=== PATIENT | female | born 1965 ===

== ENCOUNTER 2020-06-30 09:10 | Outpatient (REF) | payer OTHER, SELFPAY | END 2020-06-30 09:11 | disposition home or self-care (01) | LOC: HO.LAB 09:10 | PROVIDERS: Visit Provider Internal Medicine | DX: Z20.828 Contact with and (suspected) exposure to other viral communicable diseases (principal) | CPT/HCPCS: 87635 ==

== ENCOUNTER 2020-08-09 15:03 | Outpatient (REF) | payer OTHER, SELFPAY ==
--- NOTE | 2020-08-09 15:07 | US_ITS ---
EXAMINATION: US ABDOMEN LIMITED CLINICAL INFORMATION: Right upper quadrant pain. COMPARISON: None TECHNIQUE: Real-time imaging of the right upper quadrant abdominal viscera. FINDINGS: PANCREAS: Not well visualized LIVER: Not well visualized. Liver echotexture is increased probably representing fatty infiltration. The liver is enlarged, right lobe measuring 21.5 cm in length. No focal liver lesion or biliary duct dilatation is seen. GALLBLADDER: Not well visualized. No gallstones are seen. The gallbladder wall does not appear thickened. COMMON BILE DUCT: Normal in caliber measuring 0.5 cm in diameter. RIGHT KIDNEY: Not well visualized. No hydronephrosis. No renal calculi or focal parenchymal lesions. The kidney measures 12.5 cm in maximum dimension. FREE FLUID: None. US/US abdomen limited IMPRESSION: Limited exam. Enlarged echogenic liver probably representing fatty infiltration.
== END 2020-08-09 15:04 | disposition home or self-care (01) ==
LOC: HO.US 15:03
PROVIDERS: PCP Internal Medicine; Visit Provider Internal Medicine
DX: R10.11 Right upper quadrant pain (principal); R13.14 Dysphagia, pharyngoesophageal phase; K21.9 Gastro-esophageal reflux disease without esophagitis; D12.6 Benign neoplasm of colon, unspecified; Z86.19 Personal history of other infectious and parasitic diseases
CPT/HCPCS: 76705

== ENCOUNTER 2020-09-10 07:39 | Outpatient (REF) | payer OTHER, SELFPAY ==
[2020-09-10 08:25] LABS: MANUAL DIFF FLAG NO
[2020-09-10 08:26] LABS: Basophils Percent Auto 0.3 % (0-2); Eosinophils Absolute Auto 0.2 X10*3/uL (0.0-0.4); Eosinophils Percent Auto 1.5 % (0-4); Hemoglobin 13.7 g/dl (12.0-16.0); Imm Gran Abs Auto 0.06 X10*3/uL (0.00-0.03); Imm Gran Pct Auto 0.5 % (0.0-0.4); Lymphocytes Absolute Auto 2.6 X10*3/uL (1.2-4.9); Lymphocytes Percent Auto 21.9 % (20-40); Mean Corpuscular HGB Conc 31.1 g/dl (31.0-35.0); Mean Corpuscular Hemoglobin 27.9 pg (27.0-33.0); Mean Corpuscular Volume 89.6 fL (80-98); Mean Platelet Volume 10.6 fL (9.4-12.3); Monocytes Absolute Auto 0.7 X10*3/uL (0.1-1.2); Monocytes Percent Auto 5.7 % (2-11); Neutrophils Absolute Auto 8.2 X10*3/uL (2.0-8.3); Neutrophils Percent Auto 70.1 % (45-73); Platelet Count 346 X10*3/uL (160-400); Red Blood Count 4.91 X10*6/uL (4.20-5.50); Red Cell Distribution Width 13.6 % (11.0-16.0); White Blood Count 11.7 X10*3/uL (4.8-10.8)
[2020-09-10 08:48] LABS: Alanine Aminotransferase 29 U/L (0-31); Alkaline Phosphatase 102 U/L (39-117); Aspartate Amino Transferase 16 U/L (5-31); Bilirubin Direct < 0.2 mg/dL (0.0-0.5); Bilirubin Total 0.3 mg/dL (0.0-1.0); Lipase 6 U/L (8-78); Total Protein 7.3 g/dL (6.5-8.0)
== END 2020-09-10 07:40 | disposition home or self-care (01) ==
LOC: HO.LAB 07:39
PROVIDERS: Absent Provider Internal Medicine Gastroenterology; PCP Internal Medicine; Visit Provider Internal Medicine
DX: R10.11 Right upper quadrant pain (principal)
CPT/HCPCS: 36415; 80076; 83690; 85025

== ENCOUNTER → 2020-09-16 11:06 | Outpatient (BNVA) | payer OTHER, SELFPAY | PROVIDERS: PCP Internal Medicine; Visit Provider Internal Medicine Pulmonary Disease | DX: Z76.89 Persons encountering health services in other specified circumstances (principal) ==

== ENCOUNTER 2020-10-03 15:37 | Outpatient (REF) | payer OTHER, SELFPAY ==
--- NOTE | 2020-10-03 11:36 | PFT_ITS ---
Forced vital capacity and FEV1 are both moderately decreased. FEV1/FVC ratio is normal. XAY56-15 normal. MVV moderately reduced. Post bronchodilator therapy, there is no change. Total lung capacity and residual volume are both moderately decreased. Diffusion capacity is slightly decreased, but DL-VA is normal. CONCLUSION: Restrictive pulmonary disorder, moderately severe. No obstructive airway disorder. No response to bronchodilator therapy. Restrictive pulmonary disorder, probably due to morbid obesity. Clinical correlation recommended. Compared to the PFT result of 10/10/2018, the restrictive component is much more increased. Molina Elizabeth MD MSB/MODL / [id number]
== END 2020-10-03 15:38 | disposition home or self-care (01) ==
LOC: HO.RESP 15:37
PROVIDERS: PCP Internal Medicine; Visit Provider Internal Medicine Pulmonary Disease
DX: R05 Cough (principal)
CPT/HCPCS: 94060; 94727; 94729

== ENCOUNTER 2020-11-12 08:08 | Outpatient (REF) | payer OTHER, SELFPAY ==
--- NOTE | ~2020-11-12 | MM_ITS ---
EXAMINATION: MM SCREENING DIGITAL BREAST TOMOSYNTHESIS, BILATERAL CLINICAL INFORMATION: Screening. Asymptomatic. The lifetime risk of breast cancer based on the Tyrer-Cuzick Model is 7%. COMPARISON: Mammography: 11/07/2019, 11/01/2018 TECHNIQUE: Digital breast tomosynthesis is performed in both the craniocaudal and mediolateral oblique views along with computer-aided detection (CAD). Synthesized 2D images are generated from the tomosynthesis. Additional left MLO view is provided. FINDINGS: There are scattered areas of fibroglandular density (ACR BI-RADS breast composition Category b). There are no significant masses, abnormal calcifications, or other abnormalities. The axilla and skin contours are unremarkable. There are no significant changes from prior studies. MM/MM tomosynthesis screening BI IMPRESSION: No mammographic evidence of malignancy. ASSESSMENT: BI-RADS 1: Negative RECOMMENDATION: Routine annual mammography screening. This patient's information was entered into a reminder system with a target due date for their next mammogram.
== END 2020-11-12 08:09 | disposition home or self-care (01) ==
LOC: HO.MAMMO 08:08
PROVIDERS: PCP Internal Medicine; Visit Provider Internal Medicine
DX: Z12.31 Encounter for screening mammogram for malignant neoplasm of breast (principal)
CPT/HCPCS: 77063; 77067

== ENCOUNTER 2021-03-17 18:57 | Emergency (ER) | payer OTHER, SELFPAY ==
[2021-03-17 19:21] VITALS: BP 178/98; PULSE 90; RESP 22; TEMP 36.7; O2SAT 93; BMI 44.9
--- NOTE | 2021-03-17 20:49 | ED_ITS ---
HPI - Headache General Chief Complaint: Headache Stated Complaint: headache Time Seen by Provider: 03/17/21 20:39 Source: patient Mode of arrival: ambulatory Limitations: no limitations History of Present Illness HPI Narrative: Patient's history of headaches question migraine in the past complaining of headache and right-sided for last 3 days associated with nausea photosensitivity no fever no chills no neck pain Related Data Home Medications Medication Instructions Recorded Confirmed albuterol sulfate 90 mcg/actuation 2 puff INHALATION Q4-6H PRN 08/08/20 12/26/20 aerosol inhaler albuterol sulfate 90 mcg/actuation 2 puff INHALATION Q4-6H PRN 08/08/20 12/26/20 aerosol inhaler Previous Rx's Medication Instructions Recorded hydrochlorothiazide 12.5 mg tablet 12.5 mg PO DAILY 90 Days #90 tab 08/08/20 bisacodyl 5 mg tablet,delayed 5 mg PO BEDTIME 2 Days #2 tab 08/09/20 release peg 3350-electrolytes 236 240 ml PO Q10M #4000 ml 08/09/20 gram-22.74 gram-6.74 gram-5.86 gram solution polyethylene glycol 3350 17 17 g PO DAILY 7 Days #119 g 08/09/20 gram/dose oral powder atorvastatin 80 mg tablet 80 mg PO DAILY #90 tab 09/04/20 fluticasone 250 mcg-salmeterol 50 1 inh INHALATION BID 30 Days #1 ea 09/16/20 mcg/dose blistr powdr for inhalation omeprazole 20 mg capsule,delayed 40 mg PO BID 30 Days #120 cap 09/16/20 release diclofenac sodium 50 mg 50 mg PO BID #60 tab 12/01/20 tablet,delayed release gabapentin 100 mg capsule 100 mg PO BEDTIME 90 Days #90 cap 12/26/20 vtrfpxnwlr-dvzrtatqmwsdr-nakz 1 cap PO Q6H PRN #20 cap 03/17/21 [Fioricet] sumatriptan succinate [Imitrex] 50 mg PO Q2H PRN #10 tab 03/17/21 Allergies Allergy/AdvReac Type Severity Reaction Status Date / Time No Known Allergies Allergy Verified 12/26/20 18:21 [No Known Allergies*] Review of Systems Review of Systems: Yes all other systems are reviewed and are negative PMFSH Past Medical History Medical History Chronic cough Essential hypertension Mild asthma RANJIT (obstructive sleep apnea) Pure hypercholesterolemia Super obese Surgical History History of section History of colonoscopy History of tubal ligation Family History Family History Father Diabetes Hypertension Mother Hypertension Liver cancer Maternal Grandfather Throat cancer Paternal Grandmother Stomach cancer Social History Social History Alcohol intake: never Advance Directives: No Advance Directives Information Provided: Yes Patient : No Physical Exam Vital Signs: Vital Signs: Last Vital Signs Temp 98.9 F 03/17/21 20:59 Pulse 90 03/17/21 20:59 Resp 20 03/17/21 20:59 BP 174/100 H 03/17/21 20:59 Pulse Ox 92 03/17/21 20:59 Body Mass Index 44.9 Appearance: Alert. Oriented X3. No acute distress. Eyes: PERRLA, No Nystagmus ENT: Pharynx normal. Oral Mucosa moist Neck: Normal inspection. Neck supple. CVS: Normal heart rate and rhythm. Pulses normal. Respiratory: No respiratory distress. Equal air entry bilateral, no wheezing/rales/rhonchi Abdomen: Soft and nontender. Skin: Skin warm and dry. Normal skin color. Normal skin turgor. Extremities: No lower extremity edema. No calf tenderness Neuro: Oriented X 3. No motor deficit. No sensory deficit.No cerebellar signs , cranial nerves II-XII intact Course Course Course Narrative: Patient feeling much better after Imitrex headache is almost gone will discharge patient on Imitrex and Fioricet Discharge Plan Discharge Clinical Impression: Migraine Qualifiers: Migraine type: without aura Status migrainosus presence: without status migra inosus Intractability: not intractable Qualified Code(s): G43.009 - Migraine without aura, not intractable, without status migrainosus Patient Disposition: Home, Self-Care Instructions: Migraine Headache (ED) Additional Instructions: Take medication as prescribed Follow-up with PCP if not better Prescriptions: New sumatriptan succinate [Imitrex] 50 mg tablet 50 mg PO Q2H PRN (Reason: migraine headache) Qty: 10 RF: 0 [id number]-ramarximxdpgw-ruxe [Fioricet] 50-300-40 mg capsule 1 cap PO Q6H PRN (Reason: pain) Qty: 20 RF: 0 No Action atorvastatin 80 mg tablet 80 mg PO DAILY Qty: 90 RF: 6 diclofenac sodium 50 mg tablet,delayed release (DR/EC) 50 mg PO BID Qty: 60 RF: 3 gabapentin 100 mg capsule 100 mg PO BEDTIME 90 Days Qty: 90 RF: 0 albuterol sulfate 90 mcg/actuation HFA aerosol inhaler 2 puff inhalation Q4-6H PRNRF: 0 albuterol sulfate [Ventolin HFA] 90 mcg/actuation HFA aerosol inhaler 2 puff inhalation Q4-6H PRNRF: 0 hydrochlorothiazide 12.5 mg tablet 12.5 mg PO DAILY 90 Days Qty: 90 RF: 3 bisacodyl [Dulcolax (bisacodyl)] 5 mg tablet,delayed release (DR/EC) 5 mg PO BEDTIME 2 Days Qty: 2 RF: 0 peg 3350-electrolytes [Golytely] 236-22.74-6.74 -5.86 gram recon soln 240 ml PO Q10M Qty: 4000 RF: 0 polyethylene glycol 3350 [Miralax] 17 gram/dose powder 17 g PO DAILY 7 Days Qty: 119 RF: 0 fluticasone propion-salmeterol [Wixela Inhub] 250-50 mcg/dose blister with device 1 inh inhalation BID 30 Days Qty: 1 RF: 6 omeprazole 20 mg capsule,delayed release(DR/EC) 40 mg PO BID 30 Days Qty: 120 RF: 2
[2021-03-17 20:50] VITALS: BP 153/93; PULSE 88; RESP 15; TEMP 36.6; O2SAT 95
[2021-03-17 20:59] VITALS: BP 174/100; PULSE 90; RESP 20; TEMP 37.2; O2SAT 92
== END 2021-03-17 22:00 | disposition home or self-care (01) ==
PROVIDERS: Emergency Provider Internal Medicine; PCP Internal Medicine
DX: G43.009 Migraine without aura, not intractable, without status migrainosus (principal); I10 Essential (primary) hypertension; J45.909 Unspecified asthma, uncomplicated; Z79.899 Other long term (current) drug therapy
CPT/HCPCS: 96372; 99284; J3030

== ENCOUNTER 2021-03-25 08:20 | Outpatient (REF) | payer OTHER, SELFPAY ==
[2021-03-25 09:10] LABS: MANUAL DIFF FLAG NO
[2021-03-25 09:15] LABS: Basophils Percent Auto 0.2 % (0-2); Eosinophils Absolute Auto 0.2 X10*3/uL (0.0-0.4); Eosinophils Percent Auto 1.2 % (0-4); Hematocrit 43.8 % (37-47); Hemoglobin 13.4 g/dl (12.0-16.0); Imm Gran Abs Auto 0.06 X10*3/uL (0.00-0.03); Imm Gran Pct Auto 0.5 % (0.0-0.4); Lymphocytes Absolute Auto 2.9 X10*3/uL (1.2-4.9); Mean Corpuscular HGB Conc 30.6 g/dl (31.0-35.0); Mean Corpuscular Hemoglobin 27.3 pg (27.0-33.0); Mean Corpuscular Volume 89.4 fL (80-98); Mean Platelet Volume 10.9 fL (9.4-12.3); Monocytes Absolute Auto 0.7 X10*3/uL (0.1-1.2); Monocytes Percent Auto 5.2 % (2-11); Neutrophils Absolute Auto 9.2 X10*3/uL (2.0-8.3); Neutrophils Percent Auto 70.9 % (45-73); Platelet Count 363 X10*3/uL (160-400)
[2021-03-25 09:38] LABS: Alanine Aminotransferase 15 U/L (0-31); Albumin Level 4.1 g/dL (3.5-5.0); Alkaline Phosphatase 110 U/L (39-117); Anion Gap 14 (12-20); Aspartate Amino Transferase 12 U/L (5-31); Bilirubin Total 0.3 mg/dL (0.0-1.0); Blood Urea Nitrogen 11 mg/dL (9-16); Calcium 9.6 mg/dL (8.4-10.2); Carbon Dioxide 32 mmol/L (22-29); Chloride 99 mmol/L (96-108); Cholesterol 307 mg/dL; Estimated Glomerular Filt Rate > 60; Glucose Fasting 142 mg/dL (60-99); HDL Cholesterol 48 mg/dL; LDL Cholesterol Calculated 202 mg/dl; Potassium 5.1 mmol/L (3.3-5.1); Sodium 140 mmol/L (135-145); Total Protein 7.5 g/dL (6.5-8.0); Triglycerides 289 mg/dL
== END 2021-03-25 08:21 | disposition home or self-care (01) ==
LOC: HO.LAB 08:20
PROVIDERS: PCP Internal Medicine; Visit Provider Internal Medicine
DX: I10 Essential (primary) hypertension (principal); E78.5 Hyperlipidemia, unspecified; D64.9 Anemia, unspecified
CPT/HCPCS: 36415; 80053; 80061; 85025

== ENCOUNTER → 2021-05-09 15:09 | Outpatient (BNVA) | payer OTHER, SELFPAY | PROVIDERS: PCP Internal Medicine; Visit Provider Internal Medicine Pulmonary Disease ==

== ENCOUNTER 2021-05-12 18:41 | Outpatient (REF) | payer OTHER, SELFPAY ==
--- NOTE | ~2021-05-12 | MR_ITS ---
EXAMINATION: MR BRAIN WITHOUT CONTRAST CLINICAL INFORMATION: Headache. COMPARISON: CT head from 02/06/2016. TECHNIQUE: MRI of the brain was obtained using routine sequences without contrast. Limited exam. The exam was terminated prior to completion secondary to claustrophobia. FINDINGS: No focal restricted diffusion is demonstrated to suggest acute or subacute cerebral ischemia. The ventricles are normal in morphology and size. No demonstrated abnormal mass effect. No midline shift. Normal positioning of the cerebellar tonsils. Normal, homogeneous marrow signal. MR/MR head/brain wo con IMPRESSION: 1. Limited exam. Exam was terminated prior to completion secondary to claustrophobia. 2. No demonstrated abnormalities to explain the patient's symptoms on the limited evaluation.
== END 2021-05-12 18:42 | disposition home or self-care (01) ==
LOC: HO.MRI 18:41
PROVIDERS: PCP Internal Medicine; Visit Provider Internal Medicine
DX: R51.9 Headache, unspecified (principal)
CPT/HCPCS: 70551

== ENCOUNTER → 2021-05-25 15:05 | Outpatient (BNVA) | payer OTHER, SELFPAY | PROVIDERS: PCP Internal Medicine; Visit Provider Internal Medicine Pulmonary Disease ==

== ENCOUNTER → 2021-06-19 15:48 | Outpatient (REF) | payer OTHER, SELFPAY | LOC: HO.SL 15:48 | PROVIDERS: PCP Internal Medicine; Visit Provider Internal Medicine Pulmonary Disease | DX: G47.33 Obstructive sleep apnea (adult) (pediatric) (principal) | CPT/HCPCS: 95806 ==

== ENCOUNTER → 2021-07-05 16:01 | Outpatient (BNVA) | payer OTHER, SELFPAY | PROVIDERS: PCP Internal Medicine; Visit Provider Internal Medicine Pulmonary Disease ==

== ENCOUNTER 2021-08-17 13:34 | Observation (INO) | payer OTHER, SELFPAY ==
--- NOTE | ~2021-08-17 | XR_ITS ---
EXAMINATION: XR CHEST CLINICAL INFORMATION: Syncopal episode. COMPARISON: Multiple priors. Most recent chest radiograph dated from 01/02/2020. TECHNIQUE: PA view of the chest was obtained. FINDINGS: Normal appearance of the cardiomediastinal silhouette. Subtle platelike opacities in the lingula are stable and likely representing scarring. Otherwise, no focal airspace opacities, pleural effusions or pneumothorax. No acute osseous abnormalities. XR/XR chest 1V IMPRESSION: No acute cardiopulmonary findings.
--- NOTE | ~2021-08-17 | CT_ITS ---
EXAMINATION: CT CERVICAL SPINE WITHOUT CONTRAST CLINICAL INFORMATION: Syncopal episode and fall. COMPARISON: Radiograph of the cervical spine dated from 11/05/2017. TECHNIQUE: Axial, coronal and sagittal images of the cervical spine were obtained without the administration of intravenous contrast. This CT examination was performed using dose optimization techniques as appropriate, variously including the following: *Automated exposure control *Adjustment of mA and/or kV according to patient size (this includes techniques or standardized protocols for targeted exams where dose is matched to indication/reason for exam; i.e. extremities or head) *Use of iterative reconstruction technique DLP: 694 mGy-cm FINDINGS: The atlantooccipital and atlantoaxial articulations remain well aligned. Straightening of the normal cervical lordosis. Congenital nonfusion of the posterior arch of C1. Otherwise, there is anatomic alignment of the vertebral bodies and posterior elements. No evidence of acute fracture or subluxation. There is mild multilevel cervical spondylosis with disc space narrowing, anterior osteophytes and uncovertebral hypertrophy. There is no prevertebral soft tissue swelling. The thyroid gland and remaining cervical soft tissues are normal in appearance. The lung apices demonstrate no abnormalities. CT/CT cervical spine wo con IMPRESSION: No acute cervical fractures or malalignment.
--- NOTE | ~2021-08-17 | XR_ITS ---
EXAMINATION: XR SHOULDER, RIGHT CLINICAL INFORMATION: Syncopal episode and fall. COMPARISON: Multiple priors. Most recent chest radiograph dated from 01/02/2020. TECHNIQUE: Three views of the right shoulder. FINDINGS: No evidence of acute fractures or malalignment. The humeral head is well-seated in the glenoid. There are mild degenerative changes in the acromioclavicular joint. No suspicious soft tissue calcifications. The visualized right lung, clavicle and ribs are unremarkable. XR/XR shoulder RT min 2V IMPRESSION: No acute fractures or malalignment.
--- NOTE | ~2021-08-17 | CT_ITS ---
EXAMINATION: CT HEAD WITHOUT CONTRAST CLINICAL INFORMATION: Dizziness. COMPARISON: None TECHNIQUE: Contiguous axial imaging was performed from the skull base to vertex without intravenous administration of contrast. This CT examination was performed using dose optimization techniques as appropriate, variously including the following: *Automated exposure control *Adjustment of mA and/or kV according to patient size (this includes techniques or standardized protocols for targeted exams where dose is matched to indication/reason for exam; i.e. extremities or head) *Use of iterative reconstruction technique DLP: 874 mGy-cm FINDINGS: There is no evidence of acute intracranial hemorrhage or territorial infarction. No abnormal mass effect or midline shift is seen. [place] to white matter differentiation is well preserved. No extra-axial fluid collections are identified. The ventricles are normal in size. There is no abnormal attenuation within the brain parenchyma. The osseous structures and soft tissues are normal. The mastoid air cells and visualized portions of the paranasal sinuses are well aerated. CT/CT head/brain wo con IMPRESSION: No acute intracranial process.
[2021-08-17 14:01] VITALS: BP 196/97; PULSE 72; RESP 18; TEMP 36.8; O2SAT 94; BMI 43.2
--- NOTE | 2021-08-17 14:59 | ECG_ITS ---
Test Reason : SYNCOPE Blood Pressure : / mmHG Vent. Rate : 092 BPM Atrial Rate : 092 BPM P-R Int : 134 ms QRS Dur : 086 ms QT Int : 382 ms P-R-T Axes : 057 059 120 degrees QTc Int : 472 ms Normal sinus rhythm T wave abnormality, consider lateral ischemia Prolonged QT Abnormal ECG When compared with ECG of 12-JUL-2019 07:14, No significant change was found Referred By: Generic ED Physician Electronically Signed By:GAVIN TSE MD
--- NOTE | 2021-08-17 15:25 | PC.NURSE ---
ATTEMPTED TO CALL PATIENT INTO ED. NO ANSWER IN WAITING ROOM. HEEL SPR[facility]ER FIRST REPORTS THAT CT WAS COMPLETED.
[2021-08-17 17:12] VITALS: BP 178/93; PULSE 86; RESP 16; TEMP 36.6; O2SAT 96
--- NOTE | 2021-08-17 17:26 | ED_ITS ---
HPI - General Adult General Chief complaint: Fall Stated complaint: fell at work Time Seen by Provider: 08/17/21 14:31 Source: patient and family ( son) Mode of arrival: ambulatory Limitations: no limitations History of Present Illness HPI narrative: 56-year-old female brought in by her son for evaluation after passing out at her work. This happen today while patient at work at 12:30 p.m., patient was working with no symptoms patient passed out and lost consciousness fell down witnessed by other co-worker, lasted for about few minutes, patient declined any chest pain or shortness of breath, no weakness or numbness, patient is complaining of neck pain, right shoulder pain, mild headache. Patient has no chest pain. Never had this symptoms in the past, patient now feels better. Related Data Home Medications Medication Instructions Recorded Confirmed albuterol sulfate 90 mcg/actuation 2 puff INHALATION Q4-6H PRN 08/08/20 05/01/21 aerosol inhaler albuterol sulfate 90 mcg/actuation 2 puff INHALATION Q4-6H PRN 08/08/20 05/01/21 aerosol inhaler (Ventolin HFA) Previous Rx's Medication Instructions Recorded hydrochlorothiazide 12.5 mg tablet 12.5 mg PO DAILY 90 Days #90 tab 08/08/20 bisacodyl 5 mg tablet,delayed 5 mg PO BEDTIME 2 Days #2 tab 08/09/20 release (Dulcolax (bisacodyl)) peg 3350-electrolytes 236 240 ml PO Q10M #4000 ml 08/09/20 gram-22.74 gram-6.74 gram-5.86 gram solution (Golytely) polyethylene glycol 3350 17 17 g PO DAILY 7 Days #119 g 08/09/20 gram/dose oral powder (Miralax) atorvastatin 80 mg tablet 80 mg PO DAILY #90 tab 09/04/20 diclofenac sodium 50 mg 50 mg PO BID #60 tab 12/01/20 tablet,delayed release feshuzaohu-isiosjbhplfcb-aafypomg 1 cap PO Q6H PRN #20 cap 03/17/21 50 mg-300 mg-40 mg capsule (Fioricet) gabapentin 100 mg capsule 100 mg PO BEDTIME 90 Days #90 cap 04/01/21 ezetimibe 10 mg tablet 10 mg PO DAILY 90 Days #90 tab 05/01/21 metformin 500 mg tablet 500 mg PO DAILY 90 Days #90 tab 05/01/21 sertraline 25 mg tablet 25 mg PO DAILY 90 Days #90 tab 05/01/21 sumatriptan succinate 50 mg tablet 50 mg PO Q2H PRN 30 Days #9 tab 05/01/21 (Imitrex) fluticasone 250 mcg-salmeterol 50 1 inh INHALATION BID 30 Days #1 ea 05/09/21 mcg/dose blistr powdr for inhalation (Wixela Inhub) omeprazole 20 mg capsule,delayed 40 mg PO BID 30 Days #120 cap 07/05/21 release Allergies Allergy/AdvReac Type Severity Reaction Status Date / Time No Known Allergies Allergy Verified 05/09/21 15:10 [No Known Allergies*] Review of Systems Review of Systems: all other systems are reviewed and are negative Constitutional: Reports as per HPI and Reports no additional constitutional complaints Eyes: Reports as per HPI and Reports no additional eye complaints Reports system reviewed and no additional complaints, except as documented Cardiovascular: Reports as per HPI and Reports no additional cardiovascular complaints Respiratory: Reports as per HPI and Reports no additional respiratory complaints Gastrointestinal: Reports as per HPI and Reports no additional gastrointestinal complaints Genitourinary: Reports no additional female genitourinary complaints Musculoskeletal: Reports no additional musculoskeletal complaints Skin/Breast: Reports system reviewed and no additional complaints, except as docu Psychiatric: Reports no additional psychiatric complaints Endocrine: Reports no additional endocrine complaints Hematologic/Lymphatic: Reports no additional hematologic/lymphatic complaints Allergic/Immunologic: Reports no additional allergic/immunologic complaints Reports system reviewed and no additional complaints, except as documented and Reports Abnormal speech present REPLACED BY [facility] Past Medical History Medical History Chronic cough Diabetes mellitus Essential hypertension Headache Mild asthma Mild recurrent major depression RANJIT (obstructive sleep apnea) Pure hypercholesterolemia Super obese Surgical History History of section History of colonoscopy History of tubal ligation Family History Family History Father Diabetes Hypertension Mother Hypertension Liver cancer Maternal Grandfather Throat cancer Paternal Grandmother Stomach cancer Social History Social History Housing: House Alcohol intake: current Alcohol intake frequency: holidays/special occasions only Patient Tobacco Use Status: Never used Tobacco Advance Directives: No Advance Directives Information Provided: No Current occupational status: employed Physical Exam Vital Signs: Vital Signs: Last Vital Signs Temp 97.9 F 08/17/21 17:12 Pulse 86 08/17/21 17:12 Resp 16 08/17/21 17:12 BP 178/93 H 08/17/21 17:12 Pulse Ox 96 08/17/21 17:12 BMI result Body Mass Index 43.2 vital signs have been reviewed as appeared to be correct. Blood pressure elev ated. Heart rate normal. Respiration rate normal. Temperature normal. Oxygen saturation normal. Appearance: Alert. Oriented X3. No acute distress. Head: Normal external exam. Normocephalic. Atraumatic. No Valdes signs noted. No raccoon eyes noted Eyes: PERRLA. EOMI. Conjunctiva and sclera normal. Eyelids normal. ENT: TM's Normal. Pharynx normal. Uvula midline. Moist mucous membranes. No trismus noted. No drooling noted. No muffled voice noted. Neck: Normal inspection. Neck supple. FROM. No adenopathy. Thyroid Normal. No meningeal signs. No neck mass noted. CVS: Normal heart rate and rhythm. Heart sound normal. No murmurs noted. Pulses normal throughout. Respiratory: No respiratory distress. Painless inspiration. Breath sounds normal. No wheezes/rales/rhonchi noted. Chest nontender. No accessory muscle usage noted or decreased air movement noted. Abdomen: Soft and nontender. Bowel sounds normal in all 4 quadrants. No distention noted. No organomegaly noted. No visible injury noted. Back: No CVA tenderness. Full range of motion noted. Skin: Skin warm and dry. Normal skin color. Normal skin turgor. No rashes/lesions/lacerations noted. Extremities: No lower extremity edema. Extremities exhibit normal range of motion. Extremities nontender. Neuro: Oriented X 3. Cranial nerve exam: II-XII are grossly intact No motor deficit. No sensory deficit. Reflexes normal. Course Course Course Narrative: Assessment and plan. 56-year-old female came in after had syncopal episode at work in a patient declined any chest pain or difficulty breathing, patient had unremarkable workup in the emergency department, but will admit the patient for cardiac monitoring and syncope workup. Medical Decision Making Medical Records Medical records reviewed: Yes I reviewed the patient's medical records. Lab Data Lab results reviewed: Yes I reviewed the patient's lab results. Result diagrams: 08/17/21 18:48 08/17/21 18:48 Labs: Lab Results 08/17/21 08/17/21 08/17/21 Range/Units 18:48 18:48 18:48 WBC 13.2 H (4.8-10.8) X10*3/uL RBC 4.74 (4.20-5.50) X10*6/uL Hgb 13.2 (12.0-16.0) g/dl Hct 42.1 (37.0-47.0) % MCV 88.8 (80.0-98.0) fL MCH 27.8 (27.0-33.0) pg MCHC 31.4 (31.0-35.0) g/dl RDW 13.6 (11.0-16.0) % Plt Count 351 (160-400) X10*3/uL MPV 10.6 (9.4-12.3) fL Immature Gran % (Auto) 0.5 H (0.0-0.4) % Neut % (Auto) 67.0 (45-73) % Lymph % (Auto) 25.1 (20-40) % [place] % (Auto) 6.1 (2-11) % Eos % (Auto) 1.1 (0-4) % Baso % (Auto) 0.2 (0-2) % Lymph # (Auto) 3.3 (1.2-4.9) X10*3/uL [place] # (Auto) 0.8 (0.1-1.2) X10*3/uL Eos # (Auto) 0.1 (0.0-0.4) X10*3/uL Baso # (Auto) 0.0 (0.0-0.2) X10*3/uL Abs Immat Gran (auto) 0.06 H (0.00-0.03) X10*3/uL Absolute Neuts (auto) 8.9 H (2.0-8.3) x10*3/uL Absolute Nucleated RBC 0.000 (0.0-0.012) X10*3/uL Nucleated RBC % (auto) 0.0 (0.0-0.2) /100WBC Sodium 142 (135-145) mmol/L Potassium 4.5 (3.3-5.1) mmol/L Chloride 100 (96-108) mmol/L Carbon Dioxide 32 H (22-29) mmol/L Anion Gap 15 (12-20) BUN 12 (9-16) mg/dL Creatinine 0.76 (0.5-1.4) mg/dL Estim Creat Clear Calc 104.9 Estimated GFR > 60 Random Glucose 124 H (60-115) mg/dL Calcium 9.8 (8.4-10.2) mg/dL Total Bilirubin 0.4 (0.0-1.0) mg/dL Direct Bilirubin < 0.2 (0.0-0.5) mg/dL AST 16 (5-31) U/L ALT 26 (0-31) U/L Alkaline Phosphatase 116 (39-117) U/L Troponin I High Sens 5.4 (<3.5-17.0) ng/L B-Natriuretic Peptide (<100) pg/mL Total Protein 7.4 (6.5-8.0) g/dL Albumin 4.0 (3.5-5.0) g/dL Lipase 10 (8-78) U/L Urine Color Urine Appearance Urine pH (5.0-8.0) Ur Specific [place] (1.005-1.025) Urine Protein (NEG-TRACE) MG/DL Urine Glucose (UA) (NEG) MG/DL Urine Ketones (NEG) MG/DL Urine Blood (NEG) Urine Nitrite (NEG) Ur Leukocyte Esterase (NEG) Urine RBC (0) /HPF Urine WBC (0-4) /HPF Ur Squamous Epith Cells /LPF Urine Bacteria /LPF Urine Test (NEGATIVE) 08/17/21 08/17/21 08/17/21 Range/Units 18:48 18:48 18:48 WBC (4.8-10.8) X10*3/uL RBC (4.20-5.50) X10*6/uL Hgb (12.0-16.0) g/dl Hct (37.0-47.0) % MCV (80.0-98.0) fL MCH (27.0-33.0) pg MCHC (31.0-35.0) g/dl RDW (11.0-16.0) % Plt Count (160-400) X10*3/uL MPV (9.4-12.3) fL Immature Gran % (Auto) (0.0-0.4) % Neut % (Auto) (45-73) % Lymph % (Auto) (20-40) % [place] % (Auto) (2-11) % Eos % (Auto) (0-4) % Baso % (Auto) (0-2) % Lymph # (Auto) (1.2-4.9) X10*3/uL [place] # (Auto) (0.1-1.2) X10*3/uL Eos # (Auto) (0.0-0.4) X10*3/uL Baso # (Auto) (0.0-0.2) X10*3/uL Abs Immat Gran (auto) (0.00-0.03) X10*3/uL Absolute Neuts (auto) (2.0-8.3) x10*3/uL Absolute Nucleated RBC (0.0-0.012) X10*3/uL Nucleated RBC % (auto) (0.0-0.2) /100WBC Sodium (135-145) mmol/L Potassium (3.3-5.1) mmol/L Chloride (96-108) mmol/L Carbon Dioxide (22-29) mmol/L Anion Gap (12-20) BUN (9-16) mg/dL Creatinine (0.5-1.4) mg/dL Estim Creat Clear Calc Estimated GFR Random Glucose (60-115) mg/dL Calcium (8.4-10.2) mg/dL Total Bilirubin (0.0-1.0) mg/dL Direct Bilirubin (0.0-0.5) mg/dL AST (5-31) U/L ALT (0-31) U/L Alkaline Phosphatase (39-117) U/L Troponin I High Sens (<3.5-17.0) ng/L B-Natriuretic Peptide 24 (<100) pg/mL Total Protein (6.5-8.0) g/dL Albumin (3.5-5.0) g/dL Lipase (8-78) U/L Urine Color YELLOW Urine Appearance CLEAR Urine pH 5.5 (5.0-8.0) Ur Specific [place] 1.020 (1.005-1.025) Urine Protein TRACE (NEG-TRACE) MG/DL Urine Glucose (UA) NEG (NEG) MG/DL Urine Ketones NEG (NEG) MG/DL Urine Blood TRACE (NEG) Urine Nitrite NEG (NEG) Ur Leukocyte Esterase NEG (NEG) Urine RBC 0-2 (0) /HPF Urine WBC 0 (0-4) /HPF Ur Squamous Epith Cells 1+ /LPF Urine Bacteria 1+ /LPF Urine Test NEGATIVE (NEGATIVE) Imaging Data CT scan - head: Attestation: I personally reviewed and interpreted this imaging study as follows: Radiologist's impression: No acute intracranial process. Cervical CT: Attestation: I personally reviewed and interpreted this imaging study as follows: Radiologist's impression: no acute cervical fracture or malalignment. Right shoulder x-ray: Attestation: I personally reviewed and interpreted this imaging study as follows: Radiologist's impression: no acute fracture or malalignment. Chest x-ray: Radiologist's impression: No acute cardiopulmonary findings. ECG Data Attestation: I personally reviewed and interpreted this ECG as follows: Interpretation: Normal sinus rhythm at 92 beats per minute, normal axis deviation, normal intervals except for slight prolongation of QTC, no ST-T changes. Discharge Plan Discharge Clinical Impression: Syncope Patient Disposition: Admitted As Inpatient Prescriptions: No Action atorvastatin 80 mg tablet 80 mg PO DAILY Qty: 90 RF: 6 diclofenac sodium 50 mg tablet,delayed release (DR/EC) 50 mg PO BID Qty: 60 RF: 3 gabapentin 100 mg capsule 100 mg PO BEDTIME 90 Days Qty: 90 RF: 0 ztukcniltc-vhwvuufxndtwv-icac [Fioricet] 50-300-40 mg capsule 1 cap PO Q6H PRN (Reason: pain) Qty: 20 RF: 0 sumatriptan succinate [Imitrex] 50 mg tablet 50 mg PO Q2H PRN (Reason: migraine headache) 30 Days Qty: 9 RF: 1 sertraline 25 mg tablet 25 mg PO DAILY 90 Days Qty: 90 RF: 1 metformin 500 mg tablet 500 mg PO DAILY 90 Days Qty: 90 RF: 1 ezetimibe 10 mg tablet 10 mg PO DAILY 90 Days Qty: 90 RF: 1 albuterol sulfate 90 mcg/actuation HFA aerosol inhaler 2 puff inhalation Q4-6H PRNRF: 0 albuterol sulfate [Ventolin HFA] 90 mcg/actuation HFA aerosol inhaler 2 puff inhalation Q4-6H PRNRF: 0 hydrochlorothiazide 12.5 mg tablet 12.5 mg PO DAILY 90 Days Qty: 90 RF: 3 bisacodyl [Dulcolax (bisacodyl)] 5 mg tablet,delayed release (DR/EC) 5 mg PO BEDTIME 2 Days Qty: 2 RF: 0 peg 3350-electrolytes [Golytely] 236-22.74-6.74 -5.86 gram recon soln 240 ml PO Q10M Qty: 4000 RF: 0 polyethylene glycol 3350 [Miralax] 17 gram/dose powder 17 g PO DAILY 7 Days Qty: 119 RF: 0 fluticasone propion-salmeterol [Wixela Inhub] 250-50 mcg/dose blister with device 1 inh inhalation BID 30 Days Qty: 1 RF: 6 omeprazole 20 mg capsule,delayed release(DR/EC) 40 mg PO BID 30 Days Qty: 120 RF: 2
[2021-08-17 18:55] LABS: Appearance Urine CLEAR; Color Urine YELLOW; Glucose Urine UA NEG (NEG); Leukocyte Esterase Urine NEG (NEG); MANUAL DIFF FLAG NO; Nitrite Urine NEG (NEG); PH 5.5 (5.0-8.0); UACC Culture Trigger NO; Urine Blood TRACE (NEG); Urine Ketones NEG (NEG); Urine Protein TRACE MG/DL (NEG-TRACE)
[2021-08-17 18:56] LABS: Basophils Percent Auto 0.2 % (0-2); Eosinophils Absolute Auto 0.1 X10*3/uL (0.0-0.4); Eosinophils Percent Auto 1.1 % (0-4); Hematocrit 42.1 % (37.0-47.0); Hemoglobin 13.2 g/dl (12.0-16.0); Imm Gran Abs Auto 0.06 X10*3/uL (0.00-0.03); Imm Gran Pct Auto 0.5 % (0.0-0.4); Lymphocytes Absolute Auto 3.3 X10*3/uL (1.2-4.9); Lymphocytes Percent Auto 25.1 % (20-40); Mean Corpuscular HGB Conc 31.4 g/dl (31.0-35.0); Mean Corpuscular Hemoglobin 27.8 pg (27.0-33.0); Mean Corpuscular Volume 88.8 fL (80.0-98.0); Mean Platelet Volume 10.6 fL (9.4-12.3); Monocytes Absolute Auto 0.8 X10*3/uL (0.1-1.2); Monocytes Percent Auto 6.1 % (2-11); Neutrophils Absolute Auto 8.9 x10*3/uL (2.0-8.3); Platelet Count 351 X10*3/uL (160-400); Red Blood Count 4.74 X10*6/uL (4.20-5.50); Red Cell Distribution Width 13.6 % (11.0-16.0); White Blood Count 13.2 X10*3/uL (4.8-10.8)
[2021-08-17 18:57] LABS: UPreg QC Valid YES; Urine Pregnancy NEGATIVE (NEGATIVE)
[2021-08-17 19:07] LABS: Bacteria Urine 1+ /LPF; RBC Urine 0-2 /HPF (0); Squamous Epithelial Cell Urine 1+ /LPF; WBC Urine 0 /HPF (0-4)
[2021-08-17 19:20] LABS: Alanine Aminotransferase 26 U/L (0-31); Alkaline Phosphatase 116 U/L (39-117); Anion Gap 15 (12-20); Aspartate Amino Transferase 16 U/L (5-31); Bilirubin Direct < 0.2 mg/dL (0.0-0.5); Bilirubin Total 0.4 mg/dL (0.0-1.0); Blood Urea Nitrogen 12 mg/dL (9-16); Calcium 9.8 mg/dL (8.4-10.2); Carbon Dioxide 32 mmol/L (22-29); Chloride 100 mmol/L (96-108); Creatinine Clr Calc Pharmacy 104.9; Estimated Glomerular Filt Rate > 60; Glucose Random 124 mg/dL (60-115); Lipase 10 U/L (8-78); Potassium 4.5 mmol/L (3.3-5.1); Sodium 142 mmol/L (135-145); Total Protein 7.4 g/dL (6.5-8.0)
[2021-08-17 19:26] LABS: B Type Natriuretic Peptide 24 pg/mL (<100); Troponin-I High Sensitivity 5.4 ng/L (<3.5-17.0)
[2021-08-17 19:59] VITALS: BP 174/88; PULSE 86
[2021-08-17 20:00] VITALS: BP 191/104; PULSE 92
[2021-08-17 20:01] VITALS: BP 204/102; PULSE 92
[2021-08-17 20:02] VITALS: BP 184/93; PULSE 92; RESP 20; O2SAT 94
--- NOTE | 2021-08-17 20:51 | PHA.MEDREC ---
Pharmacy Consult ? Medication Reconciliation Pharmacy has completed the medication reconciliation. Per patient, they are supposed to be on atorvastatin and zetia, which is confirmed by MD note. However, patient has never filled zetia, and last filled atorvastatin in September (should have ended December) Thanks Ed
--- NOTE | 2021-08-17 21:17 | P.HPHOSP_ITS ---
History of Present Illness Date of Service: 08/17/21 Chief Complaint: syncope This is a 56-year-old female with past medical history of hypertension, prediabetes, GERD, asthma who presents to the hospital with complaints of loss of consciousness. 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 She denies any prodromal symptoms including no dizziness, no chest pain, no palpitations, no change in vision, no headache, and no postictal symptoms. at this time pt has no symtpms except reporting a developing headache. but has no other symptoms at thios time. on arrival to the ED pt hypodermically stable except for BP of 196/97 and HR of 102 labs are significant for WBC of 13.2, otherwise unremarkable. UA -ve, chest xray negative, head and cervical spine negative. EKG shows NSR, with a Qt of 472, non-specific T wave abnormality pt will be admitted of observation Review of Systems Review of Systems: Yes all other systems are reviewed and are negative [facility] Medical History Chronic cough Diabetes mellitus Essential hypertension Headache Mild asthma Mild recurrent major depression RANJIT (obstructive sleep apnea) Pure hypercholesterolemia Super obese Family History Father Diabetes Hypertension Mother Hypertension Liver cancer Maternal Grandfather Throat cancer Paternal Grandmother Stomach cancer Surgical History History of section History of colonoscopy History of tubal ligation Social History Housing: House Alcohol intake: current Alcohol intake frequency: holidays/special occasions only Patient Tobacco Use Status: Never used Tobacco Advance Directives: No Advance Directives Information Provided: No Current occupational status: employed Meds Allergies Allergy/AdvReac Type Severity Reaction Status Date / Time No Known Allergies Allergy Verified 05/09/21 15:10 [No Known Allergies*] Active Medications: Current Medications Pharmacy Consult (Consult Rx Perform Med Rec) 1 each MISCELLANE ONCE PRN PRN Reason: Consult order Home Medications Medication Instructions Recorded Confirmed Last Taken Type albuterol sulfate 90 mcg/actuation 2 puff INHALATION Q4-6H PRN 08/08/20 08/17/21 Unknown History aerosol inhaler Physical Exam Vital Signs and Narrative: Vital Signs: Last Vital Signs Temp 97.9 F 08/17/21 17:12 Pulse 92 08/17/21 20:02 Resp 20 08/17/21 20:02 BP 184/93 H 08/17/21 20:02 Pulse Ox 94 08/17/21 20:02 BMI result Body Mass Index 43.2 Const: General: cooperative and no acute distress Orientation/c onsciousness: patient oriented x3 Eyes: General: appearance normal, both eyes and all related structures Pupils: Equal, round and reactive pupils present Resp: Effort & Inspection: normal respiratory effort Auscultation: clear to auscultation bilaterally Cardio: Rate: regular rate Rhythm: regular rhythm GI: Palpation (GI): Soft to palpation Auscultation: normal bowel sounds Skin: General skin exam: no rashes or lesions noted Neuro: Other: no neurological deficit General: patient oriented x3 Cranial nerves: Yes Equal, round and reactive pupils present Cognition (Neuro): normal cognition Extrem: General: Yes normal to inspection and Yes no pedal edema Results Labs CBC and Chem 7: 08/17/21 18:48 08/17/21 18:48 Labs: Laboratory Results - last 24 hr 08/17/21 08/17/21 08/17/21 18:48 18:48 18:48 MCV 88.8 MCH 27.8 MCHC 31.4 RDW 13.6 Plt Count 351 MPV 10.6 Immature Gran % (Auto) 0.5 H Neut % (Auto) 67.0 Lymph % (Auto) 25.1 [place] % (Auto) 6.1 Eos % (Auto) 1.1 Baso % (Auto) 0.2 Lymph # (Auto) 3.3 [place] # (Auto) 0.8 Eos # (Auto) 0.1 Baso # (Auto) 0.0 Abs Immat Gran (auto) 0.06 H Absolute Neuts (auto) 8.9 H Absolute Nucleated RBC 0.000 Nucleated RBC % (auto) 0.0 Anion Gap 15 Estim Creat Clear Calc 104.9 Estimated GFR > 60 Random Glucose 124 H Calcium 9.8 Total Bilirubin 0.4 Direct Bilirubin < 0.2 AST 16 ALT 26 Alkaline Phosphatase 116 Troponin I High Sens 5.4 B-Natriuretic Peptide Total Protein 7.4 Albumin 4.0 Lipase 10 Urine Color Urine Appearance Urine pH Ur Specific [place] Urine Protein Urine Glucose (UA) Urine Ketones Urine Blood Urine Nitrite Ur Leukocyte Esterase Urine RBC Urine WBC Ur Squamous Epith Cells Urine Bacteria Urine Test 08/17/21 08/17/21 08/17/21 18:48 18:48 18:48 MCV MCH MCHC RDW Plt Count MPV Immature Gran % (Auto) Neut % (Auto) Lymph % (Auto) [place] % (Auto) Eos % (Auto) Baso % (Auto) Lymph # (Auto) [place] # (Auto) Eos # (Auto) Baso # (Auto) Abs Immat Gran (auto) Absolute Neuts (auto) Absolute Nucleated RBC Nucleated RBC % (auto) Anion Gap Estim Creat Clear Calc Estimated GFR Random Glucose Calcium Total Bilirubin Direct Bilirubin AST ALT Alkaline Phosphatase Troponin I High Sens B-Natriuretic Peptide 24 Total Protein Albumin Lipase Urine Color YELLOW Urine Appearance CLEAR Urine pH 5.5 Ur Specific [place] 1.020 Urine Protein TRACE Urine Glucose (UA) NEG Urine Ketones NEG Urine Blood TRACE Urine Nitrite NEG Ur Leukocyte Esterase NEG Urine RBC 0-2 Urine WBC 0 Ur Squamous Epith Cells 1+ Urine Bacteria 1+ Urine Test NEGATIVE Imaging Radiologist's Impressions: Impressions Head CT 08/17/21 15:26 IMPRESSION: No acute intracranial process. Chest X-Ray 08/17/21 17:35 IMPRESSION: No acute cardiopulmonary findings. Shoulder X-Ray 08/17/21 17:35 IMPRESSION: No acute fractures or malalignment. Cervical Spine CT 08/17/21 18:47 IMPRESSION: No acute cervical fractures or malalignment. Assessment and Plan (1) Syncope: Status: Acute (2) Hypertensive urgency: Status: Acute 56 yo M with pmhx of hypertension, pre-diabetes, who presents to the hospital with complaints of syncopal episode # syncope - possibly cardiogenic vs vasovagel - no ekg changes except for prolonged Qt which may have contributed to the syncopal episode - will admit for observation on telemetry - will obtain magnesium level - echocardiogram # hypertensive urgency - BP elevated - on HCTZ- will resume and give one dose of hydralazine - follow BP # Asthma - not in exacerbation - continue inhalers # Prediabetes - LDSSI - Diabetic diet - POC QIDAC DVT ppx: lovenox Quality Stroke Does the patient have a stroke diagnosis?: No VTE Prior VTE?: No VTE Risk Level:: Medical - moderate - high VTE Device Contraindication: Treatment Not Indicated VTE Drug Contraindication: N/A - Med Ordered
[2021-08-17] MEDS: Enoxaparin Sodium 40 MG/0.4 ML SYRINGE SUBCUT (21:46)
[2021-08-17] MEDS: Gabapentin 100 MG CAPSULE PO (21:46)
[2021-08-17 22:26] LABS: COVID-19 Test Negative (Negative); IDNOW Serial# 9DD0AD1C
[2021-08-17 22:46] LABS: Magnesium 1.8 mg/dL (1.6-2.6)
[2021-08-18] VITALS (12 sets, daily range): BP systolic 134–189; BP diastolic 69–105; PULSE 72–99; RESP 14–27; TEMP 36.7; O2SAT 92–98
--- NOTE | 2021-08-18 00:05 | PC.NURSE ---
Assumed care of pt without report Pt ambulated to bathroom. Gait even and steady Pt SOB with ambulation. Pt denies using O2 at home but states I should be using oxygen but it's not ready yet. Hx of COPD Pt back on bed and placed on monitor Afebrile Pt c/o pain on RT shoulder and RT side of head. Per pt, this is where I fell. Dr. Neri made aware of pt's BP. Awaiting orders
[2021-08-18 01:16] LABS: Glucose, Whole Blood 145 mg/dL (60-115)
--- NOTE | 2021-08-18 01:26 | PC.NURSE ---
Checked pt blood sugar 145 per MARY CARMEN Chase.
[2021-08-18] MEDS: hydroCHLOROthiazide 12.5 MG TABLET PO ×2 (01:45→10:28)
[2021-08-18] MEDS: hydrALAZINE HCl 20 MG/ML VIAL 5 MG IVPUSH (01:46)
[2021-08-18] MEDS: 0.9 % Sodium Chloride Flush 3 ML SYRINGE IVFLUSH (01:48)
--- NOTE | 2021-08-18 02:42 | PC.NURSE ---
Pt medicated per MAR Pt tolerated well Will continue to monitor
[2021-08-18] MEDS: Omeprazole 40 MG CAPSULE.DR PO ×2 (06:28→16:25)
[2021-08-18 07:30] LABS: MANUAL DIFF FLAG NO
[2021-08-18 07:35] LABS: Basophils Percent Auto 0.2 % (0-2); Eosinophils Absolute Auto 0.1 X10*3/uL (0.0-0.4); Eosinophils Percent Auto 0.6 % (0-4); Hematocrit 42.9 % (37.0-47.0); Hemoglobin 13.3 g/dl (12.0-16.0); Imm Gran Abs Auto 0.06 X10*3/uL (0.00-0.03); Imm Gran Pct Auto 0.5 % (0.0-0.4); Lymphocytes Absolute Auto 1.7 X10*3/uL (1.2-4.9); Mean Corpuscular Hemoglobin 27.5 pg (27.0-33.0); Mean Corpuscular Volume 88.8 fL (80.0-98.0); Mean Platelet Volume 10.4 fL (9.4-12.3); Monocytes Absolute Auto 0.6 X10*3/uL (0.1-1.2); Monocytes Percent Auto 4.8 % (2-11); Neutrophils Absolute Auto 10.7 x10*3/uL (2.0-8.3); Neutrophils Percent Auto 80.9 % (45-73); Platelet Count 364 X10*3/uL (160-400); Red Blood Count 4.83 X10*6/uL (4.20-5.50); Red Cell Distribution Width 13.7 % (11.0-16.0); White Blood Count 13.3 X10*3/uL (4.8-10.8)
[2021-08-18 07:47] LABS: Anion Gap 12 (12-20); Blood Urea Nitrogen 9 mg/dL (9-16); Calcium 9.3 mg/dL (8.4-10.2); Carbon Dioxide 34 mmol/L (22-29); Chloride 98 mmol/L (96-108); Creatinine Clr Calc Pharmacy 102.2; Estimated Glomerular Filt Rate > 60; Glucose Random 168 mg/dL (60-115); Potassium 4.6 mmol/L (3.3-5.1); Sodium 139 mmol/L (135-145)
[2021-08-18 08:07] LABS: Glucose, Whole Blood 140 mg/dL (60-115)
--- NOTE | 2021-08-18 08:27 | HO.PM.IMPN ---
Subjective Subjective Date of Service: 08/21/21 Interval History: htn urgency , syncope Review of Systems anxious , somewhat sob Denies any chest pain or abdominal pain or fever or chills or weakness or numbness or blurry vision. Physical Exam Vital Signs: Vital Signs: Last Vital Signs Temp 97.9 F 08/17/21 17:12 Pulse 99 08/18/21 05:50 Resp 26 H 08/18/21 05:50 BP 161/80 H 08/18/21 05:50 Pulse Ox 98 08/18/21 05:50 BMI result Body Mass Index 43.2 Physical exam: Appearance: Alert.? Oriented X3.? ? Eyes: Pupils equal, round and reactive to light.? Sclera nonicteric.? ENT: Pharynx normal.? Moist mucous membranes. cvs: rrr, [id number] , no murmur res: ,no rhonchii or wheezing abd: no rebound or guarding ,nt, bs present. ext pulses present , no cyanosis ,Gait well balanced well coordinated. neuro: axo3 , nonfocal. Objective Data Active Medications Acetaminophen (Acetaminophen 325 Mg Tablet) 650 mg PO Q6H PRN PRN Reason: Pain, Mild (Pain Scale 1-3) Albuterol Sulfate (Albuterol Sulfate 90 Mcg 8 Gm Inhaler) 2 puff INHALE Q4H PRN PRN Reason: Wheezing Atorvastatin Calcium (Atorvastatin Calcium 80 Mg Tablet) 80 mg PO BEDTIME [facility] Docusate Sodium (Docusate Sodium 100 Mg Capsule) 100 mg PO DAILY PRN PRN Reason: Constipation Ezetimibe (Ezetimibe 10 Mg Tablet) 10 mg PO DAILY [facility] Enoxaparin Sodium (Enoxaparin Sodium 40 Mg/0.4 Ml Syringe) 40 mg SUBCUT Q24H [facility] Last Admin: 08/17/21 21:46 Dose: 40 mg Documented by: DIEGO Fluticasone/Vilanterol (Fluticasone/Vilanterol 100/25 Blst.W.Dev) 1 puff INHALE RDAILY [facility] Last Admin: 08/18/21 08:04 Dose: Not Given Documented by: TAYLOR Non-Admin Reason: Med Not Available Gabapentin (Gabapentin 100 Mg Capsule) 100 mg PO BEDTIME [facility] Last Admin: 08/17/21 21:46 Dose: 100 mg Documented by: DIEGO Hydrochlorothiazide (Hydrochlorothiazide 12.5 Mg Tablet) 12.5 mg PO DAILY [facility]; Protocol Last Admin: 08/18/21 01:54 Dose: Not Given Documented by: SAMARA Non-Admin Reason: Previously Administered Lisinopril (Lisinopril 5 Mg Tablet) 5 mg PO DAILY [facility]; Protocol Omeprazole (Omeprazole 40 Mg Capsule.Dr) 40 mg PO BID@0630,1630 [facility] Last Admin: 08/18/21 06:28 Dose: 40 mg Documented by: SAMARA Ondansetron HCl (Ondansetron Hcl 4 Mg/2 Ml Vial) 4 mg IVPUSH Q8H PRN PRN Reason: Nausea and Vomiting Pharmacy Consult (Consult Rx Perform Med Rec) 1 each MISCELLANE ONCE PRN PRN Reason: Consult order Sertraline HCl (Sertraline Hcl 25 Mg Tablet) 25 mg PO DAILY [facility] Sodium Chloride (0.9 % Sodium Chloride Flush 3 Ml Syringe) 3 ml IVFLUSH QSHIFT [facility] Last Admin: 08/18/21 07:33 Dose: Not Given Documented by: SHEN Non-Admin Reason: Med Not Available Labs CBC & Chem 7: 08/18/21 07:23 08/19/21 08:13 Labs: Laboratory Results - last 24 hr 08/17/21 08/17/21 08/17/21 18:48 18:48 18:48 MCV 88.8 MCH 27.8 MCHC 31.4 RDW 13.6 Plt Count 351 MPV 10.6 Immature Gran % (Auto) 0.5 H Neut % (Auto) 67.0 Lymph % (Auto) 25.1 [place] % (Auto) 6.1 Eos % (Auto) 1.1 Baso % (Auto) 0.2 Lymph # (Auto) 3.3 [place] # (Auto) 0.8 Eos # (Auto) 0.1 Baso # (Auto) 0.0 Abs Immat Gran (auto) 0.06 H Absolute Neuts (auto) 8.9 H Absolute Nucleated RBC 0.000 Nucleated RBC % (auto) 0.0 Anion Gap 15 Estim Creat Clear Calc 104.9 Estimated GFR > 60 POC Glucose Random Glucose 124 H Calcium 9.8 Magnesium 1.8 Total Bilirubin 0.4 Direct Bilirubin < 0.2 AST 16 ALT 26 Alkaline Phosphatase 116 Troponin I High Sens 5.4 B-Natriuretic Peptide Total Protein 7.4 Albumin 4.0 Lipase 10 Urine Color Urine Appearance Urine pH Ur Specific [place] Urine Protein Urine Glucose (UA) Urine Ketones Urine Blood Urine Nitrite Ur Leukocyte Esterase Urine RBC Urine WBC Ur Squamous Epith Cells Urine Bacteria Urine Test COVID-19 (JENNA) COVID-19 Clin Com 08/17/21 08/17/21 08/17/21 18:48 18:48 18:48 MCV MCH MCHC RDW Plt Count MPV Immature Gran % (Auto) Neut % (Auto) Lymph % (Auto) [place] % (Auto) Eos % (Auto) Baso % (Auto) Lymph # (Auto) [place] # (Auto) Eos # (Auto) Baso # (Auto) Abs Immat Gran (auto) Absolute Neuts (auto) Absolute Nucleated RBC Nucleated RBC % (auto) Anion Gap Estim Creat Clear Calc Estimated GFR POC Glucose Random Glucose Calcium Magnesium Total Bilirubin Direct Bilirubin AST ALT Alkaline Phosphatase Troponin I High Sens B-Natriuretic Peptide 24 Total Protein Albumin Lipase Urine Color YELLOW Urine Appearance CLEAR Urine pH 5.5 Ur Specific [place] 1.020 Urine Protein TRACE Urine Glucose (UA) NEG Urine Ketones NEG Urine Blood TRACE Urine Nitrite NEG Ur Leukocyte Esterase NEG Urine RBC 0-2 Urine WBC 0 Ur Squamous Epith Cells 1+ Urine Bacteria 1+ Urine Test NEGATIVE COVID-19 (JENNA) COVID-19 Clin Com 08/17/21 08/18/21 08/18/21 21:52 01:11 07:23 MCV 88.8 MCH 27.5 MCHC 31.0 RDW 13.7 Plt Count 364 MPV 10.4 Immature Gran % (Auto) 0.5 H Neut % (Auto) 80.9 H Lymph % (Auto) 13.0 L [place] % (Auto) 4.8 Eos % (Auto) 0.6 Baso % (Auto) 0.2 Lymph # (Auto) 1.7 [place] # (Auto) 0.6 Eos # (Auto) 0.1 Baso # (Auto) 0.0 Abs Immat Gran (auto) 0.06 H Absolute Neuts (auto) 10.7 H Absolute Nucleated RBC 0.000 Nucleated RBC % (auto) 0.0 Anion Gap Estim Creat Clear Calc Estimated GFR POC Glucose 145 H Random Glucose Calcium Magnesium Total Bilirubin Direct Bilirubin AST ALT Alkaline Phosphatase Troponin I High Sens B-Natriuretic Peptide Total Protein Albumin Lipase Urine Color Urine Appearance Urine pH Ur Specific [place] Urine Protein Urine Glucose (UA) Urine Ketones Urine Blood Urine Nitrite Ur Leukocyte Esterase Urine RBC Urine WBC Ur Squamous Epith Cells Urine Bacteria Urine Test COVID-19 (JENNA) Negative COVID-19 [facility] Com See Note 08/18/21 08/18/21 07:23 08:04 MCV MCH MCHC RDW Plt Count MPV Immature Gran % (Auto) Neut % (Auto) Lymph % (Auto) [place] % (Auto) Eos % (Auto) Baso % (Auto) Lymph # (Auto) [place] # (Auto) Eos # (Auto) Baso # (Auto) Abs Immat Gran (auto) Absolute Neuts (auto) Absolute Nucleated RBC Nucleated RBC % (auto) Anion Gap 12 Estim Creat Clear Calc 102.2 Estimated GFR > 60 POC Glucose 140 H Random Glucose 168 H Calcium 9.3 Magnesium Total Bilirubin Direct Bilirubin AST ALT Alkaline Phosphatase Troponin I High Sens B-Natriuretic Peptide Total Protein Albumin Lipase Urine Color Urine Appearance Urine pH Ur Specific [place] Urine Protein Urine Glucose (UA) Urine Ketones Urine Blood Urine Nitrite Ur Leukocyte Esterase Urine RBC Urine WBC Ur Squamous Epith Cells Urine Bacteria Urine Test COVID-19 (JENNA) COVID-19 [employer] Assessment and Plan (1) Syncope: Status: Acute (2) Asthma: Status: Acute Assessment and Plan: 56 yo M with pmhx of hypertension, pre-diabetes, who presents to the hospital with complaints of syncopal episode 1. syncope- possibly cardiogenic vs vasovagel magnesium level 1.8 , repeated 1.8 ddimer 166 echocardiogram-Normal left ventricular size and systolic function. There is mildly increased left ventricular wall thickness.? The visually estimated ejection fraction is between 60-65%.? Spectral Doppler is indicative of a normal filling pattern. cardio eval 2. hypertensive urgency - BP elevated - on HCTZ- will resume and give one dose of hydralazine - follow BP 3. Asthma: sob-question anxiety also contributing will add nebs , will add steriods if needed ,incentive sprio and chest physio 4. dm: on metformin at home - LDSSI - Diabetic diet - POC QIDAC DVT ppx: lovenox Quality Stroke Does the patient have a stroke diagnosis?: No VTE Prior VTE?: No VTE Risk Level:: Medical - moderate - high VTE Device Contraindication: Treatment Not Indicated VTE Drug Contraindication: N/A - Med Ordered
--- NOTE | 2021-08-18 09:30 | CA_ITS ---
Transthoracic Echocardiogram Patient (Last, First, Middle): Rema Gonzalez, Gender: Female Date of : 1965 Age: 56 Procedure Date: 08/18/2021 Procedure Type: Transthoracic Echocardiogram Location: ER Height: 165.1 cm Weight: 117.94 kg BSA: 2.21 m2 Heart Rate: bpm BP: 161 / 80 mmHg Cardiac Cath Rn: LAURIE Referring MD: Jake Neri MD Symptoms: Syncope Study Quality: Technically Difficult/Contrast Conclusions: - 1. Technically limited study despite use of definity Contrast 2. LV systolic function appears to be normal with LVEF of 60 65% with mild LVH 3. Limited visualization of cardiac valves with normal cardiac valvular Doppler Findings Procedure Information Contrast agent, definity, is being given per protocol without apparent complications. Left Ventricle Normal left ventricular size and systolic function. There is mildly increased left ventricular wall thickness. The visually estimated ejection fraction is between 60-65%. Spectral Doppler is indicative of a normal filling pattern. Right Ventricle The right ventricle was not well visualized. Atria The left atrium is normal in size. Interatrial shunt cannot be excluded. The right atrium was not well visualized. Aortic Valve The aortic valve was not well visualized. There is no aortic valve stenosis. There is no aortic valve regurgitation. Mitral Valve The mitral valve was not well visualized. There is mild mitral annular calcification. There is trace mitral valve regurgitation. There is no mitral valve stenosis. Pulmonic Valve The pulmonic valve was not well visualized. Tricuspid Valve The tricuspid valve was not well visualized. Tricuspid regurgitation envelope is inadequate for calculation of right ventricular systolic pressure. Great Vessels The aorta was not well visualized. The pulmonary artery was not well visualized. Venous The inferior vena cava is normal in size and collapses greater than 50% with inspiration. Pericardium/Pleural The pericardium was not well visualized. Prior Study Comparison No prior study available for comparison. Measurements 2D Linear Measurements IVSd: 1.21 0.6-0.9/0.6-1.0 cm LVIDd: 4.71 3.9-5.3/4.2-5.9 cm LVIDd Index: 2.13 2.4-3.2/2.2-3.1 cm/m2 LVIDs: 3.12 2.0-3.6 cm LVPWd: 1.15 0.7-1.1 cm Ao Root: 3.50 2.1-3.5 cm LA Diam: 3.10 2.7-3.8/3.0-4.0 cm LAIDs Index: 1.40 1.5-2.3 cm/m2 LV Mass: 249.58 67-162/88-224 g LV Mass Index: 112.93 43-95/49-115 g/m2 LVOT Diam: 2.00 3.0+(-)1.3 cm Mitral Valve MV Pk E: 0.90 MV PK A: 0.78 MV Decel Time: 156.00 E/A: 1.10 E'Lateral: 7.94 E'Medial: 6.64 E/E' Med: 13.50 E/E' Lat: 11.30 PHT: 46.00 MVA PHT: 4.78 Decel [place]: 5.74 Aortic Valve AoV Pk Roel: 1.46 AoV Mn Roel: 1.03 AoV VTI: 0.27 AoV Pk Grad: 9.00 Aov Mn Grad: 5.00 SHAWN Cont.VTI: 2.53 LVOT LVOT Pk Roel: 1.17 LVOT Mn Roel: 0.79 LVOT VTI: 0.22 LVOT Pk Grad: 5.00 LVOT Mn Grad: 3.00 LVOT Diam: 2.00 LVOT Area: 3.14 Diastolic Function MV Pk E: 0.90 MV Pk A: 0.78 E/A: 1.10 E'Medial: 6.64 E/E' Med: 13.50 E' Laterial: 7.94 E/E' Lat: 11.30 Right Ventricle TAPSE (mm): 2.34 TVS' Roel: 12.40 Tricuspid Valve TR Pk Roel: 1.52 TR Pk Grad: 9.00 Great Vessels Aorta Ao Root-2D: 3.50 2.0-3.7 cm Ao Asc: 3.00 2.1-3.4 cm Ao Arch: 3.20 Updated in Other Vendor System with Status of Final Jerry Kelly MD electronically signed on 08/18/2021 1:32:37 PM with status of Final
[2021-08-18] MEDS: Sertraline HCL 25 MG TABLET PO (09:50)
[2021-08-18] MEDS: lisinopriL 5 MG TABLET PO (09:51)
--- NOTE | 2021-08-18 09:54 | PC.NURSE ---
Pt received from mine shifter: Pt AOx4, with no noted neuro deficits. Pt noted be mild-mod SOB with movement. 2L N/C intact. NSR and dimished lung sounds Abd rounded and non-tender.
--- NOTE | 2021-08-18 10:10 | MHC.CM.PN ---
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 D/C PLAN: HOME SELF-CARE, FAMILY FOR TRANSPORT.
[2021-08-18] MEDS: Ezetimibe 10 MG TABLET PO (10:27)
[2021-08-18 12:14] LABS: D Dimer High Sensitivity 166 NG/ML
[2021-08-18] MEDS: LORazepam 2 MG/ML VIAL 0.5 MG IVPUSH (12:35)
[2021-08-18 13:26] LABS: Magnesium 1.8 mg/dL (1.6-2.6)
[2021-08-18] MEDS: amLODIPine Besylate 5 MG TABLET PO (14:21)
--- NOTE | 2021-08-18 14:47 | PM.CNCAR ---
History of Present Illness History of Present Illness Date of Service: 08/18/21 Requesting physician: Iam Johnson Consult reason: hypertension and other (Syncope) Chief complaint: Syncope, hypertensive urgency Narrative: I was requested to see Rema in cardiology consultation today because of loss of consciousness and now noted to have significantly elevated blood pressure. She is a pleasant 56-year-old woman who says was at work yesterday and was standing up and then lost consciousness as per her coworkers. She says she felt like she was going down but does not recall much of the event. She had no preceding lightheadedness, nausea, vomiting, palpitations, chest pain or shortness of breath. was then call to the office and patient was brought to the hospital by the . She has had no similar symptoms in the past. She was recently diagnosed with sleep apnea. She has had labile blood pressure. When she came issues noted to be significantly hypertensive. EKGs have shown no significant ST changes. Her initial troponin was within normal limits. The was sought because of syncopal episode. However patient appears to be very short of breath talking to me. Denies any orthopnea, PND of recent onset. No chest pain. D-dimer was therefore drawn which is within normal limits. Echocardiogram done at bedside shows normal LV systolic function with mild LVH. Review of Systems Constitutional: Constitutional: Reports no additional constitutional complaints Eyes: Eyes: Reports no additional eye complaints ENT: Reports system reviewed and no additional complaints, except as documented Cardiovascular: Cardiovascular: Denies chest pain, Denies rapid heart rate, Denies leg edema, Denies lightheadedness, Reports Loss of Consciousness, Denies palpitations and Reports dyspnea Respiratory: Respiratory: Reports no additional respiratory complaints and Reports dyspnea Gastrointestinal: Gastrointestinal: Reports no additional gastrointestinal complaints Genitourinary: Genitourinary: Reports no additional female genitourinary complaints Musculoskeletal: Musculoskeletal: Reports no additional musculoskeletal complaints Integumentary/Breasts: Skin/Breast: Reports system reviewed and no additional complaints, except as docu Neurologic: Reports system reviewed and no additional complaints, except as documented Psychiatric: Psychiatric: Reports no additional psychiatric complaints Endocrine: Endocrine: Reports no additional endocrine complaints and Denies palpitations Hematologic/Lymphatic: Hematologic/Lymphatic: Reports no additional hematologic/lymphatic complaints Allergic/Immunologic: Allergic/Immunologic: Reports no additional allergic/immunologic complaints [facility] Past Medical History Medical History Chronic cough Diabetes mellitus Essential hypertension Headache Mild asthma Mild recurrent major depression RANJIT (obstructive sleep apnea) Pure hypercholesterolemia Super obese Family History Family History Father Diabetes Hypertension Mother Hypertension Liver cancer Maternal Grandfather Throat cancer Paternal Grandmother Stomach cancer Surgical History Surgical History History of section History of colonoscopy History of tubal ligation Social History Social History Housing: House Alcohol intake: current Alcohol intake frequency: holidays/special occasions only Patient Tobacco Use Status: Never used Tobacco Advance Directives: No Advance Directives Information Provided: No service: No Current occupational status: employed Meds Allergies Allergy/AdvReac Type Severity Reaction Status Date / Time No Known Allergies Allergy Verified 05/09/21 15:10 [No Known Allergies*] Active Medications: Current Medications Acetaminophen (Acetaminophen 325 Mg Tablet) 650 mg PO Q6H PRN PRN Reason: Pain, Mild (Pain Scale 1-3) Albuterol Sulfate (Albuterol Sulfate 90 Mcg 8 Gm Inhaler) 2 puff INHALE Q4H PRN PRN Reason: Wheezing Amlodipine Besylate (Amlodipine Besylate 5 Mg Tablet) 5 mg PO DAILY [facility]; Protocol Last Admin: 08/18/21 14:21 Dose: 5 mg Documented by: Atorvastatin Calcium (Atorvastatin Calcium 80 Mg Tablet) 80 mg PO BEDTIME [facility] Docusate Sodium (Docusate Sodium 100 Mg Capsule) 100 mg PO DAILY PRN PRN Reason: Constipation Ezetimibe (Ezetimibe 10 Mg Tablet) 10 mg PO DAILY [facility] Last Admin: 08/18/21 10:27 Dose: 10 mg Documented by: Enoxaparin Sodium (Enoxaparin Sodium 40 Mg/0.4 Ml Syringe) 40 mg SUBCUT Q24H [facility] Last Admin: 08/17/21 21:46 Dose: 40 mg Documented by: Fluticasone/Vilanterol (Fluticasone/Vilanterol 100/25 Blst.W.Dev) 1 puff INHALE RDAILY [facility] Last Admin: 08/18/21 08:04 Dose: Not Given Documented by: Gabapentin (Gabapentin 100 Mg Capsule) 100 mg PO BEDTIME [facility] Last Admin: 08/17/21 21:46 Dose: 100 mg Documented by: Hydrochlorothiazide (Hydrochlorothiazide 12.5 Mg Tablet) 12.5 mg PO DAILY [facility]; Protocol Last Admin: 08/18/21 10:28 Dose: 12.5 mg Documented by: Levalbuterol HCl (Levalbuterol Hcl 1.25 Mg/0.5 Ml Vial.Neb) 1.25 mg INHALE RQ4H WHILE AWAKE [facility] Lorazepam (Lorazepam 0.5 Mg Tablet) 0.5 mg PO BID PRN PRN Reason: Anxiety Magnesium Oxide (Magnesium Oxide 400 Mg Tablet) 400 mg PO BIDPC [facility] Omeprazole (Omeprazole 40 Mg Capsule.) 40 mg PO BID@0630,1630 [facility] Last Admin: 08/18/21 06:28 Dose: 40 mg Documented by: Ondansetron HCl (Ondansetron Hcl 4 Mg/2 Ml Vial) 4 mg IVPUSH Q8H PRN PRN Reason: Nausea and Vomiting Pharmacy Consult (Consult Rx Perform Med Rec) 1 each MISCELLANE ONCE PRN PRN Reason: Consult order Sertraline HCl (Sertraline Hcl 25 Mg Tablet) 25 mg PO DAILY [facility] Last Admin: 08/18/21 09:50 Dose: 25 mg Documented by: Sodium Chloride (0.9 % Sodium Chloride Flush 3 Ml Syringe) 3 ml IVFLUSH QSHIFT [facility] Last Admin: 08/18/21 07:33 Dose: Not Given Documented by: Valsartan (Valsartan 80 Mg Tablet) 80 mg PO BID [facility]; Protocol Home Medications Medication Instructions Recorded Confirmed Last Taken Type albuterol sulfate 90 mcg/actuation 2 puff INHALATION Q4-6H PRN 08/08/20 08/17/21 Unknown History aerosol inhaler Physical Exam Vital Signs: Vital Signs: Last Vital Signs Temp 97.9 F 08/17/21 17:12 Pulse 94 08/18/21 14:22 Resp 20 08/18/21 14:22 BP 159/69 H 08/18/21 14:22 Pulse Ox 98 08/18/21 14:22 BMI result Body Mass Index 43.2 Const: General: cooperative, comfortable, alert, awake and anxious Nutritional Appearance: obese morbidly obese Orientation/consciousness: patient oriented x3 HENMT: Head: Yes normocephalic and Yes atraumatic Neck: Neck: Yes trachea midline, Yes supple and Yes no JVD Resp: Effort & Inspection: normal respiratory effort Auscultation: clear to auscultation bilaterally Cardio: Jugular venous distension: no JVD Rate: regular rate Rhythm: regular rhythm Heart sounds: S1 normal heart sound present, S2 normal heart sound present, no click, no gallops, no murmurs and no rubs GI: Inspection: Yes Abdominal panniculus present and Yes obesity Auscultation: normal bowel sounds Skin: General skin exam: no rashes or lesions noted Neuro: General: patient oriented x3 and no focal motor deficits Extrem: General: Yes no clubbing, cyanosis or edema Objective Labs and Meds Result diagrams: 08/18/21 07:23 08/18/21 07:23 Lab results: Laboratory Results - last 24 hr 08/17/21 08/17/21 08/17/21 18:48 18:48 18:48 WBC 13.2 H RBC 4.74 Hgb 13.2 Hct 42.1 MCV 88.8 MCH 27.8 MCHC 31.4 RDW 13.6 Plt Count 351 MPV 10.6 Immature Gran % (Auto) 0.5 H Neut % (Auto) 67.0 Lymph % (Auto) 25.1 [place] % (Auto) 6.1 Eos % (Auto) 1.1 Baso % (Auto) 0.2 Lymph # (Auto) 3.3 [place] # (Auto) 0.8 Eos # (Auto) 0.1 Baso # (Auto) 0.0 Abs Immat Gran (auto) 0.06 H Absolute Neuts (auto) 8.9 H Absolute Nucleated RBC 0.000 Nucleated RBC % (auto) 0.0 D-Dimer High Sensitivty Sodium 142 Potassium 4.5 Chloride 100 Carbon Dioxide 32 H Anion Gap 15 BUN 12 Creatinine 0.76 Estim Creat Clear Calc 104.9 Estimated GFR > 60 POC Glucose Random Glucose 124 H Calcium 9.8 Magnesium 1.8 Total Bilirubin 0.4 Direct Bilirubin < 0.2 AST 16 ALT 26 Alkaline Phosphatase 116 Troponin I High Sens 5.4 B-Natriuretic Peptide Total Protein 7.4 Albumin 4.0 Lipase 10 Urine Color Urine Appearance Urine pH Ur Specific [place] Urine Protein Urine Glucose (UA) Urine Ketones Urine Blood Urine Nitrite Ur Leukocyte Esterase Urine RBC Urine WBC Ur Squamous Epith Cells Urine Bacteria Urine Test COVID-19 ([facility]) COVID-19 [employer] Com 08/17/21 08/17/21 08/17/21 18:48 18:48 18:48 WBC RBC Hgb Hct MCV MCH MCHC RDW Plt Count MPV Immature Gran % (Auto) Neut % (Auto) Lymph % (Auto) [place] % (Auto) Eos % (Auto) Baso % (Auto) Lymph # (Auto) [place] # (Auto) Eos # (Auto) Baso # (Auto) Abs Immat Gran (auto) Absolute Neuts (auto) Absolute Nucleated RBC Nucleated RBC % (auto) D-Dimer High Sensitivty Sodium Potassium Chloride Carbon Dioxide Anion Gap BUN Creatinine Estim Creat Clear Calc Estimated GFR POC Glucose Random Glucose Calcium Magnesium Total Bilirubin Direct Bilirubin AST ALT Alkaline Phosphatase Troponin I High Sens B-Natriuretic Peptide 24 Total Protein Albumin Lipase Urine Color YELLOW Urine Appearance CLEAR Urine pH 5.5 Ur Specific [place] 1.020 Urine Protein TRACE Urine Glucose (UA) NEG Urine Ketones NEG Urine Blood TRACE Urine Nitrite NEG Ur Leukocyte Esterase NEG Urine RBC 0-2 Urine WBC 0 Ur Squamous Epith Cells 1+ Urine Bacteria 1+ Urine Test NEGATIVE COVID-19 ([facility]) COVID-19 Clin Com 08/17/21 08/18/21 08/18/21 21:52 01:11 07:23 WBC 13.3 H RBC 4.83 Hgb 13.3 Hct 42.9 MCV 88.8 MCH 27.5 MCHC 31.0 RDW 13.7 Plt Count 364 MPV 10.4 Immature Gran % (Auto) 0.5 H Neut % (Auto) 80.9 H Lymph % (Auto) 13.0 L [place] % (Auto) 4.8 Eos % (Auto) 0.6 Baso % (Auto) 0.2 Lymph # (Auto) 1.7 [place] # (Auto) 0.6 Eos # (Auto) 0.1 Baso # (Auto) 0.0 Abs Immat Gran (auto) 0.06 H Absolute Neuts (auto) 10.7 H Absolute Nucleated RBC 0.000 Nucleated RBC % (auto) 0.0 D-Dimer High Sensitivty Sodium Potassium Chloride Carbon Dioxide Anion Gap BUN Creatinine Estim Creat Clear Calc Estimated GFR POC Glucose 145 H Random Glucose Calcium Magnesium Total Bilirubin Direct Bilirubin AST ALT Alkaline Phosphatase Troponin I High Sens B-Natriuretic Peptide Total Protein Albumin Lipase Urine Color Urine Appearance Urine pH Ur Specific [place] Urine Protein Urine Glucose (UA) Urine Ketones Urine Blood Urine Nitrite Ur Leukocyte Esterase Urine RBC Urine WBC Ur Squamous Epith Cells Urine Bacteria Urine Test COVID-19 ([facility]) Negative COVID-19 Clin Com See Note 08/18/21 08/18/21 08/18/21 07:23 08:04 11:59 WBC RBC Hgb Hct MCV MCH MCHC RDW Plt Count MPV Immature Gran % (Auto) Neut % (Auto) Lymph % (Auto) [place] % (Auto) Eos % (Auto) Baso % (Auto) Lymph # (Auto) [place] # (Auto) Eos # (Auto) Baso # (Auto) Abs Immat Gran (auto) Absolute Neuts (auto) Absolute Nucleated RBC Nucleated RBC % (auto) D-Dimer High Sensitivty 166 Sodium 139 Potassium 4.6 Chloride 98 Carbon Dioxide 34 H Anion Gap 12 BUN 9 Creatinine 0.78 Estim Creat Clear Calc 102.2 Estimated GFR > 60 POC Glucose 140 H Random Glucose 168 H Calcium 9.3 Magnesium 1.8 Total Bilirubin Direct Bilirubin AST ALT Alkaline Phosphatase Troponin I High Sens B-Natriuretic Peptide Total Protein Albumin Lipase Urine Color Urine Appearance Urine pH Ur Specific [place] Urine Protein Urine Glucose (UA) Urine Ketones Urine Blood Urine Nitrite Ur Leukocyte Esterase Urine RBC Urine WBC Ur Squamous Epith Cells Urine Bacteria Urine Test COVID-19 ([facility]) COVID-19 Clin Com Imaging Radiologist's impression: Impressions Head CT 08/17/21 15:26 IMPRESSION: No acute intracranial process. Chest X-Ray 08/17/21 17:35 IMPRESSION: No acute cardiopulmonary findings. Shoulder X-Ray 08/17/21 17:35 IMPRESSION: No acute fractures or malalignment. Cervical Spine CT 08/17/21 18:47 IMPRESSION: No acute cervical fractures or malalignment. Assessment and Plan (1) Syncope: Status: Acute Patient appears to had loss of consciousness while she was standing. This is suggestive of orthostatic hypertension although she is noted to be hypertensive at current time. Echocardiogram shows normal LV systolic function. There are no overt arrhythmias noted while monitoring. Continue monitor for 24 more hours valve E continue to pursue good blood pressure control. Will eventually require ischemic workup can be done as outpatient. Orthostatic vital should be performed once patient is more stable. Her shortness of breath is unexplained. D-dimers are within normal limits. Echocardiogram shows normal LV systolic function without evidence of significant pulmonary hypertension. She has no evidence of CHF on clinical findings or by chest x-ray. Could be related to anxiety or pulmonary restrictive disorder related to morbid obesity. (2) Hypertensive urgency: Status: Acute Hypertensive urgency. Patient says she was not hypertensive prior to this. This is unclear. She does have possibly underlying obstructive sleep apnea. This needs to be treated. Meanwhile start on Diovan 80 mg b.i.d. as well as Norvasc 5 mg daily in addition to hydrochlorothiazide. In the long run she benefit significantly with aggressive weight loss program. Will sign of the case unless there other issues. Procedures Date of Service Date of Service: 08/18/21
[2021-08-18] MEDS: Magnesium Oxide 400 MG TABLET PO (16:26)
--- NOTE | 2021-08-18 19:30 | PC.NURSE ---
Assumed care of pt Pt ambulated to bathroom Gait even and steady Will continue to monitor
[2021-08-18] MEDS: Enoxaparin Sodium 40 MG/0.4 ML SYRINGE SUBCUT (22:54)
[2021-08-18] MEDS: Gabapentin 100 MG CAPSULE PO (22:54)
[2021-08-18] MEDS: Atorvastatin Calcium 80 MG TABLET PO (22:55)
[2021-08-18] MEDS: Valsartan 80 MG TABLET PO (22:55)
--- NOTE | 2021-08-18 23:00 | PC.NURSE ---
Pt medicated per MAR Pt tolerated well Will continue to monitor
[2021-08-19] VITALS (9 sets, daily range): BP systolic 98–152; BP diastolic 66–81; PULSE 87–102; RESP 14–18; TEMP 36.4–36.8; O2SAT 94–95
--- NOTE | 2021-08-19 01:41 | PC.NURSE ---
Pt resting on stretcher wtih eyes closed Breathing even and unlabored NAD Will continue to monitor
[2021-08-19] MEDS: Omeprazole 40 MG CAPSULE.DR PO (06:32)
[2021-08-19] MEDS: Ezetimibe 10 MG TABLET PO (07:28)
[2021-08-19] MEDS: Magnesium Oxide 400 MG TABLET PO (07:28)
[2021-08-19] MEDS: Valsartan 80 MG TABLET PO (07:28)
[2021-08-19] MEDS: Sertraline HCL 25 MG TABLET PO (07:28)
[2021-08-19] MEDS: amLODIPine Besylate 5 MG TABLET PO (07:28)
[2021-08-19] MEDS: hydroCHLOROthiazide 12.5 MG TABLET PO (07:29)
[2021-08-19] MEDS: 0.9 % Sodium Chloride Flush 3 ML SYRINGE IVFLUSH (07:30)
[2021-08-19 08:49] LABS: Anion Gap 12 (12-20); Blood Urea Nitrogen 11 mg/dL (9-16); Calcium 9.5 mg/dL (8.4-10.2); Carbon Dioxide 34 mmol/L (22-29); Chloride 94 mmol/L (96-108); Creatinine Clr Calc Pharmacy 96.1; Estimated Glomerular Filt Rate > 60; Glucose Random 230 mg/dL (60-115); Potassium 4.8 mmol/L (3.3-5.1); Sodium 135 mmol/L (135-145)
--- NOTE | 2021-08-19 10:52 | PM.PNCARD ---
Subjective Subjective Date of Service: 08/19/21 Principal diagnosis: Hypertension Interval history: Patient with no significant cardiac arrhythmias. Blood pressure is better controlled. Echocardiogram shows normal LV systolic function. Review of Systems Review of Systems Yes all other systems are reviewed and are negative Physical Exam Vital Signs: Last Vital Signs Temp 98.2 F 08/19/21 06:13 Pulse 94 08/19/21 08:23 Resp 16 08/19/21 08:23 BP 152/78 H 08/19/21 07:28 Pulse Ox 95 08/19/21 07:26 BMI result Body Mass Index 43.2 Const General: cooperative, comfortable, alert and awake Nutritional Appearance: obese morbidly obese Neck Neck: Yes trachea midline, Yes supple and Yes no JVD Resp Effort & Inspection: normal respiratory effort Auscultation: clear to auscultation bilaterally and diminished lung sounds Cardio Jugular venous distension: no JVD Palpation: normal PMI Rate: regular rate Rhythm: regular rhythm Heart sounds: S1 normal heart sound present, S2 normal heart sound present, no click, no gallops and no murmurs GI Auscultation: normal bowel sounds Extrem General: Yes no clubbing, cyanosis or edema Objective Labs and Meds Result diagrams: 08/18/21 07:23 08/19/21 08:13 Lab results: Laboratory Results - last 24 hr 08/18/21 08/18/21 08/19/21 07:23 11:59 08:13 D-Dimer High Sensitivty 166 Sodium 135 Potassium 4.8 Chloride 94 L Carbon Dioxide 34 H Anion Gap 12 BUN 11 Creatinine 0.83 Estim Creat Clear Calc 96.1 Estimated GFR > 60 Random Glucose 230 H Calcium 9.5 Magnesium 1.8 Progress Note: A&P Assessment and plan (1) Hypertensive urgency: Status: Acute Assessment and Plan: Hypertensive urgency, blood pressure much better controlled. Can be discharged home from this perspective. Continue current medications. Importance of low-salt diet was discussed. If she has underlying significant sleep apnea this also needs to be treated. In the long run she needs aggressive weight loss program. This was discussed with her. She understands and agrees. (2) Syncope: Status: Acute Assessment and Plan: Syncope of unclear etiology. No obvious a abnormalities or high risk features found. Echocardiogram shows normal LV systolic function. Will follow up as outpatient after Holter monitor and stress test to rule out any significant ischemia although less likely. Advise adequate hydration. Advised to monitor blood pressure at home and maintain a log. Avoid prolonged standing posture. Will follow up in the clinic. Thank you for allowing us to partake in the care Fall Risk Details Current Medications: Current Medications Acetaminophen (Acetaminophen 325 Mg Tablet) 650 mg PO Q6H PRN PRN Reason: Pain, Mild (Pain Scale 1-3) Albuterol Sulfate (Albuterol Sulfate 90 Mcg 8 Gm Inhaler) 2 puff INHALE Q4H PRN PRN Reason: Wheezing Amlodipine Besylate (Amlodipine Besylate 5 Mg Tablet) 5 mg PO DAILY [facility]; Protocol Last Admin: 08/19/21 07:28 Dose: 5 mg Documented by: Atorvastatin Calcium (Atorvastatin Calcium 80 Mg Tablet) 80 mg PO BEDTIME [facility] Last Admin: 08/18/21 22:55 Dose: 80 mg Documented by: Docusate Sodium (Docusate Sodium 100 Mg Capsule) 100 mg PO DAILY PRN PRN Reason: Constipation Ezetimibe (Ezetimibe 10 Mg Tablet) 10 mg PO DAILY [facility] Last Admin: 08/19/21 07:28 Dose: 10 mg Documented by: Enoxaparin Sodium (Enoxaparin Sodium 40 Mg/0.4 Ml Syringe) 40 mg SUBCUT Q24H [facility] Last Admin: 08/18/21 22:54 Dose: 40 mg Documented by: Fluticasone/Vilanterol (Fluticasone/Vilanterol 100/25 Blst.W.Dev) 1 puff INHALE RDAILY [facility] Last Admin: 08/19/21 08:21 Dose: Not Given Documented by: Gabapentin (Gabapentin 100 Mg Capsule) 100 mg PO BEDTIME [facility] Last Admin: 08/18/21 22:54 Dose: 100 mg Documented by: Hydrochlorothiazide (Hydrochlorothiazide 12.5 Mg Tablet) 12.5 mg PO DAILY [facility]; Protocol Last Admin: 08/19/21 07:29 Dose: 12.5 mg Documented by: Levalbuterol HCl (Levalbuterol Hcl 1.25 Mg/0.5 Ml Vial.Neb) 1.25 mg INHALE RQ4H WHILE AWAKE [facility] Last Admin: 08/19/21 08:21 Dose: 1.25 mg Documented by: Lorazepam (Lorazepam 0.5 Mg Tablet) 0.5 mg PO BID PRN PRN Reason: Anxiety Magnesium Oxide (Magnesium Oxide 400 Mg Tablet) 400 mg PO BIDPC [facility] Last Admin: 08/19/21 07:28 Dose: 400 mg Documented by: Omeprazole (Omeprazole 40 Mg Capsule.) 40 mg PO BID@0630,1630 [facility] Last Admin: 08/19/21 06:32 Dose: 40 mg Documented by: Ondansetron HCl (Ondansetron Hcl 4 Mg/2 Ml Vial) 4 mg IVPUSH Q8H PRN PRN Reason: Nausea and Vomiting Pharmacy Consult (Consult Rx Perform Med Rec) 1 each MISCELLANE ONCE PRN PRN Reason: Consult order Prednisone (Prednisone 20 Mg Tablet) 40 mg PO ONCE ONE Stop: 08/19/21 10:45 Sertraline HCl (Sertraline Hcl 25 Mg Tablet) 25 mg PO DAILY [facility] Last Admin: 08/19/21 07:28 Dose: 25 mg Documented by: Sodium Chloride (0.9 % Sodium Chloride Flush 3 Ml Syringe) 3 ml IVFLUSH QSHIFT [facility] Last Admin: 08/19/21 07:30 Dose: 3 ml Documented by: Valsartan (Valsartan 80 Mg Tablet) 80 mg PO BID [facility]; Protocol Last Admin: 08/19/21 07:28 Dose: 80 mg Documented by: Time Spent With Patient Time: Total time spent is greater than 50% in coordination of care (as documented) at patient's floor/unit and/or counseling patient: Time with patient: 15 - 24 minutes Progress Note: Quality Stroke Does the patient have a stroke diagnosis?: No Procedures Date of Service Date of Service: 08/19/21
--- NOTE | 2021-08-19 11:18 | PM.DS ---
DS: Providers Provider Date of Service: 08/19/21 Date of admission: 08/17/21 21:17 Primary care physician: Mitzy Hoang MD Consults: 08/18/21 08:26 Consult to Cardiology Routine Consulting Provider: Jerry Kelly Reason for consultation: syncope Has provider been notified: No 08/19/21 10:46 Consult to Care Team Routine Comment: Reason for consultation: anxiety DS: Diagnosis Discharge Diagnosis (1) Hypertensive urgency: Status: Acute (2) Syncope: Status: Acute DS: Summary Hospital Course Hospital Course: 56-year-old female with past medical history of hypertension, prediabetes, GERD, asthma who presents to the hospital with complaints of loss of consciousness. 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 She denies any prodromal symptoms including no dizziness, no chest pain, no palpitations, no change in vision, no headache, and no postictal symptoms. at this time pt has no symtpms except reporting a developing headache. but has no other symptoms at thios time. on arrival to the ED pt hypodermically stable except for BP of 196/97 and HR of 102 labs are significant for WBC of 13.2, otherwise unremarkable. UA -ve, chest xray negative, head and cervical spine negative. EKG shows NSR, with a Qt of 472, non-specific T wave abnormality Hospital course: patient came to the hospital because of hypertension urgency: subsequent is adjusted her blood pressure medications- amlodipine and valsartan added. syncope: telemetry seems fine, no rhythmic noted on tele ? Orthostatic vital -positive , blood pressure meds adjusted -will stop amlodipine , continue valsartan at home along with hctz,moniter blood pressure closely outpatiently , agnieszka watts stocking added and orthostasis information given. Further management outpatient as per PCP. ? Echocardiogram shows normal LV systolic function without evidence of significant pulmonary hypertension.? She has no evidence of CHF on clinical findings or by chest x-ray.? Could be related to anxiety or pulmonary restrictive disorder related to morbid obesity.Patient require ischemic workup can be done as outpatient. cardiology May arrange their own outpatient appointment. Her shortness of breath : resolved , ? D-dimers are within normal limits, had wheezing yesterday -probable related to asthma execerbation/anxiety.given steriods and nebs seems resolved. also possible mild asthma excerebation: given nebs and steriods -seems improved. Further management outpatient as per PCP. Patient says that she follows up Pulmonary out patiently and in the process of getting her CPAP machine. kindly follow up with Pulmonary outpatient. Above management discussed with the patient in detail length she understand and in agreement with the above plan, time spent 50 minutes and 50% time spent on counseling. Significant findings: As above. Procedures performed: None. Treatment and response: As above. Complications: None. Time Spent with Patient Time attestation: Total time spent providing and/or coordinating discharge services: Discharge coordination time: Greater than 30 minutes Quality: Stroke Does the patient have a stroke diagnosis?: No Physical Exam Vital Signs: Vital Signs: Last Vital Signs Temp 98.2 F 08/19/21 06:13 Pulse 94 08/19/21 08:23 Resp 16 08/19/21 08:23 BP 152/78 H 08/19/21 07:28 Pulse Ox 95 08/19/21 07:26 BMI result Body Mass Index 43.2 Appearance: Alert.? Oriented X3.? not in distress.? Eyes: Pupils equal, round and reactive to light.? Sclera nonicteric.? ENT: Pharynx normal.? Moist mucous membranes. cvs: rrr, [id number] , no murmur res: clear to auscultation ,no rhonchii or wheezing abd: no rebound or guarding ,nt, bs present. ext pulses present , no cyanosis ,Gait well balanced well coordinated. neuro: axo3 , nonfocal. DS: Data Data Completed and Pending Labs on day of discharge: Laboratory Results - last 24 hr 08/18/21 08/18/21 08/19/21 07:23 11:59 08:13 D-Dimer High Sensitivty 166 Sodium 135 Potassium 4.8 Chloride 94 L Carbon Dioxide 34 H Anion Gap 12 BUN 11 Creatinine 0.83 Estim Creat Clear Calc 96.1 Estimated GFR > 60 Random Glucose 230 H Calcium 9.5 Magnesium 1.8 Additional Comments Additional comments: CT/CT cervical spine wo con IMPRESSION: No acute cervical fractures or malalignment. shoulder RT min 2V IMPRESSION: No acute fractures or malalignment. CT/CT head/brain wo con IMPRESSION: No acute intracranial process. Discharge Plan Discharge Patient Disposition: Home, Self-Care Discharge Diagnosis: hypertension urgency,asthma excerebation, possible orthostasis. Referrals: Mitzy Zhao MD [Primary Care Provider] - 1 Week Discharge Medications: New valsartan 80 mg Tablet 80 mg PO BID Qty: 60 RF: 0 prednisone 20 mg tablet 40 mg PO DAILY Qty: 8 RF: 0 Continued atorvastatin 80 mg tablet 80 mg PO DAILY Qty: 90 RF: 6 gabapentin 100 mg capsule 100 mg PO BEDTIME 90 Days Qty: 90 RF: 0 sertraline 25 mg tablet 25 mg PO DAILY 90 Days Qty: 90 RF: 1 metformin 500 mg tablet 500 mg PO DAILY 90 Days Qty: 90 RF: 1 ezetimibe 10 mg tablet 10 mg PO DAILY 90 Days Qty: 90 RF: 1 albuterol sulfate 90 mcg/actuation HFA aerosol inhaler 2 puff inhalation Q4-6H PRN (Reason: Wheezing) RF: 0 hydrochlorothiazide 12.5 mg tablet 12.5 mg PO DAILY 90 Days Qty: 90 RF: 3 fluticasone propion-salmeterol [Wixela Inhub] 250-50 mcg/dose blister with device 1 inh inhalation BID 30 Days Qty: 1 RF: 6 omeprazole 20 mg capsule,delayed release(DR/EC) 40 mg PO BID 30 Days Qty: 120 RF: 2 Discharge Orders: Discharge Order (Routine); Ordered 08/19/21 Ordered By: Iam Johnson Diet: advance to usual diet, diabetic diet, low fat, low cholesterol and low salt diet Activity on Discharge: As tolerated Stand Alone Forms: Patient Portal Discharge page, Work/School Release Care Plan Goals: patient came to the hospital because of hypertension urgency: subsequent is adjusted her blood pressure medications- amlodipine and valsartan added. syncope: telemetry seems fine, no rhythmic noted on tele ? Orthostatic vital -positive , blood pressure meds adjusted -will stop amlodipine , continue valsartan at home along with hctz,moniter blood pressure closely outpatiently , agnieszka stefanie stocking added and orthostasis information given. Further management outpatient as per PCP. ? Echocardiogram shows normal LV systolic function without evidence of significant pulmonary hypertension.? She has no evidence of CHF on clinical findings or by chest x-ray.? Could be related to anxiety or pulmonary restrictive disorder related to morbid obesity.Patient require ischemic workup can be done as outpatient. cardiology May arrange their own outpatient appointment. Her shortness of breath : resolved , ? D-dimers are within normal limits, had wheezing yesterday -probable related to asthma execerbation/anxiety.given steriods and nebs seems resolved. follow up with Dr Salas guthrie outpatient for cpap. Health Concerns: as above. Plan of Treatment: as above. Assessment: as above. Discharge Date/Time: 08/19/21 15:07
[2021-08-19] MEDS: predniSONE 20 MG TABLET 40 MG PO (11:40)
--- NOTE | 2021-08-19 11:51 | MHC.CARE ---
Addendum entered by Tomasz Paul [facility] 08/19/21 12:28: Dr. Trinidad and Cecilia LENTZ Consulted. Original Note: This gag writer went to see client per request of provider due to anxiety. She stated that he was worried about fainting at work again and having to take more time off of work. She denied homicidal/suicidal ideation. She did report that she has used a therapist in the past through [facility] and has is amicable to engaging with counseling serives in the community. This gag writer provider a list of area Counseling Services in the area and instructed her to call the agency of her choosing for an intake.
== END 2021-08-19 15:07 | disposition home or self-care (01) ==
LOC: HO.ED 19:56 → HO.EDOVER 21:36
PROVIDERS: Admitting Provider Internal Medicine; Emergency Provider Emergency Medicine; PCP Internal Medicine; Visit Provider Internal Medicine
DX: R55 Syncope and collapse (principal); I16.0 Hypertensive urgency; J45.20 Mild intermittent asthma, uncomplicated; R73.03 Prediabetes; K21.9 Gastro-esophageal reflux disease without esophagitis; E78.00 Pure hypercholesterolemia, unspecified; E66.01 Morbid (severe) obesity due to excess calories; M79.3 Panniculitis, unspecified; Z68.41 Body mass index [BMI] 40.0-44.9, adult; Z20.822 Contact with and (suspected) exposure to COVID-19; Z79.899 Other long term (current) drug therapy
CPT/HCPCS: 36415; 70450; 71045; 72125; 73030; 80048; 80076; 81001; 81025; 82947; 83690; 83735; 83880; 84484; 85025; 85379; 87635; 93005; 93306; 94640; 96372; 96374; 96375; 96376; 99219; 99285; J1650; J2060; Q9957

== ENCOUNTER 2021-08-28 07:42 | Outpatient (REF) | payer OTHER, SELFPAY ==
[2021-08-28 08:33] LABS: Alanine Aminotransferase 58 U/L (0-31); Alkaline Phosphatase 107 U/L (39-117); Anion Gap 12 (12-20); Aspartate Amino Transferase 26 U/L (5-31); Bilirubin Total 0.3 mg/dL (0.0-1.0); Blood Urea Nitrogen 13 mg/dL (9-16); Calcium 9.6 mg/dL (8.4-10.2); Carbon Dioxide 33 mmol/L (22-29); Chloride 99 mmol/L (96-108); Cholesterol 175 mg/dL; Estimated Glomerular Filt Rate > 60; Glucose Fasting 165 mg/dL (60-99); HDL Cholesterol 35 mg/dL; LDL Cholesterol Calculated 100 mg/dl; Potassium 4.4 mmol/L (3.3-5.1); Sodium 140 mmol/L (135-145); Total Protein 7.2 g/dL (6.5-8.0); Triglycerides 204 mg/dL
[2021-08-28 08:36] LABS: Creatinine Urine 198.94 mg/dL; Microalbum/Creatinine Ratio Ur 29.6 ug/mg cr
== END 2021-08-28 07:43 | disposition home or self-care (01) ==
LOC: HO.LAB 07:42
PROVIDERS: PCP Internal Medicine; Visit Provider Internal Medicine
DX: E11.9 Type 2 diabetes mellitus without complications (principal); I10 Essential (primary) hypertension
CPT/HCPCS: 36415; 80053; 80061; 82043

== ENCOUNTER → 2021-09-05 15:29 | Outpatient (BNVA) | payer OTHER, SELFPAY | PROVIDERS: PCP Internal Medicine; Visit Provider Internal Medicine Pulmonary Disease ==

== ENCOUNTER → 2021-09-25 09:40 | Outpatient (REF) | payer OTHER, SELFPAY ==
--- NOTE | 2021-09-25 09:45 | CA_ITS ---
Acquisition Time: 2021-09-25 09:56:15 Total Exercise Time: 00:02:08 Test Indications: HTN, SOB, SYNCOPE Medications: SEE CHART Protocol: TOMA Max HR: 141 BPM 86% of Pred: 163 BPM Max BP: 144/088 mmHG Max Work Load: 4.6 METS Exercise stress test with exercise 2 min 8 sec of Toma protocol, with moderate to severe shortness of breath and request to stop, no chest discomfort, with isolated PVC, with normotensive response to exercise, without EKG changes meeting criteria for ischemia at acheived workload with signficant decrease in activity tolerance. In late recovery there are slight downslope of ST inferiorly and V5-V6. Test reviewed with Dr Kelly. Will order a pharmacological nuclear stress test for further evaluation. Referred By: Denisa Shah Overread By: JULIETTE ROGERS
--- NOTE | 2021-09-25 09:45 | HM_ITS ---
Total monitoring time 6 days and 23 hours. Underlying rhythm is sinus. Minimum heart rate 73/Min. Maximum 126/Min. Average 93/Min. No atrial fibrillation or flutter or AV blocks or pauses. Rare supraventricular ectopy with minimal burden. Two brief runs, longest 9 beats. No significant ventricular ectopy. No patient events. MTDD
== END ==
LOC: HO.CARD 09:40
PROVIDERS: PCP Internal Medicine; Visit Provider Nurse Practitioner Acute Care
DX: R06.00 Dyspnea, unspecified (principal); I16.0 Hypertensive urgency; R55 Syncope and collapse
CPT/HCPCS: 93017; 93242

== ENCOUNTER 2021-10-25 18:15 | Emergency (ER) | payer OTHER, SELFPAY ==
--- NOTE | 2021-10-25 | ECG_ITS ---
Test Reason : CHEST PAIN Blood Pressure : / mmHG Vent. Rate : 098 BPM Atrial Rate : 098 BPM P-R Int : 136 ms QRS Dur : 088 ms QT Int : 362 ms P-R-T Axes : 051 058 118 degrees QTc Int : 462 ms Normal sinus rhythm Nonspecific ST and T wave abnormality Borderline ECG When compared with ECG of 17-AUG-2021 15:21, No significant change was found Referred By: Generic ED Physician Electronically Signed By:FLORY GUERRA
--- NOTE | ~2021-10-25 | XR_ITS ---
EXAMINATION: XR CHEST CLINICAL INFORMATION: Chest pain. COMPARISON: Chest radiograph dated from 08/17/2021. TECHNIQUE: PA view of the chest was obtained. FINDINGS: Normal appearance of the cardiomediastinal silhouette. No focal airspace opacities, pleural effusions or pneumothorax. Mild subsegmental atelectasis in the left lower lobe. No acute osseous abnormalities. XR/XR chest 1V IMPRESSION: No acute cardiopulmonary findings.
[2021-10-25 18:20] VITALS: BP 140/95; PULSE 100; RESP 18; TEMP 36.8; O2SAT 94; BMI 48.2
[2021-10-25 18:48] LABS: MANUAL DIFF FLAG NO
[2021-10-25 18:50] LABS: Basophils Percent Auto 0.3 % (0-2); Eosinophils Absolute Auto 0.2 X10*3/uL (0.0-0.4); Eosinophils Percent Auto 1.1 % (0-4); Hematocrit 36.9 % (37.0-47.0); Hemoglobin 11.9 g/dl (12.0-16.0); Imm Gran Abs Auto 0.06 X10*3/uL (0.00-0.03); Imm Gran Pct Auto 0.4 % (0.0-0.4); Lymphocytes Absolute Auto 2.5 X10*3/uL (1.2-4.9); Lymphocytes Percent Auto 16.7 % (20-40); Mean Corpuscular HGB Conc 32.2 g/dl (31.0-35.0); Mean Corpuscular Volume 86.8 fL (80.0-98.0); Mean Platelet Volume 10.3 fL (9.4-12.3); Monocytes Absolute Auto 0.8 X10*3/uL (0.1-1.2); Monocytes Percent Auto 5.4 % (2-11); Neutrophils Absolute Auto 11.3 x10*3/uL (2.0-8.3); Neutrophils Percent Auto 76.1 % (45-73); Platelet Count 386 X10*3/uL (160-400); Red Blood Count 4.25 X10*6/uL (4.20-5.50); Red Cell Distribution Width 13.5 % (11.0-16.0); White Blood Count 14.9 X10*3/uL (4.8-10.8)
[2021-10-25 19:05] LABS: Anion Gap 13 (12-20); Blood Urea Nitrogen 13 mg/dL (9-16); Calcium 9.3 mg/dL (8.4-10.2); Carbon Dioxide 32 mmol/L (22-29); Chloride 98 mmol/L (96-108); Creatinine Clr Calc Pharmacy 85.9; Estimated Glomerular Filt Rate 58; Glucose Random 227 mg/dL (60-115); Sodium 139 mmol/L (135-145)
[2021-10-25 19:11] LABS: Troponin-I High Sensitivity 3.8 ng/L (<3.5-17.0)
[2021-10-25 20:24] VITALS: BP 130/90; PULSE 91; RESP 16; TEMP 36.8; O2SAT 96
--- NOTE | 2021-10-25 20:32 | ED_ITS ---
HPI - Chest Pain General Chief Complaint: Chest Pain Stated Complaint: chest/upper back pain Time Seen by Provider: 10/25/21 20:32 Source: patient Mode of arrival: ambulatory Limitations: no limitations History of Present Illness HPI narrative: 56-year-old female who presents emergency department for evaluation of left- sided chest pain, arm pain and shortness of breath. The patient states that the pain started yesterday at around noon while she was at work. 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 She states the pain came on gradually, initially was intermittent and then became constant. She points to her left chest, left shoulder and left arm when asked to localize the pain. She states the pain is a burning and squeezing sensation. The pain is worse if she moves her arm or she pushes on her chest. She states that the pain is 10/10 at its worst. She took some Advil earlier today with no relief of her pain. Patient states she had similar pain in August of 2021 and was seen in the emergency department and had a negative workup. The patient denied fever, chills, rhinorrhea, sore throat, cough. She states she has had nausea but no vomiting. She does feel short of breath and has mild dyspnea on exertion. She denied pain or swelling of her lower extremities. She has not been on any long trips. She does not take any estrogen supplements. MD complaint: chest pain Pertinent past history: asthma Onset (ago): day(s) (2) Timing of current episode: constant Prior episodes: Yes (08/2021) Onset: during exertion Pain location: left chest (Anterior) Pain radiation: left arm and left shoulder Severity: severe Pain scale (0-10): 10 Quality: burning and other (Squeezing) Relieving factors: nothing Exacerbating factors: palpation and movement Associated symptoms: nausea and dyspnea Treatment prior to arrival: other (Ibuprofen) Risk Factors Coronary artery disease risk factors: diabetes, hyperlipidemia and hypertension Related Data On Oral Contraceptives: No Home Medications Medication Instructions Recorded Confirmed albuterol sulfate 90 mcg/actuation 2 puff INHALATION Q4-6H PRN 08/08/20 09/27/21 aerosol inhaler Previous Rx's Medication Instructions Recorded atorvastatin 80 mg tablet 80 mg PO DAILY #90 tab 09/04/20 gabapentin 100 mg capsule 100 mg PO BEDTIME 90 Days #90 cap 04/01/21 ezetimibe 10 mg tablet 10 mg PO DAILY 90 Days #90 tab 05/01/21 fluticasone 250 mcg-salmeterol 50 1 inh INHALATION BID 30 Days #1 ea 05/09/21 mcg/dose blistr powdr for inhalation (Diannexjamel Inhub) omeprazole 20 mg capsule,delayed 40 mg PO BID 30 Days #120 cap 07/05/21 release valsartan 80 mg tablet 80 mg PO BID #60 tab 08/19/21 hydroxyzine HCl 25 mg tablet 25 mg PO TID PRN #84 tab 08/23/21 miscellaneous medical supply #1 ea 08/23/21 (Blood Pressure Cuff) sertraline 50 mg tablet 50 mg PO DAILY #90 tab 08/23/21 blood sugar diagnostic (FreeStyle #100 ea 09/27/21 Lite Strips) blood-glucose meter (FreeStyle #1 ea 09/27/21 Lite Meter) hydrochlorothiazide 25 mg tablet 25 mg PO DAILY 90 Days #90 tab 09/27/21 lancets 28 gauge (FreeStyle #100 ea 09/27/21 Lancets) metformin 1,000 mg tablet 1,000 mg PO BID 90 Days #180 tab 09/27/21 Allergies Allergy/AdvReac Type Severity Reaction Status Date / Time No Known Allergies Allergy Verified 10/25/21 18:20 [No Known Allergies*] Review of Systems Review of Systems: Yes all other systems are reviewed and are negative [facility] Past Medical History [facility] Narrative: Social history: She denies tobacco, and drug use. She rarely drinks alcohol. Medical History Asthma Chronic cough Diabetes mellitus Essential hypertension Headache Mild asthma Mild recurrent major depression RANJIT (obstructive sleep apnea) Pure hypercholesterolemia Super obese Surgical History History of section History of colonoscopy History of tubal ligation Family History Family History Father Diabetes Hypertension Mother Hypertension Liver cancer Maternal Grandfather Throat cancer Paternal Grandmother Stomach cancer Social History Social History Housing: House Alcohol intake: current Alcohol intake frequency: holidays/special occasions o nly Alcohol type: hard liquor Patient Tobacco Use Status: Never used Tobacco Advance Directives: No service: No Current occupational status: employed Physical Exam Vital Signs: Vital Signs: Last Vital Signs Temp 98.2 F 10/25/21 20:24 Pulse 91 10/25/21 20:24 Resp 16 10/25/21 20:24 BP 130/90 H 10/25/21 20:24 Pulse Ox 96 10/25/21 20:24 BMI result Body Mass Index 48.2 Const: Other: Very pleasant and cooperative female patient, elevated BMI 48, answers all questions appropriately, does appear to be in some distress secondary to her left-sided chest pain and arm pain. HENMT: Head: Yes normal to inspection, Yes normocephalic and Yes atraumatic Ears: external ears normal General nose exam: Normal external nose present Face and sinus: Yes normal facial exam Mouth: Normal oral and palatal mucosa present Throat: Yes posterior oropharynx normal Eyes: General: appearance normal, both eyes and all related structures Pupils: Equal, round and reactive pupils present Neck: Neck: Yes normal visual inspection, Yes no lymphadenopathy, Yes trachea midline and Yes supple Chest: Chest palpation & inspection: normal inspection of the chest and tenderness sternum (Moderate) and costochondral junction (Left, moderate to severe) Resp: Effort & Inspection: normal respiratory effort and able to speak in complete sentences Auscultation: clear to auscultation bilaterally Cardio: Rate: regular rate Rhythm: regular rhythm Heart sounds: S1 normal heart sound present, S2 normal heart sound present and no murmurs GI: Inspection: Yes normal to inspection Palpation (GI): Soft to palpation, nontender and no guarding Auscultation: normal bowel sounds : General: Yes no CVA tenderness Back/Spine/Pelvis: Back: no CVA tenderness Skin: General skin exam: no rashes or lesions noted Neuro: Cranial nerves: Yes CN's II-XII intact bilaterally and Yes Equal, round and reactive pupils present Cognition (Neuro): normal cognition Motor exam (neuro): 5/5 motor strength present throughout Extrem: Other: Moderate to severe tenderness with palpation of the left shoulder and left arm Psych: Appearance: grossly normal Speech and movement: Normal speech and movement present Affect: normal affect Attitude: cooperative Thought process: Normal thought process present Thought content: Normal thought content present Course Course Course Narrative: 56-year-old female who presents emergency department for evaluation of 2 days of left-sided chest pain left shoulder and left arm pain. Vital signs did reveal a slight elevation of blood pressure 140/95 otherwise was unremarkable. Physical examination did reveal significant left anterior chest wall tenderness, left shoulder left arm tenderness with increased pain with movement of her left shoulder and left arm. [place] [address], elevated bicarb of 32, elevated glucose of 227. Troponin was only 3.8. Twelve EKG was unremarkable. Chest x-ray was unremarkable. Given the patient's physical examination and relatively negative laboratory evaluation, the patient' s pain is consistent with musculoskeletal pain I did discuss this with her. She was given Toradol 60 mg IM. She was discharged advised to take ibuprofen and Tylenol for pain. She was given printed and verbal instructions. She was also given a work note. MDM - Chest Pain Lab Data Result diagrams: 10/25/21 18:44 10/25/21 18:44 Labs: Lab Results 10/25/21 10/25/21 10/25/21 Range/Units 18:44 18:44 18:44 WBC 14.9 H (4.8-10.8) X10*3/uL RBC 4.25 (4.20-5.50) X10*6/uL Hgb 11.9 L (12.0-16.0) g/dl Hct 36.9 L (37.0-47.0) % MCV 86.8 (80.0-98.0) fL MCH 28.0 (27.0-33.0) pg MCHC 32.2 (31.0-35.0) g/dl RDW 13.5 (11.0-16.0) % Plt Count 386 (160-400) X10*3/uL MPV 10.3 (9.4-12.3) fL Immature Gran % (Auto) 0.4 (0.0-0.4) % Neut % (Auto) 76.1 H (45-73) % Lymph % (Auto) 16.7 L (20-40) % [place] % (Auto) 5.4 (2-11) % Eos % (Auto) 1.1 (0-4) % Baso % (Auto) 0.3 (0-2) % Lymph # (Auto) 2.5 (1.2-4.9) X10*3/uL [place] # (Auto) 0.8 (0.1-1.2) X10*3/uL Eos # (Auto) 0.2 (0.0-0.4) X10*3/uL Baso # (Auto) 0.0 (0.0-0.2) X10*3/uL Abs Immat Gran (auto) 0.06 H (0.00-0.03) X10*3/uL Absolute Neuts (auto) 11.3 H (2.0-8.3) x10*3/uL Absolute Nucleated RBC 0.000 (0.0-0.012) X10*3/uL Nucleated RBC % (auto) 0.0 (0.0-0.2) /100WBC Sodium 139 (135-145) mmol/L Potassium 4.0 (3.3-5.1) mmol/L Chloride 98 (96-108) mmol/L Carbon Dioxide 32 H (22-29) mmol/L Anion Gap 13 (12-20) BUN 13 (9-16) mg/dL Creatinine 0.99 (0.5-1.4) mg/dL Estim Creat Clear Calc 85.9 Estimated GFR 58 Random Glucose 227 H (60-115) mg/dL Calcium 9.3 (8.4-10.2) mg/dL Troponin I High Sens 3.8 (<3.5-17.0) ng/L ECG Data ECG #1: Interpretation: 1833: Normal sinus rhythm with a rate of 98, normal NE interval QRS duration QTC interval, no ST segment elevation, no ST segment depression, no PACs, no PVCs no significant change compared to 08/17/2021. Discharge Plan Discharge Clinical Impression: Musculoskeletal chest pain Arm pain, musculoskeletal Qualifiers: Laterality: left Qualified Code(s): M79.602 - Pain in left arm Patient Disposition: Home, Self-Care Instructions: Chest Wall Pain (ED) Additional Instructions: Your blood work was unremarkable. Your chest x-ray was normal. Your EKG was unremarkable. On your exam your very tender when I push on your chest, left shoulder left arm. This is consistent with injury to the muscles of these areas. Muscle Pain Discharge Instructions: Take Motrin (ibuprofen) 200 mg pills, 3 pills every 6 hours as needed for pain. Take Tylenol (acetaminophen) 500 mg pills, 2 pills every 6 hours as needed for pain. Apply ice for 15 minutes to the area that hurts on your back, then apply a heating a pad on low for 15 minutes. Do this 4-6 times a day to help reduce the pain in your back. Continue with normal activities as tolerated since staying in bed and not moving around will make your pain worse. Please return to the Emergency Department or see your doctor immediately if your symptoms get worse or if you develop any new symptoms that are concerning you. Follow up with your doctor in 2 day. Please read the other printed discharge instructions on chest wall pain. Please see the work note Prescriptions: No Action atorvastatin 80 mg tablet 80 mg PO DAILY Qty: 90 6RF gabapentin 100 mg capsule 100 mg PO BEDTIME 90 Days Qty: 90 0RF valsartan 80 mg Tablet 80 mg PO BID Qty: 60 0RF Protocol: Hold for SBP< HOLD for SBP < : 90 ezetimibe 10 mg tablet 10 mg PO DAILY 90 Days Qty: 90 1RF albuterol sulfate 90 mcg/actuation HFA aerosol inhaler 2 puff inhalation Q4-6H PRN (Reason: Wheezing) 0RF (DME) Blood Pressure Cuff Misc See Rx Instructions .Route Qty: 1 0RF Rx Instructions: As directed, monitor BP 2-3 a day, and creat a log hydroxyzine HCl 25 mg tablet 25 mg PO TID PRN (Reason: itching) Qty: 84 0RF sertraline 50 mg tablet 50 mg PO DAILY Qty: 90 0RF hydrochlorothiazide 25 mg tablet 25 mg PO DAILY 90 Days Qty: 90 1RF metformin 1,000 mg tablet 1,000 mg PO BID 90 Days Qty: 180 1RF (DME) blood-glucose meter [FreeStyle Lite Meter] Kit See Rx Instructions .Route Qty: 1 0RF Rx Instructions: As directed (DME) FreeStyle Lite Strips Strip See Rx Instructions .Route Qty: 100 3RF Rx Instructions: Use 1 test strip once a day (DME) lancets [FreeStyle Lancets] 28 gauge misc See Rx Instructions .Route Qty: 100 3RF Rx Instructions: Use 1 lancet once a day fluticasone propion-salmeterol [Wixela Inhub] 250-50 mcg/dose blister with device 1 inh inhalation BID 30 Days Qty: 1 6RF omeprazole 20 mg capsule,delayed release(DR/EC) 40 mg PO BID 30 Days Qty: 120 2RF Stand Alone Forms: Work/School Release
[2021-10-25] MEDS: Ketorolac Tromethamine 60 MG/2 ML VIAL IM (20:54)
== END 2021-10-25 21:29 | disposition home or self-care (01) ==
PROVIDERS: Emergency Provider Emergency Medicine Emergency Medical Services; PCP Internal Medicine
DX: R07.9 Chest pain, unspecified (principal); M79.602 Pain in left arm; E11.9 Type 2 diabetes mellitus without complications; I10 Essential (primary) hypertension; E78.00 Pure hypercholesterolemia, unspecified; Z79.02 Long term (current) use of antithrombotics/antiplatelets; Z79.84 Long term (current) use of oral hypoglycemic drugs
CPT/HCPCS: 36415; 71045; 80048; 84484; 85025; 93005; 96372; 99284; J1885

== ENCOUNTER 2021-11-18 07:41 | Outpatient (REF) | payer OTHER, SELFPAY ==
--- NOTE | ~2021-11-18 | MM_ITS ---
EXAMINATION: MM SCREENING DIGITAL BREAST TOMOSYNTHESIS, BILATERAL CLINICAL INFORMATION: Screening. Asymptomatic. The lifetime risk of breast cancer based on the Tyrer-Cuzick Model is 7.7%. COMPARISON: Mammography: November 12, 2020 and studies dating back to August 19, 2010 TECHNIQUE: Digital breast tomosynthesis is performed in both the craniocaudal and mediolateral oblique views along with computer-aided detection (CAD). Synthesized 2D images are generated from the tomosynthesis. FINDINGS: There are scattered areas of fibroglandular density (ACR BI-RADS breast composition Category b). There are no significant masses, abnormal calcifications, or other abnormalities. MM/MM tomosynthesis screening BI IMPRESSION: There are no significant changes from prior study. ASSESSMENT: BI-RADS 1: Negative RECOMMENDATION: Routine annual mammography screening. This patient's information was entered into a reminder system with a target due date for their next mammogram.
== END 2021-11-18 07:42 | disposition home or self-care (01) ==
LOC: HO.MAMMO 07:41
PROVIDERS: Visit Provider Internal Medicine
DX: Z12.31 Encounter for screening mammogram for malignant neoplasm of breast (principal)
CPT/HCPCS: 77063; 77067

== ENCOUNTER → 2021-12-01 09:34 | Outpatient (REF) | payer OTHER, SELFPAY ==
--- NOTE | ~2021-12-01 | NM_ITS ---
Lexiscan Myocardial perfusion study Indication: Syncope, hypertension urgency, assess for coronary disease and ischemia Technique: The patient was brought in for a Lexiscan perfusion study on 12/01/2021 and was injected 0.4 mg of Lexiscan intravenously. Within a minute of this injection 45 mCi of sestamibi was given intravenously. Images were obtained using the SPECT gamma camera interlaced with the gating device. Images were obtained in supine position. Resting perfusion study was performed on 12/05/2021. Patient was administered 45 mCi of sestamibi intravenously at rest. Images were then obtained in supine position. Total DLP 196mGy-cm. Images were processed with the software and compared side to side in short axis, horizontal long axis and vertical long axis views. Findings: Raw acquisition was reviewed. The stress perfusion study showed diminished tracer uptake in the distal anterolateral wall; basal inferior wall. With CT attenuation correction, there is some improvement in the distal lateral wall and hence suggestive of soft tissue attenuation artifact. Basal inferior wall also improves suggesting diaphragmatic attenuation artifact. The gated study shows normal LV systolic function with calculated LVEF of 59%. LV cavity is normal in size. The gated study shows normal wall thickening and contraction of segments. Resting study shows minimally reduced tracer uptake in the distal anterior wall. With CT attenuation correction, this actually appears worse and hence could be from artifactual etiology.. Gating at rest reveals normal wall motion with ejection fraction at 60%. The findings are consistent with mild reversible defects in the distal anterolateral wall, basal inferior wall.. NM/NM cardiolite stress test Impression: 1. Myocardial perfusion imaging study shows possible mild ischemia vs soft tissue attenuation artifact in the distal part of anterolateral wall. Reversible basal inferior defect could be from diaphragmatic attenuation artifact. 2. Gated LVEF is 59% during stress and 60% during rest. 3. Transient ischemic dilatation not present. EKG component of the test reported separately.
--- NOTE | 2021-12-01 09:45 | CA_ITS ---
Acquisition Time: 2021-12-01 10:05:50 Total Exercise Time: 00:02:00 Test Indications: CP, SOB Medications: SEE CHART Protocol: LEXISCAN Max HR: 115 BPM 70% of Pred: 163 BPM Max BP: 150/084 mmHG Max Work Load: 1.0 METS Pharmacological stress test with Lexiscan injection, while sitting and kicking her legs, without angjnal symptoms, without arrythmia, with normotensive response to injection, with nondiagnostic EKG for ischemia. Nuclear images pending. Test reviewed with Dr More. Referred By: Eunice Monroe Overread By: EUNICE MONROE
== END ==
LOC: HO.CARD 09:34
PROVIDERS: PCP Internal Medicine; Visit Provider Nurse Practitioner Family
DX: R06.00 Dyspnea, unspecified (principal); I16.0 Hypertensive urgency; R55 Syncope and collapse
CPT/HCPCS: 78452; 93017; A9500; J0280; J2785

== ENCOUNTER → 2022-01-10 14:59 | Outpatient (BNVA) | payer OTHER, SELFPAY | PROVIDERS: PCP Internal Medicine; Referring Provider Internal Medicine; Visit Provider Internal Medicine Cardiovascular Disease | DX: R06.02 Shortness of breath (principal) ==

== ENCOUNTER 2022-01-13 17:36 | Emergency (ER) | payer OTHER, SELFPAY ==
--- NOTE | ~2022-01-13 | CT_ITS ---
EXAMINATION: CT ABDOMEN AND PELVIS WITHOUT CONTRAST CLINICAL INFORMATION: Flank pain -side not specified COMPARISON: Ultrasound abdomen 08/09/2020, CT abdomen pelvis 09/09/2012 TECHNIQUE: Multidetector volumetric imaging was performed from the superior aspect of the liver through the pubic symphysis. Sagittal and coronal reformatted images were obtained on the technologist's workstation. This CT examination was performed using dose optimization techniques as appropriate, variously including the following: *Automated exposure control *Adjustment of mA and/or kV according to patient size (this includes techniques or standardized protocols for targeted exams where dose is matched to indication/reason for exam; i.e. extremities or head) *Use of iterative reconstruction technique DLP: 1148 mGy-cm FINDINGS: LUNG BASES: The visualized lung bases are unremarkable. LIVER, GALLBLADDER, AND BILIARY TREE: The liver is enlarged measuring 21.2 cm in greatest length and demonstrates decreased attenuation suggestive of parenchymal disease/hepatic steatosis. No focal hepatic lesion or biliary ductal dilatation is present. The gallbladder is unremarkable with no evidence of radiopaque gallstones, gallbladder wall thickening, or obvious pericholecystic inflammatory changes. PANCREAS: Unremarkable. SPLEEN: Unremarkable. 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 In any event, this is not a worrisome finding. The right adrenal gland is normal. KIDNEYS AND URETERS: The kidneys are normal in size, shape, and attenuation. The right kidney is pushed downwards with a more horizontal access by the enlarged liver. There is a calyceal shaped stone present in the lower pole of the right kidney. This measures 260 Hounsfield units and is 15 cm from the posterior axillary line. There is mild right-sided pelvocaliectasis with dilatation of the right ureter present with question of a tiny barely perceptible 1mm punctate stone within the ureter distally (4:688). No hydronephrosis, hydroureter, or calculi seen. No perinephric stranding. BLADDER: Unremarkable. GASTROINTESTINAL TRACT: The small and large bowel are unremarkable aside from colonic diverticula without diverticulitis. The appendix is not seen but there is no evidence of appendicitis.. ABDOMINAL WALL: No significant hernia is appreciated. There is a small periumbilical hernia seen containing only fat. LYMPH NODES: Normal. VASCULAR: Unremarkable. PELVIC VISCERA: An anteverted uterus is present with some calcifications and lobular contour consistent with uterine fibroids. OSSEOUS STRUCTURES: Mild degenerative changes present spine most marked at L4-L5. No bony destructive. CT/CT abdomen pelvis wo con IMPRESSION: 1. Mild right-sided ureteral pelvocaliectasis with question of tiny punctate calcification in the distal right ureter. There is a larger right-sided intrarenal stone present. 2. 2.5 cm benign-appearing left adrenal mass. 3. Enlarged fatty liver 4. Uterine fibroids. Fleischner guidelines were followed.
[2022-01-13 18:20] VITALS: BP 156/81; PULSE 91; RESP 19; TEMP 36.9; O2SAT 97; BMI 40.4
[2022-01-13 18:49] LABS: MANUAL DIFF FLAG NO
[2022-01-13 18:55] LABS: Basophils Percent Auto 0.2 % (0-2); Eosinophils Absolute Auto 0.2 X10*3/uL (0.0-0.4); Eosinophils Percent Auto 1.3 % (0-4); Hematocrit 38.5 % (37.0-47.0); Hemoglobin 12.3 g/dl (12.0-16.0); Imm Gran Abs Auto 0.08 X10*3/uL (0.00-0.03); Imm Gran Pct Auto 0.6 % (0.0-0.4); Lymphocytes Absolute Auto 2.9 X10*3/uL (1.2-4.9); Lymphocytes Percent Auto 21.2 % (20-40); Mean Corpuscular HGB Conc 31.9 g/dl (31.0-35.0); Mean Corpuscular Volume 87.5 fL (80.0-98.0); Mean Platelet Volume 10.3 fL (9.4-12.3); Monocytes Absolute Auto 0.8 X10*3/uL (0.1-1.2); Monocytes Percent Auto 5.9 % (2-11); Neutrophils Absolute Auto 9.5 x10*3/uL (2.0-8.3); Neutrophils Percent Auto 70.8 % (45-73); Platelet Count 397 X10*3/uL (160-400); Red Cell Distribution Width 13.4 % (11.0-16.0); White Blood Count 13.5 X10*3/uL (4.8-10.8)
[2022-01-13 18:56] LABS: Appearance Urine CLOUDY; Color Urine YELLOW; Glucose Urine UA NEG (NEG); Leukocyte Esterase Urine NEG (NEG); Nitrite Urine NEG (NEG); PH 5.5 (5.0-8.0); Specific Gravity - Urine >= 1.030 (1.005-1.025); UACC Culture Trigger NO; Urine Blood 3+ (NEG); Urine Ketones NEG (NEG); Urine Protein 2+ MG/DL (NEG-TRACE)
[2022-01-13 19:10] LABS: Alanine Aminotransferase 42 U/L (0-31); Albumin Level 4.1 g/dL (3.5-5.0); Alkaline Phosphatase 120 U/L (39-117); Anion Gap 14 (12-20); Aspartate Amino Transferase 25 U/L (5-31); Bilirubin Total 0.2 mg/dL (0.0-1.0); Blood Urea Nitrogen 15 mg/dL (9-16); Calcium 9.9 mg/dL (8.4-10.2); Carbon Dioxide 30 mmol/L (22-29); Chloride 100 mmol/L (96-108); Creatinine Clr Calc Pharmacy 83.7; Estimated Glomerular Filt Rate 52; Glucose Random 136 mg/dL (60-115); Potassium 4.6 mmol/L (3.3-5.1); Sodium 139 mmol/L (135-145); Total Protein 7.7 g/dL (6.5-8.0)
[2022-01-13 19:40] LABS: WBC Urine 0 /HPF (0-4)
[2022-01-13 19:41] LABS: Mucus Urine 3+ /LPF; Renal Epithelial Cells Urine 1+ /LPF; Squamous Epithelial Cell Urine 4+ /LPF; Uric Acid Crystals Urine 3+ /LPF
[2022-01-13 21:35] VITALS: BP 182/85; PULSE 79; RESP 18; TEMP 36.4; O2SAT 97
--- NOTE | 2022-01-13 21:51 | ED.GENADULT ---
HPI - General Adult General Chief complaint: General Medical Stated complaint: ?UTI Time Seen by Provider: 01/13/22 21:37 Source: patient and family Mode of arrival: ambulatory History of Present Illness HPI narrative: 56-year-old female with history of diabetes presents with acute onset of right flank pain, sharp in nature radiating to the anterior abdomen with some nausea but no vomiting/fevers/chills and denies any history of renal colic. Otherwise, she denies any recent cough and states that she has had some difficulty urinating since the onset of the flank pain. Related Data Home Medications Medication Instructions Recorded Confirmed albuterol sulfate 90 mcg/actuation 2 puff INHALATION Q4-6H PRN 08/08/20 01/10/22 aerosol inhaler Previous Rx's Medication Instructions Recorded atorvastatin 80 mg tablet 80 mg PO DAILY #90 tab 09/04/20 gabapentin 100 mg capsule 100 mg PO BEDTIME 90 Days #90 cap 04/01/21 ezetimibe 10 mg tablet 10 mg PO DAILY 90 Days #90 tab 05/01/21 fluticasone 250 mcg-salmeterol 50 1 inh INHALATION BID 30 Days #1 ea 05/09/21 mcg/dose blistr powdr for inhalation (Wixela Inhub) omeprazole 20 mg capsule,delayed 40 mg PO BID 30 Days #120 cap 07/05/21 release valsartan 80 mg tablet 80 mg PO BID #60 tab 08/19/21 hydroxyzine HCl 25 mg tablet 25 mg PO TID PRN #84 tab 08/23/21 miscellaneous medical supply #1 ea 08/23/21 (Blood Pressure Cuff) sertraline 50 mg tablet 50 mg PO DAILY #90 tab 08/23/21 blood sugar diagnostic (FreeStyle #100 ea 09/27/21 Lite Strips) blood-glucose meter (FreeStyle #1 ea 09/27/21 Lite Meter) hydrochlorothiazide 25 mg tablet 25 mg PO DAILY 90 Days #90 tab 09/27/21 lancets 28 gauge (FreeStyle #100 ea 09/27/21 Lancets) metformin 1,000 mg tablet 1,000 mg PO BID 90 Days #180 tab 09/27/21 Allergies Allergy/AdvReac Type Severity Reaction Status Date / Time No Known Allergies Allergy Verified 01/13/22 18:23 [No Known Allergies*] Review of Systems Review of Systems: Pertinent positives and negatives as stated in HPI and 10 point review of systems is otherwise negative. [facility] Past Medical History Source: nursing notes reviewed Medical History Asthma Chronic cough Diabetes mellitus Essential hypertension Headache Mild asthma Mild recurrent major depression RANJIT (obstructive sleep apnea) Pure hypercholesterolemia Super obese Surgical History History of section History of colonoscopy History of tubal ligation Family History Family History Father Diabetes Hypertension Mother Hypertension Liver cancer Maternal Grandfather Throat cancer Paternal Grandmother Stomach cancer Social History Social History Housing: House Alcohol intake: current Alcohol intake frequency: holidays/special occasions only Alcohol type: hard liquor Patient Tobacco Use Status: Never used Tobacco Advance Directives: No service: No Current occupational status: employed Physical Exam ED Vital Signs: Vital Signs - 24 hr 01/13/22 18:20 01/13/22 21:35 Temperature 98.5 F 97.6 F Pulse Rate 91 79 Respiratory Rate 19 18 Blood Pressure 156/81 H 182/85 H Pulse Oximetry 97 97 BMI result Body Mass Index 40.4 VITAL SIGNS: Reviewed. GENERAL: Elevated BMI, well nourished, in moderate distress. HEAD: Normocephalic/atraumatic EYES: PERRLA, EOMI EARS: Ext canals without abnormality OROPHARYNX: no oral lesions noted, posterior pharynx clear LUNGS: Normal breath sounds. No adventitious sounds or accessory muscle use. SpO2<97> CARDIOVASCULAR: Regular rate and rhythm without noted murmurs ABDOMEN: Soft, non-tender, specifically there is no pain in the right upper quadrant and Negro's is negative, non-distended with bowel sounds. SKIN: Inspection of the skin reveals no rashes NEUROLOGIC: Alert and oriented x 4. Course Course Course Narrative: 56-year-old female with history and clinical presentation suggestive of renal colic and less likely felt to be appendicitis/cholecystitis or gastritis/pancreatitis. Review of all investigations consistent with likely passed small renal stone, and patient on re-evaluation states she is feeling much better and is ready to go home. All results discussed with her and she will be provided with a referral to follow-up with urology as there is a noted larger stone within the right kidney. Medical Decision Making Lab Data Result diagrams: 01/13/22 18:43 01/13/22 18:43 Labs: Lab Results 01/13/22 01/13/22 01/13/22 Range/Units 18:33 18:43 18:43 WBC 13.5 H (4.8-10.8) X10*3/uL RBC 4.40 (4.20-5.50) X10*6/uL Hgb 12.3 (12.0-16.0) g/dl Hct 38.5 (37.0-47.0) % MCV 87.5 (80.0-98.0) fL MCH 28.0 (27.0-33.0) pg MCHC 31.9 (31.0-35.0) g/dl RDW 13.4 (11.0-16.0) % Plt Count 397 (160-400) X10*3/uL MPV 10.3 (9.4-12.3) fL Immature Gran % (Auto) 0.6 H (0.0-0.4) % Neut % (Auto) 70.8 (45-73) % Lymph % (Auto) 21.2 (20-40) % Reeves % (Auto) 5.9 (2-11) % Eos % (Auto) 1.3 (0-4) % Baso % (Auto) 0.2 (0-2) % Lymph # (Auto) 2.9 (1.2-4.9) X10*3/uL Reeves # (Auto) 0.8 (0.1-1.2) X10*3/uL Eos # (Auto) 0.2 (0.0-0.4) X10*3/uL Baso # (Auto) 0.0 (0.0-0.2) X10*3/uL Abs Immat Gran (auto) 0.08 H (0.00-0.03) X10*3/uL Absolute Neuts (auto) 9.5 H (2.0-8.3) x10*3/uL Absolute Nucleated RBC 0.000 (0.0-0.012) X10*3/uL Nucleated RBC % (auto) 0.0 (0.0-0.2) /100WBC Sodium 139 (135-145) mmol/L Potassium 4.6 (3.3-5.1) mmol/L Chloride 100 (96-108) mmol/L Carbon Dioxide 30 H (22-29) mmol/L Anion Gap 14 (12-20) BUN 15 (9-16) mg/dL Creatinine 1.08 (0.5-1.4) mg/dL Estim Creat Clear Calc 83.7 Estimated GFR 52 Random Glucose 136 H (60-115) mg/dL Calcium 9.9 D (8.4-10.2) mg/dL Total Bilirubin 0.2 (0.0-1.0) mg/dL AST 25 (5-31) U/L ALT 42 H (0-31) U/L Alkaline Phosphatase 120 H (39-117) U/L Total Protein 7.7 (6.5-8.0) g/dL Albumin 4.1 (3.5-5.0) g/dL Urine Color YELLOW Urine Appearance CLOUDY Urine pH 5.5 (5.0-8.0) Ur Specific [place] >= 1.030 H (1.005-1.025) Urine Protein 2+ H (NEG-TRACE) MG/DL Urine Glucose (UA) NEG (NEG) MG/DL Urine Ketones NEG (NEG) MG/DL Urine Blood 3+ H (NEG) Urine Nitrite NEG (NEG) Ur Leukocyte Esterase NEG (NEG) Urine RBC 15-29 H (0) /HPF Urine WBC 0 (0-4) /HPF Ur Squamous Epith Cells 4+ /LPF Ur Renal Epithelial Cell 1+ /LPF Uric Acid Crystals 3+ /LPF Urine Bacteria NONE /LPF Granular Casts 1-4 /LPF Urine Mucus 3+ /LPF Discharge Plan Discharge Clinical Impression: Nephrolithiasis, Renal colic Patient Disposition: Home, Self-Care Instructions: Kidney Stones (ED), Renal Colic (ED), Low Oxalate Diet (ED) Additional Instructions: 1. Resume all home medications as prescribed. 2. Increase your fluid hydration, especially with water. 3. I have provided referral to follow-up with urology below. 4. Please follow-up with your primary care provider for re-evaluation further outpatient management. Return to the ER for worsening symptoms. Prescriptions: No Action atorvastatin 80 mg tablet 80 mg PO DAILY Qty: 90 6RF gabapentin 100 mg capsule 100 mg PO BEDTIME 90 Days Qty: 90 0RF valsartan 80 mg Tablet 80 mg PO BID Qty: 60 0RF Protocol: Hold for SBP< HOLD for SBP < : 90 ezetimibe 10 mg tablet 10 mg PO DAILY 90 Days Qty: 90 1RF albuterol sulfate 90 mcg/actuation HFA aerosol inhaler 2 puff inhalation Q4-6H PRN (Reason: Wheezing) 0RF (DME) Blood Pressure Cuff Misc See Rx Instructions .Route Qty: 1 0RF Rx Instructions: As directed, monitor BP 2-3 a day, and creat a log hydroxyzine HCl 25 mg tablet 25 mg PO TID PRN (Reason: itching) Qty: 84 0RF sertraline 50 mg tablet 50 mg PO DAILY Qty: 90 0RF hydrochlorothiazide 25 mg tablet 25 mg PO DAILY 90 Days Qty: 90 1RF metformin 1,000 mg tablet 1,000 mg PO BID 90 Days Qty: 180 1RF (DME) blood-glucose meter [FreeStyle Lite Meter] Kit See Rx Instructions .Route Qty: 1 0RF Rx Instructions: As directed (DME) FreeStyle Lite Strips Strip See Rx Instructions .Route Qty: 100 3RF Rx Instructions: Use 1 test strip once a day (DME) lancets [FreeStyle Lancets] 28 gauge misc See Rx Instructions .Route Qty: 100 3RF Rx Instructions: Use 1 lancet once a day fluticasone propion-salmeterol [Wixela Inhub] 250-50 mcg/dose blister with device 1 inh inhalation BID 30 Days Qty: 1 6RF omeprazole 20 mg capsule,delayed release(DR/EC) 40 mg PO BID 30 Days Qty: 120 2RF Referrals: Mitzy Zhao MD [Primary Care Provider] - Srikanth Milton MD [Physician] - (56-year-old female with new renal colic, there is a noted larger right kidney stone.)
[2022-01-13] MEDS: 0.9 % Sodium Chloride 1,000 ML 999 ML IV (22:02)
[2022-01-13] MEDS: Ketorolac Tromethamine 30 MG/ML VIAL 15 MG IVPUSH (22:02)
[2022-01-14] VITALS: BP 193/88; PULSE 75; RESP 18; TEMP 36.8; O2SAT 97
== END 2022-01-14 00:15 | disposition home or self-care (01) ==
PROVIDERS: Emergency Provider Student in an Organized Health Care Education/Training Program; PCP Internal Medicine
DX: N20.0 Calculus of kidney (principal); E11.9 Type 2 diabetes mellitus without complications; I10 Essential (primary) hypertension; J45.909 Unspecified asthma, uncomplicated
CPT/HCPCS: 36415; 74176; 80053; 81001; 85025; 96361; 96374; 99284; J1885

== ENCOUNTER 2022-01-15 09:22 | Emergency (ER) | payer OTHER, SELFPAY ==
[2022-01-15 10:50] VITALS: BP 200/108; PULSE 96; RESP 20; TEMP 36.3; O2SAT 97; BMI 46.5
== END 2022-01-15 19:23 | disposition left against medical advice (07) ==
LOC: HO.ED 15:30
PROVIDERS: Emergency Provider Emergency Medicine; PCP Internal Medicine
DX: N20.0 Calculus of kidney (principal)
CPT/HCPCS: 99281

== ENCOUNTER 2022-01-16 04:46 | Emergency (ER) | payer OTHER, SELFPAY ==
--- NOTE | ~2022-01-16 | CT_ITS ---
EXAMINATION: CT ABDOMEN AND PELVIS WITHOUT CONTRAST CLINICAL INFORMATION: Right-sided abdominal pain. Flank pain. COMPARISON: 01/13/2022 TECHNIQUE: Multidetector volumetric imaging was performed from the superior aspect of the liver through the pubic symphysis. Sagittal and coronal reformatted images were obtained on the technologist's workstation. This CT examination was performed using dose optimization techniques as appropriate, variously including the following: *Automated exposure control *Adjustment of mA and/or kV according to patient size (this includes techniques or standardized protocols for targeted exams where dose is matched to indication/reason for exam; i.e. extremities or head) *Use of iterative reconstruction technique DLP: 09/02/2005 mGy-cm FINDINGS: LUNG BASES: The visualized lung bases are unremarkable. LIVER, GALLBLADDER, AND BILIARY TREE: The liver is enlarged with diffusely decreased attenuation. Normal shape of the liver.. No focal hepatic lesion or biliary ductal dilatation is present. The gallbladder is unremarkable with no evidence of radiopaque gallstones, gallbladder wall thickening, or obvious pericholecystic inflammatory changes. PANCREAS: Unremarkable. SPLEEN: Unremarkable. ADRENAL GLANDS: The right adrenal gland is normal. Unchanged heterogeneous left adrenal gland mass. KIDNEYS AND URETERS: The kidneys are normal in size, shape, and attenuation. There is increased mild right hydroureteronephrosis. There is a 0.3 cm calculus at the right ureterovesicular junction. There are 2 separate nonobstructing right lower pole renal calculi with ovoid shape measuring 0.7 x 0.2 cm. This is 14 cm from the posterior axillary line. BLADDER: Unremarkable. GASTROINTESTINAL TRACT: The stomach is unremarkable. Normal caliber small bowel. No obstruction. Colonic diverticulosis without diverticulitis. ABDOMINAL WALL: No significant hernia is appreciated. LYMPH NODES: Normal. VASCULAR: Normal caliber aorta with mild atherosclerotic calcification. PELVIC VISCERA: Uterine fibroids. No adnexal mass. OSSEOUS STRUCTURES: No acute or suspicious osseous abnormality. Mild degenerative changes in the spine and hips. CT/CT abdomen pelvis wo con IMPRESSION: There is increased mild right hydroureteronephrosis with a 0.3 cm obstructing calculus at the right ureterovesicular junction. Additional nonobstructing right-sided calculi noted. Hepatomegaly with hepatic steatosis. Fleischner guidelines were followed.
[2022-01-16 04:52] VITALS: BP 163/90; PULSE 88; RESP 20; TEMP 36.6; O2SAT 97; BMI 46.5
[2022-01-16 05:53] LABS: MANUAL DIFF FLAG NO
[2022-01-16 05:54] LABS: Appearance Urine HAZY; Color Urine STRAW; Glucose Urine UA NEG (NEG); Leukocyte Esterase Urine NEG (NEG); Nitrite Urine NEG (NEG); PH 5.5 (5.0-8.0); UACC Culture Trigger NO; Urine Blood TRACE (NEG); Urine Ketones NEG (NEG); Urine Protein NEG (NEG-TRACE)
[2022-01-16 05:54] LABS: Basophils Absolute Auto 0.1 X10*3/uL (0.0-0.2); Basophils Percent Auto 0.3 % (0-2); Eosinophils Absolute Auto 0.1 X10*3/uL (0.0-0.4); Eosinophils Percent Auto 0.8 % (0-4); Hematocrit 39.1 % (37.0-47.0); Hemoglobin 12.5 g/dl (12.0-16.0); Imm Gran Abs Auto 0.07 X10*3/uL (0.00-0.03); Imm Gran Pct Auto 0.5 % (0.0-0.4); Lymphocytes Absolute Auto 2.2 X10*3/uL (1.2-4.9); Lymphocytes Percent Auto 14.8 % (20-40); Mean Corpuscular Volume 87.5 fL (80.0-98.0); Mean Platelet Volume 10.3 fL (9.4-12.3); Monocytes Absolute Auto 0.9 X10*3/uL (0.1-1.2); Monocytes Percent Auto 6.2 % (2-11); Neutrophils Absolute Auto 11.3 x10*3/uL (2.0-8.3); Neutrophils Percent Auto 77.4 % (45-73); Platelet Count 400 X10*3/uL (160-400); Red Blood Count 4.47 X10*6/uL (4.20-5.50); Red Cell Distribution Width 13.3 % (11.0-16.0); White Blood Count 14.6 X10*3/uL (4.8-10.8)
[2022-01-16 06:01] LABS: Bacteria Urine 1+ /LPF; RBC Urine 0-2 /HPF (0); Squamous Epithelial Cell Urine 3+ /LPF; WBC Urine 0-2 /HPF (0-4)
[2022-01-16 06:13] LABS: Alanine Aminotransferase 32 U/L (0-31); Alkaline Phosphatase 110 U/L (39-117); Anion Gap 15 (12-20); Aspartate Amino Transferase 18 U/L (5-31); Bilirubin Total 0.4 mg/dL (0.0-1.0); Blood Urea Nitrogen 20 mg/dL (9-16); Calcium 9.8 mg/dL (8.4-10.2); Carbon Dioxide 25 mmol/L (22-29); Chloride 102 mmol/L (96-108); Creatinine Clr Calc Pharmacy 54.1; Estimated Glomerular Filt Rate 35; Glucose Random 195 mg/dL (60-115); Lipase 15 U/L (8-78); Potassium 4.3 mmol/L (3.3-5.1); Sodium 138 mmol/L (135-145); Total Protein 7.5 g/dL (6.5-8.0)
--- NOTE | 2022-01-16 07:55 | PC.NURSE ---
up with steady but slow gait to br. requesting pain meds for back pain. skin pwd. axox3.
--- NOTE | 2022-01-16 08:01 | ED_ITS ---
HPI - Abdominal Pain General Chief Complaint: Back Pain/Injury Stated Complaint: kidney stone, unable to urinate Time Seen by Provider: 01/16/22 05:18 Source: patient Mode of arrival: ambulatory Limitations: no limitations History of Present Illness HPI narrative: this is a 56 years old male presented to the emergency department with a chief complaint of a right flank pain back pain. Symptoms have been going on for few days she came yesterday but she left because the wait was long, denies any fever any chills she does have a history of nephrolithiasis MD elicited complaint: flank pain Pertinent past history: other (kidney stones) Onset (ago): day(s) (3) Pain Consistency: constant Location: R flank Severity: moderate Quality: aching Radiation: none Migration to: no migration Exacerbating factors: nothing Relieving factors: nothing Associated symptoms: denies other symptoms Related Data Home Medications Medication Instructions Recorded Confirmed albuterol sulfate 90 mcg/actuation 2 puff INHALATION Q4-6H PRN 08/08/20 01/10/22 aerosol inhaler Previous Rx's Medication Instructions Recorded atorvastatin 80 mg tablet 80 mg PO DAILY #90 tab 09/04/20 ezetimibe 10 mg tablet 10 mg PO DAILY 90 Days #90 tab 05/01/21 fluticasone 250 mcg-salmeterol 50 1 inh INHALATION BID 30 Days #1 ea 05/09/21 mcg/dose blistr powdr for inhalation (Wixela Inhub) omeprazole 20 mg capsule,delayed 40 mg PO BID 30 Days #120 cap 07/05/21 release valsartan 80 mg tablet 80 mg PO BID #60 tab 08/19/21 hydroxyzine HCl 25 mg tablet 25 mg PO TID PRN #84 tab 08/23/21 miscellaneous medical supply #1 ea 08/23/21 (Blood Pressure Cuff) blood sugar diagnostic (FreeStyle #100 ea 09/27/21 Lite Strips) blood-glucose meter (FreeStyle #1 ea 09/27/21 Lite Meter) hydrochlorothiazide 25 mg tablet 25 mg PO DAILY 90 Days #90 tab 09/27/21 lancets 28 gauge (FreeStyle #100 ea 09/27/21 Lancets) metformin 1,000 mg tablet 1,000 mg PO BID 90 Days #180 tab 09/27/21 acetaminophen 500 mg tablet 500 mg PO Q6H PRN 7 Days #21 tab 01/15/22 ondansetron 4 mg disintegrating 4 mg PO Q8H 4 Days #12 tab 01/16/22 tablet oxycodone 5 mg tablet 5 mg PO Q6H PRN #15 tab 01/16/22 tamsulosin 0.4 mg capsule (Flomax) 0.4 mg PO DAILY #10 cap 01/16/22 Allergies Allergy/AdvReac Type Severity Reaction Status Date / Time No Known Allergies Allergy Verified 01/15/22 16:28 [No Known Allergies*] Review of Systems Review of Systems Yes all other systems are reviewed and are negative Constitutional: Reports no additional constitutional complaints Eyes: Reports no additional eye complaints Respiratory: Reports no additional respiratory complaints Gastrointestinal: Denies diarrhea, Denies loose stools and Denies hematemesis PMFSH Past Medical History Medical History Asthma Chronic cough Diabetes mellitus Essential hypertension Headache Mild asthma Mild recurrent major depression RANJIT (obstructive sleep apnea) Pure hypercholesterolemia Super obese Surgical History History of section History of colonoscopy History of tubal ligation Family History Family History Father Diabetes Hypertension Mother Hypertension Liver cancer Maternal Grandfather Throat cancer Paternal Grandmother Stomach cancer Social History Social History Housing: House Alcohol intake: never Patient Tobacco Use Status: Never used Tobacco Use of substances other than those prescribed or required for medical reasons: No Advance Directives: Yes Advance Directives on File: Yes Advance Directives Date on File: 08/21/21 service: No Current occupational status: employed Physical Exam ED Vital Signs: Vital Signs - 24 hr 01/16/22 04:52 01/16/22 10:29 Temperature 97.9 F 98.3 F Pulse Rate 88 78 Respiratory Rate 20 20 Blood Pressure 163/90 H 160/87 H Pulse Oximetry 97 97 BMI result Body Mass Index 46.5 Const General: cooperative Nutritional Appearance: well nourished Orientation/consciousness: patient oriented x3 Limitations: no limitations HENMT Head: Yes normal to inspection General nose exam: Normal external nose present Face and sinus: Yes normal facial exam Mouth: Normal oral and palatal mucosa present Throat: Yes posterior oropharynx normal Neck Neck: Yes normal visual inspection and Yes full ROM Chest Chest palpation & inspection: normal inspection of the chest Resp Effort & Inspection: able to speak in complete sentences Auscultation: clear to auscultation bilaterally Cardio Palpation: normal PMI Rate: regular rate Rhythm: regular rhythm GI Inspection: Yes normal to inspection Palpation (GI): Soft to palpation, not firm, nontender and no guarding Skin General skin exam: no rashes or lesions noted and elasticity normal Rashes: no rashes Neuro General: patient oriented x3 and gait normal Cranial nerves: Yes CN's II-XII intact bilaterally MDM - Abdominal Pain Lab Data Result diagrams: 01/16/22 05:50 01/16/22 05:50 Labs: Lab Results 01/16/22 01/16/22 01/16/22 Range/Units 05:48 05:50 05:50 WBC 14.6 H (4.8-10.8) X10*3/uL RBC 4.47 (4.20-5.50) X10*6/uL Hgb 12.5 (12.0-16.0) g/dl Hct 39.1 (37.0-47.0) % MCV 87.5 (80.0-98.0) fL MCH 28.0 (27.0-33.0) pg MCHC 32.0 (31.0-35.0) g/dl RDW 13.3 (11.0-16.0) % Plt Count 400 (160-400) X10*3/uL MPV 10.3 (9.4-12.3) fL Immature Gran % (Auto) 0.5 H (0.0-0.4) % Neut % (Auto) 77.4 H (45-73) % Lymph % (Auto) 14.8 L (20-40) % [place] % (Auto) 6.2 (2-11) % Eos % (Auto) 0.8 (0-4) % Baso % (Auto) 0.3 (0-2) % Lymph # (Auto) 2.2 (1.2-4.9) X10*3/uL [place] # (Auto) 0.9 (0.1-1.2) X10*3/uL Eos # (Auto) 0.1 (0.0-0.4) X10*3/uL Baso # (Auto) 0.1 (0.0-0.2) X10*3/uL Abs Immat Gran (auto) 0.07 H (0.00-0.03) X10*3/uL Absolute Neuts (auto) 11.3 H (2.0-8.3) x10*3/uL Absolute Nucleated RBC 0.000 (0.0-0.012) X10*3/uL Nucleated RBC % (auto) 0.0 (0.0-0.2) /100WBC Sodium 138 (135-145) mmol/L Potassium 4.3 (3.3-5.1) mmol/L Chloride 102 (96-108) mmol/L Carbon Dioxide 25 (22-29) mmol/L Anion Gap 15 (12-20) BUN 20 H (9-16) mg/dL Creatinine 1.54 H (0.5-1.4) mg/dL Estim Creat Clear Calc 54.1 Estimated GFR 35 Random Glucose 195 H (60-115) mg/dL Calcium 9.8 (8.4-10.2) mg/dL Total Bilirubin 0.4 (0.0-1.0) mg/dL AST 18 (5-31) U/L ALT 32 H (0-31) U/L Alkaline Phosphatase 110 (39-117) U/L Total Protein 7.5 (6.5-8.0) g/dL Albumin 4.0 (3.5-5.0) g/dL Lipase 15 (8-78) U/L Urine Color STRAW Urine Appearance HAZY Urine pH 5.5 (5.0-8.0) Ur Specific [place] 1.020 (1.005-1.025) Urine Protein NEG (NEG-TRACE) MG/DL Urine Glucose (UA) NEG (NEG) MG/DL Urine Ketones NEG (NEG) MG/DL Urine Blood TRACE (NEG) Urine Nitrite NEG (NEG) Ur Leukocyte Esterase NEG (NEG) Urine RBC 0-2 (0) /HPF Urine WBC 0-2 (0-4) /HPF Ur Squamous Epith Cells 3+ /LPF Urine Bacteria 1+ /LPF Imaging Data CT scan - abdomen: Radiologist's impression: [address] [address] [address] Scan Report Signed Patient: Rema Gonzalez MR#: [id number] : 1965 Acct:[id number] Age/Sex: 56 / F ADM Date: 01/16/22 Loc: HO.ED Attending Dr: Ordering Physician: Criselda Frankel MD Date of Service: 01/16/22 Procedure(s): CT abdomen pelvis wo con Accession Number(s): [id number] cc: Criselda Frankel MD~ EXAMINATION: CT ABDOMEN AND PELVIS WITHOUT CONTRAST? CLINICAL INFORMATION: Right-sided abdominal pain. Flank pain.? COMPARISON: 01/13/2022? TECHNIQUE: Multidetector volumetric imaging was performed from the superior aspect of the liver through the pubic symphysis. Sagittal and coronal reformatted images were obtained on the technologist's workstation.? This CT examination was performed using dose optimization techniques as appropriate, variously including the following: *Automated exposure control *Adjustment of mA and/or kV according to patient size (this includes techniques or standardized protocols for targeted exams where dose is matched to indication/reason for exam; i.e. extremities or head) *Use of iterative reconstruction technique DLP: 09/02/2005 mGy-cm FINDINGS: LUNG BASES: The visualized lung bases are unremarkable.? LIVER, GALLBLADDER, AND BILIARY TREE: The liver is enlarged with diffusely decreased attenuation. Normal shape of the liver.. No focal hepatic lesion or biliary ductal dilatation is present. The gallbladder is unremarkable with no evidence of radiopaque gallstones, gallbladder wall thickening, or obvious pericholecystic inflammatory changes.? PANCREAS: Unremarkable.? SPLEEN: Unremarkable.? ADRENAL GLANDS: The right adrenal gland is normal. Unchanged heterogeneous left adrenal gland mass.? KIDNEYS AND URETERS: The kidneys are normal in size, shape, and attenuation. There is increased mild right hydroureteronephrosis. There is a 0.3 cm calculus at the right ureterovesicular junction. There are 2 separate nonobstructing right lower pole renal calculi with ovoid shape measuring 0.7 x 0.2 cm. This is 14 cm from the posterior axillary line. BLADDER: Unremarkable.? GASTROINTESTINAL TRACT: The stomach is unremarkable. Normal caliber small bowel. No obstruction. Colonic diverticulosis without diverticulitis.? ABDOMINAL WALL: No significant hernia is appreciated.? LYMPH NODES: Normal. VASCULAR: Normal caliber aorta with mild atherosclerotic calcification. PELVIC VISCERA: Uterine fibroids. No adnexal mass.? OSSEOUS STRUCTURES: No acute or suspicious osseous abnormality. Mild degenerative changes in the spine and hips.? CT/CT abdomen pelvis wo con IMPRESSION: There is increased mild right hydroureteronephrosis with a 0.3 cm obstructing calculus at the right ureterovesicular junction. Additional nonobstructing right-sided calculi noted. ? Hepatomegaly with hepatic steatosis.? ? Fleischner guidelines were followed. Dictated By: Bertram Olmedo MD Signed By: <Electronically signed by Bertram Olmedo MD in [place]> 01/16/22546 DD/ 9 Discharge Plan Discharge Clinical Impression: Renal colic Patient Disposition: Home, Self-Care Instructions: Renal Colic (ED) Prescriptions: New tamsulosin [Flomax] 0.4 mg capsule 0.4 mg PO DAILY Qty: 10 0RF ondansetron 4 mg tablet,disintegrating 4 mg PO Q8H 4 Days Qty: 12 0RF oxycodone 5 mg tablet 5 mg PO Q6H PRN (Reason: pain) Qty: 15 0RF Rx Instructions: partial filing upon pt request No Action atorvastatin 80 mg tablet 80 mg PO DAILY Qty: 90 6RF acetaminophen 500 mg tablet 500 mg PO Q6H PRN (Reason: fever) 7 Days Qty: 21 0RF valsartan 80 mg Tablet 80 mg PO BID Qty: 60 0RF Protocol: Hold for SBP< HOLD for SBP < : 90 ezetimibe 10 mg tablet 10 mg PO DAILY 90 Days Qty: 90 1RF albuterol sulfate 90 mcg/actuation HFA aerosol inhaler 2 puff inhalation Q4-6H PRN (Reason: Wheezing) 0RF (DME) Blood Pressure Cuff Misc See Rx Instructions .Route Qty: 1 0RF Rx Instructions: As directed, monitor BP 2-3 a day, and creat a log hydroxyzine HCl 25 mg tablet 25 mg PO TID PRN (Reason: itching) Qty: 84 0RF hydrochlorothiazide 25 mg tablet 25 mg PO DAILY 90 Days Qty: 90 1RF metformin 1,000 mg tablet 1,000 mg PO BID 90 Days Qty: 180 1RF (DME) blood-glucose meter [FreeStyle Lite Meter] Kit See Rx Instructions .Route Qty: 1 0RF Rx Instructions: As directed (DME) FreeStyle Lite Strips Strip See Rx Instructions .Route Qty: 100 3RF Rx Instructions: Use 1 test strip once a day (DME) lancets [FreeStyle Lancets] 28 gauge misc See Rx Instructions .Route Qty: 100 3RF Rx Instructions: Use 1 lancet once a day fluticasone propion-salmeterol [Wixela Inhub] 250-50 mcg/dose blister with device 1 inh inhalation BID 30 Days Qty: 1 6RF omeprazole 20 mg capsule,delayed release(DR/EC) 40 mg PO BID 30 Days Qty: 120 2RF Referrals: Srikanth Milton MD [Physician] - Stand Alone Forms: Work/School Release Interventions: ED Discharge Assessment Last Done: 01/16/22 10:32 Discharge Date/Time: 01/16/22 10:33
[2022-01-16] MEDS: Ketorolac Tromethamine 30 MG/ML VIAL IVPUSH (08:39)
[2022-01-16] MEDS: 0.9 % Sodium Chloride 1,000 ML 999 ML IVCONT (08:40)
--- NOTE | 2022-01-16 09:27 | PC.NURSE ---
states she feels much better ./ fluids continue to infuse. NAD.
[2022-01-16 10:29] VITALS: BP 160/87; PULSE 78; RESP 20; TEMP 36.8; O2SAT 97
== END 2022-01-16 10:33 | disposition home or self-care (01) ==
PROVIDERS: Emergency Provider Emergency Medicine; PCP Internal Medicine
DX: N23 Unspecified renal colic (principal); M54.50 Low back pain, unspecified; R33.9 Retention of urine, unspecified; Z79.899 Other long term (current) drug therapy
CPT/HCPCS: 36415; 74176; 80053; 81001; 83690; 85025; 96361; 96374; 99284; J1885

== ENCOUNTER 2022-03-24 07:45 | Outpatient (REF) | payer OTHER, SELFPAY ==
[2022-03-24 08:27] LABS: MANUAL DIFF FLAG NO
[2022-03-24 08:45] LABS: Basophils Percent Auto 0.3 % (0-2); Eosinophils Absolute Auto 0.1 X10*3/uL (0.0-0.4); Eosinophils Percent Auto 1.1 % (0-4); Hematocrit 39.2 % (37.0-47.0); Hemoglobin 12.5 g/dl (12.0-16.0); Imm Gran Abs Auto 0.05 X10*3/uL (0.00-0.03); Imm Gran Pct Auto 0.4 % (0.0-0.4); Lymphocytes Absolute Auto 2.4 X10*3/uL (1.2-4.9); Lymphocytes Percent Auto 20.6 % (20-40); Mean Corpuscular HGB Conc 31.9 g/dl (31.0-35.0); Mean Corpuscular Hemoglobin 27.9 pg (27.0-33.0); Mean Corpuscular Volume 87.5 fL (80.0-98.0); Mean Platelet Volume 10.4 fL (9.4-12.3); Monocytes Absolute Auto 0.5 X10*3/uL (0.1-1.2); Monocytes Percent Auto 4.6 % (2-11); Neutrophils Absolute Auto 8.4 x10*3/uL (2.0-8.3); Platelet Count 350 X10*3/uL (160-400); Red Blood Count 4.48 X10*6/uL (4.20-5.50); Red Cell Distribution Width 13.2 % (11.0-16.0); White Blood Count 11.5 X10*3/uL (4.8-10.8)
[2022-03-24 09:15] LABS: Alanine Aminotransferase 40 U/L (0-31); Alkaline Phosphatase 109 U/L (39-117); Anion Gap 13 (12-20); Aspartate Amino Transferase 26 U/L (5-31); Bilirubin Total 0.3 mg/dL (0.0-1.0); Blood Urea Nitrogen 18 mg/dL (9-16); Calcium 9.6 mg/dL (8.4-10.2); Carbon Dioxide 28 mmol/L (22-29); Chloride 101 mmol/L (96-108); Cholesterol 331 mg/dL; Estimated Glomerular Filt Rate > 60; Glucose Fasting 170 mg/dL (60-99); HDL Cholesterol 43 mg/dL; Magnesium 1.6 mg/dL (1.6-2.6); Potassium 4.3 mmol/L (3.3-5.1); Sodium 138 mmol/L (135-145); Total Protein 7.3 g/dL (6.5-8.0); Triglycerides 514 mg/dL
[2022-03-24 10:21] LABS: Creatinine Urine 91.22 mg/dL; Microalbum/Creatinine Ratio Ur 90.9 ug/mg cr
== END 2022-03-24 07:46 | disposition home or self-care (01) ==
LOC: HO.LAB 07:45
PROVIDERS: PCP Internal Medicine; Visit Provider Internal Medicine
DX: D72.829 Elevated white blood cell count, unspecified (principal); R25.2 Cramp and spasm; E78.5 Hyperlipidemia, unspecified; I16.0 Hypertensive urgency; R06.02 Shortness of breath; E11.65 Type 2 diabetes mellitus with hyperglycemia
CPT/HCPCS: 36415; 80048; 80053; 80061; 82043; 82550; 83735; 85025

== ENCOUNTER 2022-03-26 11:25 | Day surgery (SDC) | payer OTHER, SELFPAY ==
[2022-03-20 13:43] VITALS: BMI 46.0
--- NOTE | 2022-03-23 13:03 | P.CONAN_ITS ---
Documented by User: Anjelica Rowley NP 03/23/22 13:09 HPI - Anesthesia Eval Consult details Narrative: 57yo F for Right Cystoscopy, Ureteroroscopy, Retro, Laser possible stent Cardiac cleared Pulmo cleared - consider extubation to BiPAP prn opioids PMFSH Active Problems Active Problems: All Active Problems (Updated 03/13/22 @ 15:11 by Nikolai Marina MD) GERD (gastroesophageal reflux disease) (Acute) GERD without esophagitis (Acute) Dysphagia, pharyngoesophageal phase (Acute) Adenomatous colon polyp (Acute) Morbid obesity with BMI of 45.0-49.9, adult (Acute) History of Helicobacter pylori infection (Acute) RUQ abdominal pain (Acute) Syncope (Acute) Hypertensive urgency (Acute) YESSI (generalized anxiety disorder) (Acute) Dyspnea on exertion (Acute) Moderate recurrent major depression (Acute) Cough due to bronchospasm (Acute) Hospital discharge follow-up (Acute) SOB (shortness of breath) on exertion (Acute) Encounter for preoperative pulmonary examination (Acute) Renal calculi (Acute) Muscle cramps (Acute) EDGAR (acute kidney injury) (Acute) Leukocytosis (Acute) Mild recurrent major depression (Acute) Diabetes mellitus (Acute) Headache (Acute) RANJIT (obstructive sleep apnea) (Acute) Chronic cough (Acute) Super obese (Acute) Essential hypertension (Acute) Mild asthma (Acute) Pure hypercholesterolemia (Acute) Past Medical History Medical History EDGAR (acute kidney injury) Asthma Chronic cough Diabetes mellitus Essential hypertension Headache Leukocytosis Mild asthma Mild recurrent major depression Muscle cramps RANJIT (obstructive sleep apnea) Pure hypercholesterolemia Renal calculi Super obese Family History Family History Father Diabetes Hypertension Mother Hypertension Liver cancer Maternal Grandfather Throat cancer Paternal Grandmother Stomach cancer Surgical History Surgical History History of section History of colonoscopy History of esophagogastroduodenoscopy (EGD) History of tubal ligation Social History Social History Housing: House Alcohol intake: never Patient Tobacco Use Status: Never used Tobacco e-Cigarette/Vaping Use: Never Used Second Hand Smoke Exposure: No Are you DNR?: No Advance Directives: No Advance Directives Information Provided: Yes Advance Directives Date on File: 08/21/21 Nutrition Risks: No Nutritional Risk service: No Current occupational status: employed Cognitive needs: No Hearing needs: No Vision needs: No Meds Allergies Allergy/AdvReac Type Severity Reaction Status Date / Time No Known Allergies Allergy Verified 03/26/22 12:19 [No Known Allergies*] Home Medications Medication Instructions Recorded Confirmed Last Taken Type albuterol sulfate 90 mcg/actuation 2 puff inhalation Q4-6H PRN 08/08/20 03/20/22 Unknown History aerosol inhaler Wheezing ezetimibe 10 mg tablet (Zetia) 10 mg PO DAILY 03/20/22 03/20/22 Unknown History fluticasone 250 mcg-salmeterol 50 1 inh inhalation BID 03/20/22 03/20/22 Unknown History mcg/dose blistr powdr for inhalation (Wixela Inhub) hydroxyzine HCl 25 mg tablet 1 tab PO TID PRN itch 03/20/22 03/20/22 Unknown History oxycodone 5 mg tablet 1 tab PO Q6H PRN pain 03/20/22 03/20/22 Unknown History Exam Exam Date and Time: March 23, 2022 1303 Height,Weight and Vital Signs: Height 5 ft 5 in Weight 125.645 kg Pertinent Lab Results Pertinent Lab Results: Laboratory Tests 01/16/22 01/16/22 05:50 05:50 WBC 14.6 H Hgb 12.5 Hct 39.1 Plt Count 400 Sodium 138 Potassium 4.3 Chloride 102 Carbon Dioxide 25 BUN 20 H Creatinine 1.54 H Narrative Narrative: EKG 10/2021 Vent. Rate : 098 BPM ? ? Atrial Rate : 098 BPM ?? P-R Int : 136 ms? QRS Dur : 088 ms ? ? QT Int : 362 ms ? ? ? P-R-T Axes : 051 058 118 degrees ?? QTc Int : 462 ms ? Normal sinus rhythm Nonspecific ST and T wave abnormality Borderline ECG When compared with ECG of 17-AUG-2021 15:21, No significant change was found NM cardiolite stress test 12/2021 Impression: ? 1.? Myocardial perfusion imaging study shows possible mild ischemia vs soft tissue attenuation artifact in the distal part of anterolateral wall. Reversible basal inferior defect could be from diaphragmatic attenuation artifact. 2.? Gated LVEF is 59% during stress and 60% during rest. 3. Transient ischemic dilatation not present. ? EKG component of the test reported separately. ECHO 08/2021 Conclusions: - 1. Technically limited study despite use of definity ? Contrast 2. LV systolic function appears to be normal with LVEF of 60 65% with mild LVH? 3. Limited visualization of cardiac valves with normal cardiac ? valvular Doppler ?? Holter 09/2021 Total monitoring time 6 days and 23 hours.? Underlying rhythm is sinus.? Minimum heart rate 73/Min.? Maximum 126/Min.? Average 93/Min.? No atrial fibrillation or flutter or AV blocks or pauses.? Rare supraventricular ectopy with minimal burden.? Two brief runs, longest 9 beats.? No significant ventricular ectopy.? No patient events. Assessment and Plan Assessment Anesthesia Assessment: Chart Reviewed Documented by User: Sunil Kline MD 03/26/22 14:25 [facility] Past Medical History Medical History EDGAR (acute kidney injury) Asthma Chronic cough Diabetes mellitus Essential hypertension Headache Leukocytosis Mild asthma Mild recurrent major depression Muscle cramps RANJIT (obstructive sleep apnea) Pure hypercholesterolemia Renal calculi Super obese Family History Family History Father Diabetes Hypertension Mother Hypertension Liver cancer Maternal Grandfather Throat cancer Paternal Grandmother Stomach cancer Family history of problems with anesthesia: No Surgical History Surgical History History of section History of colonoscopy History of esophagogastroduodenoscopy (EGD) History of tubal ligation History of Problems with Anesthesia: No Social History Social History (Reviewed 03/02/22 @ 16:08 by CRISTINA Drummond Housing: House Alcohol intake: never Patient Tobacco Use Status: Never used Tobacco e-Cigarette/Vaping Use: Never Used Second Hand Smoke Exposure: No Are you DNR?: No Advance Directives: No Advance Directives Information Provided: Yes Advance Directives Date on File: 08/21/21 Nutrition Risks: No Nutritional Risk service: No Current occupational status: employed Cognitive needs: No Hearing needs: No Vision needs: No Meds Allergies Allergy/AdvReac Type Severity Reaction Status Date / Time No Known Allergies Allergy Verified 03/26/22 12:19 [No Known Allergies*] Home Medications Medication Instructions Recorded Confirmed Last Taken Type albuterol sulfate 90 mcg/actuation 2 puff inhalation Q4-6H PRN 08/08/20 03/20/22 Unknown History aerosol inhaler Wheezing ezetimibe 10 mg tablet (Zetia) 10 mg PO DAILY 03/20/22 03/20/22 Unknown History fluticasone 250 mcg-salmeterol 50 1 inh inhalation BID 03/20/22 03/20/22 Unknown History mcg/dose blistr powdr for inhalation (Wixela Inhub) hydroxyzine HCl 25 mg tablet 1 tab PO TID PRN itch 03/20/22 03/20/22 Unknown History oxycodone 5 mg tablet 1 tab PO Q6H PRN pain 03/20/22 03/20/22 Unknown History Exam Airway Mallampati Class: II TM Dist: >3cm Neck ROM: Full Loose/Missing/Broken Teeth: No Heart: rrr Lungs: clear Assessment and Plan Final Anesthetic Review Family History of Problems with Anesthesia: No History of Problems with Anesthesia: No NPO: Yes ASA Class: III Final Preanesthetic Review: No Changes in Pt Med Stat, Meds/Allgs Chart Reviewed, Consent Obtained/Reviewed and Anes Risks/Benef Reviewed Patient Risk: Intermediate Procedure Risk: Low Anesthetic Plan Anesthetic Plan: GA Disposition: Standard PACU
[2022-03-26] VITALS (8 sets, daily range): BP systolic 130–154; BP diastolic 71–84; PULSE 81–91; RESP 16–24; TEMP 36.2–36.6; O2SAT 24–100
--- NOTE | ~2022-03-26 | FL_ITS ---
EXAMINATION: XR FLUOROSCOPY WITH IMAGES CLINICAL INFORMATION: Right retrograde pyelogram COMPARISON: CT 01/16/2022 TECHNIQUE: Fluoroscopy performed by Dr. Srikanth Milton. Fluoroscopy time: 18.3 seconds. Cumulative Dose: 13.88 mGy. Images: 2. FINDINGS: There is contrast injected into the right ureter and collecting system. Filling defects seen at the renal pelvis may be air bubbles. A scope is noted. FL/FL guidance in OR IMPRESSION: Fluoroscopic guidance for right-sided pyelogram. Please refer to procedural report for further information.
[2022-03-26 13:06] LABS: Glucose, Whole Blood 117 mg/dL (60-115)
[2022-03-26] MEDS: Lactated Ringers 1,000 ML 100 ML IVCONT (13:07)
[2022-03-26] MEDS: Acetaminophen 325 MG TABLET 650 MG PO (13:12)
--- NOTE | 2022-03-26 14:27 | MHC.SHP ---
Pre-Procedural Eval Section A Date of Service: 03/26/22 The patient is an INPATIENT: No Changes since office visit: Yes Cold of Flu in the past 2 weeks, Yes New Medical Problems, Yes Changes in Medication and Yes Patient answered all questions The History & Physical has been completed within 30 days and I have reviewed it.: No Section B Chief Complaint: kidney stone Details of Present Illness: right retrograde right ureteroscopy laser stent placement Relevant Family History (Specify if Yes): No Relevant Social History: None Present Medications: see Short Stay Collaborative assessment Medical History: Significant History History of Previous Operations: No relevant previous surgery Allergies: Allergies Allergy/AdvReac Type Severity Reaction Status Date / Time No Known Allergies Allergy Verified 03/26/22 12:19 [No Known Allergies*] Review of Systems Sugical H&P ROS: Negative: Constitution, Cardiovascular, Respiratory, Neurological, Psychiatric, Hem-Onc, Allergic/Immunologic, Gastrointestinal, Genitourinary, Musculoskeletal, Integumentary, Endocrine and Eyes/Ears/Nose/Throat Exam Surgical H&P Exam: Normal: HEENT, Normal: Heart, Normal: Lungs, Normal: Extremities, Normal: Abdomen, Normal: Skin and Normal: Neurological Plan Diagnosis/Plan: Unchanged (right retrograde ureteroscopy) I have reviewed the history and physical and performed a pertinent physical examination on my patient. No changes have occurred unless specified.
--- NOTE | 2022-03-26 15:16 | W.PM.OPN ---
Operative Note Operative Note Date of Service: 03/26/22 Narrative: PreOperative Diagnosis: Right-sided hydroureteronephrosis with question of renal stones Post Operative Diagnosis: small uric acid stones throughout renal pelvis and bladder. urethral polyp Procedure: - cystoscopy, right retrograde - semi rigid ureteroscopy, flexible ureteroscopy, stone basketing - removal of urethral polyp Surgeon: Dr Srikanth Milton Anesthesia: General Indications for procedure: emergency room presentation with right-sided hydroureteronephrosis and question of right distal stone. Small stones seen in renal pelvis. Persistent discomfort. Procedure: After informed consent was verified patient was brought to the operating placed in supine position. Anesthesia was administered per protocol. Patient was placed in modified dorsal lithotomy position and prepped and draped in a sterile fashion. Safety pause time-out and side of surgery confirmed. Antibiotics confirmed. 22 [place] Islander cystoscope was inserted per urethra. Bladder was normal in its entirety. Both ureteric orifices were in normal position. Small urethral polyp seen on left side of urethra. This was grasped and removed with a grasper. There was debris from small stones throughout her bladder. Unknown was with these had come from kidney from her bladder. She had a grade 2 cystocele with bladder descent and incomplete bladder emptying. The right ureteric orifice was cannulated and a retrograde examination was performed. no filling defects seen. . A Sensor guidewire was placed up to the level of the renal pelvis under fluoroscopy. The rigid cystoscope was removed and A semi rigid ureteral scope was placed alongside the wire. There were no stone seen within the ureter along its entire length. No transition zone seen. A flexible ureteral scope was then backloaded over the wire and advanced up to the level renal pelvis. The renal pelvis was examined. There were a large number of very small uric acid stones within the lower pole and this is likely to have been what was seen on CT scan. An attempt was made to remove some stones using a 0 tip 1.9 [place] Islander basket. However the sample was not enough for analysis. A decision was made to remove the scope and did not warrant stent placement. The bladder was emptied. The patient tolerated the procedure well and was extubated in the operating room, and transferred in stable condition to the recovery area. She will need assessment for possible pessary versus cyst see repair as outpatient as well as [facility] urinalysis. Pathology: Urethral polyp Drains: none
[2022-03-26] MEDS: Phenazopyridine HCL 100 MG TABLET PO (15:52)
[2022-03-26] MEDS: Tamsulosin HCL 0.4 MG CAPSULE PO (15:52)
== END 2022-03-26 17:00 | disposition home or self-care (01) ==
PROVIDERS: PCP Internal Medicine; Visit Provider Urology
PROC: (CPT 52352; principal; 2022-03-26 13:10)
DX: N20.2 Calculus of kidney with calculus of ureter (principal); N30.80 Other cystitis without hematuria; D30.4 Benign neoplasm of urethra; D72.829 Elevated white blood cell count, unspecified; N17.9 Acute kidney failure, unspecified; F33.0 Major depressive disorder, recurrent, mild; G47.33 Obstructive sleep apnea (adult) (pediatric); E78.00 Pure hypercholesterolemia, unspecified; J45.909 Unspecified asthma, uncomplicated; R05.3 Chronic cough; I10 Essential (primary) hypertension; E66.01 Morbid (severe) obesity due to excess calories; Z68.42 Body mass index [BMI] 45.0-49.9, adult; Z79.51 Long term (current) use of inhaled steroids; Z79.899 Other long term (current) drug therapy
CPT/HCPCS: 52352; 53260; 82947; 88305; C1758; C1769; J1100; J1956; J2250; J2405; J3010; Q9967

== ENCOUNTER 2022-05-26 08:08 | Outpatient (REF) | payer OTHER, SELFPAY ==
[2022-05-26 09:13] LABS: Cholesterol 378 mg/dL; HDL Cholesterol 46 mg/dL; LDL Cholesterol Calculated 256 mg/dl; Triglycerides 381 mg/dL
== END 2022-05-26 08:09 | disposition home or self-care (01) ==
LOC: HO.LAB 08:08
PROVIDERS: Absent Provider Internal Medicine Cardiovascular Disease; PCP Internal Medicine; Visit Provider Internal Medicine
DX: I25.10 Atherosclerotic heart disease of native coronary artery without angina pectoris (principal); E78.00 Pure hypercholesterolemia, unspecified
CPT/HCPCS: 36415; 80061

== ENCOUNTER 2022-06-07 12:19 | Outpatient (REF) | payer OTHER, SELFPAY ==
[2022-06-07 13:39] LABS: Anion Gap 16 (12-20); Blood Urea Nitrogen 16 mg/dL (9-16); Calcium 9.6 mg/dL (8.4-10.2); Carbon Dioxide 28 mmol/L (22-29); Chloride 98 mmol/L (96-108); Estimated Glomerular Filt Rate > 60; Glucose Random 211 mg/dL (60-115); Potassium 4.2 mmol/L (3.3-5.1); Sodium 138 mmol/L (135-145)
== END 2022-06-07 12:20 | disposition home or self-care (01) ==
LOC: HO.LAB 12:19
PROVIDERS: PCP Internal Medicine; Visit Provider Internal Medicine Cardiovascular Disease
DX: I10 Essential (primary) hypertension (principal)
CPT/HCPCS: 36415; 80048

== ENCOUNTER 2022-10-10 11:26 | Outpatient (REF) | payer OTHER, SELFPAY ==
--- NOTE | ~2022-10-10 | XR_ITS ---
EXAMINATION: XR WRIST, LEFT CLINICAL INFORMATION: Left wrist pain COMPARISON: None TECHNIQUE: Four views of the left wrist. FINDINGS: No acute fracture or dislocation. Joint spaces are maintained. Soft tissues are unremarkable. XR/XR wrist LT min 3V IMPRESSION: No acute fracture or dislocation.
== END 2022-10-10 11:27 | disposition home or self-care (01) ==
LOC: HO.XRAY 11:26
PROVIDERS: PCP Internal Medicine; Visit Provider Internal Medicine
DX: M25.532 Pain in left wrist (principal); E78.5 Hyperlipidemia, unspecified; E11.65 Type 2 diabetes mellitus with hyperglycemia
CPT/HCPCS: 73110

== ENCOUNTER 2022-11-24 08:12 | Outpatient (REF) | payer OTHER, SELFPAY ==
--- NOTE | ~2022-11-24 | MM_ITS ---
EXAMINATION: MM SCREENING DIGITAL BREAST TOMOSYNTHESIS, BILATERAL CLINICAL INFORMATION: Screening. Asymptomatic. The lifetime risk of breast cancer based on the Tyrer-Cuzick Model is 6%. COMPARISON: Mammography: 11/18/2021, 11/12/2020, 11/07/2019, 11/01/2018 TECHNIQUE: Digital breast tomosynthesis is performed in both the craniocaudal and mediolateral oblique views along with computer-aided detection (CAD). Synthesized 2D images are generated from the tomosynthesis. FINDINGS: There are scattered areas of fibroglandular density (ACR BI-RADS breast composition Category b). There are no significant masses, abnormal calcifications, or other abnormalities. Parenchymal pattern is similar to prior studies. There is no developing density or architectural abnormality. The axilla and skin contours are unremarkable. No significant changes. MM/MM tomosynthesis screening BI IMPRESSION: No mammographic evidence of malignancy. ASSESSMENT: BI-RADS 1: Negative RECOMMENDATION: Routine annual mammography screening. This patient's information was entered into a reminder system with a target due date for their next mammogram.
== END 2022-11-24 08:13 | disposition home or self-care (01) ==
LOC: HO.MAMMO 08:12
PROVIDERS: Visit Provider Internal Medicine
DX: Z12.31 Encounter for screening mammogram for malignant neoplasm of breast (principal)
CPT/HCPCS: 77063; 77067

== ENCOUNTER → 2022-11-29 14:59 | Outpatient (BNVA) | payer OTHER, SELFPAY | PROVIDERS: PCP Internal Medicine; Visit Provider Internal Medicine Pulmonary Disease | DX: Z13.89 Encounter for screening for other disorder (principal) ==

== ENCOUNTER 2023-01-19 08:33 | Outpatient (REF) | payer OTHER, SELFPAY ==
[2023-01-19 09:38] LABS: Alanine Aminotransferase 62 U/L (0-31); Alkaline Phosphatase 122 U/L (39-117); Anion Gap 14 (12-20); Aspartate Amino Transferase 51 U/L (5-31); Bilirubin Total 0.3 mg/dL (0.0-1.0); Blood Urea Nitrogen 15 mg/dL (9-16); Calcium 9.8 mg/dL (8.4-10.2); Carbon Dioxide 27 mmol/L (22-29); Chloride 103 mmol/L (96-108); Cholesterol 300 mg/dL; Estimated Glomerular Filt Rate > 60; Glucose Fasting 199 mg/dL (60-99); HDL Cholesterol 39 mg/dL; LDL Cholesterol Calculated 196 mg/dl; Potassium 4.9 mmol/L (3.3-5.1); Sodium 139 mmol/L (135-145); Total Protein 7.2 g/dL (6.5-8.0); Triglycerides 326 mg/dL
[2023-01-19 11:09] LABS: Creatinine Urine 106.04 mg/dL; Microalbum/Creatinine Ratio Ur 256.5 ug/mg cr
== END 2023-01-19 08:34 | disposition home or self-care (01) ==
LOC: HO.LAB 08:33
PROVIDERS: PCP Internal Medicine; Visit Provider Internal Medicine
DX: E11.65 Type 2 diabetes mellitus with hyperglycemia (principal); E78.5 Hyperlipidemia, unspecified
CPT/HCPCS: 36415; 80053; 80061; 82043

== ENCOUNTER 2023-03-12 14:45 | Outpatient (AMB) | payer OTHER, SELFPAY ==
--- NOTE | 2023-03-12 14:47 | A.OFFVIS_ITS ---
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: No Allergies No Known Allergies [No Known Allergies*] Allergy (Verified 03/12/23 14:58) Medication List - Last Reconciled 03/12/23 by VICKY Sosa acetaminophen 500 mg PO Q6H PRN 7 days albuterol sulfate 90 mcg/actuation 2 puffs inhalation Q4-6H PRN aspirin 81 mg PO DAILY atorvastatin 40 mg PO BEDTIME blood pressure monitor As directed blood sugar diagnostic (FreeStyle Lite Strips) Use 1 test strip once a day blood-glucose meter (FreeStyle Lite Meter kit) As directed dulaglutide (Trulicity) 0.75 mg (0.5 mL) subcut QWEEK 90 days ezetimibe (Zetia) 10 mg PO DAILY fenofibrate 54 mg PO DAILY 90 days fluticasone propion-salmeterol 250-50 mcg/dose (Advair Diskus) 1 ea inhalation BID glipizide 10 mg PO BID 90 days hydrochlorothiazide 25 mg PO DAILY 90 days icosapent ethyl (Vascepa) 2 grams (2 x 1 gram) PO BID lancets (FreeStyle Lancets) Use 1 lancet once a day lisinopril 20 mg PO DAILY metformin 1,000 mg PO BID 90 days miscellaneous medical supply (Blood Pressure Cuff) As directed, monitor BP 2-3 a day, and creat a log omeprazole 40 mg (2 x 20 mg) PO BID 30 days potassium citrate ER 20 mEq (2 x 10 mEq (1,080 mg)) PO BID 90 days HPI follow-up missed last appt HPI Details Rema is a 58-year-old female past medical history of hypertension, hyperlipidemia, diabetes, obstructive sleep apnea, morbid obesity, pulmonary hypertension, dyspnea with exertion, nonobstructive CAD who presents for follow-up. Today she reports that she has been doing generally well since her last visit in June 2022. She does describe a random squeezing in her mid chest lasting a couple minutes before resolving, occurring randomly. If she has it went laying down, if she changes positions it does improve. She does not get get the chest squeezing with walking or stair climbing. She continues to have some shortness of breath with activity. 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 She stands much of the time and does report some bilateral ankle swelling. No PND, orthopnea, dizziness, presyncope, syncope. Tells me she has not been taking her cholesterol medications as directed because they make her nauseous. She says she is taking her blood pressure meds appropriately. Her lisinopril dose was recently increased from 5 mg up to 10 mg daily. Blood pressure is elevated today and she says that is typical for her. [facility] Medical History EDGAR (acute kidney injury) Asthma Chronic cough Diabetes mellitus Essential hypertension Headache Leukocytosis Mild asthma Mild recurrent major depression Muscle cramps RANJIT (obstructive sleep apnea) Pure hypercholesterolemia Renal calculi Super obese Surgical History History of section History of colonoscopy History of esophagogastroduodenoscopy (EGD) History of tubal ligation Family History Father Diabetes Hypertension Mother Hypertension Liver cancer Maternal Grandfather Throat cancer Paternal Grandmother Stomach cancer Social History Housing: House Alcohol intake: never Patient Tobacco Use Status: Never used Tobacco e-Cigarette/Vaping Use: Never Used Second Hand Smoke Exposure: No Advance Directives Date on File: 08/21/21 service: No Current occupational status: employed Current occupational exposures/hazards: No Cognitive needs: No Hearing needs: No Vision needs: No Review of Systems Const All systems reviewed & are unremarkable except as noted in HPI and below ENT Reports dizziness Card Reports chest pain, Denies chest pain at rest, Denies chest pain with activity, Denies rapid heart rate, Denies pedal edema, Denies edema, Denies leg edema, Denies lightheadedness, Denies palpitations, Denies dyspnea, Reports dyspnea on exertion and Denies orthopnea Resp Denies cough, Denies dyspnea and Reports dyspnea on exertion GI Denies hematochezia and Denies change in stool character Musc Denies abnormal gait, Reports limited range of motion, Reports muscle cramps, Denies muscle weakness, Denies numbness, Denies radiating pain into limb, Denies stiffness and Denies tingling Neuro Denies abnormal gait, Reports dizziness, Denies numbness and Denies tingling Endo Denies palpitations Physical Exam Vital Signs: Last Vital Signs Pulse 93 03/12/23 14:48 BP 160/90 H 03/12/23 14:48 BMI result Body Mass Index 45.5 Const Other: morbidly obese General: cooperative, comfortable and no acute distress Orientation/consciousness: patient oriented x3 Neck Neck: Yes normal visual inspection Resp Effort & Inspection: normal respiratory effort Auscultation: clear to auscultation bilaterally, no crackles, no rales, no rhonchi and no wheezes Cardio Jugular venous distension: no JVD Rate: regular rate Rhythm: regular rhythm Heart sounds: S1 normal heart sound present, S2 normal heart sound present, no gallops, no murmurs and no rubs Peripheral pulses: Peripheral pulses 2+ throughout Neuro General: patient oriented x3 Extrem Other: 1+ ankle edema Psych Appearance: grossly normal Mental Status: mental status grossly normal Speech and movement: Normal speech and movement present Office Procedures EKG Details: today, read by me, normal sinus rhythm, nonspecific ST and T-wave abnormality, rate 93, QTC 477 millisecond [id number], Complete Assessment & Plan Assessment & Plan (1) Dyspnea on exertion: Code(s): R06.00 - Dyspnea, unspecified Plan: Patient reports of shortness of breath with exertion. Also known syncopal episode for unclear reason August 2021. Echocardiogram done 08/18/2021 showed EF 60-65%, technically limited study, limited view of valves with normal cardiac valvular Doppler. Exercise stress test done 09/25/2021 showed exercise 2 minutes 8 seconds with moderate to severe shortness of breath and request to stop without EKG changes meeting criteria at achieved workload than slight downsloping of ST in recovery. Pharmacological nuclear stress test done on 12/05/2021 showing possible mild ischemia versus soft tissue attenuation artifact in the distal part of the anterior lateral wall, reversible basal inferior defect which could be diaphragm attenuation, normal EF. She then underwent CTA of the coronary arteries on 06/08/2022 showing proximal LAD mixed plaque less than 50% stenosis, mild mid LAD bridge with less than 40% stenosis, left circumflex mild calcification and RCA less than 40% scattered plaque, proximal PDA less than 50% stenosis. Dilated main pulmonary artery suggesting pulmonary hypertension. Today she reports that she still has shortness of breath with exertion. No recurrent syncopal events. her shortness of breath is not likely related to her nonobstructive coronary artery disease. Her pulmonary hypertension may contribute. She is on hydrochlorothiazide 25 mg daily for diuretic. She is on aspirin and notes indicate she is on high-dose atorvastatin and Zetia however patient tells me she is not taking her cholesterol agents as directed. Showing takes it periodically as it causes her nausea. Reviewed the diagnosis of coronary artery disease and the need for risk factor modification. Discussed weight loss benefits, need for good cholesterol, blood pressure control, good blood sugar control and activity as tolerated. will have her trial atorvastatin at 40 mg daily to see if she is able to tolerate that dose. Continue Zetia. LDL goal less than 70. Hemoglobin A1c goal less than 7. Cool blood pressure goal less than 130/80. Blood pressure currently elevated. Will increase her lisinopril up to 20 mg daily. BMP, bnp in 1 week. Need for ongoing management of severe obstructive sleep apnea. She follows with pulmonology. Cardiology follow-up in 6 months, sooner if needed. (2) Coronary artery disease: Code(s): I25.10 - Atherosclerotic heart disease of sitka coronary artery without angina pectoris Plan: New diagnosis as above. (3) Morbid obesity with BMI of 45.0-49.9, adult: Code(s): E66.01 - Morbid (severe) obesity due to excess calories; Z68.42 - Body mass index [BMI] 45.0-49.9, adult (4) Diabetes mellitus: Code(s): E11.9 - Type 2 diabetes mellitus without complications Qualifiers: Diabetes mellitus complication status: with hyperglycemia Diabetes mellitus senior living insulin use: without ocean transportation intermediary use Diabetes mellitus type: type 2 Qualified Code(s): E11.65 - Type 2 diabetes mellitus with hyperglycemia (5) Essential hypertension: Code(s): I10 - Essential (primary) hypertension Plan: elevated today. Increasing lisinopril to 20 mg daily. BMP in 1 week. Last potassium was 4.9. If potassium further elevated then will need reduction in lisinopril and addition of alternate agent. Continue hydrochlorothiazide. blood pressure recheck in office in 2 weeks (6) Pure hypercholesterolemia: Code(s): E78.00 - Pure hypercholesterolemia, unspecified Plan: Cool LDL goal less than 70. Labs done on 01/19/2023 shows LDL 196. patient admits she has not been taking her medication as directed due to nausea. Will have reduce atorvastatin as stated above. Continue Zetia. Recommend recheck a fasting lipids in 2-3 months. If LDL is not at goal then she will need a PCSK9 inhibitor added. Orders: Orders Basic Metabolic Panel 1 Week R06.00 - Dyspnea, unspecified B Type Natriuretic Peptide 1 Week E66.01 - Morbid (severe) obesity due to excess calories, R06.00 - Dyspnea, unspecified, Z68.42 - Body mass index [BMI] 45.0- 49.9, adult Medications: New lisinopril 20 mg PO DAILY 90 tabs 1RF atorvastatin 40 mg PO BEDTIME 90 tabs 1RF Discontinued atorvastatin Discontinued Reason: Doctor's Order 80 mg PO DAILY 90 tabs 6RF lisinopril Discontinued Reason: Doctor's Order 10 mg PO DAILY 90 days 90 tabs 1RF Coding Level of Care Code Est Pt Level 4 (65570) Diagnoses Dyspnea on exertion R06.00 Coronary artery disease I25.10 Morbid obesity with BMI of 45.0-49.9, adult E66.01; Z68.42 Diabetes mellitus E11.65 Diabetes mellitus complication status: with hyperglycemia Diabetes mellitus ocean transportation intermediary insulin use: without ocean transportation intermediary use Diabetes mellitus type: type 2 Essential hypertension I10 Pure hypercholesterolemia E78.00 CPT Codes EKG - CPT: [id number]-[id number], Complete ([id number]) Time Spent (min) 28 Comment chart review, documentation, interview, assessment
[2023-03-12 14:48] VITALS: BP 160/90; PULSE 93; BMI 45.5
== END 2023-03-12 15:33 | disposition home or self-care (01) ==
PROVIDERS: PCP Internal Medicine; Visit Provider Nurse Practitioner Family
DX: R06.00 Dyspnea, unspecified (principal); I25.10 Atherosclerotic heart disease of native coronary artery without angina pectoris; E66.01 Morbid (severe) obesity due to excess calories; Z68.42 Body mass index [BMI] 45.0-49.9, adult; E11.65 Type 2 diabetes mellitus with hyperglycemia; I10 Essential (primary) hypertension; E78.00 Pure hypercholesterolemia, unspecified
CPT/HCPCS: 93010; 99214

== ENCOUNTER → 2023-03-12 14:45 | Outpatient (BNVA) | payer OTHER, SELFPAY | PROVIDERS: PCP Internal Medicine; Visit Provider Nurse Practitioner Family | DX: R06.00 Dyspnea, unspecified (principal); I25.10 Atherosclerotic heart disease of native coronary artery without angina pectoris; I10 Essential (primary) hypertension; E78.00 Pure hypercholesterolemia, unspecified; E66.01 Morbid (severe) obesity due to excess calories; Z68.42 Body mass index [BMI] 45.0-49.9, adult; E11.65 Type 2 diabetes mellitus with hyperglycemia; Z79.899 Other long term (current) drug therapy | CPT/HCPCS: 93005 ==

== ENCOUNTER → 2023-03-26 14:42 | Outpatient (BNVA) | payer OTHER, SELFPAY | PROVIDERS: PCP Internal Medicine; Visit Provider Nurse Practitioner Family ==

== ENCOUNTER 2023-04-03 07:38 | Outpatient (REF) | payer OTHER, SELFPAY ==
--- NOTE | ~2023-04-03 | XR_ITS ---
EXAMINATION: XR HAND, LEFT CLINICAL INFORMATION: Pain in left hand COMPARISON: None available. TECHNIQUE: PA, lateral, and oblique views of the left hand. FINDINGS: The bones are intact. No fracture. Alignment is anatomic. There is mild degenerative change of the DIP joints of the index and middle finger and the proximal interphalangeal joint of the thumb. No erosions or soft tissue calcifications. XR/XR hand LT min 3V IMPRESSION: 1. No acute bony abnormality. 2. Mild degenerative changes.
== END 2023-04-03 07:39 | disposition home or self-care (01) ==
LOC: HO.HOSX 07:38
PROVIDERS: Visit Provider Orthopaedic Surgery
DX: M79.642 Pain in left hand (principal); M65.4 Radial styloid tenosynovitis [de Quervain]; R20.0 Anesthesia of skin; E11.65 Type 2 diabetes mellitus with hyperglycemia
CPT/HCPCS: 20550; 73130; J1100

== ENCOUNTER 2023-04-03 13:58 | Outpatient (AMB) | payer OTHER, SELFPAY ==
[2023-04-03 14:19] VITALS: BMI 45.4
--- NOTE | 2023-04-03 14:19 | MHC.OFFVIS ---
Intake Vital Signs 04/03/23 14:19 Height 5 ft 5 in Weight 273 lb BMI 45.4 Intake Visit Reasons: inpatient pharmacist- Left hand pain Intake Note: Rema 58 yr old female who is right hand dominant, presents today for her left hand pain. States pain started about 6 months ago. No injury she can recall. 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 Reports her pain is mainly at base of her CMC joint/wrist. Pain is triggered when she does any gripping or pinching movement. States she has swelling by her wrist and is also limited ROM. At times she has numbness and tingling that increase at night time. Allergies No Known Allergies [No Known Allergies*] Allergy (Verified 04/03/23 14:19) HPI inpatient pharmacist- Left hand pain HPI Details Rema is a 58 year old right hand dominant woman who presents with complaints of ~6 months left wrist pain. She complains of pain in her left wrist, near the base of her thumb, along with swelling. 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 Also complains of occasional numbness in her left hand, worse at night. She says this occurs in all fingers, including her small finger. She denies any prior treatment She has a Hx of CAD and Diabetes. Her Diabetes is not controlled, her most recent HgA1c was 9.7% on 02/14/23 [facility] Medical History EDGAR (acute kidney injury) Asthma Chronic cough Diabetes mellitus Essential hypertension Headache Leukocytosis Mild asthma Mild recurrent major depression Muscle cramps RANJIT (obstructive sleep apnea) Pure hypercholesterolemia Renal calculi Super obese Surgical History History of section History of colonoscopy History of esophagogastroduodenoscopy (EGD) History of tubal ligation Family History Father Diabetes Hypertension Mother Hypertension Liver cancer Maternal Grandfather Throat cancer Paternal Grandmother Stomach cancer Social History (Updated 04/03/23 @ 14:21 by XOCHILT Cleary) Housing: House Alcohol intake: never Patient Tobacco Use Status: Never used Tobacco e-Cigarette/Vaping Use: Never Used Second Hand Smoke Exposure: No Advance Directives Date on File: 08/21/21 service: No Current occupational status: employed 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 Current occupational exposures/hazards: No Cognitive needs: No Hearing needs: No Vision needs: No Review of Systems Const All systems reviewed & are unremarkable except as noted in HPI and below Physical Exam Vital Signs: BMI result Body Mass Index 45.4 Const General: cooperative, healthy appearing and no acute distress Orientation/consciousness: patient oriented x3 HEENT Head: Yes normocephalic and Yes atraumatic Eyes EOM: EOMs intact bilaterally Resp Effort & Inspection: normal respiratory effort and able to speak in complete sentences Cardio Jugular venous distension: no JVD Skin General skin exam: turgor normal Rashes: no rashes Neuro General: patient oriented x3 Extrem Other: Evaluation of Left Upper Extremity: The patient is alert, oriented, and in no acute distress Neuro: Median, Ulnar, Radial nerves motor and sensory intact and sensation is normal to the tips of all digits No thenar or intrinsic wasting Good APB muscle belly firing and good finger cross Vascular: Cap refill brisk ROM: She can make a fist and extend all her digits No locking or catching Skin: No lacerations or abrasions. General: No Ecchymosis. No Erythema or evidence of infection. Tender over the 1st dorsal compartment Positive Ky test on the left No tenderness over he a1 savanna No tenderness over the basal joint Radiographs: 3 views of the left hand were taken and viewed by me today in clinic. They show no fractures or dislocations. There is some early basal joint arthritis with subchondral sclerosis, osteophyte formation, and joint space narrowing. Psych Appearance: grossly normal Affect: normal affect Attitude: cooperative Office Procedures Fracture Care Details: No fracture, injection Fracture Billing Code: Fracture Billing Code Results Reviewed Results Reviewed: 04/03/23 14:32 Lidocaine HCl 1 % [Xylocaine 1 %] 2 ml .ROUTE .STK-MED ONE dexAMETHasone sod phosphate [Decadron] 4 mg .ROUTE .STK-MED ONE Assessment & Plan Assessment & Plan (1) De Quervain's tenosynovitis, left: Code(s): M65.4 - Radial styloid tenosynovitis [de Quervain] (2) Numbness of left hand: Code(s): R20.0 - Anesthesia of skin (3) Diabetes mellitus: Code(s): E11.9 - Type 2 diabetes mellitus without complications Qualifiers: Diabetes mellitus complication status: with hyperglycemia Diabetes mellitus residential insulin use: without residential use Diabetes mellitus type: type 2 Qualified Code(s): E11.65 - Type 2 diabetes mellitus with hyperglycemia Plan Assessment & Plan: 1. Left De Quervain's Tenosynovitis Positive Ky test I educated her about this condition I discussed operative and non-operative treatment options The patient would like to proceed with an injection I discussed activity modification, she is to limit or avoid any heavy or repetitive pinching or gripping activities She was fitted for a comfort cool brace to wear with activity Injection #1: The risks and benefits of a steroid injection including but not limited to risk of damage to blood vessels, nerves, tendons, infection, skin bleaching, failure to improve symptoms, increased pain, and possible need for further injections or other intervention were discussed with the patient and the patient wishes to proceed with the steroid injection. Once consent was obtained, I sterilely prepped the area over the 1st dorsal compartment of the Left thumb. I then injected the 1st dorsal compartment with a combination of 1 mL of dexamethasone (4mg/ml), and 1% lidocaine. The patient tolerated the procedure well with no complications and good resolution of their symptoms prior to leaving clinic. If the patient continues to have pain 6-8 weeks following this injection, they may call to schedule appointment to discuss alternative treatment options 2. Left hand numbness In all digits, including the small digit Symptoms intermittent, but nightly I ordered a NCS to assess for peripheral neuropathy or cervical radiculopathy She will follow up when completed for review 3. Diabetes I discussed the hyperglycemic effects of steroid injections I discussed activity modification and the importance of Diabetes management. I explained we cannot consider surgery unless her HgA1c is <8.0%. Her most recent HgA1c was 9.7% on 02/14/23 She says she will try to be more active and walk more Scribed for Jerri Renee MD by Joel Noriega, medical front desk specialist, on 04/03/23 at 2:35 PM, EST. 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
== END 2023-04-03 14:52 | disposition home or self-care (01) ==
PROVIDERS: PCP Internal Medicine; Visit Provider Orthopaedic Surgery
DX: M65.4 Radial styloid tenosynovitis [de Quervain] (principal)
CPT/HCPCS: 20550; 99204

== ENCOUNTER 2023-05-18 07:18 | Outpatient (REF) | payer OTHER, SELFPAY ==
[2023-05-18 09:39] LABS: Alanine Aminotransferase 42 U/L (0-31); Alkaline Phosphatase 138 U/L (39-117); Anion Gap 15 (12-20); Aspartate Amino Transferase 26 U/L (5-31); Bilirubin Total 0.3 mg/dL (0.0-1.0); Blood Urea Nitrogen 25 mg/dL (9-16); Calcium 9.7 mg/dL (8.4-10.2); Carbon Dioxide 27 mmol/L (22-29); Chloride 98 mmol/L (96-108); Cholesterol 312 mg/dL (<200); Estimated Glomerular Filt Rate > 60; Glucose Fasting 290 mg/dL (60-99); HDL Cholesterol 44 mg/dL (>40); Potassium 4.3 mmol/L (3.3-5.1); Sodium 136 mmol/L (135-145); Total Protein 7.8 g/dL (6.5-8.0); Triglycerides 468 mg/dL (<150)
[2023-05-18 09:40] LABS: Creatinine Urine 120.56 mg/dL; Microalbum/Creatinine Ratio Ur 56.4 ug/mg cr (<30)
[2023-05-18 09:54] LABS: Vitamin D 25-OH Total 16.3 ng/mL (>30)
[2023-05-18 10:00] LABS: Folate 9.5 ng/mL (> or = 4.0); Vitamin B12 339 pg/mL (200-900)
== END 2023-05-18 07:19 | disposition home or self-care (01) ==
LOC: HO.LAB 07:18
PROVIDERS: Absent Provider Nurse Practitioner Family; PCP Internal Medicine; Visit Provider Internal Medicine
DX: E78.5 Hyperlipidemia, unspecified (principal); E53.8 Deficiency of other specified B group vitamins; E55.9 Vitamin D deficiency, unspecified; E11.65 Type 2 diabetes mellitus with hyperglycemia
CPT/HCPCS: 36415; 80053; 80061; 82043; 82306; 82570; 82607; 82746

== ENCOUNTER 2023-05-22 14:41 | Outpatient (AMB) | payer OTHER, SELFPAY ==
[2023-05-22 14:58] VITALS: BMI 45.4
--- NOTE | 2023-05-22 14:58 | MHC.OFFVIS ---
Intake Vital Signs 05/22/23 14:58 Height 5 ft 5 in Weight 273 lb BMI 45.4 Intake Visit Reasons: Left hand pain Intake Note: Rema 58 yr old - hand dominant female presents today for her left thumb s/p injection from 04/03/23. States injection helped with swelling but she continues to have pain. Allergies No Known Allergies [No Known Allergies*] Allergy (Verified 05/22/23 15:05) HPI Left hand pain HPI Details Rema is a 58 year old right hand dominant woman who returns to discuss her left De Quervains, S/P 1st dorsal compartment injection on 04/03/23. She says the injection helped her hand swelling but she continues to have left radial sided wrist pain, worse with activities. 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 She continues to have occasional numbness in her left hand, worse at night. She says this occurs in all fingers, including her small finger. She has not yet done a NCS. She has a Hx of CAD and Diabetes. Her Diabetes is not controlled, her most recent HgA1c was 9.7% on 02/14/23. She says she had bloodwork done on 05/18/23 but does not know the results of this yet [facility] Medical History EDGAR (acute kidney injury) Asthma Chronic cough Diabetes mellitus Essential hypertension Headache Leukocytosis Mild asthma Mild recurrent major depression Muscle cramps RANJIT (obstructive sleep apnea) Pure hypercholesterolemia Renal calculi Super obese Surgical History History of section History of colonoscopy History of esophagogastroduodenoscopy (EGD) History of tubal ligation Family History Father Diabetes Hypertension Mother Hypertension Liver cancer Maternal Grandfather Throat cancer Paternal Grandmother Stomach cancer Social History Housing: House Alcohol intake: never Patient Tobacco Use Status: Never used Tobacco e-Cigarette/Vaping Use: Never Used Second Hand Smoke Exposure: No Advance Directives Date on File: 08/21/21 service: No Current occupational status: employed 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 Current occupational exposures/hazards: No Cognitive needs: No Hearing needs: No Vision needs: No Physical Exam Vital Signs: BMI result Body Mass Index 45.4 Extrem Other: Evaluation of Left Upper Extremity: The patient is alert, oriented, and in no acute distress Neuro: Median, Ulnar, Radial nerves motor and sensory intact and sensation is normal to the tips of all digits No thenar or intrinsic wasting Good APB muscle belly firing and good finger cross Vascular: Cap refill brisk ROM: She can make a fist and extend all her digits No locking or catching Tender over the 1st dorsal compartment Positive Ky test on the left Assessment & Plan Assessment & Plan (1) De Quervain's tenosynovitis, left: Code(s): M65.4 - Radial styloid tenosynovitis [de Quervain] (2) Numbness of left hand: Code(s): R20.0 - Anesthesia of skin (3) Diabetes mellitus: Code(s): E11.9 - Type 2 diabetes mellitus without complications Qualifiers: Diabetes mellitus complication status: with hyperglycemia Diabetes mellitus moth exterminator insulin use: without shelter use Diabetes mellitus type: type 2 Qualified Code(s): E11.65 - Type 2 diabetes mellitus with hyperglycemia Plan Assessment & Plan: 1. Left De Quervain's Tenosynovitis, S/P injection Date of Injection: 04/03/23 Positive Ky test I educated her about this condition I discussed operative and non-operative treatment options The patient has had little improvement following her injection & use of a comfort cool brace I explained we cannot consider surgery unless her HgA1c is <8.0%. Her most recent HgA1c was 9.7% on 02/14/23 and she does not have the results of her most recent bloodwork at this time I discussed activity modification, she is to limit or avoid any heavy or repetitive pinching or gripping activities We talked about the importance of activity modification. She will follow up in 3-5 weeks to discuss her HgA1c and treatment options, either a repeat injection or surgery. This can be done with myself or with a PA. If her HgA1c is <8.0% she can be scheduled for a 1st dorsal compartment release under local, otherwise she can have a repeat 1st dorsal compartment injection. 2. Left hand numbness In all digits, including the small digit Symptoms intermittent, but nightly Her nerve conduction study was ordered by me on 04/03/2023. I will ask Gavi to follow-up on that order. She will follow up when completed for review 3. Diabetes I discussed the hyperglycemic effects of steroid injections I discussed activity modification and the importance of Diabetes management. I explained we need her HgA1c to be <8.0%, to decrease risks of infection and wound problems.. Her most recent HgA1c was 9.7% on 02/14/23 Scribed for Jerri Renee MD by Joel Noriega, director of medical education, on 05/22/23 at 3:45 PM, EST. Coding Level of Care Code Est Pt Level 3 (80002) Diagnoses De Quervain's tenosynovitis, left M65.4 Numbness of left hand R20.0 Type 2 diabetes mellitus with hyperglycemia, without long-term current use of insulin E11.65 Diabetes mellitus complication status: with hyperglycemia Diabetes mellitus moth exterminator insulin use: without moth exterminator use Diabetes mellitus type: type 2
== END 2023-05-22 15:56 | disposition home or self-care (01) ==
PROVIDERS: PCP Internal Medicine; Visit Provider Orthopaedic Surgery
DX: M65.4 Radial styloid tenosynovitis [de Quervain] (principal); R20.0 Anesthesia of skin
CPT/HCPCS: 99213

== ENCOUNTER → 2023-05-22 14:41 | Outpatient (BNVA) | payer OTHER, SELFPAY | PROVIDERS: PCP Internal Medicine; Visit Provider Orthopaedic Surgery ==

== ENCOUNTER 2023-06-20 14:54 | Outpatient (AMB) | payer OTHER, SELFPAY ==
[2023-06-20 14:58] VITALS: BP 128/78; PULSE 92; O2SAT 96; BMI 45.3
--- NOTE | 2023-06-20 14:58 | MHC.OFFVIS ---
Intake Vital Signs 06/20/23 14:58 Height 5 ft 5 in Weight 272 lb 4.334 oz BMI 45.3 BP 128/78 Blood Pressure Location Lt brachial Position Sitting Pulse 92 Pulse Source Doppler Pulse Oximetry (%) 96 Oxygen Delivery Method Room Air Intake Visit Reasons: dyspnea Allergies No Known Allergies [No Known Allergies*] Allergy (Verified 06/20/23 15:02) HPI dyspnea HPI Details 58-year-old lady, nonsmoker, with underlying obesity and gastroesophageal reflux followed for chronic cough, severe obstructive sleep apnea, and GERD.? Patient continues on Wixela and albuterol MDI with good control of her underlying symptoms. Now she complains of mild bronchitic exacerbation symptomatic with cough productive of yellowish sputum, but no wheezing. She has been using her CPAP with reasonable control of her underlying sleep apnea. [facility] Medical History (Updated 06/20/23 @ 15:22 by Nikolai Marina MD) Renal calculi Muscle cramps EDGAR (acute kidney injury) Leukocytosis Asthma Mild recurrent major depression Diabetes mellitus Headache RANJIT (obstructive sleep apnea) Chronic cough Super obese Essential hypertension Mild asthma Pure hypercholesterolemia Surgical History History of esophagogastroduodenoscopy (EGD) History of colonoscopy History of tubal ligation History of section Family History Father Diabetes Hypertension Mother Hypertension Liver cancer Maternal Grandfather Throat cancer Paternal Grandmother Stomach cancer Social History Housing: House Alcohol intake: never Patient Tobacco Use Status: Never used Tobacco e-Cigarette/Vaping Use: Never Used Second Hand Smoke Exposure: No Advance Directives Date on File: 08/21/21 service: No Current occupational status: employed 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 Current occupational exposures/hazards: No Cognitive needs: No Hearing needs: No Vision needs: No Review of Systems Const Denies daytime sleepiness, Denies excessive sweating, Denies fatigue, Denies fever(s), Denies lethargy, Denies malaise, Denies night sweats, Denies snoring and Denies weight loss Eyes Denies blurry vision and Denies itchy eyes ENT Denies nasal congestion, Denies post nasal drip, Denies sinus pain, Denies sinus pressure and Denies other ( Thrush) Card Denies chest pain, Denies pedal edema, Denies dyspnea, Denies orthopnea and Denies paroxysmal nocturnal dyspnea Resp Reports cough, Denies hemoptysis, Reports excessive phlegm production, Denies dyspnea, Denies snoring and Denies wheezing GI Denies abdominal pain and Denies heartburn Musc Denies myalgias, Denies arthralgias and Denies joint swelling Skin/Breast Denies rash Neuro Denies memory loss and Denies seizure-like activity Psych Denies abnormal sleep pattern, Denies anxiety and Denies memory loss Endo Denies excessive sweating, Denies fatigue and Denies heat intolerance Benny/Lymph Denies easy bruising Aller/Immun Denies itchy eyes, Denies seasonal rhinorrhea and Denies wheezing Physical Exam Vital Signs: Last Vital Signs Pulse 92 06/20/23 14:58 BP 128/78 06/20/23 14:58 Pulse Ox 96 06/20/23 14:58 Oxygen Delivery Method Room Air 06/20/23 14:58 BMI result Body Mass Index 45.3 Const General: no acute distress and alert Nutritional Appearance: obese Orientation/consciousness: Other orientation findings ( oriented) HEENT Head: Yes atraumatic Eyes General: appearance normal, both eyes and all related structures Sclerae: sclerae normal EOM: EOMs intact bilaterally Neck Neck: Yes supple Lymphatic: no lymphadenopathy noted Resp Effort & Inspection: normal respiratory effort and no use of accessory muscles Auscultation: clear to auscultation bilaterally Cardio Rate: regular rate Rhythm: regular rhythm Heart sounds: no gallops, no murmurs and no rubs Skin General skin exam: other ( warm) Extrem General: No clubbing, No cyanosis and No edema Assessment & Plan Assessment & Plan (1) RANJIT (obstructive sleep apnea): Code(s): G47.33 - Obstructive sleep apnea (adult) (pediatric) Plan: Well controlled on current CPAP therapy. Continue CPAP therapy. (2) Asthma: Code(s): J45.909 - Unspecified asthma, uncomplicated Plan: Baseline controlled on Advair and albuterol MDI. Continue current regimen. Now with mild bronchitic exacerbation, will treat with a course of azithromycin. Medications: New azithromycin For 250 mg dose pack: take 500 mg today (day 1), then 250 mg for 4 days (days 2-5) PO 6 tabs 0RF Coding Level of Care Code Est Pt Level 4 (65084) Diagnoses RANJIT (obstructive sleep apnea) G47.33 Asthma J45.909
== END 2023-06-20 15:16 | disposition home or self-care (01) ==
PROVIDERS: PCP Internal Medicine; Visit Provider Internal Medicine Pulmonary Disease
DX: G47.33 Obstructive sleep apnea (adult) (pediatric) (principal); J45.909 Unspecified asthma, uncomplicated
CPT/HCPCS: 99214

== ENCOUNTER → 2023-06-20 14:54 | Outpatient (BNVA) | payer OTHER, SELFPAY | PROVIDERS: PCP Internal Medicine; Visit Provider Internal Medicine Pulmonary Disease ==

== ENCOUNTER 2023-06-26 14:53 | Outpatient (AMB) | payer OTHER, SELFPAY ==
[2023-06-26 15:14] VITALS: BMI 45.3
--- NOTE | 2023-06-26 15:14 | A.OFFVIS_ITS ---
Intake Vital Signs 06/26/23 15:14 Height 5 ft 5 in Weight 272 lb BMI 45.3 Intake Visit Reasons: ov- Left hand pain Intake Note: Rema 58 yr old female presents today for her follow up visit for her left hand De Quervain's tenosynovitis s/p injection 04/03/23. States injection helped a little and would like to repeat today . Allergies No Known Allergies [No Known Allergies*] Allergy (Verified 06/20/23 15:02) HPI ov- Left hand pain HPI Details Rema is a 58 year old right hand dominant woman who returns to discuss her left De Quervains, S/P 1st dorsal compartment injection on 04/03/23. She says the injection helped her hand a little and she would like to repeat today. She continues to have left radial sided wrist pain, worse with activities. 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 She continues to have occasional numbness in her left hand, worse at night. She says this occurs in all fingers, including her small finger. She still has not yet done a NCS. The nerve conduction study had been ordered in early April. She has a Hx of CAD and Diabetes. Her Diabetes is not controlled, her most recent HgA1c was 9.7% on 02/14/23. She says she had bloodwork done on 05/18/23 but does not know the results of this yet [facility] Medical History (Updated 06/20/23 @ 15:22 by Nikolai Marina MD) Renal calculi Muscle cramps EDGAR (acute kidney injury) Leukocytosis Asthma Mild recurrent major depression Diabetes mellitus Headache RANJIT (obstructive sleep apnea) Chronic cough Super obese Essential hypertension Mild asthma Pure hypercholesterolemia Surgical History History of esophagogastroduodenoscopy (EGD) History of colonoscopy History of tubal ligation History of section Family History Father Diabetes Hypertension Mother Hypertension Liver cancer Maternal Grandfather Throat cancer Paternal Grandmother Stomach cancer Social History Housing: House Alcohol intake: never Patient Tobacco Use Status: Never used Tobacco e-Cigarette/Vaping Use: Never Used Second Hand Smoke Exposure: No Advance Directives Date on File: 08/21/21 service: No Current occupational status: employed 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 Current occupational exposures/hazards: No Cognitive needs: No Hearing needs: No Vision needs: No Physical Exam Vital Signs: BMI result Body Mass Index 45.3 Extrem Other: Evaluation of Left Upper Extremity: The patient is alert, oriented, and in no acute distress Neuro: Median, Ulnar, Radial nerves motor and sensory intact No thenar or intrinsic wasting Good APB muscle belly firing and good finger cross Vascular: Cap refill brisk ROM: She can make a fist and extend all her digits No locking or catching She is most Tender over the left 1st dorsal compartment Positive Ky test on the left Office Procedures Fracture Care Details: No fracture, injection Fracture Billing Code: Fracture Billing Code Assessment & Plan Assessment & Plan (1) De Quervain's tenosynovitis, left: Code(s): M65.4 - Radial styloid tenosynovitis [de Quervain] (2) Numbness of left hand: Code(s): R20.0 - Anesthesia of skin (3) Diabetes mellitus: Code(s): E11.9 - Type 2 diabetes mellitus without complications Qualifiers: Diabetes mellitus complication status: with hyperglycemia Diabetes mellitus penitentiary insulin use: without penitentiary use Diabetes mellitus type: type 2 Qualified Code(s): E11.65 - Type 2 diabetes mellitus with hyperglycemia Plan Assessment & Plan: 1. Left De Quervain's Tenosynovitis, S/P injection Date of Injection: 04/03/23 Positive Ky test I educated her about this condition I discussed operative and non-operative treatment options The patient has had some improvement following her injection & use of a comfort cool brace, and she would like to repeat an injection today I explained we cannot consider surgery unless her HgA1c is <8.0%. Her most recent HgA1c was 9.7% on 02/14/23 and she does not have the results of her most recent bloodwork at this time I discussed activity modification, she is to limit or avoid any heavy or repetitive pinching or gripping activities Injection #1: The risks and benefits of a steroid injection including but not limited to risk of damage to blood vessels, nerves, tendons, infection, skin bleaching, failure to improve symptoms, increased pain, and possible need for further injections or other intervention were discussed with the patient and the patient wishes to proceed with the steroid injection. Once consent was obtained, I sterilely prepped the area over the 1st dorsal compartment of the Left thumb. I then injected the 1st dorsal compartment with a combination of 1 mL of dexamethasone (4mg/ml), and 1% lidocaine. The patient tolerated the procedure well with no complications and good resolution of their symptoms prior to leaving clinic. If the patient continues to have pain 6-8 weeks following this injection, they may call to schedule appointment to discuss alternative treatment options. 2. Left hand numbness In all digits, including the small digit Symptoms intermittent, but nightly Her nerve conduction study was ordered by me on 04/03/2023. She still does not have this completed I ordered a new NCS to assess for peripheral nerve compression, this should be done with Dr. Shelton She will follow up when completed for review. However if her hemoglobin A1c is still quite high, then I explained that she should try to work on improving her control of her diabetes and wait to be seen until after her next hemoglobin A1c. 3. Diabetes I discussed the hyperglycemic effects of steroid injections I discussed activity modification and the importance of Diabetes management. I explained we need her HgA1c to be <8.0%, to decrease risks of infection and wound problems.. Her most recent HgA1c was 9.7% on 02/14/23 Scribed for Jerri Renee MD by Joel Noriega, medical liaison, on 06/26/23 at 3:45 PM, EST. Orders: Orders NE nerve conduction velocity Today R20.0 - Anesthesia of skin, R20.2 - Paresthesia of skin Coding Level of Care Code Est Pt Level 3 (30153) Diagnoses De Quervain's tenosynovitis, left M65.4 Numbness of left hand R20.0 Type 2 diabetes mellitus with hyperglycemia, without long-term current use of insulin E11.65 Diabetes mellitus complication status: with hyperglycemia Diabetes mellitus penitentiary insulin use: without ferry terminal supervisor use Diabetes mellitus type: type 2 CPT Codes Fracture Care - Fracture Billing Code: Fracture Billing Code ([id number])
== END 2023-06-26 16:21 | disposition home or self-care (01) ==
PROVIDERS: PCP Internal Medicine; Visit Provider Orthopaedic Surgery
DX: M65.4 Radial styloid tenosynovitis [de Quervain] (principal); R20.0 Anesthesia of skin
CPT/HCPCS: 20550; 99213

== ENCOUNTER → 2023-06-26 14:53 | Outpatient (BNVA) | payer OTHER, SELFPAY | PROVIDERS: PCP Internal Medicine; Visit Provider Orthopaedic Surgery | DX: M65.4 Radial styloid tenosynovitis [de Quervain] (principal); R20.0 Anesthesia of skin; E11.65 Type 2 diabetes mellitus with hyperglycemia | CPT/HCPCS: 20550; J1100 ==

== ENCOUNTER 2023-07-02 17:01 | Outpatient (AMB) | payer OTHER, SELFPAY ==
--- NOTE | 2023-07-02 17:22 | MHC.PC.OV ---
Vital Signs 07/02/23 17:23 Height 5 ft 5 in Weight 264 lb BMI 43.9 BP 122/70 Blood Pressure Location Lt brachial Position Sitting Pulse 86 Pulse Source Pulse Oximeter Pulse Oximetry (%) 96 Oxygen Delivery Method Room Air Intake Visit Reasons: dm Intake Note: Patient here for a follow up DM Language And Literature Division Chair Required: No Accompanied by: Self / Same As Patient Allergies No Known Allergies [No Known Allergies*] Allergy (Verified 07/02/23 17:29) Medication List - Last Reconciled 07/02/23 by Mitzy Hoang MD acetaminophen 500 mg PO Q6H PRN 7 days albuterol sulfate 90 mcg/actuation 2 puffs inhalation Q4-6H PRN aspirin 81 mg PO DAILY atorvastatin 40 mg PO BEDTIME azithromycin For 250 mg dose pack: take 500 mg today (day 1), then 250 mg for 4 days (days 2-5) PO blood pressure monitor As directed blood sugar diagnostic (FreeStyle Lite Strips) Use 1 test strip once a day blood-glucose meter (FreeStyle Lite Meter kit) As directed dulaglutide (Trulicity) 1.5 mg (0.5 mL) subcut QWEEK 30 days ezetimibe (Zetia) 10 mg PO DAILY fenofibrate 54 mg PO DAILY 90 days fluticasone propion-salmeterol 250-50 mcg/dose (Wixela Inhub) 1 inh inhalation BID 30 days glipizide 10 mg PO BID 90 days hydrochlorothiazide 25 mg PO DAILY 90 days icosapent ethyl (Vascepa) 2 grams (2 x 1 gram) PO BID lancets (FreeStyle Lancets) Use 1 lancet once a day lisinopril 20 mg PO DAILY metformin 1,000 mg PO BID 90 days miscellaneous medical supply (Blood Pressure Cuff) As directed, monitor BP 2-3 a day, and creat a log omeprazole 40 mg (2 x 20 mg) PO BID 30 days potassium citrate ER 20 mEq (2 x 10 mEq (1,080 mg)) PO BID 90 days Tobacco use date assessed: 10/10/22 Dental Screening Dental Screen Date: 07/02/23 Did you have a dental visit in the last 12 months?: Yes Did you have a dental problem in the last 6 months where you did not have access to dental care?: No Was dental information given to patient?: Patient has dentist HPI HPI Comments History of Present Illness Details This is a 58-year-old female with diabetes mellitus type 2, hypertension, mixed hyperlipidemia morbid obesity that comes today for follow-up on conditions. A1c elevated and I will increase Trulicity. Blood pressure stable. LDL not on goal and I will increase fenofibrate and atorvastatin. Vitamin-D is low on supplements will be started. No chest pain or shortness of breath. She is morbidly obese with a BMI of 43.9 and declines weight loss surgery. [facility] Medical History (Updated 07/03/23 @ 07:34 by Mitzy Hoang MD) Renal calculi Muscle cramps EDGAR (acute kidney injury) Leukocytosis Asthma Mild recurrent major depression Diabetes mellitus Headache RANJIT (obstructive sleep apnea) Chronic cough Super obese Essential hypertension Mild asthma Pure hypercholesterolemia Surgical History History of esophagogastroduodenoscopy (EGD) History of colonoscopy History of tubal ligation History of section Family History Father Diabetes Hypertension Mother Hypertension Liver cancer Maternal Grandfather Throat cancer Paternal Grandmother Stomach cancer Social History Housing: House Alcohol intake: never Patient Tobacco Use Status: Never used Tobacco e-Cigarette/Vaping Use: Never Used Second Hand Smoke Exposure: No Advance Directives Date on File: 08/21/21 service: No Current occupational status: employed 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 Tomasz Lee, Fay Callejas, Blayne Arenas and colleagues, with an educational jakob from [employer]. Review of Systems Const All systems reviewed & are unremarkable except as noted in HPI and below Eyes Reports no additional complaints, Denies change in vision and Denies other visual disturbances Card Denies chest pain at rest, Denies chest pain with activity, Denies edema, Denies irregular heart rhythm, Denies claudication, Denies dyspnea, Denies dyspnea on exertion, Denies orthopnea, Denies paroxysmal nocturnal dyspnea and Denies slow heart rate Resp Denies cough, Denies dyspnea and Denies dyspnea on exertion GI Denies abdominal pain, Denies change in bowel habits, Denies excessive flatus, Denies nausea and Denies vomiting Denies urinary incontinence, Denies urinary hesitancy and Denies urinary urgency Musc Denies abnormal gait, Denies atrophy, Denies deformity and Denies limited range of motion Skin/Breast Denies bleeding lesions, Denies changing lesions and Denies rash Neuro Denies abnormal gait and Denies lack of coordination Physical exam (Primary Care) Vital Signs: Last Vital Signs Pulse 86 07/02/23 17:23 BP 122/70 07/02/23 17:23 Pulse Ox 96 07/02/23 17:23 Oxygen Delivery Method Room Air 07/02/23 17:23 BMI result Body Mass Index 43.9 Tobacco/Smoking Status: Tobacco use Status Tobacco use date assessed 10/10/22 07/02/23 17:26 Patient Tobacco Use Status Never used Tobacco 07/02/23 17:26 e-Cigarette/Vaping Use Never Used 07/02/23 17:26 Thrive Assessment: Date of Thrive Assessment Date Thrive assessed 10/10/22 07/02/23 17:26 Eyes General: appearance normal, both eyes and all related structures Eyelids: Yes eyelids normal Conjunctivae: conjunctivae normal Neck Neck: Yes normal visual inspection and Yes supple Resp Effort & Inspection: normal respiratory effort Auscultation: clear to auscultation bilaterally Cardio Jugular venous distension: no JVD Rate: regular rate Rhythm: regular rhythm Heart sounds: S1 normal heart sound present and S2 normal heart sound present Extrem General: Yes full ROM Office Procedures Flu Questionnaire Does the patient have a severe egg allergy?: No Does the patient have severe life threatening allergies?: No Does the patient have a fever or illness today?: No Has the patient ever had Guillain-[place] Syndrome?: No Has the patient ever had any past reaction to a flu shot?: No Results AMB Hemoglobin A1c AMB Hemoglobin A1c 10.5 % Last Edit by BAILEY Perry on 07/02/23 17:30 Immunizations flu vacc [id number] 6mos up(PF) 60 mcg(15 mcgx4)/0.5 mL IM syringe Performing Provider: Mitzy Hoang MD [facility] Administered by: BAILEY Perry on 07/02/23 17:28 Dose Route Admin Location Dispensed Lot Number Expiration Date 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 0.5 mL IM Right Deltoid 0.5 mL [id number] 03/01/24 [id number] [employer] VIS Given Date VIS Provided VIS Publication Date 07/02/23 Single Vaccine 21 Eligibility Eligibility Date Funding Source Not VF Eligible 07/02/23 Private Results Reviewed Results Reviewed: Laboratory Last Values Hgb A1c (Clinic) 10.5 % (4.0-6.0) H 07/02/23 17:27 Assessment and Plan Assessment & Plan (1) Diabetes mellitus: Code(s): E11.9 - Type 2 diabetes mellitus without complications Qualifiers: Diabetes mellitus type: type 2 Diabetes mellitus salvage determiner insulin use: without mcc use Diabetes mellitus complication status: with hyperglycemia Qualified Code(s): E11.65 - Type 2 diabetes mellitus with hyperglycemia Plan: Increase Trulicity. A1c goal is equal or less than 7%. (2) Essential hypertension: Code(s): I10 - Essential (primary) hypertension Plan: Continue lisinopril and hydrochlorothiazide. Blood pressure goal is equal or less than 130/80. (3) Morbid obesity with BMI of 45.0-49.9, adult: Code(s): E66.01 - Morbid (severe) obesity due to excess calories; Z68.42 - Body mass index [BMI] 45.0-49.9, adult Plan: Start diet and exercise as tolerated. BMI goal is less than 30. (4) Mixed hyperlipidemia: Code(s): E78.2 - Mixed hyperlipidemia Plan: Increase statins and fibrates. LDL goal is less than 70. Orders: Orders Vitamin D 25-OH Total 4 Months E55.9 - Vitamin D deficiency, unspecified Comprehensive Fowler. Panel Fast 4 Months E66.01 - Morbid (severe) obesity due to excess calories, Z68.42 - Body mass index [BMI] 45.0-49.9, adult AMB Hemoglobin A1c 07/02/23 E11.9 - Type 2 diabetes mellitus without complications Influenza [id number] Immunization 07/02/23 Z23 - Encounter for immunization Lipid Panel 4 Months E78.5 - Hyperlipidemia, unspecified Microalbumin, Random (w Creat) 4 Months E11.9 - Type 2 diabetes mellitus without complications Medications: New atorvastatin 80 mg PO BEDTIME 90 days 90 tabs 1RF fenofibrate 160 mg PO DAILY 90 days 90 tabs 2RF empagliflozin (Jardiance) 10 mg PO DAILY 90 days 90 tabs 1RF cholecalciferol (vitamin D3) 50 mcg PO DAILY 90 days 90 caps 1RF dulaglutide (Trulicity) 3 mg (0.5 mL) subcut QWEEK 30 days 2.5 mL 6RF omeprazole 40 mg PO DAILY 90 days 90 caps 1RF Discontinued glipizide Discontinued Reason: Patient Completed Course 10 mg PO BID 90 days 180 tabs 1RF fenofibrate Discontinued Reason: Patient Completed Course 54 mg PO DAILY 90 days 90 tabs 1RF dulaglutide (Trulicity) Discontinued Reason: Patient Completed Course 1.5 mg (0.5 mL) subcut QWEEK 30 days 2.5 mL 6RF omeprazole Discontinued Reason: Patient Completed Course 40 mg (2 x 20 mg) PO BID 30 days 120 caps 2RF K21.9 - Gastro-esophageal reflux disease without esophagitis ezetimibe (Zetia) Discontinued Reason: Patient Completed Course 10 mg PO DAILY 90 tabs 3RF atorvastatin Discontinued Reason: Patient Completed Course 40 mg PO BEDTIME 90 tabs 1RF Coding Level of Care Code Est Pt Level 4 (58415) Diagnoses Type 2 diabetes mellitus with hyperglycemia, without long-term current use of insulin E11.65 Diabetes mellitus type: type 2 Diabetes mellitus mcc insulin use: without salvage determiner use Diabetes mellitus complication status: with hyperglycemia Essential hypertension I10 Morbid obesity with BMI of 45.0-49.9, adult E66.01; Z68.42 Mixed hyperlipidemia E78.2 Time Spent (min) 22
[2023-07-02 17:23] VITALS: BP 122/70; PULSE 86; O2SAT 96; BMI 43.9
== END 2023-07-02 17:37 | disposition home or self-care (01) ==
PROVIDERS: PCP Internal Medicine; Visit Provider Internal Medicine
DX: Z23 Encounter for immunization (principal); E11.9 Type 2 diabetes mellitus without complications
CPT/HCPCS: 83036; 90471; 90686; 99214

== ENCOUNTER 2023-07-31 13:38 | Outpatient (REF) | payer OTHER, SELFPAY ==
--- NOTE | 2023-07-31 | EMG_ITS ---
Chief complaint: Left wrist pain Reason for referral: Evaluate for Carpal Tunnel Syndrome Referred by: Dr. Renee Procedure done: Left upper extremity NCS/EMG Precautions and/or limitations: None The limb temperature was monitored continuously and remained between 32-36 degrees C during the performance of the NCS. Nerve Conduction Studies Anti Sensory Summary Table ?Stim Site NR Onset (ms) Norm Onset (ms) Peak (ms) Norm Peak (ms) O-P Amp (?V) Norm O-P Amp Site1 Site2 Delta-0 (ms) Dist (cm) Roel (m/s) Norm Roel (m/s) Left Median Anti Sensory (2nd Digit) Wrist ? 2.9 3.5 <3.6 35.1 >10 Wrist 2nd Digit 2.9 14.0 48 Left Radial Anti Sensory (Thumb) Forearm ? 1.0 1.6 <3.1 21.2 Forearm Thumb 1.0 0.0 Left Ulnar Anti Sensory (5th Digit) Wrist ? 0.9 3.1 <3.7 13.7 >15.0 Wrist 5th Digit 0.9 14.0 156 Motor Summary Table ?Stim Site NR Onset (ms) Norm Onset (ms) O-P Amp (mV) Norm O-P Amp iAmp (mV) Amp (1st) (%) Site1 Site2 Delta-0 (ms) Dist (cm) Roel (m/s) Norm Roel (m/s) Left Median Motor (Abd Poll Brev) Wrist ? 3.6 <3.9 8.5 >4.5 10.8 100.0 Elbow Wrist 3.5 19.5 56 >45 Elbow ? 7.1 5.8 7.5 68.2 Left Ulnar Motor (Abd Dig Minimi) Wrist ? 3.0 <3.0 6.5 >5 8.5 100.0 B Elbow Wrist 2.9 18.0 62 >45 B Elbow ? 5.9 6.6 9.0 101.5 A Elbow B Elbow 1.6 10.0 63 >45 A Elbow ? 7.5 6.1 8.7 93.8 EMG ?Side Muscle Nerve Root Ins Act Fibs Psw Amp Dur Poly Recrt Int Pat Comment Left 1stDorInt Ulnar C8-T1 Nml Nml Nml Nml Nml 0 Nml Complete Left FlexCarRad Median C6-7 Nml Nml Nml Nml Nml 0 Nml Complete Left Biceps Musculocut C5-6 Nml Nml Nml Nml Nml 0 Nml Complete Left Triceps Radial C6-7-8 Nml Nml Nml Nml Nml 0 Nml Complete Left Deltoid Axillary C5-6 Nml Nml Nml Nml Nml 0 Nml Complete FINDINGS: All motor and sensory nerves tested showed normal latencies, amplitudes and conduction velocities. Concentric needle EMG was performed in selected muscles of the left upper extremity. Study did not reveal signs of electric abnormalities as shown in the table below. IMPRESSION: 1. This is a normal study. 2. There is no electrodiagnostic evidence for median neuropathy, ulnar neuropathy, brachial plexopathy, or cervical radiculopathy. Thank you for your kind referral. Lyudmila Peguero MD, JEANNIE Board Certified, [place] Board [employer] and Rehabilitation (ABPMR) Board Certified, [place] Board of Electrodiagnostic Medicine (ABEM) CODIN [id number] MTDD
== END 2023-07-31 13:39 | disposition home or self-care (01) ==
LOC: HO.NEURO 13:38
PROVIDERS: PCP Internal Medicine; Visit Provider Orthopaedic Surgery
DX: R20.0 Anesthesia of skin (principal); R20.2 Paresthesia of skin
CPT/HCPCS: 95886; 95909

== ENCOUNTER → 2023-07-31 13:42 | Outpatient (BNV) | payer OTHER, SELFPAY | PROVIDERS: PCP Internal Medicine; Visit Provider Physical Medicine & Rehabilitation | DX: M25.532 Pain in left wrist (principal) | CPT/HCPCS: 95886; 95909 ==

== ENCOUNTER 2023-10-12 08:11 | Outpatient (REF) | payer OTHER, SELFPAY ==
[2023-10-12 10:36] LABS: Alanine Aminotransferase 29 U/L (0-31); Albumin Level 3.9 g/dL (3.5-5.0); Alkaline Phosphatase 134 U/L (39-117); Anion Gap 15 (12-20); Aspartate Amino Transferase 20 U/L (5-31); Bilirubin Total 0.2 mg/dL (0.0-1.0); Blood Urea Nitrogen 17 mg/dL (9-16); Calcium 9.3 mg/dL (8.4-10.2); Carbon Dioxide 26 mmol/L (22-29); Chloride 100 mmol/L (96-108); Cholesterol 293 mg/dL (<200); Estimated Glomerular Filt Rate > 60; Glucose Fasting 220 mg/dL (60-99); HDL Cholesterol 44 mg/dL (>40); LDL Cholesterol Calculated 186 mg/dL (<100); Potassium 4.4 mmol/L (3.3-5.1); Sodium 137 mmol/L (135-145); Total Protein 7.6 g/dL (6.5-8.0); Triglycerides 318 mg/dL (<150)
[2023-10-12 10:37] LABS: Creatinine Urine 144.25 mg/dL; Microalbum/Creatinine Ratio Ur 152.5 ug/mg cr (<30)
[2023-10-12 10:58] LABS: Vitamin D 25-OH Total 11.1 ng/mL (>30)
== END 2023-10-12 08:12 | disposition home or self-care (01) ==
LOC: HO.LAB 08:11
PROVIDERS: PCP Internal Medicine; Visit Provider Internal Medicine
DX: E55.9 Vitamin D deficiency, unspecified (principal); E66.01 Morbid (severe) obesity due to excess calories; Z68.42 Body mass index [BMI] 45.0-49.9, adult; E78.5 Hyperlipidemia, unspecified; E11.9 Type 2 diabetes mellitus without complications
CPT/HCPCS: 36415; 80053; 80061; 82043; 82306; 82570

== ENCOUNTER 2023-10-31 15:38 | Outpatient (AMB) | payer OTHER, SELFPAY ==
[2023-10-31 15:49] VITALS: BP 140/80; PULSE 95; O2SAT 96; BMI 45.3
--- NOTE | 2023-10-31 15:49 | A.OFFPC_ITS ---
Vital Signs 10/31/23 15:49 11/01/23 07:06 Height 5 ft 5 in Weight 272 lb BMI 45.3 BP 140/80 H 138/80 Blood Pressure Location Lt brachial Lt brachial Position Sitting Sitting Pulse 95 Pulse Source Pulse Oximeter Pulse Oximetry (%) 96 Oxygen Delivery Method Room Air Intake Visit Reasons: 4 month f/u Can Tester Required: No Latex Caster: Not Required per policy Accompanied by: Self / Same As Patient Allergies No Known Allergies [No Known Allergies*] Allergy (Verified 10/31/23 16:05) Medication List - Last Reconciled 10/31/23 by Mitzy Hoang MD acetaminophen 500 mg PO Q6H PRN 7 days albuterol sulfate 90 mcg/actuation 2 puffs inhalation Q4-6H PRN aspirin 81 mg PO DAILY atorvastatin 40 mg PO BEDTIME azithromycin For 250 mg dose pack: take 500 mg today (day 1), then 250 mg for 4 days (days 2-5) PO blood pressure monitor As directed blood sugar diagnostic (FreeStyle Lite Strips) Use 1 test strip once a day blood-glucose meter (FreeStyle Lite Meter kit) As directed cholecalciferol (vitamin D3) 50 mcg PO DAILY 90 days dulaglutide (Trulicity) 3 mg (0.5 mL) subcut QWEEK 30 days empagliflozin (Jardiance) 10 mg PO DAILY 90 days fenofibrate 160 mg PO DAILY 90 days fluticasone propion-salmeterol 250-50 mcg/dose (Wixela Inhub) 1 inh inhalation BID 30 days hydrochlorothiazide 25 mg PO DAILY 90 days icosapent ethyl (Vascepa) 2 grams (2 x 1 gram) PO BID lancets (FreeStyle Lancets) Use 1 lancet once a day lisinopril 20 mg PO DAILY metformin 1,000 mg PO BID 90 days miscellaneous medical supply (Blood Pressure Cuff) As directed, monitor BP 2-3 a day, and creat a log omeprazole 40 mg PO DAILY 90 days potassium citrate ER 20 mEq (2 x 10 mEq (1,080 mg)) PO BID 90 days Tobacco use date assessed: 10/31/23 Dental Screening Dental Screen Date: 10/31/23 Did you have a dental visit in the last 12 months?: No Did you have a dental problem in the last 6 months where you did not have access to dental care?: No Was dental information given to patient?: Patient has dentist HPI HPI Comments History of Present Illness Details This is a 58-year-old female with diabetes mellitus type 2, hypertension, mixed hyperlipidemia, mild recurrent major depression and morbid obesity that comes today for follow-up on her conditions. Blood pressure borderline normal. A1c is elevated and I will start her on insulin and increase Jardiance. LDL not on goal and I will increase atorvastatin from 40 mg to 80 mg. Depression has been stable. She is morbidly obese with a BMI of 45.3 and I will refer her to weight management for evaluation of bariatric surgery. She denies any chest pain or shortness of breath. [facility] Medical History (Updated 11/01/23 @ 07:10 by Mitzy Hoang MD) Moderate recurrent major depression Renal calculi Muscle cramps EDGAR (acute kidney injury) Leukocytosis Asthma Mild recurrent major depression Diabetes mellitus Headache RANJIT (obstructive sleep apnea) Chronic cough Super obese Essential hypertension Mild asthma Pure hypercholesterolemia Surgical History History of esophagogastroduodenoscopy (EGD) History of colonoscopy History of tubal ligation History of section Family History Father Diabetes Hypertension Mother Hypertension Liver cancer Maternal Grandfather Throat cancer Paternal Grandmother Stomach cancer Social History Housing: House Alcohol intake: never Patient Tobacco Use Status: Never used Tobacco e-Cigarette/Vaping Use: Never Used Second Hand Smoke Exposure: No Advance Directives Date on File: 08/21/21 service: No Current occupational status: employed 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 1. Little interest or pleasure in doing things: not at all 2. Feeling down, depressed, or hopeless: not at all 3. Trouble falling or staying asleep, or sleeping too much: not at all 4. Feeling tired or having little energy: not at all 5. Poor appetite or overeating: not at all 6. Feeling bad about yourself - or that you are a failure or have let yourself or your family down: not at all 7. Trouble concentrating on things, such as reading the newspaper or watching television: not at all 8. Moving or speaking so slowly that other people could have noticed. Or the opposite - being so fidgety or restless that you have been moving around a lot more than usual: not at all 9. Thoughts that you would be better off or of hurting yourself in some way: not at all Total score: 0 Depression Screening Interpretation: Positive Depression Screening Follow-up: Existing condition Depression Screening Done: Yes [id number] - PHQ-9 Billing: Yes Source: Developed by Drs. Tomasz Lee, Fay Callejas, Blayne Arensa and colleagues, with an educational jakob from [employer]. Thrive Questionnaire Date Thrive assessed: 10/31/23 I am a: Patient What is your living situation today?: I have a steady place to live Within the past 12 months, did the food you bought not last and you didn't have the money to get more?: Never true Within the past 12 months, did you worry whether your food would run out before you got money to buy more?: Never true Do you have trouble paying for medicines?: No Do you have trouble getting transportation to medical appointments?: No Do you have trouble paying your heating and electricity bill?: No Do you have trouble taking care of your child, family member or friend?: No Do you have trouble with day-to-day activities such as bathing, preparing meals, shopping, managing finances, etc.?: No Are you currently unemployed and looking for a job?: No Are you interested in more education?: No Please select the resources that you would like help with: None THRIVE Score: 0 AUDIT C Alcohol Use Questionnaire (AUDIT-C) 1. How often do you have a drink containing alcohol?: Never Total Score: 0 YESSI-7 AMB Questionnaire YESSI-7 Date YESSI - 7 assessed: 10/31/23 Feeling nervous, anxious, or on edge: 0 = Not at all Not being able to stop or control worryin = Not at all Worrying too much about different things: 0 = Not at all Trouble relaxin = Not at all Being so restless that it is hard to sit still: 0 = Not at all Becoming easily annoyed or irritable: 0 = Not at all Feeling afraid as if something awful might happen: 0 = Not at all Total YESSI-7 score (0-4 normal; 5-9 mild; 10-14 moderate; 15-21 severe): 0 Source: Developed by Drs. Tomasz Lee, Fay Callejas, Blayne Arenas and colleagues, with an educational jakbo from [employer]. YESSI-7 Assessment Billing YESSI-7 Assessment Tool: YESSI-7 Assessment 31983 Review of Systems Const All systems reviewed & are unremarkable except as noted in HPI and below Eyes Reports no additional complaints, Denies change in vision and Denies other visual disturbances Card Denies chest pain at rest, Denies chest pain with activity, Denies edema, Denies irregular heart rhythm, Denies claudication, Denies dyspnea, Denies dyspnea on exertion, Denies orthopnea, Denies paroxysmal nocturnal dyspnea and Denies slow heart rate Resp Denies cough, Denies dyspnea and Denies dyspnea on exertion GI Denies abdominal pain, Denies change in bowel habits, Denies excessive flatus, Denies nausea and Denies vomiting Denies urinary incontinence, Denies urinary hesitancy and Denies urinary urgency Physical exam (Primary Care) Vital Signs: Last Vital Signs Pulse 95 10/31/23 15:49 BP 140/80 H 10/31/23 15:49 Pulse Ox 96 10/31/23 15:49 Oxygen Delivery Method Room Air 10/31/23 15:49 BMI result Body Mass Index 45.3 Tobacco/Smoking Status: Tobacco use Status Tobacco use date assessed 10/31/23 10/31/23 15:51 Patient Tobacco Use Status Never used Tobacco 10/31/23 15:51 e-Cigarette/Vaping Use Never Used 10/31/23 15:51 PHQ-9: PHQ-9 Score PHQ-9: Total score 0 10/31/23 16:08 Depression Screening Interpretation: Positive Depression Screening Follow-up: Existing condition Thrive Assessment: Date of Thrive Assessment Date Thrive assessed 10/31/23 10/31/23 15:51 Eyes General: appearance normal, both eyes and all related structures Eyelids: Yes eyelids normal Conjunctivae: conjunctivae normal Neck Neck: Yes normal visual inspection and Yes supple Resp Effort & Inspection: normal respiratory effort Auscultation: clear to auscultation bilaterally Cardio Jugular venous distension: no JVD Rate: regular rate Rhythm: regular rhythm Heart sounds: S1 normal heart sound present and S2 normal heart sound present Extrem General: Yes full ROM Results AMB Hemoglobin A1c AMB Hemoglobin A1c 12.2 % Last Edit by BAILEY Mehta on 10/31/23 16:02 Results Reviewed Results Reviewed: Laboratory Last Values Hgb A1c (Clinic) 12.2 % (4.0-6.0) H 10/31/23 15:51 Assessment and Plan Assessment & Plan (1) Diabetes mellitus: Code(s): E11.9 - Type 2 diabetes mellitus without complications Qualifiers: Diabetes mellitus complication status: with hyperglycemia Diabetes mellitus technician terminal and repeater insulin use: without nursing home use Diabetes mellitus type: type 2 Qualified Code(s): E11.65 - Type 2 diabetes mellitus with hyperglycemia Plan: Continue metformin and Trulicity. Increase Jardiance from 10 mg to 25 mg. Start Tresiba 15 units once a day. A1c goal is equal or less than 7%. (2) Mild recurrent major depression: Code(s): F33.0 - Major depressive disorder, recurrent, mild Plan: In remission. (3) Essential hypertension: Code(s): I10 - Essential (primary) hypertension Plan: Continue lisinopril and hydrochlorothiazide. Blood pressure goal is equal or less than 130/80. (4) Morbid obesity with BMI of 45.0-49.9, adult: Code(s): E66.01 - Morbid (severe) obesity due to excess calories; Z68.42 - Body mass index [BMI] 45.0-49.9, adult Plan: Referred to weight management. BMI goal is less than 30. (5) Mixed hyperlipidemia: Code(s): E78.2 - Mixed hyperlipidemia Plan: Increase atorvastatin from 40 mg to 80 mg. Continue fenofibrate. Continue Vascepa. LDL goal is less than 70. Orders: Orders AMB Hemoglobin A1c 10/31/23 E11.9 - Type 2 diabetes mellitus without complications ECG 12 lead EKG 10/31/23 Z01.818 - Encounter for other preprocedural examination Referrals Medical Weight Management Referral E66.01 - Morbid (severe) obesity due to excess calories, Z68.42 - Body mass index [BMI] 45.0-49.9, adult Medications: New empagliflozin (Jardiance) 25 mg PO DAILY 90 days 90 tabs 1RF pen needle,diabetic dual safty (BD AutoShield Duo Pen Needle) 1 ea miscellaneous .once a day 100 days 100 ea 3RF E11.65 - Type 2 diabetes mellitus with hyperglycemia atorvastatin 80 mg PO BEDTIME 90 days 90 tabs 1RF insulin degludec (Tresiba FlexTouch U-100 insulin) 15 units (0.15 mL) subcut DAILY 30 days 4.5 mL 3RF E11.9 - Type 2 diabetes mellitus without complications Discontinued empagliflozin (Jardiance) Discontinued Reason: Patient Completed Course 10 mg PO DAILY 90 days 90 tabs 1RF atorvastatin Discontinued Reason: Patient Completed Course 40 mg PO BEDTIME 90 tabs 3RF Coding Level of Care Code Est Pt Level 4 (16223) Diagnoses Type 2 diabetes mellitus with hyperglycemia, without long-term current use of insulin E11.65 Diabetes mellitus complication status: with hyperglycemia Diabetes mellitus nursing home insulin use: without nursing home use Diabetes mellitus type: type 2 Mild recurrent major depression F33.0 Essential hypertension I10 Morbid obesity with BMI of 45.0-49.9, adult E66.01; Z68.42 Mixed hyperlipidemia E78.2 Additional Codes YESSI-7 Assessment Billing - YESSI-7 Assessment Tool: YESSI-7 Assessment 33757 ([id number]) Time Spent (min) 24
[2023-11-01 07:06] VITALS: BP 138/80
== END 2023-10-31 16:16 | disposition home or self-care (01) ==
PROVIDERS: PCP Internal Medicine; Visit Provider Internal Medicine
DX: E11.9 Type 2 diabetes mellitus without complications (principal)
CPT/HCPCS: 83036; 99214

== ENCOUNTER 2023-11-27 12:14 | Outpatient (AMB) | payer OTHER, SELFPAY ==
--- NOTE | 2023-11-27 12:29 | MHC.PC.OV ---
Vital Signs 11/27/23 12:35 Height 5 ft 5 in Weight 265 lb BMI 44.1 BP 126/80 Blood Pressure Location Lt brachial Position Sitting Intake Visit Reasons: Pre Op cataract surgery/ 12/09/2023 Intake Note: Pre-op Cataract suregry 12/09/23 Associate Drafter Required: No Accompanied by: Self / Same As Patient Allergies No Known Allergies [No Known Allergies*] Allergy (Verified 11/27/23 12:43) Medication List - Last Reconciled 11/27/23 by Mitzy Hoang MD acetaminophen 500 mg PO Q6H PRN 7 days albuterol sulfate 90 mcg/actuation 2 puffs inhalation Q4-6H PRN aspirin 81 mg PO DAILY atorvastatin 80 mg PO BEDTIME 90 days blood pressure monitor As directed blood sugar diagnostic (FreeStyle Lite Strips) Use 1 test strip once a day blood-glucose meter (FreeStyle Lite Meter kit) As directed cholecalciferol (vitamin D3) 50 mcg PO DAILY 90 days dulaglutide (Trulicity) 3 mg (0.5 mL) subcut QWEEK 30 days empagliflozin (Jardiance) 25 mg PO DAILY 90 days fenofibrate 160 mg PO DAILY 90 days fluticasone propion-salmeterol 250-50 mcg/dose (Wixela Inhub) 1 inh inhalation BID 30 days hydrochlorothiazide 25 mg PO DAILY 90 days icosapent ethyl (Vascepa) 2 grams (2 x 1 gram) PO BID insulin degludec (Tresiba FlexTouch U-100 insulin) 15 units (0.15 mL) subcut DAILY 30 days lancets (FreeStyle Lancets) Use 1 lancet once a day lisinopril 20 mg PO DAILY metformin 1,000 mg PO BID 90 days miscellaneous medical supply (Blood Pressure Cuff) As directed, monitor BP 2-3 a day, and creat a log omeprazole 40 mg PO DAILY 90 days pen needle,diabetic dual safty (BD AutoShield Duo Pen Needle) 1 ea miscellaneous .once a day 100 days potassium citrate ER 20 mEq (2 x 10 mEq (1,080 mg)) PO BID 90 days Tobacco use date assessed: 10/31/23 Dental Screening Dental Screen Date: 11/27/23 Did you have a dental visit in the last 12 months?: Yes Did you have a dental problem in the last 6 months where you did not have access to dental care?: No Was dental information given to patient?: Patient has dentist HPI HPI Comments History of Present Illness Details This is a 58-year-old female with diabetes mellitus type 2 on long-term current use of insulin, hypertension, mixed hyperlipidemia, morbid obesity and major depression that comes today for preop evaluation of cataract extraction and intraocular lens implant for next month. She denies any chest pain or shortness of breath. Has 4-5 Mets of ADLs. EKG still pending. Last A1c was very elevated and we increase Jardiance and add insulin. She has not started insulin yet. Blood pressure stable. LDL not on goal and dietary changes were advised. Depression is in remission. She is morbidly obese with a BMI of 44.1 and was advised to diet and exercise to reach BMI goal less than 30. FORMERLY [facility], [facility] Medical History (Updated 11/27/23 @ 13:33 by Mitzy Hoang MD) Morbid obesity with BMI of 45.0-49.9, adult Moderate recurrent major depression Renal calculi Muscle cramps EDGAR (acute kidney injury) Leukocytosis Asthma Mild recurrent major depression Diabetes mellitus Headache RANJIT (obstructive sleep apnea) Chronic cough Super obese Essential hypertension Mild asthma Pure hypercholesterolemia Surgical History History of esophagogastroduodenoscopy (EGD) History of colonoscopy History of tubal ligation History of section Family History Father Diabetes Hypertension Mother Hypertension Liver cancer Maternal Grandfather Throat cancer Paternal Grandmother Stomach cancer Social History Housing: House Alcohol intake: never Patient Tobacco Use Status: Never used Tobacco e-Cigarette/Vaping Use: Never Used Second Hand Smoke Exposure: No Advance Directives Date on File: 08/21/21 service: No Current occupational status: employed 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 Tomasz Lee, Fay Callejas, Blayne Arenas and colleagues, with an educational jakob from [employer]. Review of Systems Const All systems reviewed & are unremarkable except as noted in HPI and below Eyes Reports no additional complaints, Denies change in vision and Denies other visual disturbances Card Denies chest pain at rest, Denies chest pain with activity, Denies edema, Denies irregular heart rhythm, Denies claudication, Denies dyspnea, Denies dyspnea on exertion, Denies orthopnea, Denies paroxysmal nocturnal dyspnea and Denies slow heart rate Resp Denies cough, Denies dyspnea and Denies dyspnea on exertion GI Denies abdominal pain, Denies change in bowel habits, Denies excessive flatus, Denies nausea and Denies vomiting Denies urinary incontinence, Denies urinary hesitancy and Denies urinary urgency Physical exam (Primary Care) Vital Signs: Last Vital Signs BP 126/80 11/27/23 12:35 BMI result Body Mass Index 44.1 Tobacco/Smoking Status: Tobacco use Status Tobacco use date assessed 10/31/23 11/27/23 12:33 Patient Tobacco Use Status Never used Tobacco 11/27/23 12:33 e-Cigarette/Vaping Use Never Used 11/27/23 12:33 Thrive Assessment: Date of Thrive Assessment Date Thrive assessed 10/31/23 11/27/23 12:33 Resp Effort & Inspection: normal respiratory effort Auscultation: clear to auscultation bilaterally Cardio Jugular venous distension: no JVD Rate: regular rate Rhythm: regular rhythm Heart sounds: S1 normal heart sound present and S2 normal heart sound present Extrem General: Yes full ROM Assessment and Plan Assessment & Plan (1) Pre-op evaluation: Code(s): Z01.818 - Encounter for other preprocedural examination Plan: EKG pending for medical clearance. (2) Diabetes mellitus: Code(s): E11.9 - Type 2 diabetes mellitus without complications Qualifiers: Diabetes mellitus complication status: with hyperglycemia Diabetes mellitus halfway insulin use: without halfway use Diabetes mellitus type: type 2 Qualified Code(s): E11.65 - Type 2 diabetes mellitus with hyperglycemia Plan: Start Tresiba. Continue Jardiance. A1c goal is equal or less than 7%. Continue Trulicity. (3) Mild recurrent major depression: Code(s): F33.0 - Major depressive disorder, recurrent, mild Plan: In remission. (4) Mixed hyperlipidemia: Code(s): E78.2 - Mixed hyperlipidemia Plan: Continue statins and fibrates. LDL goal is less than 70. (5) Essential hypertension: Code(s): I10 - Essential (primary) hypertension Plan: Continue hydrochlorothiazide. Continue lisinopril. Blood pressure goal is equal or less than 130/80. (6) Morbid obesity with BMI of 40.0-44.9, adult: Code(s): E66.01 - Morbid (severe) obesity due to excess calories; Z68.41 - Body mass index [BMI] 40.0-44.9, adult Plan: Start diet and exercise. BMI goal is less than 30. Orders: Orders Complete Blood Count Auto Diff Today D64.9 - Anemia, unspecified Comprehensive Colo. 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
[2023-11-27 12:35] VITALS: BP 126/80; BMI 44.1
== END 2023-11-27 12:51 | disposition home or self-care (01) ==
PROVIDERS: PCP Internal Medicine; Visit Provider Internal Medicine
DX: E11.65 Type 2 diabetes mellitus with hyperglycemia (principal); F33.0 Major depressive disorder, recurrent, mild; E66.01 Morbid (severe) obesity due to excess calories; Z68.41 Body mass index [BMI] 40.0-44.9, adult; Z01.818 Encounter for other preprocedural examination; E78.2 Mixed hyperlipidemia; I10 Essential (primary) hypertension
CPT/HCPCS: 99214

== ENCOUNTER 2023-11-28 08:41 | Outpatient (REF) | payer OTHER, SELFPAY ==
[2023-11-28 08:49] LABS: MANUAL DIFF FLAG NO
[2023-11-28 09:11] LABS: Basophils Absolute Auto 0.1 X10*3/uL (0.0-0.2); Basophils Percent Auto 0.4 % (0-2); Eosinophils Absolute Auto 0.2 X10*3/uL (0.0-0.4); Eosinophils Percent Auto 1.4 % (0-4); Hematocrit 39.9 % (37.0-47.0); Imm Gran Abs Auto 0.06 X10*3/uL (0.00-0.03); Imm Gran Pct Auto 0.5 % (0.0-0.4); Lymphocytes Absolute Auto 3.3 X10*3/uL (1.2-4.9); Lymphocytes Percent Auto 27.6 % (20-40); Mean Corpuscular HGB Conc 32.6 g/dl (31.0-35.0); Mean Corpuscular Hemoglobin 28.3 pg (27.0-33.0); Mean Corpuscular Volume 86.9 fL (80.0-98.0); Mean Platelet Volume 10.5 fL (9.4-12.3); Monocytes Absolute Auto 0.7 X10*3/uL (0.1-1.2); Monocytes Percent Auto 5.5 % (2-11); Neutrophils Absolute Auto 7.7 x10*3/uL (2.0-8.3); Neutrophils Percent Auto 64.6 % (45-73); Platelet Count 417 X10*3/uL (160-400); Red Blood Count 4.59 X10*6/uL (4.20-5.50); Red Cell Distribution Width 13.3 % (11.0-16.0); White Blood Count 11.9 X10*3/uL (4.8-10.8)
[2023-11-28 10:01] LABS: Alanine Aminotransferase 36 U/L (0-31); Albumin Level 4.2 g/dL (3.5-5.0); Alkaline Phosphatase 121 U/L (39-117); Anion Gap 14 (12-20); Aspartate Amino Transferase 25 U/L (5-31); Bilirubin Total 0.3 mg/dL (0.0-1.0); Blood Urea Nitrogen 21 mg/dL (9-16); Calcium 10.6 mg/dL (8.4-10.2); Carbon Dioxide 28 mmol/L (22-29); Chloride 99 mmol/L (96-108); Estimated Glomerular Filt Rate > 60; Glucose Fasting 228 mg/dL (60-99); Potassium 4.3 mmol/L (3.3-5.1); Sodium 137 mmol/L (135-145); Total Protein 7.9 g/dL (6.5-8.0)
== END 2023-11-28 08:42 | disposition home or self-care (01) ==
LOC: HO.LAB 08:41
PROVIDERS: PCP Internal Medicine; Visit Provider Internal Medicine
DX: E11.9 Type 2 diabetes mellitus without complications (principal); D64.9 Anemia, unspecified
CPT/HCPCS: 36415; 80053; 85025

== ENCOUNTER → 2023-11-28 08:53 | Outpatient (BNV) | payer OTHER, SELFPAY | PROVIDERS: PCP Internal Medicine; Visit Provider Internal Medicine Cardiovascular Disease | DX: Z01.818 Encounter for other preprocedural examination (principal) | CPT/HCPCS: 93010 ==

== ENCOUNTER 2023-11-30 07:40 | Outpatient (REF) | payer OTHER, SELFPAY | END 2023-11-30 07:41 | disposition home or self-care (01) | LOC: HO.MAMMO 07:40 | PROVIDERS: PCP Internal Medicine; Visit Provider Internal Medicine | DX: Z12.31 Encounter for screening mammogram for malignant neoplasm of breast (principal) | CPT/HCPCS: 77063; 77067 ==

== ENCOUNTER → 2023-11-30 08:00 | Outpatient (BNV) | payer OTHER, SELFPAY | PROVIDERS: PCP Internal Medicine; Visit Provider Radiology Diagnostic Radiology | DX: Z12.31 Encounter for screening mammogram for malignant neoplasm of breast (principal) | CPT/HCPCS: 77063; 77067 ==

== ENCOUNTER 2023-12-09 07:25 | Day surgery (SDC) | payer OTHER, SELFPAY ==
--- NOTE | 2023-11-28 08:53 | ECG_ITS ---
Test Reason : preop Blood Pressure : / mmHG Vent. Rate : 087 BPM Atrial Rate : 087 BPM P-R Int : 150 ms QRS Dur : 080 ms QT Int : 382 ms P-R-T Axes : 046 054 105 degrees QTc Int : 459 ms Normal sinus rhythm T wave abnormality, consider lateral ischemia Abnormal ECG When compared with ECG of 25-OCT-2021 18:33, No significant change was found Referred By: Mitzy Hoang Electronically Signed By:Doe Carey
[2023-12-03 07:23] VITALS: BMI 44.1
--- NOTE | 2023-12-05 13:55 | P.CONAN_ITS ---
Documented by User: Anjelica Rowley NP 12/05/23 13:56 HPI - Anesthesia Eval Consult details Narrative: 58yo F for Right Cataract Extraction IOL Insertion Optimized per PCP No previous cataract on record Anesthesia Pre-Procedure Meds Is the patient on any of the following meds?: Dulaglutide (Trulicity) and Any other SGL-1 drugs or drugs that delay gastric emptying (Jardiance) PMFSH Active Problems Active Problems: All Active Problems Morbid obesity with BMI of 40.0-44.9, adult (Acute) Pre-op evaluation (Acute) Mixed hyperlipidemia (Acute) Asthma (Acute) Numbness of left hand (Acute) De Quervain's tenosynovitis, left (Acute) Environmental allergies (Acute) Hyperlipidemia (Acute) Left wrist pain (Acute) Coronary artery disease (Acute) Microalbuminuria (Acute) GERD (gastroesophageal reflux disease) (Acute) GERD without esophagitis (Acute) Dysphagia, pharyngoesophageal phase (Acute) Adenomatous colon polyp (Acute) History of Helicobacter pylori infection (Acute) RUQ abdominal pain (Acute) Syncope (Acute) Hypertensive urgency (Acute) YESSI (generalized anxiety disorder) (Acute) Dyspnea on exertion (Acute) Cough due to bronchospasm (Acute) Hospital discharge follow-up (Acute) SOB (shortness of breath) on exertion (Acute) Encounter for preoperative pulmonary examination (Acute) Renal calculi (Acute) Muscle cramps (Acute) Leukocytosis (Acute) Mild recurrent major depression (Acute) Diabetes mellitus (Acute) Headache (Acute) RANJIT (obstructive sleep apnea) (Acute) Chronic cough (Acute) Super obese (Acute) Essential hypertension (Acute) Mild asthma (Acute) Pure hypercholesterolemia (Acute) Past Medical History Medical History Morbid obesity with BMI of 45.0-49.9, adult Moderate recurrent major depression Renal calculi Muscle cramps EDGAR (acute kidney injury) Leukocytosis Asthma Mild recurrent major depression Diabetes mellitus Headache RANJIT (obstructive sleep apnea) Chronic cough Super obese Essential hypertension Mild asthma Pure hypercholesterolemia Family History Family History Father Diabetes Hypertension Mother Hypertension Liver cancer Maternal Grandfather Throat cancer Paternal Grandmother Stomach cancer Family history of problems with anesthesia: No Surgical History Surgical History History of esophagogastroduodenoscopy (EGD) History of colonoscopy History of tubal ligation History of section History of Problems with Anesthesia: No Social History Social History Housing: House Alcohol intake: never Patient Tobacco Use Status: Never used Tobacco e-Cigarette/Vaping Use: Never Used Second Hand Smoke Exposure: No Advance Directives: No Advance Directives Information Provided: Yes Advance Directives on File: Yes Advance Directives Date on File: 08/21/21 service: No Current occupational status: employed 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 Current occupational exposures/hazards: No Cognitive needs: No Hearing needs: No Vision needs: Yes Meds Allergies Allergy/AdvReac Type Severity Reaction Status Date / Time No Known Allergies Allergy Verified 11/27/23 12:43 [No Known Allergies*] Home Medications ?Medication ?Instructions ?Recorded ?Confirmed ?Last Taken ?Type albuterol sulfate 90 mcg/actuation 2 puff inhalation Q4-6H PRN 08/08/20 12/03/23 Unknown History aerosol inhaler Wheezing Exam Height,Weight and Vital Signs: Height 5 ft 5 in Weight 120.202 kg Assessment and Plan Assessment Anesthesia Assessment: Chart Reviewed Final Anesthetic Review Family History of Problems with Anesthesia: No History of Problems with Anesthesia: No Documented by User: Zhane Khoruy MD 12/09/23 09:08 HPI - Anesthesia Eval Anesthesia Pre-Procedure Meds If Yes to any meds - educate patient: Pt education - increased risk of aspiration and Pt education - possibility of cancelled proc at provider's discretion PMFSH Past Medical History Medical History Morbid obesity with BMI of 45.0-49.9, adult Moderate recurrent major depression Renal calculi Muscle cramps EDGAR (acute kidney injury) Leukocytosis Asthma Mild recurrent major depression Diabetes mellitus Headache RANJIT (obstructive sleep apnea) Chronic cough Super obese Essential hypertension Mild asthma Pure hypercholesterolemia Family History Family History Father Diabetes Hypertension Mother Hypertension Liver cancer Maternal Grandfather Throat cancer Paternal Grandmother Stomach cancer Surgical History Surgical History History of esophagogastroduodenoscopy (EGD) History of colonoscopy History of tubal ligation History of section Social History Social History Housing: House Alcohol intake: never Patient Tobacco Use Status: Never used Tobacco e-Cigarette/Vaping Use: Never Used Second Hand Smoke Exposure: No Advance Directives: No Advance Directives Information Provided: Yes Advance Directives on File: Yes Advance Directives Date on File: 08/21/21 service: No Current occupational status: employed 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 Current occupational exposures/hazards: No Cognitive needs: No Hearing needs: No Vision needs: Yes Meds Allergies Allergy/AdvReac Type Severity Reaction Status Date / Time No Known Allergies Allergy Verified 11/27/23 12:43 [No Known Allergies*] Home Medications ?Medication ?Instructions ?Recorded ?Confirmed ?Last Taken ?Type albuterol sulfate 90 mcg/actuation 2 puff inhalation Q4-6H PRN 08/08/20 12/03/23 Unknown History aerosol inhaler Wheezing Exam Airway Mallampati Class: III TM Dist: >3cm Heart: rrrr Lungs: cta Assessment and Plan Assessment Anesthesia Assessment: Anesthesia Plan Discussed Final Anesthetic Review NPO: Yes ASA Class: III Final Preanesthetic Review: No Changes in Pt Med Stat, Meds/Allgs Chart Reviewed, Consent Obtained/Reviewed and Anes Risks/Benef Reviewed Patient Risk: Intermediate Procedure Risk: Low Anesthetic Plan Anesthetic Plan: MAC: Disposition: Standard PACU
[2023-12-09 09:10] VITALS: BMI 44.1
[2023-12-09 09:15] VITALS: BP 168/90; PULSE 84; RESP 18; TEMP 36.7; O2SAT 95
[2023-12-09 09:25] LABS: Glucose, Whole Blood 191 mg/dL (60-115)
[2023-12-09] MEDS: Lactated Ringers 500 ML 50 ML IV (09:25)
[2023-12-09] MEDS: Tetracaine HCl/PF 0.5% Oph Sol 4 ML DROPS 1 DROP EYE-RIGHT (09:25)
[2023-12-09] MEDS: Phenylephrine HCL 2.5% Oph SoL 2 ML BOTTLE 1 DROP EYE-RIGHT ×3 (09:25→09:33)
[2023-12-09] MEDS: Cyclopentolate 1 % Ophth Sol 2 ML DRPBTL 1 DROP EYE-RIGHT ×3 (09:26→09:33)
[2023-12-09] MEDS: Tropicamide 1 % Ophth Sol 3 ML BTL 1 DROP EYE-RIGHT ×3 (09:26→09:33)
[2023-12-09] MEDS: Ketorolac Tromethamine 0.5% Op 5 ML DROPS 1 DROP EYE-RIGHT ×3 (09:26→09:33)
--- NOTE | 2023-12-09 10:18 | MHC.SHP ---
Pre-Procedural Eval Section A - 24 Hr Update-Section A only Date of Service: 12/09/23 The patient is an INPATIENT: No Changes since office visit: No Cold of Flu in the past 2 weeks, No New Medical Problems, No Changes in Medication and No Patient answered all questions The patient has been examined within 24 hours of the surgical procedure. The History & Physical has been completed within 30 days and I have reviewed it.: Yes Section B - Complete if H&P > 30 days Chief Complaint: Age-related nuclear cataract, right eye Allergies: Allergies Allergy/AdvReac Type Severity Reaction Status Date / Time No Known Allergies Allergy Verified 12/09/23 09:35 [No Known Allergies*] Plan Diagnosis/Plan: Unchanged I have reviewed the history and physical and performed a pertinent physical examination on my patient. No changes have occurred unless specified. Time Spent With Patient Time: Total time managing care of this patient today ____ minutes.
--- NOTE | 2023-12-09 10:19 | P.PCNO_ITS ---
Ophthalmology Procedure Procedure Date of Service: 12/09/23 Ophthalmology Viscoelastic: Healon Duet Dual Pack Pro Ophthalmology Lenses: IOL Acrysof MP - MA60AC (17.5) Procedure Notes: PREOPERATIVE DIAGNOSIS: Decreased visual acuity right eye secondary to cataract POSTOPERATIVE DIAGNOSIS: Same PROCEDURE: Right cataract extraction with intraocular lens insertion SURGEON: Vikash Anderson M.D. ANESTHESIA: Topical/MAC ESTIMATED BLOOD LOSS: None COMPLICATIONS: None After obtaining informed consent, the patient was brought to the operating room suite and placed in the supine position. After adequate sedation per anesthesia, topical drops of Tetracaine were given to the right eye. The eye was then prepped and draped in the usual sterile fashion. The operating room microscope was then positioned over the operative eye and a lid speculum placed. A paracentesis was created. Viscoelastic was then instilled into the anterior chamber. A three plane incision was then created temporally, utilizing a 2.85 mm keratome. Capsulotomy forceps were then utilized to create a circular tear capsulotomy. Hydrodissection and hydrodelineation were carried out until adequate mobilization of the nucleus occurred. Phacoemulsification was then utilized to remove the dense central nu cleus followed by removal of the cortical material utilizing the automated aspiration irrigation unit. Viscoelastic was instilled into the posterior capsular bag followed by placement of a posterior chamber intraocular lens without difficulty. The residual Viscoelastic was then removed utilizing the automated IA machine. The wound was checked and found to be watertight. The patient tolerated the procedure well and the lid speculum was removed. Intracameral injection of Vigamox 0.1 mL followed by a subtenon injection of Kenalog-40 0.2 mL were administered. The patient will be seen in the a.m.
[2023-12-09 10:57] VITALS: BP 147/82; PULSE 81; RESP 17; TEMP 37; O2SAT 96
== END 2023-12-09 10:59 | disposition home or self-care (01) ==
PROVIDERS: PCP Internal Medicine; Visit Provider Ophthalmology
PROC: (CPT 66985; principal; 2023-12-09 11:20)
DX: H25.11 Age-related nuclear cataract, right eye (principal); H54.7 Unspecified visual loss; H11.133 Conjunctival pigmentations, bilateral; H11.153 Pinguecula, bilateral; H18.413 Arcus senilis, bilateral; I10 Essential (primary) hypertension; E78.2 Mixed hyperlipidemia; G47.33 Obstructive sleep apnea (adult) (pediatric); F33.0 Major depressive disorder, recurrent, mild; J45.909 Unspecified asthma, uncomplicated; E11.9 Type 2 diabetes mellitus without complications; E66.01 Morbid (severe) obesity due to excess calories; Z68.41 Body mass index [BMI] 40.0-44.9, adult; Z79.85 Long-term (current) use of injectable non-insulin antidiabetic drugs; Z79.4 Long term (current) use of insulin; Z79.899 Other long term (current) drug therapy; Z79.51 Long term (current) use of inhaled steroids; Z79.82 Long term (current) use of aspirin
CPT/HCPCS: 66984; 82947; 93005; J2250; J3010; J3301; V2630

== ENCOUNTER 2023-12-23 07:54 | Day surgery (SDC) | payer OTHER, SELFPAY ==
[2023-12-03 07:27] VITALS: BMI 44.1
[2023-12-23 08:26] VITALS: BP 129/80; PULSE 105; RESP 18; TEMP 36.2; O2SAT 96
[2023-12-23 08:30] VITALS: BMI 43.3
--- NOTE | 2023-12-23 09:04 | PC.NURSE ---
pt with poc 240 in preop [address] Mayer
[2023-12-23 09:08] LABS: Glucose, Whole Blood 240 mg/dL (60-115)
[2023-12-23] MEDS: Tetracaine HCl/PF 0.5% Oph Sol 4 ML DROPS 1 DROP EYE-LEFT (09:16)
[2023-12-23] MEDS: Phenylephrine HCL 2.5% Oph SoL 2 ML BOTTLE 1 DROP EYE-LEFT ×3 (09:17→09:20)
[2023-12-23] MEDS: Ketorolac Tromethamine 0.5% Op 5 ML DROPS 1 DROP EYE-LEFT ×2 (09:17→09:19)
[2023-12-23] MEDS: Tropicamide 1 % Ophth Sol 3 ML BTL 1 DROP EYE-LEFT ×3 (09:17→09:20)
--- NOTE | 2023-12-23 09:18 | HO.ANESPROP2 ---
HPI - Anesthesia Eval Consult details Narrative: 58 yo F presenting for Left Cataract Extraction IOL Insertion. POC 241. Anesthesia Pre-Procedure Meds Is the patient on any of the following meds?: Dulaglutide (Trulicity) and Any other SGL-1 drugs or drugs that delay gastric emptying (Jardiance) If Yes to any meds - educate patient: Pt education - increased risk of aspiration PMFSH Active Problems Active Problems: All Active Problems Morbid obesity with BMI of 40.0-44.9, adult (Acute) Pre-op evaluation (Acute) Mixed hyperlipidemia (Acute) Asthma (Acute) Numbness of left hand (Acute) De Quervain's tenosynovitis, left (Acute) Environmental allergies (Acute) Hyperlipidemia (Acute) Left wrist pain (Acute) Coronary artery disease (Acute) Microalbuminuria (Acute) GERD (gastroesophageal reflux disease) (Acute) GERD without esophagitis (Acute) Dysphagia, pharyngoesophageal phase (Acute) Adenomatous colon polyp (Acute) History of Helicobacter pylori infection (Acute) RUQ abdominal pain (Acute) Syncope (Acute) Hypertensive urgency (Acute) YESSI (generalized anxiety disorder) (Acute) Dyspnea on exertion (Acute) Cough due to bronchospasm (Acute) Hospital discharge follow-up (Acute) SOB (shortness of breath) on exertion (Acute) Encounter for preoperative pulmonary examination (Acute) Renal calculi (Acute) Muscle cramps (Acute) Leukocytosis (Acute) Mild recurrent major depression (Acute) Diabetes mellitus (Acute) Headache (Acute) RANJIT (obstructive sleep apnea) (Acute) Chronic cough (Acute) Super obese (Acute) Essential hypertension (Acute) Mild asthma (Acute) Pure hypercholesterolemia (Acute) Past Medical History Medical History Morbid obesity with BMI of 45.0-49.9, adult Moderate recurrent major depression Renal calculi Muscle cramps EDGAR (acute kidney injury) Leukocytosis Asthma Mild recurrent major depression Diabetes mellitus Headache RANJIT (obstructive sleep apnea) Chronic cough Super obese Essential hypertension Mild asthma Pure hypercholesterolemia Family History Family History Father Diabetes Hypertension Mother Hypertension Liver cancer Maternal Grandfather Throat cancer Paternal Grandmother Stomach cancer Family history of problems with anesthesia: No Surgical History Surgical History History of esophagogastroduodenoscopy (EGD) History of colonoscopy History of tubal ligation History of section History of Problems with Anesthesia: No Social History Social History Housing: House Alcohol intake: never Patient Tobacco Use Status: Never used Tobacco e-Cigarette/Vaping Use: Never Used Second Hand Smoke Exposure: No Advance Directives: No Advance Directives Information Provided: Yes Advance Directives on File: Yes Advance Directives Date on File: 08/21/21 service: No Current occupational status: employed 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 Current occupational exposures/hazards: No Cognitive needs: No Hearing needs: No Vision needs: Yes Meds Allergies Allergy/AdvReac Type Severity Reaction Status Date / Time No Known Allergies Allergy Verified 12/09/23 09:35 [No Known Allergies*] Active Medications: Current Medications Povidone Iodine (Povidone Iodine 5 % Ophth Soln 30 Ml Bottle) 1 appl EYE-LEFT PREOP PRN PRN Reason: Pre-Op Surgical Implant Prophy Home Medications ?Medication ?Instructions ?Recorded ?Confirmed ?Last Taken ?Type albuterol sulfate 90 mcg/actuation 2 puff inhalation Q4-6H PRN 08/08/20 12/03/23 Unknown History aerosol inhaler Wheezing Exam Exam Date and Time: December 23, 2023 0915 Height,Weight and Vital Signs: Height 5 ft 5 in Weight 117.934 kg Last Vital Signs Temp 97.1 F 12/23/23 08:26 Pulse 105 H 12/23/23 08:26 Resp 18 12/23/23 08:26 BP 129/80 12/23/23 08:26 Pulse Ox 96 12/23/23 08:26 O2 Del Method Room Air 12/23/23 08:26 Pertinent Lab Results Pertinent Lab Results: Laboratory Tests 12/23/23 09:03 POC Glucose 240 H Airway Mallampati Class: III TM Dist: <=3cm Neck ROM: Full Loose/Missing/Broken Teeth: No (patient denies any loose or broken teeth) Heart: S1S2 Lungs: CTAB Assessment and Plan Assessment Anesthesia Assessment: Anesthesia Plan Discussed and Chart Reviewed Final Anesthetic Review Family History of Problems with Anesthesia: No History of Problems with Anesthesia: No NPO: Yes ASA Class: III Final Preanesthetic Review: No Changes in Pt Med Stat, Meds/Allgs Chart Reviewed, Consent Obtained/Reviewed and Anes Risks/Benef Reviewed Patient Risk: Intermediate Procedure Risk: Low Anesthetic Plan Anesthetic Plan: MAC: and Agree w/ Assess. and Plan Disposition: Standard PACU
--- NOTE | 2023-12-23 09:37 | MHC.SHP ---
Pre-Procedural Eval Section A - 24 Hr Update-Section A only Date of Service: 12/23/23 The patient is an INPATIENT: No Changes since office visit: No Cold of Flu in the past 2 weeks, No New Medical Problems, No Changes in Medication and No Patient answered all questions The patient has been examined within 24 hours of the surgical procedure. The History & Physical has been completed within 30 days and I have reviewed it.: Yes Section B - Complete if H&P > 30 days Chief Complaint: Age-related nuclear cataract, left eye Allergies: Allergies Allergy/AdvReac Type Severity Reaction Status Date / Time No Known Allergies Allergy Verified 12/09/23 09:35 [No Known Allergies*] Plan Diagnosis/Plan: Unchanged I have reviewed the history and physical and performed a pertinent physical examination on my patient. No changes have occurred unless specified. Time Spent With Patient Time: Total time managing care of this patient today ____ minutes.
--- NOTE | 2023-12-23 09:38 | HO.PNOPHT ---
Ophthalmology Procedure Procedure Date of Service: 12/23/23 Ophthalmology Viscoelastic: Healon Duet Dual Pack Pro Ophthalmology Lenses: IOL Acrysof MP - MA60AC (17.5) Procedure Notes: PREOPERATIVE DIAGNOSIS: Decreased visual acuity left eye secondary to cataract POSTOPERATIVE DIAGNOSIS: Same PROCEDURE: Left cataract extraction with intraocular lens insertion SURGEON: Vikash Anderson M.D. ANESTHESIA: Topical/MAC ESTIMATED BLOOD LOSS: None COMPLICATIONS: None After obtaining informed consent, the patient was brought to the operation room suite and placed in the supine position. After adequate sedation per anesthesia, topical drops of Tetracaine were given to the left eye. The eye was then prepped and draped in the usual sterile fashion. The operating room microscope was then positioned over the operative eye and a lid speculum placed. A paracentesis was created. Viscoelastic was then instilled into the anterior chamber. A three plane incision was then created temporally, utilizing a 2.85 mm keratome. Capsulotomy forceps were then utilized to create a circular tear capsulotomy. Hydrodissection and hydrodelineation were carried out until adequate mobilization of the nucleus occurred. Phacoemulsification was then utilized to remove the dense central nucleus followed by removal of the cortical material utilizing the automated aspiration irrigation unit. Viscoat elastic was instilled into the posterior capsular bag followed by placement of a posterior chamber intraocular lens without difficulty. The residual Viscoat elastic was then removed utilizing the automated IA machine. The wound was check and found to be watertight. The patient tolerated the procedure well and the lid speculum was removed. Intracameral injection of Vigamox 0.1 mL followed by a subtenon injection of Kenalog-40 0.2 mL were administered. The patient will be seen in the a.m.
[2023-12-23 10:12] VITALS: BP 119/60; PULSE 88; RESP 16; TEMP 36.6; O2SAT 95
== END 2023-12-23 10:30 | disposition home or self-care (01) ==
PROVIDERS: PCP Internal Medicine; Visit Provider Ophthalmology
PROC: (CPT 66985; principal; 2023-12-23 09:10)
DX: H25.12 Age-related nuclear cataract, left eye (principal); H54.7 Unspecified visual loss; H11.133 Conjunctival pigmentations, bilateral; H11.153 Pinguecula, bilateral; H18.413 Arcus senilis, bilateral; I10 Essential (primary) hypertension; E11.9 Type 2 diabetes mellitus without complications; E78.00 Pure hypercholesterolemia, unspecified; J45.909 Unspecified asthma, uncomplicated; G47.33 Obstructive sleep apnea (adult) (pediatric); E66.01 Morbid (severe) obesity due to excess calories; Z68.41 Body mass index [BMI] 40.0-44.9, adult; Z79.4 Long term (current) use of insulin; Z79.51 Long term (current) use of inhaled steroids; Z79.82 Long term (current) use of aspirin; Z79.84 Long term (current) use of oral hypoglycemic drugs; Z79.85 Long-term (current) use of injectable non-insulin antidiabetic drugs; Z79.899 Other long term (current) drug therapy
CPT/HCPCS: 66984; 82947; J2250; J3010; J3301; V2630

== ENCOUNTER 2024-01-28 16:27 | Outpatient (REF) | payer OTHER, SELFPAY ==
[2024-01-28 17:00] LABS: Appearance Urine Cloudy; Color Urine Yellow; Glucose Urine UA >=1000 mg/dL (Negative); Leukocyte Esterase Urine Moderate (2+) (Negative); Nitrite Urine Negative (Negative); PH 5.5 (5.0-9.0); Specific Gravity - Urine >= 1.030 (1.005-1.025); UMIC TRIGGER UACC YES; Urine Blood Small (1+) (Negative); Urine Ketones Negative (Negative); Urine Protein Trace mg/dL (Neg-Trace)
[2024-01-28 17:13] LABS: Bacteria Urine 1+ (None Seen); Hyaline Casts Urine 0-2 /LPF (0-2); UACC Culture Trigger YES
== END 2024-01-28 16:28 | disposition home or self-care (01) ==
LOC: HO.LAB 16:27
PROVIDERS: PCP Internal Medicine; Visit Provider Internal Medicine
DX: R39.9 Unspecified symptoms and signs involving the genitourinary system (principal)
CPT/HCPCS: 81001; 87086; 87147

== ENCOUNTER 2024-03-30 15:28 | Outpatient (AMB) | payer OTHER, SELFPAY ==
--- NOTE | 2024-03-30 15:32 | A.OFFPC_ITS ---
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 Required: No Accompanied by: Self / Same As Patient Allergies No Known Allergies [No Known Allergies*] Allergy (Verified 03/30/24 15:45) Medication List - Last Reconciled 03/30/24 by Mitzy Hoang MD albuterol sulfate 90 mcg/actuation 2 puffs inhalation Q4-6H PRN aspirin 81 mg PO DAILY atorvastatin 80 mg PO BEDTIME 90 days blood pressure monitor As directed blood sugar diagnostic (FreeStyle Lite Strips) Use 1 test strip once a day blood-glucose meter (FreeStyle Lite Meter kit) As directed cholecalciferol (vitamin D3) 50 mcg PO DAILY 90 days dulaglutide (Trulicity) 3 mg (0.5 mL) subcut QWEEK 30 days empagliflozin (Jardiance) 25 mg PO DAILY 90 days fenofibrate 160 mg PO DAILY 90 days fluticasone propion-salmeterol 250-50 mcg/dose (Wixela Inhub) 1 inh inhalation BID 30 days hydrochlorothiazide 25 mg PO DAILY 90 days icosapent ethyl (Vascepa) 2 grams (2 x 1 gram) PO BID insulin degludec (Tresiba FlexTouch U-100 insulin) 15 units (0.15 mL) subcut DAILY 30 days lancets (FreeStyle Lancets) Use 1 lancet once a day lisinopril 20 mg PO DAILY metformin 1,000 mg PO BID 90 days miscellaneous medical supply (Blood Pressure Cuff) As directed, monitor BP 2-3 a day, and creat a log omeprazole 40 mg PO DAILY 90 days pen needle,diabetic dual safty (BD AutoShield Duo Pen Needle) 1 ea miscellaneous .once a day 100 days potassium citrate ER 20 mEq (2 x 10 mEq (1,080 mg)) PO BID 90 days Tobacco use date assessed: 10/31/23 Dental Screening Dental Screen Date: 11/27/23 HPI HPI Comments History of Present Illness Details This is a 59-year-old female with diabetes mellitus type 2 on long-term current use of insulin, hypertension, mixed hyperlipidemia, mild recurrent major depression and morbid obesity that complains of vaginal pruritus that has been recurrent. Will be referred to OBGYN. A1c elevated and I will increase insulin and replace Trulicity with Ozempic. Blood pressure elevated but she did not took her lisinopril today. Blood pressure will be recheck in 3 weeks by nurse navigator. Lipid panel was order and her LDL goal should be less than 70. Depression is in remission. She is morbidly obese with a BMI of 43.8 and declines weight loss surgery. No chest pain or shortness on breath. [facility] Medical History (Updated 03/30/24 @ 15:53 by Mitzy Hoang MD) Morbid obesity with BMI of 45.0-49.9, adult Moderate recurrent major depression Renal calculi Muscle cramps EDGAR (acute kidney injury) Leukocytosis Asthma Mild recurrent major depression Diabetes mellitus Headache RANJIT (obstructive sleep apnea) Chronic cough Super obese Essential hypertension Mild asthma Pure hypercholesterolemia Surgical History History of esophagogastroduodenoscopy (EGD) History of colonoscopy History of tubal ligation History of section Family History Father Diabetes Hypertension Mother Hypertension Liver cancer Maternal Grandfather Throat cancer Paternal Grandmother Stomach cancer Social History Housing: House Alcohol intake: never Patient Tobacco Use Status: Never used Tobacco e-Cigarette/Vaping Use: Never Used Second Hand Smoke Exposure: No Advance Directives Date on File: 08/21/21 service: No Current occupational status: employed 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 Tomasz Lee, Fay Callejas, Blayne Arenas and colleagues, with an educational jakob from [employer]. Review of Systems Const All systems reviewed & are unremarkable except as noted in HPI and below Card Denies chest pain at rest, Denies chest pain with activity, Denies edema, Denies irregular heart rhythm, Denies claudication, Denies dyspnea, Denies dyspnea on exertion, Denies orthopnea, Denies paroxysmal nocturnal dyspnea and Denies slow heart rate Resp Denies cough, Denies dyspnea and Denies dyspnea on exertion Physical exam (Primary Care) Vital Signs: Last Vital Signs BP 152/90 H 03/30/24 15:33 BMI result Body Mass Index 43.8 BMI Assessment/Plan discussion: High BMI High, discussed plan: lifestyle, weight reduction, dietary and physical activity Tobacco/Smoking Status: Tobacco use Status Tobacco use date assessed 10/31/23 03/30/24 15:36 Patient Tobacco Use Status Never used Tobacco 03/30/24 15:36 e-Cigarette/Vaping Use Never Used 03/30/24 15:36 Thrive Assessment: Date of Thrive Assessment Date Thrive assessed 10/31/23 03/30/24 15:36 Resp Effort & Inspection: normal respiratory effort Auscultation: clear to auscultation bilaterally Cardio Jugular venous distension: no JVD Rate: regular rate Rhythm: regular rhythm Heart sounds: S1 normal heart sound present and S2 normal heart sound present Extrem General: Yes full ROM Results AMB Hemoglobin A1c AMB Hemoglobin A1c 11.6 % Last Edit by BAILEY Perry on 03/30/24 15: 47 Assessment and Plan Assessment & Plan (1) Essential hypertension: Code(s): I10 - Essential (primary) hypertension Plan: Be compliant with lisinopril. Recheck blood pressure with nurse navigator in 3 weeks. Blood pressure goal is equal or less than 130/80. (2) Mild recurrent major depression: Code(s): F33.0 - Major depressive disorder, recurrent, mild Plan: In remission. (3) Diabetes mellitus: Code(s): E11.9 - Type 2 diabetes mellitus without complications Qualifiers: Diabetes mellitus type: type 2 Diabetes mellitus mounted police insulin use: without mounted police use Diabetes mellitus complication status: with hyperglycemia Qualified Code(s): E11.65 - Type 2 diabetes mellitus with hyperglycemia Plan: Continue Jardiance. Increase insulin. Discontinue Trulicity. Start Ozempic. A1c goal is equal or less than 7%. (4) Morbid obesity with BMI of 40.0-44.9, adult: Code(s): E66.01 - Morbid (severe) obesity due to excess calories; Z68.41 - Body mass index [BMI] 40.0-44.9, adult Plan: Start diet and exercise. BMI goal is less than 30. (5) Vaginal pruritus: Code(s): N89.8 - Other specified noninflammatory disorders of vagina Plan: Referred to OBGYN. (6) Mixed hyperlipidemia: Code(s): E78.2 - Mixed hyperlipidemia Plan: Continue statins and fibrates. LDL goal is less than 70. Orders: Orders Lipid Panel Today E78.5 - Hyperlipidemia, unspecified Microalbumin, Random (w Creat) Today E11.9 - Type 2 diabetes mellitus without complications Vitamin D 25-OH Total Today E55.9 - Vitamin D deficiency, unspecified IRON PROFILE Today D64.9 - Anemia, unspecified Vitamin B12 and Folate Today E53.8 - Deficiency of other specified B group vitamins Complete Blood Count Auto Diff Today D64.9 - Anemia, unspecified Comprehensive [place]. Panel Fast Today E11.65 - Type 2 diabetes mellitus with hyperglycemia AMB Hemoglobin A1c Today E11.65 - Type 2 diabetes mellitus with hyperglycemia Referrals RETAIL EXPERIENCE SPECIALIST Referral N89.8 - Other specified noninflammatory disorders of vagina Medications: New fluconazole 150 mg PO Q3D 2 tabs 0RF semaglutide (Ozempic) for 4 weeks 0.25 mg (0.368 mL) subcut QWEEK 4 weeks 1.472 mL 0RF Changed From insulin degludec (Tresiba FlexTouch U-100 insulin) 15 units (0.15 mL) subcut DAILY 30 days 4.5 mL 3RF E11.9 - Type 2 diabetes mellitus without complications To insulin degludec (Tresiba FlexTouch U-100 insulin) 20 units (0.2 mL) subcut DAILY 30 days 6 mL 3RF E11.9 - Type 2 diabetes mellitus without complications Discontinued dulaglutide (Trulicity) Discontinued Reason: Patient Completed Course 3 mg (0.5 mL) subcut QWEEK 30 days 2.5 mL 6RF Coding Level of Care Code Est Pt Level 4 (92354) Complex EM visit Add On G2211 Diagnoses Essential hypertension I10 Mild recurrent major depression F33.0 Type 2 diabetes mellitus with hyperglycemia, without long-term current use of insulin E11.65 Diabetes mellitus type: type 2 Diabetes mellitus alf insulin use: without mounted police use Diabetes mellitus complication status: with hyperglycemia Morbid obesity with BMI of 40.0-44.9, adult E66.01; Z68.41 Vaginal pruritus N89.8 Mixed hyperlipidemia E78.2 Time Spent (min) 25
[2024-03-30 15:33] VITALS: BP 152/90; BMI 43.8
[2024-03-30 16:04] VITALS: BP 150/90
== END 2024-03-30 15:52 | disposition home or self-care (01) ==
PROVIDERS: PCP Internal Medicine; Visit Provider Internal Medicine
DX: I10 Essential (primary) hypertension (principal); F33.0 Major depressive disorder, recurrent, mild; E11.65 Type 2 diabetes mellitus with hyperglycemia; N89.8 Other specified noninflammatory disorders of vagina
CPT/HCPCS: 83036; 99214

== ENCOUNTER 2024-04-16 08:17 | Outpatient (AMB) | payer OTHER, SELFPAY ==
--- NOTE | 2024-04-16 08:35 | MHC.OFFVIS ---
Intake Visit Reasons: Recurrent UTI/(Seen in 2021) Intake Note: Patient presents today for recurrent uti Urology Medicartions: none Blood Thinner: aspirin PVR: 0ml's Log Chain Worker Required: No Accompanied by: Self / Same As Patient Allergies No Known Allergies [No Known Allergies*] Allergy (Verified 04/16/24 08:36) HPI Comments Details: Rema is a pleasant female. She is a patient of Dr. Hoang. She seen for the following urologic conditions - nephrolithiasis No recent imaging UA pH 5.5 - needs to be alkalinized Recommend continue potassium citrate Six-month follow-up renal ultrasound nurse-practitioner Nephrolithiasis - uric acid in setting of diabetes Recent hospital procedure Imaging - 01/21 CT 2 separate nonobstructing right lower pole renal calculi with ovoid shape measuring 0.7 x 0.2 cm Stone composition - 04/23 uric acid 24 hour urine - 05/24 volume 1.6, oxalate 25, calcium 88, citrate 261, pH 5.3 Therapeutic plan - potassium citrate PFSH Medical History Morbid obesity with BMI of 45.0-49.9, adult Moderate recurrent major depression Renal calculi Muscle cramps EDGAR (acute kidney injury) Leukocytosis Asthma Mild recurrent major depression Diabetes mellitus Headache RANJIT (obstructive sleep apnea) Chronic cough Super obese Essential hypertension Mild asthma Pure hypercholesterolemia Surgical History History of esophagogastroduodenoscopy (EGD) History of colonoscopy History of tubal ligation History of section Family History Father Diabetes Hypertension Mother Hypertension Liver cancer Maternal Grandfather Throat cancer Paternal Grandmother Stomach cancer Social History Housing: House Alcohol intake: never Patient Tobacco Use Status: Never used Tobacco e-Cigarette/Vaping Use: Never Used Second Hand Smoke Exposure: No Advance Directives Date on File: 08/21/21 service: No Current occupational status: employed 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 Current occupational exposures/hazards: No Cognitive needs: No Hearing needs: No Vision needs: Yes Review of Systems Const Denies chills and Denies fever(s) Card Reports no additional complaints and Denies syncope Resp Denies cough GI Denies abdominal pain and Denies heartburn Reports as per HPI and Denies change in libido Neuro Denies syncope Psych Denies change in libido Endo Denies change in libido Physical Exam Const General: cooperative, healthy appearing, comfortable and no acute distress Orientation/consciousness: patient oriented x3 HEENT Face and sinus: Yes normal facial exam Mouth: moist mucous membranes Neck Neck: Yes normal visual inspection, Yes full ROM and Yes trachea midline Chest Chest palpation & inspection: normal inspection of the chest Resp Effort & Inspection: normal respiratory effort, able to speak in complete sentences and no respiratory distress GI Inspection: Yes normal to inspection Back/Spine/Pelvis Cervical Spine: normal cervical lordosis Thoracic/Lumbar Spine: thoracic and lumbar spine normal to inspection Skin General skin exam: no rashes or lesions noted Neuro General: patient oriented x3, gait normal, tone normal and moves all extremities Extrem General: Yes normal to inspection and Yes capillary refill normal Office Procedures Post Void Residual Post Residual Void Post Void Residual (PVR): 0 [id number]-Gdsq Void Residual by ultrasound Results AMB Urinalysis, Automated UA Leukoctes 0 William/uL Last Edit by [employer] on 04/16/24 08:51 UA Nitrite Last Edit by [employer] on 04/16/24 08:51 UA Urobilinogen 0.2 mg/dL Last Edit by [employer] on 04/16/24 08:51 UA Protein 30 mg/dL Last Edit by [employer] on 04/16/24 08:51 UA pH 5.5 Last Edit by [employer] on 04/16/24 08:51 UA Blood 0 Charly/uL Last Edit by [employer] on 04/16/24 08:51 UA Specific [place] 1.015 Last Edit by [employer] on 04/16/24 08:51 UA Ketone Negative Last Edit by [employer] on 04/16/24 08:51 UA Bilirubin 0 mg/dL Last Edit by [employer] on 04/16/24 08:51 UA Glucose 0 mg/dL Last Edit by [employer] on 04/16/24 08:51 Results Reviewed Results Reviewed: Laboratory Last Values Urine pH (Auto) 5.5 08/15/24 08:37 Specific [place] (Auto) 1.015 04/16/24 08:37 Urine Protein (Auto) 30 mg/dL 04/16/24 08:37 Glucose (UA)(Auto) 0 mg/dL 04/16/24 08:37 Urine Ketones (Auto) Negative 04/16/24 08:37 Urine Blood (Auto) 0 Charly/uL 04/16/24 08:37 Urine Bilirubin (Auto) 0 mg/dL 04/16/24 08:37 Urine Urobilinogen (Auto) 0.2 mg/dL 04/16/24 08:37 Leukocyte Esterase (Auto) 0 William/uL 04/16/24 08:37 Assessment & Plan Assessment & Plan (1) Renal calculi: Comment: Uric acid Code(s): N20.0 - Calculus of kidney Category: Medical Plan Six-month follow-up imaging Remain on potassium citrate Orders: Orders AMB Urinalysis Automated Today Z13.9 - Encounter for screening, unspecified AMB Post Void Residual by ultrasound Today Z13.9 - Encounter for screening, unspecified US renal BI 6 Months N20.0 - Calculus of kidney Patient Instructions: Imaging studies, laboratory and physical exam results were discussed and reviewed in detail. No major barriers to patient understanding were identified. An opportunity to ask questions regarding the treatment plan was provided. All questions were answered. The patient expressed understanding and agreement with the above treatment plan. The patient is aware they should contact our office by phone for worsening of their current condition or the appearance of new urologic symptoms. Compliance is encouraged with any medications and followup testing that is ordered. It is a privilege to participate in the urologic care of your patient. If you have any questions or concerns regarding treatment for the above conditions, or other urologic issues, please do not hesitate to contact me. The office telephone contact is [phone]. This note is constructed using voice recognition software. While every effort has been made to ensure accuracy chef passenger vessel errors may have been included. Yours sincerely, Dr Srikanth Milton MD, [facility] [place] - Urology Providers of Expert, Compassionate Care for the Genitourinary System Coding Level of Care Code Est Pt Level 4 (53160) Diagnoses Renal calculi N20.0 CPT Codes Post Residual Void - PVR CPT Code: 51582-Tcev Void Residual by ultrasound ([id number])
== END 2024-04-16 09:07 | disposition home or self-care (01) ==
PROVIDERS: PCP Internal Medicine; Visit Provider Urology
DX: Z13.9 Encounter for screening, unspecified (principal); N20.0 Calculus of kidney
CPT/HCPCS: 99214

== ENCOUNTER → 2024-04-16 08:17 | Outpatient (BNVA) | payer OTHER, SELFPAY | PROVIDERS: PCP Internal Medicine; Visit Provider Urology | DX: N20.0 Calculus of kidney (principal) | CPT/HCPCS: 51798; 81003 ==

== ENCOUNTER 2024-04-20 11:32 | Emergency (ER) | payer OTHER, SELFPAY ==
--- NOTE | ~2024-04-20 | CT_ITS ---
EXAMINATION: CT ABDOMEN AND PELVIS WITHOUT CONTRAST CLINICAL INFORMATION: Right-sided back pain, right upper quadrant pain, urinary urgency COMPARISON: 01/16/2022 TECHNIQUE: Multidetector volumetric imaging was performed from the superior aspect of the liver through the pubic symphysis. Sagittal and coronal reformatted images were obtained on the technologist's workstation. This CT examination was performed using dose optimization techniques as appropriate, variously including the following: *Automated exposure control *Adjustment of mA and/or kV according to patient size (this includes techniques or standardized protocols for targeted exams where dose is matched to indication/reason for exam; i.e. extremities or head) *Use of iterative reconstruction technique DLP: 872 mGy-cm FINDINGS: LUNG BASES: The visualized lung bases are unremarkable. LIVER, GALLBLADDER, AND BILIARY TREE: Liver is of low attenuation due to hepatic steatosis and enlarged. There are no intrahepatic ductal dilatation or nodules or masses. Gallbladder is well distended without evidence of cholelithiasis or cholecystitis. PANCREAS: Unremarkable. SPLEEN: Unremarkable. ADRENAL GLANDS: Right adrenal gland is unremarkable. Left adrenal gland is enlarged with fat-containing components most likely due to myolipoma KIDNEYS AND URETERS: The kidneys are normal in size, shape, and attenuation. No hydronephrosis, hydroureter, or calculi seen. No perinephric stranding. BLADDER: Unremarkable. GASTROINTESTINAL TRACT: The small and large bowel are unremarkable. The appendix is not seen. ABDOMINAL WALL: There is small fat-containing umbilical hernia LYMPH NODES: Normal. VASCULAR: Unremarkable. PELVIC VISCERA: Calcifications seen in uterus most likely degenerating fibroadenomas. OSSEOUS STRUCTURES: Unremarkable. CT/CT abdomen pelvis wo IV con IMPRESSION: 1. Hepatomegaly and hepatic steatosis. 2. Left adrenal gland myolipoma. 3. Fibroid uterus. 4. Small fat-containing umbilical hernia. Fleischner guidelines were followed.
--- NOTE | ~2024-04-20 | CT_ITS ---
EXAMINATION: CT ANGIOGRAM OF THE CHEST WITH AND WITHOUT CONTRAST (CT PULMONARY ANGIOGRAM FOR PE) CLINICAL INFORMATION: Reason for Exam R sided thoracic pleuritic pain COMPARISON: CT abdomen pelvis from the same date and from 01/16/2022. TECHNIQUE: Prior to contrast administration, noncontrast localization images were obtained. Subsequently, multidetector volumetric imaging was performed from the thoracic inlet to below the diaphragms following the administration of 65 mL Omnipaque 350 intravenous contrast. No contrast reaction reported Sagittal, coronal, and MIP oblique sagittal reformatted images were obtained on the CT workstation, uploaded to PACS, and reviewed. This CT examination was performed using dose optimization techniques as appropriate, variously including the following: *Automated exposure control *Adjustment of mA and/or kV according to patient size (this includes techniques or standardized protocols for targeted exams where dose is matched to indication/reason for exam; i.e. extremities or head) *Use of iterative reconstruction technique Total exam dose-length product 421 mGy-cm FINDINGS: QUALITY OF STUDY/CONTRAST BOLUS: Satisfactory. PULMONARY ARTERIES: No pulmonary emboli. The pulmonary outflow tract measures 3.8 cm in diameter, consistent with increased pulmonary arterial pressures. THORACIC AORTA: Mild atherosclerotic calcification in the thoracic aorta. No effusion. LUNG: Patchy groundglass attenuation is present in both lungs, most consistent with a expiratory study. No consolidation. Central airways are clear. No pulmonary nodules. PLEURA: No pleural effusion or pneumothorax. MEDIASTINUM: Within the anterior mediastinum fat, there is a 2.3 x 1.9 x 2.3 cm which is fluid attenuation on these images (2 Hounsfield units). Normal heart size. No pericardial effusion. No hilar or mediastinal lymphadenopathy. Thyroid gland is normal in appearance. No evidence of septal bowing or right heart strain. CORONARY ARTERY CALCIFICATION: Present CHEST WALL/AXILLA: No axillary or internal mammary lymphadenopathy. OSSEOUS STRUCTURES: No acute or suspicious osseous abnormality. Diffuse idiopathic skeletal hyperostosis is present in the thoracic spine. Mild degenerative disc disease. No fractures. UPPER ABDOMEN: Hepatic steatosis. Left adrenal myelolipoma is again noted. No reflux of contrast into the hepatic veins to suggest elevated right heart pressures. CT/CT angio chest PE protocol IMPRESSION: 1. No evidence of pulmonary emboli. Expiratory study. No acute pulmonary findings. 2. 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 Consider obtaining MRI of the chest with and without contrast for further assessment on a nonemergent basis. 3. Hepatic steatosis. VTE: negative.
[2024-04-20 12:13] VITALS: BP 169/91; PULSE 107; RESP 16; TEMP 37.3; O2SAT 97; BMI 44.4
--- NOTE | 2024-04-20 12:13 | ED.BACK ---
HPI - Back Pain/Injury General Chief Complaint: Back Pain/Injury Stated Complaint: Back Pain No Injury Time Seen by Provider: 04/20/24 20:57 Source: patient Mode of arrival: ambulatory Limitations: no limitations History of Present Illness ED Provider: BETO DE LA TORRE Narrative: 59 yo female with CAD, GERD, asthma, HLD, GERD, anxiety, kidney stones, obesity not on thinners presents with atraumatic posterior R scapular back pain worse with some movements and breathing. Cannot find comfortable position not responding to advil. She denies fevers, cough, dizziness. She has not had this before. No rash, no recent infections, travel or procedures. She states this does not feel like a kidney stone. MD elicited complaint: back pain Onset (ago): day(s) (since Saturday) Timing: intermittent Severity: severe Similar Symptoms Previously: No Quality: sharp Location: right upper back Radiation: other (wraps around the back) Exacerbating factors: movement and deep breaths Relieving factors: none Context: unknown Associated symptoms: denies other symptoms Treatments prior to arrival: NSAIDS Work related injury: No Related Data Home Medications ?Medication ?Instructions ?Recorded ?Confirmed albuterol sulfate 90 mcg/actuation 2 puff inhalation Q4-6H PRN 08/08/20 03/30/24 aerosol inhaler Wheezing Previous Rx's ?Medication ?Instructions ?Recorded miscellaneous medical supply #1 ea 08/23/21 (Blood Pressure Cuff) blood sugar diagnostic (FreeStyle #100 ea 09/27/21 Lite Strips) blood-glucose meter (FreeStyle #1 ea 09/27/21 Lite Meter kit) lancets 28 gauge (FreeStyle #100 ea 09/27/21 Lancets) icosapent ethyl 1 gram capsule 2 g (2 x 1 gram) PO BID #120 caps 03/26/22 (Vascepa) aspirin 81 mg tablet,delayed 81 mg PO DAILY #90 tabs 06/19/22 release metformin 1,000 mg tablet 1,000 mg PO BID 90 days #180 tabs 10/21/22 blood pressure monitor #1 ea 10/27/22 fluticasone 250 mcg-salmeterol 50 1 inh inhalation BID 30 days #60 ea 06/20/23 mcg/dose blistr powdr for inhalation (Wixela Inhub) cholecalciferol (vitamin D3) 50 50 mcg PO DAILY 90 days #90 caps 07/02/23 mcg (2,000 unit) capsule fenofibrate 160 mg tablet 160 mg PO DAILY 90 days #90 tabs 07/02/23 lisinopril 20 mg tablet 20 mg PO DAILY #90 tabs 09/17/23 atorvastatin 80 mg tablet 80 mg PO BEDTIME 90 days #90 tabs 10/31/23 empagliflozin 25 mg tablet 25 mg PO DAILY 90 days #90 tabs 10/31/23 (Jardiance) pen needle,diabetic dual safty 30 1 ea miscellaneous .once a day 100 10/31/23 gauge x 3/16 (BD AutoShield Duo days #100 ea Pen Needle) omeprazole 40 mg capsule,delayed 40 mg PO DAILY 90 days #90 caps 01/29/24 release semaglutide 0.25 mg or 0.5 mg (2 0.25 mg (0.368 mL) subcut QWEEK 4 03/30/24 mg/3 mL) subcutaneous pen injector weeks #1.472 mL (Ozempic) Tresiba FlexTouch U-100 100 20 unit (0.2 mL) subcut DAILY 90 04/01/24 unit/mL (3 mL) subcutaneous pen days #18 mL (insulin degludec) hydrochlorothiazide 25 mg tablet 25 mg PO DAILY 90 days #90 tabs 04/16/24 potassium citrate 10 mEq (1,080 20 meq (2 x 10 mEq (1,080 mg)) PO 04/16/24 mg) tablet,extended release BID 90 days #360 tabs cyclobenzaprine 10 mg tablet 10 mg PO TID PRN muscle spasm #20 04/20/24 tabs lidocaine 5 % topical patch 1 patch topical DAILY #30 ea 04/20/24 Allergies Allergy/AdvReac Type Severity Reaction Status Date / Time No Known Allergies Allergy Verified 04/20/24 12:14 [No Known Allergies*] Review of Systems Review of Systems: Constitutional : No Weight loss, No Fever, No Chills, ENT/Mouth : No Hearing loss, No Ear Pain, No Nasal Congestion, No Sinus Pain, No Hoarseness, No sore throat, No Rhinorrhea, No Swallowing Difficulty Cardiovascular : No Chest Pain, No SOB Respiratory : No Cough, No Dyspnea Gastrointestinal : No Nausea, No Vomiting, No Diarrhea, No abdominal Pain, No Hematochezia, No Melena Genitourinary : No Dysuria, No Urinary Frequency, No Hematuria, No Urinary Incontinence, Musculoskeletal : positive back pain Skin : No Skin Lesions, No rash Neuro : No Weakness, No Numbness, No Paresthesias, no loss of bowel or bladder incontinence, no saddle anesthesia all other systems reviewed and are negative [facility] Past Medical History Attestation statement: The following information was validated with the patient. Source: old records reviewed Medical History Morbid obesity with BMI of 45.0-49.9, adult Moderate recurrent major depression Renal calculi Muscle cramps EDGAR (acute kidney injury) Leukocytosis Asthma Mild recurrent major depression Diabetes mellitus Headache RANJIT (obstructive sleep apnea) Chronic cough Super obese Essential hypertension Mild asthma Pure hypercholesterolemia Surgical History History of esophagogastroduodenoscopy (EGD) History of colonoscopy History of tubal ligation History of section Family History Family History Father Diabetes Hypertension Mother Hypertension Liver cancer Maternal Grandfather Throat cancer Paternal Grandmother Stomach cancer Social History Social History Housing: House Alcohol intake: never Patient Tobacco Use Status: Never used Tobacco e-Cigarette/Vaping Use: Never Used Second Hand Smoke Exposure: No Advance Directives: Yes Advance Directives on File: Yes Advance Directives Date on File: 08/21/21 service: No Current occupational status: employed 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 Oriented X3. No acute distress. Eyes: Pupils equal, round and reactive to light. ENT: Pharynx normal. Neck: Normal inspection. Neck supple. CVS: Normal heart rate and rhythm. Pulses normal. Respiratory: No respiratory distress. Breath sounds normal. Abdomen: Soft and nontender. Back: some mild R upper posterior scapular reproduction of pain to palpation Skin: Skin warm and dry. Normal skin color. Normal skin turgor. Extremities: No lower extremity edema. No calf ttp Neuro: Oriented X 3. No motor deficit. No sensory deficit. Course Course Course Narrative: This is a Rapid Medical Examination (RME) performed by Jennifer Spencer PA-C in triage. Full HPI, ROS, assessment and treatment plan per primary provider in the Main ED. 59 yo female with history of CAD, asthma, HLD, obesity, GERD, kidney stones who presents to the ER for evaluation of intermittent right sided middle back pain that radiates to the RUQ that 3 days ago. Increased urinary frequency and urgency. Tachycardic in triage, 110. Abd exam is obese with RUQ tenderness to deep palpation and CVA tenderness on the right. Plan: labs, UA, CT scan abd/pelvis Medications Administered Discontinued Medications Generic Name Dose Route Start Last Admin Trade Name Freq PRN Reason Stop Dose Admin Iohexol 65 ml 04/20/24 21:38 04/20/24 21:39 Iohexol 350 Mg/Ml 100 Ml Infus..Btl IV 04/20/24 21:39 65 ml ONCE ONE Administration Oxycodone HCl 5 mg 04/20/24 21:08 04/20/24 21:13 Oxycodone Hcl Immed Release 5 Mg Tablet PO 04/20/24 21:09 5 mg ONCE ONE Administration Medical Decision Making Medical Decision Making [facility] Narrative: 59 yo female with CAD, GERD, asthma, HLD, GERD, anxiety, kidney stones, obesity not on thinners here with c/o atraumatic R upper back pain at this time will need basic labs, EKG, CTA of chest to rule out mass/PE/pneumonia she has no flank or abdominal pain - PO oxycodone ordered. Pain could be MSK but she has risk factors and needs rule out of PE given obesity did report some leg cramping last week no signs of DVT now clinically and distal NV intact Differential Diagnosis Differential Diagnoses: The differential diagnosis associated with the presentation includes mass/PE/pneumonia/MSK Admission/Observation Consideration of admission/observation: Escalation of care including admission/observation considered massive work up at this time negative PE seems MSK can be DC home mild tachycardia but no signs of infection on CBC or CT scans Lab Data MDM Lab Attestation statement: I reviewed the patient's lab results. chronic rise in LFTs 04/20/24 13:20 04/20/24 13:20 Labs: Lab Results 04/20/24 04/20/24 04/20/24 Range/Units 13:20 20:05 21:46 WBC 10.5 (4.8-10.8) X10*3/uL RBC 4.83 (4.20-5.50) X10*6/uL Hgb 13.4 (12.0-16.0) g/dl Hct 41.8 (37.0-47.0) % MCV 86.5 (80.0-98.0) fL MCH 27.7 (27.0-33.0) pg MCHC 32.1 (31.0-35.0) g/dl RDW 12.9 (11.0-16.0) % Plt Count 352 (160-400) X10*3/uL MPV 10.4 (9.4-12.3) fL Immature Gran % (Auto) 1.0 H (0.0-0.4) % Neut % (Auto) 81.7 H (45-73) % Lymph % (Auto) 9.0 L (20-40) % [place] % (Auto) 7.0 (2-11) % Eos % (Auto) 0.9 (0-4) % Baso % (Auto) 0.4 (0-2) % Lymph # (Auto) 0.9 L (1.2-4.9) X10*3/uL [place] # (Auto) 0.7 (0.1-1.2) X10*3/uL Eos # (Auto) 0.1 (0.0-0.4) X10*3/uL Baso # (Auto) 0.0 (0.0-0.2) X10*3/uL Abs Immat Gran (auto) 0.10 H (0.00-0.03) X10*3/uL Absolute Neuts (auto) 8.6 H (2.0-8.3) x10*3/uL Absolute Nucleated RBC 0.000 (0.0-0.012) X10*3/uL Nucleated RBC % (auto) 0.0 (0.0-0.2) /100WBC Sodium 137 (135-145) mmol/L Potassium 4.7 (3.3-5.1) mmol/L Chloride 99 (96-108) mmol/L Carbon Dioxide 26 (22-29) mmol/L Anion Gap 17 (12-20) BUN 14 (9-16) mg/dL Creatinine 0.82 (0.5-1.4) mg/dL Estim Creat Clear Calc 95.1 Estimated GFR > 60 POC Glucose 149 H (60-115) mg/dL Random Glucose 137 H (60-115) mg/dL Calcium 10.2 (8.4-10.2) mg/dL Magnesium 1.7 (1.6-2.6) mg/dL Total Bilirubin 0.2 (0.0-1.0) mg/dL Direct Bilirubin < 0.2 (0.0-0.5) mg/dL AST 37 H (5-31) U/L ALT 42 H (0-31) U/L Alkaline Phosphatase 120 H (39-117) U/L Troponin I High Sens 3.1 (<3.5-17.0) ng/L B-Natriuretic Peptide 16 (<100) pg/mL Total Protein 7.9 (6.5-8.0) g/dL Albumin 4.1 (3.5-5.0) g/dL Lipase 16 (8-78) U/L Independent Interpretation I performed an independent interpretation of an: EKG and CT Scan (CT abdomen no acute cause, no PE, no pneumonia) Interpretation: Rate: 106 Rhythm: sinus tachcyardia [place]: normal Normal P waves. Normal ABELINO. Normal QRS complex. ST T wave : inverted t waves I, aVL, no NANCY, nonspecific ST T waves changes V5-V6 qTC: 478 prior studies: t wave inversions noted Nov 2023 The study has been interpreted contemporaneously by me. . Radiology Impression Discussion of test interpretation with radiology: I have reviewed the radiologist's reading. External Record Review External record reviewed: Inpatient record Prescription Management I considered prescription management with: Antibiotic Discharge Plan Discharge Clinical Impression: Pain of right scapula Patient Disposition: Home, Self-Care Instructions: Thoracic Pain (ED) Additional Instructions: CT scan of the abdomen and pelvis shows no acute findings CT chest shows possible thymic leftover lesion a cyst - you do need outpatient MRI with your doctor please follow up with PCP not the cause of today's pain incidental finding return for fevers, worsening pain, rash, or any other concerns, follow up for numbness, weakness or any other concerns. IMPRESSION: 1. Hepatomegaly and hepatic steatosis. 2. Left adrenal gland myolipoma. 3. Fibroid uterus. 4. Small fat-containing umbilical hernia. 1. No evidence of pulmonary emboli. Expiratory study. No acute pulmonary findings. 2. 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 Consider obtaining MRI of the chest with and without contrast for further assessment on a nonemergent basis. Prescriptions: New cyclobenzaprine 10 mg tablet 10 mg PO TID PRN (Reason: muscle spasm) Qty: 20 0RF lidocaine 5 % adhesive patch,medicated 1 patch topical DAILY Qty: 30 0RF Rx Instructions: leave on most painful area for up to 12 hrs No Action icosapent ethyl [Vascepa] 1 gram capsule 2 g PO BID Qty: 120 5RF metformin 1,000 mg tablet 1,000 mg PO BID 90 Days Qty: 180 1RF (DME) blood pressure monitor Kit See Rx Instructions .Route Qty: 1 0RF Rx Instructions: As directed lisinopril 20 mg tablet 20 mg PO DAILY Qty: 90 3RF omeprazole 40 mg capsule,delayed release(DR/EC) 40 mg PO DAILY 90 Days Qty: 90 1RF insulin degludec [Tresiba FlexTouch U-100] 100 unit/mL (3 mL) insulin pen 20 unit subcut DAILY 90 Days Qty: 18 3RF potassium citrate 10 mEq (1,080 mg) tablet extended release 20 meq PO BID 90 Days Qty: 360 1RF hydrochlorothiazide 25 mg tablet 25 mg PO DAILY 90 Days Qty: 90 1RF albuterol sulfate 90 mcg/actuation HFA aerosol inhaler 2 puff inhalation Q4-6H PRN (Reason: Wheezing) cholecalciferol (vitamin D3) 50 mcg (2,000 unit) capsule 50 mcg PO DAILY 90 Days Qty: 90 1RF fenofibrate 160 mg tablet 160 mg PO DAILY 90 Days Qty: 90 2RF Jardiance 25 mg tablet 25 mg PO DAILY 90 Days Qty: 90 1RF atorvastatin 80 mg tablet 80 mg PO BEDTIME 90 Days Qty: 90 1RF BD AutoShield Duo Pen Needle 30 gauge x 3/16 needle 1 ea miscellaneous .once a day 100 Days Qty: 100 3RF Ozempic 0.25 mg or 0.5 mg (2 mg/3 mL) pen injector 0.25 mg subcut QWEEK 28 Days Qty: 1.472 0RF Rx Instructions: for 4 weeks (DME) Blood Pressure Cuff Misc See Rx Instructions .Route Qty: 1 0RF Rx Instructions: As directed, monitor BP 2-3 a day, and creat a log (DME) blood-glucose meter [FreeStyle Lite Meter] Kit See Rx Instructions .Route Qty: 1 0RF Rx Instructions: As directed (DME) FreeStyle Lite Strips Strip See Rx Instructions .Route Qty: 100 3RF Rx Instructions: Use 1 test strip once a day (DME) lancets [FreeStyle Lancets] 28 gauge misc See Rx Instructions .Route Qty: 100 3RF Rx Instructions: Use 1 lancet once a day aspirin 81 mg tablet,delayed release (DR/EC) 81 mg PO DAILY Qty: 90 3RF fluticasone propion-salmeterol [Wixela Inhub] 250-50 mcg/dose blister with device 1 inh inhalation BID 30 Days Qty: 60 6RF Stand Alone Forms: Work/School Release Print Language: Kyrgyz
[2024-04-20 13:24] LABS: MANUAL DIFF FLAG NO
[2024-04-20 13:32] LABS: Basophils Percent Auto 0.4 % (0-2); Eosinophils Absolute Auto 0.1 X10*3/uL (0.0-0.4); Eosinophils Percent Auto 0.9 % (0-4); Hematocrit 41.8 % (37.0-47.0); Hemoglobin 13.4 g/dl (12.0-16.0); Lymphocytes Absolute Auto 0.9 X10*3/uL (1.2-4.9); Mean Corpuscular HGB Conc 32.1 g/dl (31.0-35.0); Mean Corpuscular Hemoglobin 27.7 pg (27.0-33.0); Mean Corpuscular Volume 86.5 fL (80.0-98.0); Mean Platelet Volume 10.4 fL (9.4-12.3); Monocytes Absolute Auto 0.7 X10*3/uL (0.1-1.2); Neutrophils Absolute Auto 8.6 x10*3/uL (2.0-8.3); Neutrophils Percent Auto 81.7 % (45-73); Platelet Count 352 X10*3/uL (160-400); Red Blood Count 4.83 X10*6/uL (4.20-5.50); Red Cell Distribution Width 12.9 % (11.0-16.0); White Blood Count 10.5 X10*3/uL (4.8-10.8)
[2024-04-20 13:42] LABS: Alanine Aminotransferase 42 U/L (0-31); Albumin Level 4.1 g/dL (3.5-5.0); Alkaline Phosphatase 120 U/L (39-117); Anion Gap 17 (12-20); Aspartate Amino Transferase 37 U/L (5-31); Bilirubin Direct < 0.2 mg/dL (0.0-0.5); Bilirubin Total 0.2 mg/dL (0.0-1.0); Blood Urea Nitrogen 14 mg/dL (9-16); Calcium 10.2 mg/dL (8.4-10.2); Carbon Dioxide 26 mmol/L (22-29); Chloride 99 mmol/L (96-108); Creatinine Clr Calc Pharmacy 95.1; Estimated Glomerular Filt Rate > 60; Glucose Random 137 mg/dL (60-115); Lipase 16 U/L (8-78); Magnesium 1.7 mg/dL (1.6-2.6); Potassium 4.7 mmol/L (3.3-5.1); Sodium 137 mmol/L (135-145); Total Protein 7.9 g/dL (6.5-8.0)
[2024-04-20 20:00] VITALS: BP 159/92; PULSE 118; RESP 18; TEMP 37.3; O2SAT 96
[2024-04-20 20:10] LABS: Glucose, Whole Blood 149 mg/dL (60-115)
[2024-04-20 20:46] VITALS: BP 156/87; PULSE 110; RESP 20; TEMP 37.1; O2SAT 93
--- NOTE | 2024-04-20 21:08 | ECG_ITS ---
Test Reason : LEFT SIDED PAIN Blood Pressure : / mmHG Vent. Rate : 106 BPM Atrial Rate : 106 BPM P-R Int : 150 ms QRS Dur : 084 ms QT Int : 360 ms P-R-T Axes : 039 059 119 degrees QTc Int : [address] & T wave abnormality, consider lateral ischemia Abnormal ECG When compared with ECG of 28-NOV-2023 08:58, No significant change was found Referred By: Trudi Smiley Electronically Signed By:JENI ACEVEDO
[2024-04-20 21:10] VITALS: PULSE 101; O2SAT 97
[2024-04-20] MEDS: oxyCODONE HCl Immed Release 5 MG TABLET PO (21:13)
[2024-04-20] MEDS: iohexoL 350 MG/ML 100 ML INFUS..BTL 65 ML IV (21:39)
[2024-04-20 21:42] LABS: Troponin-I High Sensitivity 3.1 ng/L (<3.5-17.0)
[2024-04-20 22:11] LABS: B Type Natriuretic Peptide 16 pg/mL (<100)
[2024-04-20 23:30] VITALS: BP 153/81; PULSE 103; RESP 16; TEMP 36.7; O2SAT 97
[2024-04-20 23:47] VITALS: BP 153/81; PULSE 101; RESP 16; TEMP 36.7; O2SAT 97
== END 2024-04-20 23:48 | disposition home or self-care (01) ==
PROVIDERS: Physician Assistant; Emergency Provider Emergency Medicine; PCP Internal Medicine
DX: M54.6 Pain in thoracic spine (principal); R10.11 Right upper quadrant pain; J45.909 Unspecified asthma, uncomplicated; E11.9 Type 2 diabetes mellitus without complications; I10 Essential (primary) hypertension; E78.00 Pure hypercholesterolemia, unspecified; R00.0 Tachycardia, unspecified; Z79.02 Long term (current) use of antithrombotics/antiplatelets; Z79.899 Other long term (current) drug therapy; Z79.82 Long term (current) use of aspirin; Z79.84 Long term (current) use of oral hypoglycemic drugs
CPT/HCPCS: 36415; 71275; 74176; 80048; 80076; 82947; 83690; 83735; 83880; 84484; 85025; 93005; 99284; Q9967

== ENCOUNTER 2024-04-24 13:55 | Outpatient (AMB) | payer OTHER, SELFPAY ==
[2024-04-24 14:07] VITALS: BP 118/66; PULSE 107; O2SAT 97; BMI 43.1
--- NOTE | 2024-04-24 14:07 | MHC.PC.OV ---
Vital Signs 04/24/24 14:07 Height 5 ft 5 in Weight 259 lb 2 oz BMI 43.1 BP 118/66 Blood Pressure Location Lt brachial Position Sitting Pulse 107 H Pulse Source Pulse Oximeter Pulse Oximetry (%) 97 Oxygen Delivery Method Room Air Intake Visit Reasons: [place]F [facility] [place] [facility] [place] Back Pain Security Lead Required: No Accompanied by: Self / Same As Patient Allergies No Known Allergies [No Known Allergies*] Allergy (Verified 04/24/24 14:16) Tobacco use date assessed: 10/31/23 Dental Screening Dental Screen Date: 11/27/23 HPI HPI Comments History of Present Illness Details 59 y/o female patient who presents to the clinic for EDF. Pt was admitted at [facility] [place] on 04/20/24 and discharged home the same day. Pt was evaluated for Thoracic Back pain. CT-scan chest showed unrelated incidental Thymic cyst/lesion. Radiologist recommended outpatient MRI. CT of the abdomen and Pelvis showed: Hepatic Steatosis, hepatomegaly, Fibroid uterine, Umbilical hernia and Left Adrenal gland myolipoma. Today Pt reports good pain relief on Flexeril and Lidocaine Patches. She does c/o dry cough but denies fevers, chills, nausea or vomiting today. She does also c/o left lower abdominal pain and urinary urgency. Pt has been referred to [facility] just waiting for an appointment. [facility] Medical History Morbid obesity with BMI of 45.0-49.9, adult Moderate recurrent major depression Renal calculi Muscle cramps EDGAR (acute kidney injury) Leukocytosis Asthma Mild recurrent major depression Diabetes mellitus Headache RANJIT (obstructive sleep apnea) Chronic cough Super obese Essential hypertension Mild asthma Pure hypercholesterolemia Surgical History History of esophagogastroduodenoscopy (EGD) History of colonoscopy History of tubal ligation History of section Family History Father Diabetes Hypertension Mother Hypertension Liver cancer Maternal Grandfather Throat cancer Paternal Grandmother Stomach cancer Social History Housing: House Alcohol intake: never Patient Tobacco Use Status: Never used Tobacco e-Cigarette/Vaping Use: Never Used Second Hand Smoke Exposure: No Advance Directives Date on File: 08/21/21 service: No Current occupational status: employed 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 Tomasz Lee, Fay Callejas, Blayne Arenas and colleagues, with an educational jakob from [employer]. Review of Systems Const All systems reviewed & are unremarkable except as noted in HPI and below Physical exam (Primary Care) Vital Signs: Last Vital Signs Pulse 107 H 04/24/24 14:07 BP 118/66 04/24/24 14:07 Pulse Ox 97 04/24/24 14:07 Oxygen Delivery Method Room Air 04/24/24 14:07 BMI result Body Mass Index 43.1 Tobacco/Smoking Status: Tobacco use Status Tobacco use date assessed 10/31/23 04/24/24 14:09 Patient Tobacco Use Status Never used Tobacco 04/24/24 14:09 e-Cigarette/Vaping Use Never Used 04/24/24 14:09 Thrive Assessment: Date of Thrive Assessment Date Thrive assessed 10/31/23 04/24/24 14:09 Const General: cooperative and no acute distress Nutritional Appearance: obese Orientation/consciousness: patient oriented x3 Resp Effort & Inspection: normal respiratory effort and able to speak in complete sentences Auscultation: clear to auscultation bilaterally, no crackles, no rales, no rhonchi and no wheezes Cardio Heart sounds: S1 normal heart sound present and S2 normal heart sound present GI Inspection: Yes Abdominal panniculus present and Yes obesity Palpation (GI): Soft to palpation, Tenderness to palpation present (GI) suprapubicly and Hernia present umbilical Auscultation: normal bowel sounds Rectal Exam - Female: deferred Back/Spine/Pelvis Back: back tenderness Thoracic/Lumbar Spine: pain with thoraco-lumbar ROM, thoraco-lumbar spasm, thoracic spinal tenderness and lumbar spinal tenderness Neuro General: patient oriented x3, gait normal and moves all extremities Psych Speech and movement: Normal speech and movement present Vital Signs: Last Vital Signs Pulse 107 H 04/24/24 14:07 BP 118/66 04/24/24 14:07 Pulse Ox 97 04/24/24 14:07 Oxygen Delivery Method Room Air 04/24/24 14:07 BMI result Body Mass Index 43.1 Const General: cooperative and no acute distress Nutritional Appearance: obese Orientation/consciousness: patient oriented x3 Resp Effort & Inspection: normal respiratory effort and able to speak in complete sentences Auscultation: clear to auscultation bilaterally, no crackles, no rales, no rhonchi and no wheezes Cardio Heart sounds: S1 normal heart sound present and S2 normal heart sound present GI Inspection: Yes Abdominal panniculus present and Yes obesity Palpation (GI): Soft to palpation, Tenderness to palpation present (GI) suprapubicly and Hernia present umbilical Auscultation: normal bowel sounds Rectal Exam - Female: deferred Back/Spine/Pelvis Back: back tenderness Thoracic/Lumbar Spine: pain with thoraco-lumbar ROM, thoraco-lumbar spasm, thoracic spinal tenderness and lumbar spinal tenderness Neuro General: patient oriented x3, gait normal and moves all extremities Psych Speech and movement: Normal speech and movement present Assessment and Plan Assessment & Plan (1) Thoracic back pain: Code(s): M54.6 - Pain in thoracic spine Qualifiers: Chronicity: acute Back pain laterality: right Qualified Code(s): M54.6 - Pain in thoracic spine Plan: Lidocaine Patches NSAIDs for pain relief IceHot Declined PT referral. (2) Cough in adult: Code(s): R05.9 - Cough, unspecified Plan: OTC cough medicine. Warm fluids with honey and Janeth (3) Uterine fibroid: Code(s): D25.9 - Leiomyoma of uterus, unspecified Qualifiers: Uterine leiomyoma location: unspecified location Qualified Code(s): D25.9 - Leiomyoma of uterus, unspecified Plan: Pt was referred to [facility] by PCP. She is waiting for an appointment. Meanwhile advised to take pain medications and Heat Pad. Advised to come to the Walk in clinic if Urinary symptoms get worse. 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 Consider obtaining MRI of the chest with and without contrast for further assessment on a nonemergent basis. Will Ask PCP to place the order. Plan CT Chest found: And recommended MRI outpatient. 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 Consider obtaining MRI of the chest with and without contrast for further assessment on a nonemergent basis. Will Ask PCP to place the order. Medications: New benzonatate 200 mg PO TID 60 caps 0RF R05.9 - Cough, unspecified acetaminophen ER (8 Hour Pain Reliever) 1,300 mg (2 x 650 mg) PO Q12H 30 tabs 0RF D25.9 - Leiomyoma of uterus, unspecified, M54.6 - Pain in thoracic spine Refilled cyclobenzaprine 10 mg PO TID PRN 10 tabs 0RF muscle spasm M54.6 - Pain in thoracic spine lidocaine 5% leave on most painful area for up to 12 hrs 1 patch topical DAILY 30 ea 0RF M54.6 - Pain in thoracic spine Coding Level of Care Code Est Pt Level 4 (37871) Diagnoses Acute right-sided thoracic back pain M54.6 Chronicity: acute Back pain laterality: right Cough in adult R05.9 Uterine leiomyoma, unspecified location D25.9 Uterine leiomyoma location: unspecified location Thymic cyst E32.8 Time Spent (min) 20 Comment Spent on reviewing hospital notes and Patient education.
== END 2024-04-24 14:40 | disposition home or self-care (01) ==
PROVIDERS: PCP Internal Medicine; Visit Provider Nurse Practitioner Family
DX: M54.6 Pain in thoracic spine (principal); R05.9 Cough, unspecified; D25.9 Leiomyoma of uterus, unspecified; E32.8 Other diseases of thymus
CPT/HCPCS: 99214

== ENCOUNTER 2024-05-13 16:25 | Outpatient (REF) | payer OTHER, SELFPAY ==
--- NOTE | ~2024-05-13 | MR_ITS ---
EXAMINATION: MR CHEST WITHOUT AND WITH CONTRAST CLINICAL INFORMATION: Anterior mediastinal masslike lesion COMPARISON: CT pulmonary angiogram on 04/20/2024 EXAMINATION: MRI pelvis . INDICATION: Pelvic mass lesion. TECHNIQUE: Examination was performed in a high field strength MRI scanner. Pre-contrast multiplanar multisequence MR imaging of the chest was performed without IV contrast enhancement. Post-contrast coronal, axial T1 weighted fat suppressed images of the chest were obtained after IV injection of 10 mL Gadavist. FINDINGS: LUNGS: The visualized lung parenchyma is clear. PLEURA: No pleural effusion or pneumothorax is seen. PERICARDIUM: No pericardial effusion is seen. MEDIASTINUM AND NI: A T1 and T2 hyperintense lesion is seen in left anterior lateral superior mediastinum directly anterior to the main pulmonary trunk, measuring 1.9 cm in AP diameter, 1.7 cm in width, 1.9 cm in vertical height. The lesion has precontrast T1 signal intensity of 195, and enhances to T1 signal intensity of 333. The calculated chemical shift ratio of the lesion is 2.33. No abnormally enlarged mediastinal or hilar lymph nodes are seen. TRACHEOBRONCHIAL TREE: Trachea and bilateral mainstem bronchi are patent. THORACIC AORTA: The thoracic aorta is normal in size and smoothly patent. PULMONARY ARTERIES: The main pulmonary arteries show normal enhancement. CHEST WALL AND LOWER NECK: The subcutaneous and muscular chest wall are intact with no focal lesion. No abnormal mass lesion could be seen in the visualized lower neck. BONES: No fracture or dislocation. No focal bone lesion diagnostic of metastatic disease could be seen in the thorax. VISUALIZED UPPER ABDOMEN: The left adrenal myelolipoma is again visualized, measuring 1.9 cm in diameter. MR/MR chest wo/w con IMPRESSION: 1. A persistent enhancing lesion is seen in the left anterior lateral superior mediastinum directly anterior to the main pulmonary trunk, showing chemical shift ratio much greater than 0.85. 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 2. No abnormally enlarged mediastinal or hilar lymph nodes are seen. 3. Unchanged left adrenal myelolipoma. Electronically signed by: Geraldine Kingston MD 05/14/2024 10:24 AM EDT
[2024-05-13] MEDS: gadobutroL 10 ML VIAL IVPUSH (17:23)
== END 2024-05-13 16:26 | disposition home or self-care (01) ==
LOC: HO.MRI 16:25
PROVIDERS: PCP Internal Medicine; Visit Provider Internal Medicine
DX: E32.8 Other diseases of thymus (principal)
CPT/HCPCS: 71552; A9585

== ENCOUNTER 2024-05-19 13:04 | Outpatient (AMB) | payer OTHER, SELFPAY ==
--- NOTE | 2024-05-19 13:06 | A.OFFVIS_ITS ---
Vital Signs 05/19/24 13:12 Height 5 ft 5 in Weight 263 lb BMI 43.8 BP 125/64 Blood Pressure Location Rt brachial Position Sitting Pulse 100 Intake Visit Reasons: Diseases of the thymus Intake Note: Patient referred by pcp Dr. Beto Hoang for diseases of the thymus. Patient c/o: sleep apnea. Coughing. Chest MRI: 05-13-2024. Rvda Master Certified Rv Technician Required: No Accompanied by: Spouse Allergies No Known Allergies [No Known Allergies*] Allergy (Verified 05/19/24 13:10) HPI Comments Details: Patient presents with a significant other for evaluation of anterior mediastinal mass/thymoma. She was being evaluated in the emergency department for unrelated/back issues and CT scan which was subsequently followed by MRI scan demonstrated anterior mediastinal mass consistent with thymoma. Patient has no history of myasthenia gravis. She has no other chest wall discomfort. Chart was reviewed and patient evaluated. Patient was a few comorbidities which were reviewed. [facility] Medical History Morbid obesity with BMI of 45.0-49.9, adult Moderate recurrent major depression Renal calculi Muscle cramps EDAGR (acute kidney injury) Leukocytosis Asthma Mild recurrent major depression Diabetes mellitus Headache RANJIT (obstructive sleep apnea) Chronic cough Super obese Essential hypertension Mild asthma Pure hypercholesterolemia Surgical History History of esophagogastroduodenoscopy (EGD) History of colonoscopy History of tubal ligation History of section Family History Father Diabetes Hypertension Mother Hypertension Liver cancer Maternal Grandfather Throat cancer Paternal Grandmother Stomach cancer Social History Housing: House Alcohol intake: never Patient Tobacco Use Status: Never used Tobacco e-Cigarette/Vaping Use: Never Used Second Hand Smoke Exposure: No Advance Directives Date on File: 08/21/21 service: No Current occupational status: employed 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 The risks, benefits, alternatives conservative therapy included lesion enlarging, small but nonetheless possible chance of a neoplasm/malignancy. Risks, benefits, and alternatives of surgical excision by vats possible open procedure were reviewed and included but not limited to bleeding, infection, numbness, pain, scarring. Patient would like to consider surgical excision. She would like to do so and when her schedule is more amenable to this which would be an couple of months time. Arrangements were made for this. All questions answered. Coding Level of Care Code New Pt Level 5 (95247) Diagnoses Thymic neoplasm D49.89
[2024-05-19 13:12] VITALS: BP 125/64; PULSE 100; BMI 43.8
== END 2024-05-19 13:31 | disposition home or self-care (01) ==
PROVIDERS: PCP Internal Medicine; Visit Provider Surgery
DX: J98.59 Other diseases of mediastinum, not elsewhere classified (principal)
CPT/HCPCS: 99205

== ENCOUNTER → 2024-05-19 13:04 | Outpatient (BNVA) | payer OTHER, SELFPAY | PROVIDERS: PCP Internal Medicine; Visit Provider Surgery ==

== ENCOUNTER 2024-08-06 13:21 | Outpatient (AMB) | payer OTHER, SELFPAY ==
[2024-08-06 13:25] VITALS: BP 114/72; PULSE 101; BMI 43.8
--- NOTE | 2024-08-06 13:25 | A.OFFVIS_ITS ---
Vital Signs 08/06/24 13:25 Height 5 ft 5 in Weight 263 lb 3.711 oz BMI 43.8 BP 114/72 Blood Pressure Location Lt brachial Position Sitting Pulse 101 H Pulse Source Monitor Intake Visit Reasons: Preop for Dr. Celeste/thymectomy - Cardio clearance Driver Messenger Required: No Football Scout: Football Scout Present Allergies No Known Allergies [No Known Allergies*] Allergy (Verified 08/06/24 13:29) Medication List - Last Reconciled 08/06/24 by VICKY Sosa acetaminophen ER (8 Hour Pain Reliever) 1,300 mg (2 x 650 mg) PO Q12H albuterol sulfate 90 mcg/actuation 2 puffs inhalation Q4-6H PRN aspirin 81 mg PO DAILY atorvastatin 80 mg PO BEDTIME 90 days benzonatate 200 mg PO TID blood pressure monitor As directed blood sugar diagnostic (FreeStyle Lite Strips) Use 1 test strip once a day blood-glucose meter (FreeStyle Lite Meter kit) As directed cholecalciferol (vitamin D3) 50 mcg PO DAILY 90 days cyclobenzaprine 10 mg PO TID PRN empagliflozin (Jardiance) 25 mg PO DAILY 90 days fenofibrate 160 mg PO DAILY 90 days fluticasone propion-salmeterol 250-50 mcg/dose (Wixela Inhub) 1 inh inhalation BID 30 days hydrochlorothiazide 25 mg PO DAILY 90 days icosapent ethyl (Vascepa) 2 grams (2 x 1 gram) PO BID lancets (FreeStyle Lancets) Use 1 lancet once a day lidocaine 5% 1 patch topical DAILY lisinopril 20 mg PO DAILY metformin 1,000 mg PO BID 90 days miscellaneous medical supply (Blood Pressure Cuff) As directed, monitor BP 2-3 a day, and creat a log omeprazole 40 mg PO DAILY 90 days pen needle,diabetic dual safty (BD AutoShield Duo Pen Needle) 1 ea miscellaneous .once a day 100 days potassium citrate ER 20 mEq (2 x 10 mEq (1,080 mg)) PO BID 90 days Tresiba FlexTouch U-100 (insulin degludec) 20 units (0.2 mL) subcut DAILY 90 days NS HPI HPI Preop for Dr. 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 She now presents for follow-up and cardiovascular clearance. Today she reports that she has been doing generally well overall. She has not been having chest discomfort at rest or with activity. She does have shortness of breath with physical activity. No PND, orthopnea. She does have mild ankle edema and chronic knee pains. She takes stairs 1 at a time due to her knee pains. No palpitations, lightheadedness, presyncope, syncope. 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 She does have some discomfort in her left shoulder with range of motion. Has been taking her medications as directed, including her atorvastatin. Significant other is present. [facility] Medical History Morbid obesity with BMI of 45.0-49.9, adult Moderate recurrent major depression Renal calculi Muscle cramps EDGAR (acute kidney injury) Leukocytosis Asthma Mild recurrent major depression Diabetes mellitus Headache RANJIT (obstructive sleep apnea) Chronic cough Super obese Essential hypertension Mild asthma Pure hypercholesterolemia Surgical History History of esophagogastroduodenoscopy (EGD) History of colonoscopy History of tubal ligation History of section Family History Father Diabetes Hypertension Mother Hypertension Liver cancer Maternal Grandfather Throat cancer Paternal Grandmother Stomach cancer Social History Housing: House Alcohol intake: never Patient Tobacco Use Status: Never used Tobacco e-Cigarette/Vaping Use: Never Used Second Hand Smoke Exposure: No Advance Directives Date on File: 08/21/21 service: No Current occupational status: employed 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 Current occupational exposures/hazards: No Cognitive needs: No Hearing needs: No Vision needs: Yes Review of Systems Const All systems reviewed & are unremarkable except as noted in HPI and below ENT Denies dizziness Card Denies chest pain, Denies chest pain at rest, Denies chest pain with activity, Denies rapid heart rate, Denies pedal edema, Denies edema, Denies leg edema, Denies lightheadedness, Denies palpitations, Reports dyspnea, Denies dyspnea on exertion and Denies orthopnea Resp Denies cough, Reports dyspnea and Denies dyspnea on exertion GI Denies hematochezia and Denies change in stool character Musc Denies abnormal gait, Denies limited range of motion, Denies muscle cramps, Denies muscle weakness, Denies numbness, Denies radiating pain into limb, Denies stiffness and Denies tingling Neuro Denies abnormal gait, Denies dizziness, Denies numbness and Denies tingling Endo Denies palpitations Physical Exam Vital Signs: Last Vital Signs Pulse 101 H 08/06/24 13:25 BP 114/72 08/06/24 13:25 BMI result Body Mass Index 43.8 Const Other: morbidly obese General: cooperative, comfortable and no acute distress Orientation/consciousness: patient oriented x3 Neck Neck: Yes normal visual inspection Resp Effort & Inspection: normal respiratory effort Auscultation: clear to auscultation bilaterally, no crackles, no rales, no rhonchi and no wheezes Cardio Jugular venous distension: no JVD Rate: regular rate Rhythm: regular rhythm Heart sounds: S1 normal heart sound present, S2 normal heart sound present, no gallops, no murmurs and no rubs Peripheral pulses: Peripheral pulses 2+ throughout Neuro General: patient oriented x3 Extrem Other: 1+ ankle edema Psych Appearance: grossly normal Mental Status: mental status grossly normal Speech and movement: Normal speech and movement present Office Procedures EKG Details: Today, read by me, Sinus tachycardia, nonspecific ST/ T wave abn inferolateral leads, rate 101, QTc 471ms [id number], Complete Assessment & Plan Assessment & Plan (1) Dyspnea on exertion: Code(s): R06.00 - Dyspnea, unspecified Category: Medical Plan: Prior cardiac evaluation for shortness of breath with exertion and syncopal event that occurred 08/2021. Echocardiogram done 08/18/2021 showed EF 60-65%, technically limited study, limited view of valves with normal cardiac valvular Doppler. Exercise stress test done 09/25/2021 showed exercise 2 minutes 8 seconds with moderate to severe shortness of breath and request to stop without EKG changes meeting criteria at achieved workload than slight downsloping of ST in recovery. Pharmacological nuclear stress test done on 12/05/2021 showing possible mild ischemia versus soft tissue attenuation artifact in the distal part of the anterior lateral wall, reversible basal inferior defect which could be diaphragm attenuation, normal EF. She then underwent CTA of the coronary arteries on 06/08/2022 showing proximal LAD mixed plaque less than 50% stenosis, mild mid LAD bridge with less than 40% stenosis, left circumflex mild calcification and RCA less than 40% scattered plaque, proximal PDA less than 50% stenosis. Dilated main pulmonary artery suggesting pulmonary hypertension. She has a history of sleep apnea and is compliant with CPAP mask. Her condition has remained stable since that time. She denies any exertional chest discomfort. She has shortness of breath with exertion which is not new. An EKG done today is showing sinus tachycardia, rate 101, nonspecific ST and T-wave abnormalities inferior lateral leads which are new. Since she is preop for possible mediastinal thymoma removal will update her cardiac testing. Will check a pharmacological nuclear stress test. She says she is not able to walk on the treadmill due to shortness of breath with activity and bilateral knee pain. Will update echocardiogram. Plan to call her with the results. Cardiology follow-up 6 months, sooner if needed or test warrant. (2) Coronary artery disease: Code(s): I25.10 - Atherosclerotic heart disease of [place] coronary artery without angina pectoris Category: Medical Plan: As above. Updating cardiac testing. Continue aspirin indefinitely. Continue high-dose atorvastatin. [place] LDL goal less than 70. She tells me she is having labs checked in 2 days. (3) Morbid obesity with BMI of 45.0-49.9, adult: Code(s): E66.01 - Morbid (severe) obesity due to excess calories; Z68.42 - Body mass index [BMI] 45.0-49.9, adult Category: Medical (4) Diabetes mellitus: Code(s): E11.9 - Type 2 diabetes mellitus without complications Category: Medical Qualifiers: Diabetes mellitus complication status: with hyperglycemia Diabetes mellitus termite control technician insulin use: without termite control technician use Diabetes mellitus type: type 2 Qualified Code(s): E11.65 - Type 2 diabetes mellitus with hyperglycemia Plan: Hemoglobin A1c goal less than 7. Followed by PCP. (5) Essential hypertension: Code(s): I10 - Essential (primary) hypertension Category: Medical Plan: Blood pressure normal today. Labs done 04/20/2024 show potassium 4.7, creatinine 0.82. Continue hydrochlorothiazide and lisinopril. (6) Pure hypercholesterolemia: Code(s): E78.00 - Pure hypercholesterolemia, unspecified Category: Medical Plan: [place] LDL goal less than 70. Labs done on 10/12/2023 showed LDL 186. She had previously admitted to not taking her medication due to nausea. She says now she is taking atorvastatin 80 mg daily without concerning side effects. Continue Zetia. Fasting lipid profile being done in 2 days. If LDL is not at goal then she will need a PCSK9 inhibitor added. (7) Preop cardiovascular exam: Code(s): Z01.810 - Encounter for preprocedural cardiovascular examination Category: Medical Plan: Preop for mediastinal mass/thymoma removal with Dr. Celeste. No date yet. She believes it will be scheduled September 2024. Nuclear stress test and echocardiogram ordered as above. Will update this note once test results are available. (8) Abnormal finding on EKG: Code(s): R94.31 - Abnormal electrocardiogram [ECG] [EKG] Category: Medical Plan: As above. Plan Time spent on chart review, documentation, interview and assessment Orders: Orders CA lexiscan stress w kaitlin Today I25.10 - Atherosclerotic heart disease of [place] coronary artery without angina pectoris, R94.31 - Abnormal electrocardiogram [ECG] [EKG], Z01.810 - Encounter for preprocedural cardiovascular examination NM cardiolite stress test Today I25.10 - Atherosclerotic heart disease of [place] coronary artery without angina pectoris, R94.31 - Abnormal electrocardiogram [ECG] [EKG], Z01.810 - Encounter for preprocedural cardiovascular examination CA echo transthoracic complete Today R06.00 - Dyspnea, unspecified, R94.31 - Abnormal electrocardiogram [ECG] [EKG], Z01.810 - Encounter for preprocedural cardiovascular examination Coding Level of Care Code Est Pt Level 4 (16515) Complex EM visit Add On G2211 Diagnoses Dyspnea on exertion R06.00 Coronary artery disease I25.10 Morbid obesity with BMI of 45.0-49.9, adult E66.01; Z68.42 Type 2 diabetes mellitus with hyperglycemia, without long-term current use of insulin E11.65 Diabetes mellitus complication status: with hyperglycemia Diabetes mellitus detention insulin use: without termite control technician use Diabetes mellitus type: type 2 Essential hypertension I10 Pure hypercholesterolemia E78.00 Preop cardiovascular exam Z01.810 Abnormal finding on EKG R94.31 CPT Codes EKG - CPT: [id number], Complete ([id number]) Time Spent (min) 30
== END 2024-08-06 14:01 | disposition home or self-care (01) ==
PROVIDERS: PCP Internal Medicine; Visit Provider Nurse Practitioner Family
DX: R06.00 Dyspnea, unspecified (principal); I25.10 Atherosclerotic heart disease of native coronary artery without angina pectoris; E66.01 Morbid (severe) obesity due to excess calories; Z68.42 Body mass index [BMI] 45.0-49.9, adult; E11.65 Type 2 diabetes mellitus with hyperglycemia; I10 Essential (primary) hypertension; E78.00 Pure hypercholesterolemia, unspecified; Z01.810 Encounter for preprocedural cardiovascular examination; R94.31 Abnormal electrocardiogram [ECG] [EKG]
CPT/HCPCS: 93010; 99214

== ENCOUNTER → 2024-08-06 13:21 | Outpatient (BNVA) | payer OTHER, SELFPAY | PROVIDERS: PCP Internal Medicine; Visit Provider Nurse Practitioner Family | DX: Z01.810 Encounter for preprocedural cardiovascular examination (principal); R06.00 Dyspnea, unspecified; I25.10 Atherosclerotic heart disease of native coronary artery without angina pectoris; E66.01 Morbid (severe) obesity due to excess calories; E11.65 Type 2 diabetes mellitus with hyperglycemia; I10 Essential (primary) hypertension; E78.00 Pure hypercholesterolemia, unspecified; R94.31 Abnormal electrocardiogram [ECG] [EKG]; Z68.42 Body mass index [BMI] 45.0-49.9, adult | CPT/HCPCS: 93005 ==

== ENCOUNTER → 2024-08-20 09:35 | Outpatient (REF) | payer OTHER, SELFPAY ==
--- NOTE | ~2024-08-20 | NM_ITS ---
Lexiscan Myocardial perfusion study Indication: Coronary artery disease Technique: The patient was brought in for a Lexiscan perfusion study on 08/20/2024 and was injected 0.4 mg of Lexiscan intravenously. Within a minute of this injection 40 mCi of sestamibi was given intravenously. Images were obtained using the SPECT gamma camera interlaced with the gating device. Images were obtained in supine position. Resting perfusion study was performed on 08/21/2024. Patient was administered 40 mCi of sestamibi intravenously at rest. Images were then obtained in supine position. Total DLP 148 mGy-cm. Images were processed with the software and compared side to side in short axis, horizontal long axis and vertical long axis views. Findings: Raw aquisition reviewed. The stress perfusion study showed diminished tracer uptake along the mid to distal anterior wall as well as apex. There is good improvement with CT attenuation correction suggestive of soft tissue attenuation artifact. The gated study shows normal LV systolic function with calculated LVEF of 70%. LV cavity is normal in size. The gated study shows normal wall thickening and contraction of segments. Resting study shows no significant perfusion abnormality. Gating at rest reveals normal wall motion with ejection fraction at 66%. The findings are consistent with reversible distal anterior/apical perfusion defect but suspected to be from soft tissue attenuation artifact. NM/NM cardiolite stress test Impression: 1. Myocardial perfusion imaging study shows probably normal myocardial perfusion. 2. Gated LVEF is 70% during stress and 66% during rest. 3. Transient ischemic dilatation not present. EKG component of the test reported separately. Electronically signed by: Jamel More MD 08/23/2024 02:13 PM [facility]
--- NOTE | 2024-08-20 09:39 | CA_ITS ---
Acquisition Time: 2024-08-20 09:57:14 Total Exercise Time: 00:02:00 Test Indications: ABN.EKG. ASHD. PREOP Medications: Protocol: LEXISCAN Max HR: 118 BPM 73% of Pred: 160 BPM Max BP: 132/074 mmHG Max Work Load: 1.0 METS Pharmacologic stress test with Lexiscan, while pt kicks her legs in chair, with reports of moderate SOB, no chest discomfort, without any arrythmias, with normotensive response to injection. Nondiagnostic EKG for ischemia. In recovery, pt treated with IVP Aminophylline 75 mg to reverse Lexiscan, after which breathing returned to baseline. Nuclear images pending. Test reviewed with Dr. More. Referred By: Eunice Monroe Overread By:
== END ==
LOC: HO.CARD 09:35
PROVIDERS: PCP Internal Medicine; Visit Provider Nurse Practitioner Family
DX: Z01.810 Encounter for preprocedural cardiovascular examination (principal); I25.10 Atherosclerotic heart disease of native coronary artery without angina pectoris; R94.31 Abnormal electrocardiogram [ECG] [EKG]
CPT/HCPCS: 78452; 93017; A9500; J0280; J2785

== ENCOUNTER → 2024-08-20 09:49 | Outpatient (BNV) | payer OTHER, SELFPAY | PROVIDERS: PCP Internal Medicine; Visit Provider Internal Medicine | DX: R06.02 Shortness of breath (principal) | CPT/HCPCS: 78452; 93016; 93018 ==

== ENCOUNTER 2024-08-21 14:29 | Outpatient (AMB) | payer OTHER, SELFPAY ==
[2024-08-21 14:30] VITALS: BP 144/87; PULSE 92; O2SAT 97; BMI 43.6
--- NOTE | 2024-08-21 14:30 | A.OFFVIS_ITS ---
Vital Signs 08/21/24 14:30 Height 5 ft 5 in Weight 262 lb BMI 43.6 BP 144/87 H Blood Pressure Location Rt brachial Position Sitting Pulse 92 Pulse Source Doppler Pulse Oximetry (%) 97 Oxygen Delivery Method Room Air Intake Visit Reasons: Dyspnea/Thymectomy (Dr. Celeste) Allergies No Known Allergies [No Known Allergies*] Allergy (Verified 08/21/24 14:33) HPI HPI Dyspnea/Thymectomy (Dr. Celeste): Details: 59-year-old lady, nonsmoker, with underlying obesity and gastroesophageal reflux followed for chronic cough, severe obstructive sleep apnea, and GERD.? Patient continues on Wixela and albuterol MDI with good control of her underlying symptoms. She denies any recent exacerbations. Patient continues on CPAP with reasonable control of her underlying sleep apnea. [facility] Medical History Morbid obesity with BMI of 45.0-49.9, adult Moderate recurrent major depression Renal calculi Muscle cramps EDGAR (acute kidney injury) Leukocytosis Asthma Mild recurrent major depression Diabetes mellitus Headache RANJIT (obstructive sleep apnea) Chronic cough Super obese Essential hypertension Mild asthma Pure hypercholesterolemia Surgical History History of esophagogastroduodenoscopy (EGD) History of colonoscopy History of tubal ligation History of section Family History Father Diabetes Hypertension Mother Hypertension Liver cancer Maternal Grandfather Throat cancer Paternal Grandmother Stomach cancer Social History Housing: House Alcohol intake: never Patient Tobacco Use Status: Never used Tobacco e-Cigarette/Vaping Use: Never Used Second Hand Smoke Exposure: No Advance Directives Date on File: 08/21/21 service: No Current occupational status: employed 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 Current occupational exposures/hazards: No Cognitive needs: No Hearing needs: No Vision needs: Yes Review of Systems Const Denies daytime sleepiness, Denies excessive sweating, Denies fatigue, Denies fever(s), Denies lethargy, Denies malaise, Denies night sweats, Denies snoring and Denies weight loss Eyes Denies blurry vision and Denies itchy eyes ENT Denies nasal congestion, Denies post nasal drip, Denies sinus pain, Denies sinus pressure and Denies other ( Thrush) Card Denies chest pain, Denies pedal edema, Denies dyspnea, Denies orthopnea and Denies paroxysmal nocturnal dyspnea Resp Denies cough, Denies hemoptysis, Denies excessive phlegm production, Denies dyspnea, Denies snoring and Denies wheezing GI Denies abdominal pain and Denies heartburn Musc Denies myalgias, Denies arthralgias and Denies joint swelling Skin/Breast Denies rash Neuro Denies memory loss and Denies seizure-like activity Psych Denies abnormal sleep pattern, Denies anxiety and Denies memory loss Endo Denies excessive sweating, Denies fatigue and Denies heat intolerance Benny/Lymph Denies easy bruising Aller/Immun Denies itchy eyes, Denies seasonal rhinorrhea and Denies wheezing Physical Exam Vital Signs: Last Vital Signs Pulse 92 08/21/24 14:30 BP 144/87 H 08/21/24 14:30 Pulse Ox 97 08/21/24 14:30 Oxygen Delivery Method Room Air 08/21/24 14:30 BMI result Body Mass Index 43.6 Const General: no acute distress and alert Nutritional Appearance: obese Orientation/consciousness: Other orientation findings ( oriented) HEENT Head: Yes atraumatic Eyes General: appearance normal, both eyes and all related structures Sclerae: sclerae normal EOM: EOMs intact bilaterally Neck Neck: Yes supple Lymphatic: no lymphadenopathy noted Resp Effort & Inspection: normal respiratory effort and no use of accessory muscles Auscultation: clear to auscultation bilaterally Cardio Rate: regular rate Rhythm: regular rhythm Heart sounds: no gallops, no murmurs and no rubs Skin General skin exam: other ( warm) Extrem General: No clubbing, No cyanosis and No edema Assessment & Plan Assessment & Plan (1) Asthma: Code(s): J45.909 - Unspecified asthma, uncomplicated Category: Medical Plan: Well controlled on regimen of Wixela and albuterol MDI. Continue current regimen. (2) RANJIT (obstructive sleep apnea): Code(s): G47.33 - Obstructive sleep apnea (adult) (pediatric) Category: Medical Plan: Controlled on current CPAP therapy. Continue CPAP therapy. (3) Preop pulmonary/respiratory exam: Code(s): Z01.811 - Encounter for preprocedural respiratory examination Category: Medical Plan: Patient at this time is at low risk for pulmonary perioperative complications for proposed thymectomy under general anesthesia. Secondary to underlying obstructive sleep apnea and obesity, consider extubation to BiPAP. Coding Level of Care Code Est Pt Level 4 (67226) Complex EM visit Add On G2211 Diagnoses Asthma J45.909 RANJIT (obstructive sleep apnea) G47.33 Preop pulmonary/respiratory exam Z01.811
== END 2024-08-21 14:43 | disposition home or self-care (01) ==
PROVIDERS: PCP Internal Medicine; Visit Provider Internal Medicine Pulmonary Disease
DX: J45.909 Unspecified asthma, uncomplicated (principal); G47.33 Obstructive sleep apnea (adult) (pediatric); Z01.811 Encounter for preprocedural respiratory examination
CPT/HCPCS: 99214

== ENCOUNTER → 2024-08-21 14:29 | Outpatient (BNVA) | payer OTHER, SELFPAY | PROVIDERS: PCP Internal Medicine; Visit Provider Internal Medicine Pulmonary Disease ==

== ENCOUNTER → 2024-08-24 07:54 | Outpatient (REF) | payer OTHER, SELFPAY ==
--- NOTE | 2024-08-24 07:56 | CA_ITS ---
Transthoracic Echocardiogram Patient (Last, First, Middle): Rema Gonzalez, Gender: Female Date of : 1965 Age: 59 Procedure Date: 08/24/2024 Procedure Type: Transthoracic Echocardiogram Location: OP Height: 165.1 cm Weight: 119.27 kg BSA: 2.22 m2 Heart Rate: bpm BP: 150 / 84 mmHg Block Splitter Operator: PORFIRIO Referring MD: Eunice Monroe PRINCIPAL INVESTIGATOR-Zaheer Symptoms: R06.00 - Dyspnea, unspecified Study Quality: Fair ECG Rhythm: Sinus Conclusions: - The left ventricular systolic function is normal. The calculated ejection fraction is 63% by biplane method. - No obvious valvular pathology seen on this study. Findings Left Ventricle Normal left ventricular cavity size. There is mildly increased left ventricular wall thickness. The left ventricular systolic function is normal. The calculated ejection fraction is 63% by biplane method. There is no evidence of regional wall motion abnormalities. Evidence suggests grade I (mild) diastolic dysfunction. Right Ventricle Normal right ventricular cavity size and systolic function. Atria Both atria are normal in size. Aortic Valve There is a normal trileaflet aortic valve. There is no aortic valve stenosis. There is no aortic valve regurgitation. Mitral Valve The mitral valve appears normal. There is no mitral valve regurgitation. There is no mitral valve stenosis. Pulmonic Valve The pulmonic valve is likely normal. Tricuspid Valve There is trace tricuspid valve regurgitation. Tricuspid regurgitation envelope is inadequate for calculation of right ventricular systolic pressure. Great Vessels The asc aorta is normal in size. Venous The inferior vena cava was not well visualized. The inferior vena cava is normal in size. Pericardium/Pleural There is no evidence of pericardial effusion. Prior Study Comparison No significant change compared to prior study dated: 08/18/2021. Recommendations, Care & Conclusions No obvious valvular pathology seen on this study. Measurements 2D Linear Measurements IVSd: 1.25 0.6-0.9/0.6-1.0 cm LVIDd: 4.79 3.9-5.3/4.2-5.9 cm LVIDd Index: 2.16 2.4-3.2/2.2-3.1 cm/m2 LVIDs: 3.03 2.0-3.6 cm LVPWd: 1.29 0.7-1.1 cm Ao Root: 3.10 2.1-3.5 cm LA Diam: 3.60 2.7-3.8/3.0-4.0 cm LAIDs Index: 1.62 1.5-2.3 cm/m2 LV Mass: 295.29 67-162/88-224 g LV Mass Index: 133.01 43-95/49-115 g/m2 LVOT Diam: 2.20 3.0+(-)1.3 cm 2D Systolic Function EF 4C: 66.40 >55% EF 2C: 59.20 >55% EF BiP: 62.90 >55% Mitral Valve MV Pk E: 1.02 MV PK A: 0.84 MV Decel Time: 118.00 E/A: 1.20 E'Lateral: 6.53 E'Medial: 4.57 E/E' Med: 22.30 E/E' Lat: 15.60 PHT: 35.00 MVA PHT: 6.29 Decel Haakon: 8.59 Aortic Valve AoV Pk Roel: 1.36 AoV Mn Roel: 0.93 AoV VTI: 0.29 AoV Pk Grad: 7.00 Aov Mn Grad: 4.00 SHAWN Cont.VTI: 2.72 LVOT LVOT Pk Roel: 0.94 LVOT Mn Roel: 0.63 LVOT VTI: 0.21 LVOT Pk Grad: 4.00 LVOT Mn Grad: 2.00 LVOT Diam: 2.20 LVOT Area: 3.80 Diastolic Function MV Pk E: 1.02 MV Pk A: 0.84 E/A: 1.20 E'Medial: 4.57 E/E' Med: 22.30 E' Laterial: 6.53 E/E' Lat: 15.60 Right Ventricle TAPSE (mm): 30.00 TVS' Roel: 9.00 Tricuspid Valve TR Pk Roel: 1.95 TR Pk Grad: 15.00 RA Press: 3.00 Great Vessels Aorta Ao Root-2D: 3.10 2.0-3.7 cm Ao Asc: 3.20 2.1-3.4 cm Pulmonary Valve PV Pk Roel: 1.04 Peak PV Grad: 4.00 Updated in Other Vendor System with Status of Final Jamel More MD electronically signed on 08/24/2024 9:09:20 AM with status of Final
== END ==
LOC: HO.CARD 07:54
PROVIDERS: PCP Internal Medicine; Visit Provider Nurse Practitioner Family
DX: Z01.810 Encounter for preprocedural cardiovascular examination (principal); R06.00 Dyspnea, unspecified; R94.31 Abnormal electrocardiogram [ECG] [EKG]
CPT/HCPCS: 93306

== ENCOUNTER → 2024-08-24 07:56 | Outpatient (BNV) | payer OTHER, SELFPAY | PROVIDERS: PCP Internal Medicine; Visit Provider Internal Medicine | DX: R06.02 Shortness of breath (principal); I51.89 Other ill-defined heart diseases | CPT/HCPCS: 93306 ==

== ENCOUNTER 2024-09-01 06:51 | Outpatient (REF) | payer OTHER, SELFPAY ==
[2024-09-01 07:04] LABS: MANUAL DIFF FLAG NO
[2024-09-01 07:11] LABS: Basophils Absolute Auto 0.1 X10*3/uL (0.0-0.2); Basophils Percent Auto 0.5 % (0-2); Eosinophils Absolute Auto 0.2 X10*3/uL (0.0-0.4); Eosinophils Percent Auto 1.7 % (0-4); Hematocrit 40.5 % (37.0-47.0); Hemoglobin 13.4 g/dl (12.0-16.0); Imm Gran Abs Auto 0.08 X10*3/uL (0.00-0.03); Imm Gran Pct Auto 0.8 % (0.0-0.4); Lymphocytes Absolute Auto 2.6 X10*3/uL (1.2-4.9); Mean Corpuscular HGB Conc 33.1 g/dl (31.0-35.0); Mean Corpuscular Hemoglobin 28.7 pg (27.0-33.0); Mean Corpuscular Volume 86.7 fL (80.0-98.0); Mean Platelet Volume 10.3 fL (9.4-12.3); Monocytes Absolute Auto 0.6 X10*3/uL (0.1-1.2); Monocytes Percent Auto 6.2 % (2-11); Neutrophils Absolute Auto 6.8 x10*3/uL (2.0-8.3); Neutrophils Percent Auto 65.8 % (45-73); Platelet Count 348 X10*3/uL (160-400); Red Blood Count 4.67 X10*6/uL (4.20-5.50); Red Cell Distribution Width 12.7 % (11.0-16.0); White Blood Count 10.3 X10*3/uL (4.8-10.8)
[2024-09-01 07:37] LABS: Alanine Aminotransferase 35 U/L (0-31); Alkaline Phosphatase 136 U/L (39-117); Anion Gap 13 (12-20); Aspartate Amino Transferase 20 U/L (5-31); Bilirubin Total 0.3 mg/dL (0.0-1.0); Blood Urea Nitrogen 18 mg/dL (9-16); Calcium 8.8 mg/dL (8.4-10.2); Carbon Dioxide 26 mmol/L (22-29); Chloride 101 mmol/L (96-108); Cholesterol 343 mg/dL (<200); Estimated Glomerular Filt Rate > 60; Glucose Fasting 284 mg/dL (60-99); HDL Cholesterol 42 mg/dL (>40); Iron 67 mcg/dL (30-160); Percent Iron Saturation 20 % (15-50); Potassium 4.3 mmol/L (3.3-5.1); Sodium 136 mmol/L (135-145); Total Iron Binding Capacity 335 mcg/dL (228-428); Total Protein 7.6 g/dL (6.5-8.0); Triglycerides 463 mg/dL (<150); Unsaturated Iron Binding 268 ug/dL
[2024-09-01 07:53] LABS: Vitamin D 25-OH Total 12.3 ng/mL (>30)
[2024-09-01 08:03] LABS: Folate 11.5 ng/mL (> or = 4.0); Vitamin B12 286 pg/mL (200-900)
[2024-09-01 08:53] LABS: Appearance Urine Cloudy; Color Urine Yellow; Glucose Urine UA >=1000 mg/dL (Negative); Leukocyte Esterase Urine Moderate (2+) (Negative); Nitrite Urine Negative (Negative); PH 5.5 (5.0-9.0); Specific Gravity - Urine 1.025 (1.005-1.025); UMIC TRIGGER UACC YES; Urine Blood Small (1+) (Negative); Urine Ketones Negative (Negative); Urine Protein 30 (1+) mg/dL (Neg-Trace)
[2024-09-01 09:08] LABS: Bacteria Urine Trace (None Seen); Other Crystals Urine Present; RBC Urine 0-2 /HPF (0-2); UACC Culture Trigger YES; WBC Urine 21-50 /HPF (0-5)
[2024-09-01 09:15] LABS: Creatinine Urine 116.21 mg/dL; Microalbum/Creatinine Ratio Ur 138.5 ug/mg cr (<30)
== END 2024-09-01 06:52 | disposition home or self-care (01) ==
LOC: HO.LAB 06:51
PROVIDERS: PCP Internal Medicine; Visit Provider Internal Medicine
DX: E78.5 Hyperlipidemia, unspecified (principal); D64.9 Anemia, unspecified; E11.9 Type 2 diabetes mellitus without complications; E55.9 Vitamin D deficiency, unspecified; E53.8 Deficiency of other specified B group vitamins; E11.65 Type 2 diabetes mellitus with hyperglycemia; R39.9 Unspecified symptoms and signs involving the genitourinary system
CPT/HCPCS: 36415; 80053; 80061; 81001; 82043; 82306; 82570; 82607; 82746; 83540; 85025; 87086; 87147

== ENCOUNTER 2024-09-03 16:26 | Outpatient (AMB) | payer OTHER, SELFPAY ==
[2024-09-03 16:37] VITALS: BP 148/86; PULSE 101; O2SAT 98; BMI 43.6
--- NOTE | 2024-09-03 16:37 | MHC.PC.OV ---
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 Required: No Accompanied by: Self / Same As Patient Allergies No Known Allergies [No Known Allergies*] Allergy (Verified 09/03/24 16:45) Medication List - Last Reconciled 09/03/24 by Mitzy Hoang MD acetaminophen ER (8 Hour Pain Reliever) 1,300 mg (2 x 650 mg) PO Q12H albuterol sulfate 90 mcg/actuation 2 puffs inhalation Q4-6H PRN aspirin 81 mg PO DAILY atorvastatin 80 mg PO BEDTIME 90 days benzonatate 200 mg PO TID blood pressure monitor As directed blood sugar diagnostic (FreeStyle Lite Strips) Use 1 test strip once a day blood-glucose meter (FreeStyle Lite Meter kit) As directed cholecalciferol (vitamin D3) 50 mcg PO DAILY 90 days cyclobenzaprine 10 mg PO TID PRN empagliflozin (Jardiance) 25 mg PO DAILY 90 days fenofibrate 160 mg PO DAILY 90 days fluticasone propion-salmeterol 250-50 mcg/dose (Wixela Inhub) 1 inh inhalation BID 30 days hydrochlorothiazide 25 mg PO DAILY 90 days icosapent ethyl (Vascepa) 2 grams (2 x 1 gram) PO BID lancets (FreeStyle Lancets) Use 1 lancet once a day lidocaine 5% 1 patch topical DAILY lisinopril 20 mg PO DAILY metformin 1,000 mg PO BID 90 days miscellaneous medical supply (Blood Pressure Cuff) As directed, monitor BP 2-3 a day, and creat a log omeprazole 40 mg PO DAILY 90 days pen needle,diabetic dual safty (BD AutoShield Duo Pen Needle) 1 ea miscellaneous .once a day 100 days potassium citrate ER 20 mEq (2 x 10 mEq (1,080 mg)) PO BID 90 days Tresiba FlexTouch U-100 (insulin degludec) 20 units (0.2 mL) subcut DAILY 90 days NS Tobacco use date assessed: 10/31/23 Dental Screening Dental Screen Date: 03/27/24 HPI HPI Comments History of Present Illness Details The patient is a 59 year old female presenting with a follow-up for her type 2 diabetes mellitus, essential hypertension, and hyperlipidemia. Her diabetes history is significant for poor glycemic control, as evidenced by an HbA1c of 11.7%. The patient reports inconsistency in her medication adherence, notably the omission of daily doses of medications such as Atorvastatin, Jardiance, Metformin, and Fenofibrate. She experiences shortness of breath and has a BMI indicative of morbid obesity (43.6), placing her at high cardiovascular risk. The patient reports her blood pressure today as 148/86 mmHg. Her lipid panel from the last check revealed abnormal triglyceride levels (463 mg/dL), and an elevated LDL cholesterol. The patient reports previous episodes of vaginal discomfort treated with antibiotics, and recent recurrence of symptoms. Her medical history is additionally significant for vitamin D deficiency. Previous interventions have included various oral antidiabetic and antihypertensive agents, alongside lipid-lowering medications. However, her adherence is suboptimal, resulting in uncontrolled chronic conditions. [facility] Medical History (Updated 09/03/24 @ 20:25 by Mitzy Hoang MD) Thymic cyst Morbid obesity with BMI of 45.0-49.9, adult Moderate recurrent major depression Renal calculi Muscle cramps EDGAR (acute kidney injury) Leukocytosis Asthma Mild recurrent major depression Diabetes mellitus Headache RANJIT (obstructive sleep apnea) Chronic cough Super obese Essential hypertension Mild asthma Pure hypercholesterolemia Surgical History History of esophagogastroduodenoscopy (EGD) History of colonoscopy History of tubal ligation History of section Family History Father Diabetes Hypertension Mother Hypertension Liver cancer Maternal Grandfather Throat cancer Paternal Grandmother Stomach cancer Social History (Updated 09/03/24 @ 16:52 by Mitzy Hoang MD) Housing: House Alcohol intake: current Alcohol intake frequency: holidays/special occasions only Alcohol type: wine Patient Tobacco Use Status: Never used Tobacco e-Cigarette/Vaping Use: Never Used Second Hand Smoke Exposure: No Advance Directives Date on File: 08/21/21 service: No Current occupational status: employed 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 1. Little interest or pleasure in doing things: more than half the days 2. Feeling down, depressed, or hopeless: nearly every day 3. Trouble falling or staying asleep, or sleeping too much: nearly every day 4. Feeling tired or having little energy: nearly every day 5. Poor appetite or overeating: several days 6. Feeling bad about yourself - or that you are a failure or have let yourself or your family down: several days 7. Trouble concentrating on things, such as reading the newspaper or watching television: not at all 8. Moving or speaking so slowly that other people could have noticed. Or the opposite - being so fidgety or restless that you have been moving around a lot more than usual: several days 9. Thoughts that you would be better off or of hurting yourself in some way: several days Total score: 15 Depression Screening Interpretation: Positive (no suicidal thoughts) Depression Screening Follow-up: Existing condition, In treatment and Follow-up Visit Requested Depression Screening Done: Yes 46543 - PHQ-9 Billing: Yes Source: Developed by Drs. Tomasz Lee, Fay Callejas, Blayne Arenas and colleagues, with an educational jakob from [employer]. Thrive Questionnaire Date Thrive assessed: 09/03/24 I am a: Patient What is your living situation today?: I have a steady place to live Within the past 12 months, did the food you bought not last and you didn't have the money to get more?: Never true Within the past 12 months, did you worry whether your food would run out before you got money to buy more?: Never true Do you have trouble paying for medicines?: No Do you have trouble getting transportation to medical appointments?: No Do you have trouble paying your heating and electricity bill?: No Do you have trouble taking care of your child, family member or friend?: No Do you have trouble with day-to-day activities such as bathing, preparing meals, shopping, managing finances, etc.?: No Are you currently unemployed and looking for a job?: No Are you interested in more education?: No Please select the resources that you would like help with: None Currently or been in a relationship where the following occur: No concerns reported THRIVE Score: 0 AUDIT C Alcohol Use Questionnaire (AUDIT-C) 1. How often do you have a drink containing alcohol?: Monthly or less 2. How many drinks containing alcohol do you have on a typical day when you are drinking?: 1 or 2 3. How often do you have six or more drinks on one occasion?: Never Total Score: 1 Score Reviewed/Action Taken: No YESSI-7 AMB Questionnaire YESSI-7 Date YESSI - 7 assessed: 09/03/24 Feeling nervous, anxious, or on edge: 1 = Several days Not being able to stop or control worryin = Several days Worrying too much about different things: 3 = Nearly every day Trouble relaxin = Several days Being so restless that it is hard to sit still: 1 = Several days Becoming easily annoyed or irritable: 3 = Nearly every day Feeling afraid as if something awful might happen: 1 = Several days Total YESSI-7 score (0-4 normal; 5-9 mild; 10-14 moderate; 15-21 severe): 11 Source: Developed by Drs. Tomasz Lee, Fay Callejas, Blayne Arenas and colleagues, with an educational jakob from [employer]. YESSI-7 Assessment Billing YESSI-7 Assessment Tool: YESSI-7 Assessment 00124 Review of Systems Const Details: - Respiratory: Reports shortness of breath. - Musculoskeletal: Denies current use of Flexeril, only when necessary. Physical exam (Primary Care) Vital Signs: Last Vital Signs Pulse 101 H 09/03/24 16:37 BP 148/86 H 09/03/24 16:37 Pulse Ox 98 09/03/24 16:37 Oxygen Delivery Method Room Air 09/03/24 16:37 BMI result Body Mass Index 43.6 BMI Assessment/Plan discussion: High BMI High, discussed plan: lifestyle, weight reduction, dietary and physical activity Tobacco/Smoking Status: Tobacco use Status Tobacco use date assessed 10/31/23 09/03/24 16:43 Patient Tobacco Use Status Never used Tobacco 09/03/24 16:52 e-Cigarette/Vaping Use Never Used 09/03/24 16:52 PHQ-9: PHQ-9 Score PHQ-9: Total score 15 09/03/24 20:17 Depression Screening Interpretation: Positive (no suicidal thoughts) Depression Screening Follow-up: Existing condition, In treatment and Follow-up Visit Requested Thrive Assessment: Date of Thrive Assessment Date Thrive assessed 09/03/24 09/03/24 16:43 Currently or been in a relationship where the following occur: No concerns reported Const Other: General: No confusion Respiratory: Normal respiratory effort, clear to auscultation bilaterally Cardiovascular: No jugular venous distension, regular rate, regular rhythm, S1 normal heart sound present and S2 normal heart sound present Neurology: Patient oriented x3, no focal motor deficits and No confusion Extremities: Full ROM Office Procedures Flu Questionnaire Does the patient have a severe egg allergy?: No Does the patient have severe life threatening allergies?: No Does the patient have a fever or illness today?: No Has the patient ever had Guillain-Chatsworth Syndrome?: No Has the patient ever had any past reaction to a flu shot?: No Results AMB Hemoglobin A1c AMB Hemoglobin A1c 11.7 % Last Edit by XOCHILT Allred on 09/03/24 16:46 Immunizations Fluarix Triv [id number] (PF) 45 mcg (15 mcg x 3)/0.5 mL IM syringe Performing Provider: Mitzy Hoang MD [facility] Administered by: Cheyanne Bermudez LPN on 09/03/24 16:49 Dose Route Admin Location Dispensed Lot Number Expiration Date NDC Customer Retention Representative 0.5 mL IM Right Deltoid 0.5 mL [id number] 03/01/25 [id number] [facility] VIS Given Date VIS Provided VIS Publication Date 09/03/24 Single Vaccine 21 Eligibility Eligibility Date Funding Source Not [facility] Eligible 09/03/24 Private Results Reviewed Results Reviewed: Laboratory Last Values Hgb A1c (Clinic) 11.7 % (4.0-6.0) H 09/03/24 16:45 Coding Level of Care Code Est Pt Level 4 (78886) Complex EM visit Add On G2211 Diagnoses Type 2 diabetes mellitus with hyperglycemia, without long-term current use of insulin E11.65 Diabetes mellitus complication status: with hyperglycemia Diabetes mellitus jail insulin use: without director long term care use Diabetes mellitus type: type 2 Mild recurrent major depression F33.0 Essential hypertension I10 Morbid obesity with BMI of 40.0-44.9, adult E66.01; Z68.41 Mixed hyperlipidemia E78.2 Additional Codes YESSI-7 Assessment Billing - YESSI-7 Assessment Tool: YESSI-7 Assessment 87197 ([id number]) PHQ-9 - 53611 - PHQ-9 Billing: Yes ([id number]) Time Spent (min) 25 Assessment & Plan Assessment & Plan (1) Diabetes mellitus: Code(s): E11.9 - Type 2 diabetes mellitus without complications Category: Medical Qualifiers: Diabetes mellitus complication status: with hyperglycemia Diabetes mellitus director long term care insulin use: without jail use Diabetes mellitus type: type 2 Qualified Code(s): E11.65 - Type 2 diabetes mellitus with hyperglycemia (2) Mild recurrent major depression: Code(s): F33.0 - Major depressive disorder, recurrent, mild Category: Medical (3) Essential hypertension: Code(s): I10 - Essential (primary) hypertension Category: Medical (4) Morbid obesity with BMI of 40.0-44.9, adult: Code(s): E66.01 - Morbid (severe) obesity due to excess calories; Z68.41 - Body mass index [BMI] 40.0-44.9, adult Category: Medical (5) Mixed hyperlipidemia: Code(s): E78.2 - Mixed hyperlipidemia Category: Medical Plan - Emphasize strict medication adherence for the management of type 2 diabetes, hypertension, and hyperlipidemia. - Continue Metformin, Jardiance, Atorvastatin, Lisinopril, and Fenofibrate; discuss adjusting dosages or alternative medications at follow-up if adherence improves without adequate control. - Refer to a hydrogen braze furnace operator for evaluation of recurring vaginal discomfort. - Order follow-up lab work to monitor HbA1c, lipid panel, and assess vitamin D levels. - Encourage lifestyle modifications focused on weight reduction to address obesity, improve blood pressure, and glycemic control. - Discuss potential introduction of Ozempic if insurance permits coverage for obesity management. - Provide baby aspirin 81 mg for cardiovascular prophylaxis. Patient was informed and verbally consented to the use of an ambient scribe for clinic note documentation during this visit. During the visit, I discussed the importance of strict medication adherence for her chronic conditions, emphasizing that consistent intake can lead to a reduction in medication requirements over time. We reviewed the current state of her diabetes, hypertension, and hyperlipidemia management and agreed on the necessity of frequent blood glucose monitoring. We discussed the plan to see a hydrogen braze furnace operator for further evaluation of recurring vaginal symptoms. I explained the possible benefits of weight management on her overall health, particularly relating to her obesity, and how it affects her cardiovascular risk profile. I informed her about the significance of maintaining a balanced lifestyle to support the interventions in place, and we discussed the chances for including Ozempic in her treatment plan upon insurance approval. Follow-up appointments were discussed, emphasizing continuity of care. Orders: Orders AMB Hemoglobin A1c 09/03/24 E11.65 - Type 2 diabetes mellitus with hyperglycemia Influenza [id number] Immunization 09/03/24 Z23 - Encounter for immunization Referrals [facility] MANAGER Referral N89.8 - Other specified noninflammatory disorders of vagina Medications: New semaglutide (Ozempic) for 4 weeks 0.25 mg (0.368 mL) subcut QWEEK 1.472 mL 0RF 4 weeks E11.65 - Type 2 diabetes mellitus with hyperglycemia, E66.01 - Morbid (severe) obesity due to excess calories, E78.2 - Mixed hyperlipidemia, I10 - Essential (primary) hypertension, I25.10 - Atherosclerotic heart disease of [place] coronary artery without angina pectoris, Z68.41 - Body mass index [BMI] 40.0-44.9, adult Refilled fenofibrate 160 mg PO DAILY 90 tabs 2RF 90 days cholecalciferol (vitamin D3) 50 mcg PO DAILY 90 caps 1RF 90 days metformin 1,000 mg PO BID 180 tabs 1RF 90 days E11.9 - Type 2 diabetes mellitus without complications aspirin 81 mg PO DAILY 90 tabs 3RF empagliflozin (Jardiance) 25 mg PO DAILY 90 tabs 1RF 90 days lisinopril 20 mg PO DAILY 90 tabs 3RF Tresiba FlexTouch U-100 (insulin degludec) 20 units (0.2 mL) subcut DAILY 18 mL 3RF 90 days NS E11.9 - Type 2 diabetes mellitus without complications atorvastatin 80 mg PO BEDTIME 90 tabs 1RF 90 days Patient Instructions: - Take all prescribed medications daily as instructed. - Schedule and attend a hydrogen braze furnace operator appointment for evaluation of recurrent symptoms. - Maintain regular follow-up appointments to monitor chronic conditions. - Engage in physical activity and consider nutritional changes to aid weight loss. - Monitor your blood pressure and blood sugar levels consistently. - Increase sunlight exposure or dietary intake of vitamin D as previously advised. - Take baby aspirin daily for heart protection. - Ensure pharmacy orders are filled promptly and instructions are followed.
== END 2024-09-03 17:02 | disposition home or self-care (01) ==
PROVIDERS: PCP Internal Medicine; Visit Provider Internal Medicine
DX: E11.65 Type 2 diabetes mellitus with hyperglycemia (principal); Z23 Encounter for immunization

== ENCOUNTER → 2024-09-03 16:26 | Outpatient (BNVA) | payer OTHER, SELFPAY | PROVIDERS: PCP Internal Medicine; Visit Provider Internal Medicine | DX: E11.65 Type 2 diabetes mellitus with hyperglycemia (principal); F33.0 Major depressive disorder, recurrent, mild; Z23 Encounter for immunization; I10 Essential (primary) hypertension; E66.01 Morbid (severe) obesity due to excess calories; Z68.41 Body mass index [BMI] 40.0-44.9, adult; E78.2 Mixed hyperlipidemia | CPT/HCPCS: 83036; 90471; 90656; 96127 ==

== ENCOUNTER 2024-09-17 07:12 | Outpatient (BNV) | payer OTHER, SELFPAY | END 2024-09-17 09:43 | PROVIDERS: Admitting Provider Surgery; PCP Internal Medicine; Visit Provider Radiology Diagnostic Radiology | DX: Z01.810 Encounter for preprocedural cardiovascular examination (principal) | CPT/HCPCS: 71045 ==

== ENCOUNTER 2024-09-17 07:12 | Inpatient (IN) | payer OTHER, SELFPAY ==
[2024-09-11 10:20] VITALS: BP 119/65; PULSE 87; RESP 16; O2SAT 95; BMI 42.9
--- NOTE | 2024-09-16 09:54 | MHC.SHP ---
Pre-Procedural Eval Section A - 24 Hr Update-Section A only Date of Service: 09/17/24 The patient is an INPATIENT: Yes Changes since office visit: No Cold of Flu in the past 2 weeks, No New Medical Problems, No Changes in Medication and No Patient answered all questions Section B - Complete if H&P > 30 days Chief Complaint: Neoplasm of unspecified behavior of other specifie Allergies: Allergies Allergy/AdvReac Type Severity Reaction Status Date / Time No Known Allergies Allergy Verified 09/03/24 16:45 [No Known Allergies*] Review of Systems Sugical H&P ROS: Negative: Constitution, Cardiovascular, Respiratory, Neurological, Psychiatric, Hem-Onc, Allergic/Immunologic, Gastrointestinal, Genitourinary, Musculoskeletal, Integumentary, Endocrine and Eyes/Ears/Nose/Throat Exam Surgical H&P Exam: Normal: HEENT, Normal: Heart, Normal: Lungs, Normal: Extremities, Normal: Abdomen, Normal: Skin and Normal: Neurological Plan I have reviewed the history and physical and performed a pertinent physical examination on my patient. No changes have occurred unless specified. Time Spent With Patient Time: Total time managing care of this patient today ____ minutes.
[2024-09-17] VITALS (30 sets, daily range): BP systolic 121–168; BP diastolic 69–90; PULSE 89–105; RESP 16–22; TEMP 36.1–36.7; O2SAT 91–97; BMI 42.1
--- NOTE | ~2024-09-17 | XR_ITS ---
EXAMINATION: XR CHEST CLINICAL INFORMATION: s/p left VATS, thymectomy COMPARISON: CT chest 04/20/2024 TECHNIQUE: Frontal view of the chest was obtained. FINDINGS: The lungs are hypoexpanded with patchy atelectasis and/or scarring in left lung base. There is loss of left lung volume with parahilar patchy opacity question postop change versus atelectasis/infiltrate.. There is a left chest tube with its tip left upper lobe medially superior to aortic knob. Heart size is borderline normal pulmonary vascularity is normal. No gross bony abnormality seen. XR/XR chest 1V IMPRESSION: Hypoexpanded lungs with patchy atelectasis and/scarring left lung base. There is a patchy left midlung parahilar patchy opacity, question postop / atelectasis /infiltrate. Electronically signed by: Beto Livingston MD 09/17/2024 11:37 AM [facility]
--- NOTE | ~2024-09-17 | XR_ITS ---
CLINICAL HISTORY: Status post left chest tube removal 1 view chest x-ray Comparison: CR - XR CHEST 1V - 09/18/24 07:22 EST Findings: The left-sided chest tube has been removed. No definite pneumothorax. Evaluation is limited by soft tissue attenuation and underexpansion. Mild interstitial prominence. Stable mildly prominent cardiomediastinal contour. Impression: Interval removal of the left-sided chest tube. No evidence of pneumothorax. The study is limited as detailed. This document has been electronically signed by: Hola Kay MD on 09/18/2024 18:44:10
--- NOTE | ~2024-09-17 | XR_ITS ---
CLINICAL HISTORY: s p left VATS, thymectomy 1 view chest x-ray Comparison: 09/17/2024 Findings: There is increased pulmonary consolidation. The chest including positioning of the chest tube on the left is otherwise unchanged IMPRESSION: 1. Increased pulmonary consolidation. This document has been electronically signed by: Luis Verma MD on 09/18/2024 07:47:49
[2024-09-17] MEDS: Lactated Ringers 1,000 ML 100 ML IVCONT ×2 (07:00→20:00)
--- NOTE | 2024-09-17 07:21 | HO.ANESPROP2 ---
Documented by User: Anjelica Rowley NP 09/14/24 13:27 HPI - Anesthesia Eval Consult details Narrative: 59yo F for Thoracoscopy w/Video Assist thymectomy, 09/17/24 Cardiac optimized per [facility] Pt has know nonobstructive CAD with no reports of chest discomfort. She can proceed with planned surgery with low cardiac risk. Her Aspirin can be held as needed for the surgery and restarted as soon as cleared to do so post procedure. Pulmo optimized per [facility]mo No recent illness No CP. AVALOS for a long time CAD: Stable per recent cardiac Asthma:Albuterol use ~ 1 x weekly DM: Uncontrolled with A1C 11.7. Dr Celeste aware RANJIT: CPAP use occassional, discussed importance of use QHS BMI [address] Mayer Anesthesia Pre-Procedure Meds Is the patient on any of the following meds?: GLP1/DPP4 PMFSH Active Problems Active Problems: All Active Problems Preop pulmonary/respiratory exam (Acute) Abnormal finding on EKG (Acute) Preop cardiovascular exam (Acute) Thymic neoplasm (Acute) Vaginal pruritus (Acute) Morbid obesity with BMI of 40.0-44.9, adult (Acute) Pre-op evaluation (Acute) Mixed hyperlipidemia (Acute) Numbness of left hand (Acute) De Quervain's tenosynovitis, left (Acute) Environmental allergies (Acute) Hyperlipidemia (Acute) Left wrist pain (Acute) Coronary artery disease (Acute) Microalbuminuria (Acute) Encounter for preoperative pulmonary examination (Acute) SOB (shortness of breath) on exertion (Acute) Hospital discharge follow-up (Acute) Cough due to bronchospasm (Acute) Dyspnea on exertion (Acute) YESSI (generalized anxiety disorder) (Acute) Hypertensive urgency (Acute) Syncope (Acute) Mild recurrent major depression (Acute) RUQ abdominal pain (Acute) History of Helicobacter pylori infection (Acute) Adenomatous colon polyp (Acute) Dysphagia, pharyngoesophageal phase (Acute) GERD without esophagitis (Acute) Super obese (Acute) GERD (gastroesophageal reflux disease) (Acute) Asthma (Acute) Renal calculi (Acute) Muscle cramps (Acute) Leukocytosis (Acute) Diabetes mellitus (Acute) Headache (Acute) RANJIT (obstructive sleep apnea) (Acute) Chronic cough (Acute) Essential hypertension (Acute) Mild asthma (Acute) Pure hypercholesterolemia (Acute) Past Medical History Medical History (Updated 09/11/24 @ 10:06 by Polly Nieto RN) Back pain Depression History of headache SOB (shortness of breath) Left leg swelling Anxiety CAD (coronary artery disease) GERD (gastroesophageal reflux disease) Thymic cyst Renal calculi Muscle cramps Leukocytosis Moderate recurrent major depression Asthma Diabetes mellitus Headache RANJIT (obstructive sleep apnea) Morbid obesity with BMI of 45.0-49.9, adult Chronic cough Essential hypertension Mild asthma Pure hypercholesterolemia Family History Family History Father Diabetes Hypertension Mother Hypertension Liver cancer Maternal Grandfather Throat cancer Paternal Grandmother Stomach cancer Family history of problems with anesthesia: No Surgical History Surgical History (Updated 09/11/24 @ 10:06 by Polly Nieto RN) Hx of bilateral cataract extraction Hx of cystoscopy History of esophagogastroduodenoscopy (EGD) History of colonoscopy History of tubal ligation History of section History of Problems with Anesthesia: No Social History Social History (Updated 09/03/24 @ 16:52 by Mitzy Hoang MD) Housing: House Are you a primary inspector health care facilities to a significant other at home: No Do you presently have visiting nurse or other home services: No Alcohol intake: current Alcohol intake frequency: holidays/special occasions only Alcohol type: wine Patient Tobacco Use Status: Never used Tobacco e-Cigarette/Vaping Use: Never Used Second Hand Smoke Exposure: No Use of substances other than those prescribed or required for medical reasons: No Have you been hit, kicked, punched, or otherwise hurt by someone within the past year? 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 Current occupational exposures/hazards: No Cognitive needs: No Hearing needs: No Vision needs: Yes Meds Allergies Allergy/AdvReac Type Severity Reaction Status Date / Time No Known Allergies Allergy Verified 09/03/24 16:45 [No Known Allergies*] Home Medications ?Medication ?Instructions ?Recorded ?Confirmed ?Last Taken ?Type albuterol sulfate 90 mcg/actuation 2 puff inhalation Q4-6H PRN 08/08/20 09/17/24 Unknown History aerosol inhaler Wheezing Zantac mg PO DAILY 09/11/24 Unknown History acetaminophen 650 mg 1,300 mg PO Q12H PRN Pain 09/11/24 09/07/24 Unknown History tablet,extended release (8 Hour Pain Reliever) lidocaine 5 % topical patch 1 patch topical DAILY PRN Pain 09/11/24 09/11/24 Unknown History fluticasone 250 mcg-salmeterol 50 1 inh inhalation DAILY 09/17/24 09/17/24 09/17/24 06:34 History mcg/dose blistr powdr for inhalation (Wixela Inhub) Exam Height,Weight and Vital Signs: Height 5 ft 5 in Weight 117.027 kg Last Vital Signs Pulse 87 09/11/24 10:20 Resp 16 09/11/24 10:20 BP 119/65 09/11/24 10:20 Pulse Ox 95 09/11/24 10:20 O2 Del Method Room Air 09/11/24 10:20 Pertinent Lab Results Pertinent Lab Results: Lab Results 09/11/24 Range/Units 11:11 Blood Type O Positive Antibody Screen NEGATIVE Laboratory Tests 09/01/24 06:57 WBC 10.3 Hgb 13.4 Hct 40.5 Plt Count 348 Sodium 136 Potassium 4.3 Chloride 101 Carbon Dioxide 26 BUN 18 H Creatinine 0.83 Narrative Narrative: EKG 08/2024 Sinus tachycardia, nonspecific ST/ T wave abn inferolateral leads, rate 101, QTc 471ms Echo 08/24/24 Conclusions: - The left ventricular systolic function is normal. The calculated ejection fraction is 63% by biplane method. - No obvious valvular pathology seen on this study. No regional wall motion abnormalities. grade 1 diastolic dysfunction. Nuclear srress test 08/20/24 NM/NM cardiolite stress test Impression: 1. Myocardial perfusion imaging study shows probably normal myocardial perfusion. 2. Gated LVEF is 70% during stress and 66% during rest. 3. Transient ischemic dilatation not present. Airway Mallampati Class: III Neck ROM: Full Loose/Missing/Broken Teeth: Yes (molars extracted) Heart: RRR Lungs: CTAB Assessment and Plan Assessment Anesthesia Assessment: Anesthesia Plan Discussed and PAT Visit Final Anesthetic Review Family History of Problems with Anesthesia: No History of Problems with Anesthesia: No Documented by User: Pat Mayer DO 09/17/24 07:22 HPI - Anesthesia Eval Anesthesia Pre-Procedure Meds Is the patient on any of the following meds?: GLP1/DPP4 PMFSH Past Medical History Medical History (Updated 09/11/24 @ 10:06 by Polly Nieto, RN) Back pain Depression History of headache SOB (shortness of breath) Left leg swelling Anxiety CAD (coronary artery disease) GERD (gastroesophageal reflux disease) Thymic cyst Renal calculi Muscle cramps Leukocytosis Moderate recurrent major depression Asthma Diabetes mellitus Headache RANJIT (obstructive sleep apnea) Morbid obesity with BMI of 45.0-49.9, adult Chronic cough Essential hypertension Mild asthma Pure hypercholesterolemia Family History Family History Father Diabetes Hypertension Mother Hypertension Liver cancer Maternal Grandfather Throat cancer Paternal Grandmother Stomach cancer Family history of problems with anesthesia: No Surgical History Surgical History (Updated 09/11/24 @ 10:06 by Polly Nieto RN) Hx of bilateral cataract extraction Hx of cystoscopy History of esophagogastroduodenoscopy (EGD) History of colonoscopy History of tubal ligation History of section History of Problems with Anesthesia: No Social History Social History (Updated 09/03/24 @ 16:52 by Mitzy Hoang MD) Housing: House Are you a primary inspector health care facilities to a significant other at home: No Do you presently have visiting nurse or other home services: No Alcohol intake: current Alcohol intake frequency: holidays/special occasions only Alcohol type: wine Patient Tobacco Use Status: Never used Tobacco e-Cigarette/Vaping Use: Never Used Second Hand Smoke Exposure: No Use of substances other than those prescribed or required for medical reasons: No Have you been hit, kicked, punched, or otherwise hurt by someone within the past year? 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[employer] Current occupational exposures/hazards: No Cognitive needs: No Hearing needs: No Vision needs: Yes Meds Allergies Allergy/AdvReac Type Severity Reaction Status Date / Time No Known Allergies Allergy Verified 09/03/24 16:45 [No Known Allergies*] Home Medications ?Medication ?Instructions ?Recorded ?Confirmed ?Last Taken ?Type albuterol sulfate 90 mcg/actuation 2 puff inhalation Q4-6H PRN 08/08/20 09/17/24 Unknown History aerosol inhaler Wheezing Zantac mg PO DAILY 09/11/24 Unknown History acetaminophen 650 mg 1,300 mg PO Q12H PRN Pain 09/11/24 09/07/24 Unknown History tablet,extended release (8 Hour Pain Reliever) lidocaine 5 % topical patch 1 patch topical DAILY PRN Pain 09/11/24 09/11/24 Unknown History fluticasone 250 mcg-salmeterol 50 1 inh inhalation DAILY 09/17/24 09/17/24 09/17/24 06:34 History mcg/dose blistr powdr for inhalation (Wixela Inhub) Exam Exam Date and Time: 09/17/24 0720 Height,Weight and Vital Signs: Height 5 ft 5 in Weight 117.027 kg Last Vital Signs Pulse 87 09/11/24 10:20 Resp 16 09/11/24 10:20 BP 119/65 09/11/24 10:20 Pulse Ox 95 09/11/24 10:20 O2 Del Method Room Air 09/11/24 10:20 Vital Signs Pulse Rate 87 09/11/24 10:20 Respiratory Rate 16 09/11/24 10:20 Blood Pressure 119/65 09/11/24 10:20 Pulse Oximetry 95 09/11/24 10:20 Oxygen Delivery Method Room Air 09/11/24 10:20 Temperature 97.7 F 09/17/24 06:47 Pulse Rate 89 09/17/24 06:47 Respiratory Rate 16 09/17/24 06:47 Blood Pressure 126/69 09/17/24 06:47 Pulse Oximetry 91 L 09/17/24 06:47 Oxygen Delivery Method Room Air 09/17/24 06:47 Airway Mallampati Class: III TM Dist: <=3cm Neck ROM: Full Loose/Missing/Broken Teeth: Yes (several missing molars) Heart: S1S2 Assessment and Plan Assessment Anesthesia Assessment: Anesthesia Plan Discussed and Chart Reviewed Final Anesthetic Review Family History of Problems with Anesthesia: No History of Problems with Anesthesia: No NPO: Yes ASA Class: III Final Preanesthetic Review: No Changes in Pt Med Stat, Meds/Allgs Chart Reviewed, Consent Obtained/Reviewed and Anes Risks/Benef Reviewed Patient Risk: Intermediate Procedure Risk: High Anesthetic Plan Anesthetic Plan: GA and Agree w/ Assess. and Plan Disposition: Standard PACU
[2024-09-17 09:21] LABS: Glucose, Whole Blood 179 mg/dL (60-115)
[2024-09-17] MEDS: HYDROmorphone HCl 0.5 MG/0.5 ML SYRINGE IVPUSH ×4 (10:10→20:48)
--- NOTE | 2024-09-17 10:24 | P.OP_ITS ---
Operative Note Operative Note Date of Service: 09/17/24 Narrative: Preoperative diagnosis: [] Thymic mass Postop diagnosis: [] The same Procedure [] bronchoscopy, vats thymectomy, intercostal nerve block with Exparel Surgeon: [] [employer] Millwright: [] Ventura Herron Type of Anesthesia: [] General Indication for surgery: [] Infra mediastinal mass. Intraoperative findings demonstrated isolated roughly 2.5 cm anterior mediastinal mass the area of thymic gland. No other gross pathology or studying demonstrated. Bronchoscopy demonstrated no endoluminal pathology and was also used to assist anesthesia in the placement of double-lumen tube. Findings: [] Patient brought to the operating room, placed on operative table supine position, after an adequate level of double-lumen general anesthesia was induced, bronchoscopy was performed with findings as noted above. Patient was then placed in modified right lateral decubitus position with the arm draped above the had an appropriately and safely secured. Chest and upper abdomen were prepped and draped in usual sterile fashion. Using a working camera port in the mammary fold at the anterior axillary line, this was followed by placement of a posterior working port and a subxiphoid port placed under direct fluoro scopic view. Patient was placed in reverse Trendelenburg position with findings as noted above. Left phrenic nerve was identified and the pleura medial to this was scored up to the retro sternal area, just medial to the left internal mammary artery.. The thymic mass was then dissected off the pericardium using ligature device. The retrosternal areolar tissue was then taken down to the level of the left innominate vein. Thymic gland/mass was then dissected off of the innominate vein with using ligature to secured hemostasis of venous tributaries. This was carried to the right side were similarly the loose areolar tissue was dissected down to the level of the right internal mammary gland and the thymic gland completely freed, placed in an Endo-Catch bag, a retrieved through the subxiphoid port. Chest cavity was irrigated secured hemostasis. Ports removed under direct laparoscopic view. Chest tube was placed in the upper left hemithorax through the camera port and secured to the skin using 0 silk suture. Wounds were closed in the following manner; subxiphoid port has fascia reapproximated using [id number] 0 Vicryl suture. Skin was closed using interrupted inverted dermal 3-0 Vicryl sutures. Camera port/chest tube site was closed using deep followed by dermal interrupted 2-0 and 3-0 Vicryl sutures respectively. Posterior port site was closed using deep 2-0 followed by dermal 3-0 interrupted Vicryl sutures. Chest tube was connected to Pleur-evac and lung re-expanded with no air leak demonstrated. Steri-Strips and sterile dressings were applied. Patient underwent intercostal nerve block using Exparel at all wound sites. Chest tube connected to Pleur-evac and no significant air leak demonstrated. Postprocedure chest x-ray pending in recovery room. Sponge, needle, and instrument counts reported correct. Patient tolerated the procedure well and emerged from anesthesia stable condition. EBL minimal
--- NOTE | 2024-09-17 14:39 | PHA.MEDREC ---
Pharmacy Consult ? Medication Reconciliation Pharmacy has reviewed med rec done by nursing. Patient knew all her meds when listed. Takes Semaglutide on Saturdays, last dose was the Saturday before last.
[2024-09-17 14:44] LABS: Glucose, Whole Blood 294 mg/dL (60-115)
[2024-09-17] MEDS: Acetaminophen 1,000 MG/100 ML PIGGYBACK 400 MG IV ×2 (15:06→21:19)
[2024-09-17] MEDS: oxyCODONE HCl Immed Release 5 MG TABLET PO (15:06)
[2024-09-17] MEDS: Insulin Lispro 100 UNIT/ML 3 ML VIAL SUBCUT ×2 (15:15→21:20)
[2024-09-17 17:12] LABS: Glucose, Whole Blood 252 mg/dL (60-115)
--- NOTE | 2024-09-17 18:52 | P.CONHOSP_ITS ---
History of Present Illness Data of Consult Service Date: 09/17/24 Primary Care Provider: Mitzy Hoang MD [facility] Reason for consult: Medical management Pt is a 59-year-old female with a PMH significant for HTN, HLD, nonobstructive CAD, unspecified asthma, pulmonary hypertension, and RANJIT on CPAP who is admitted to the hospital under Thoracic surgery for elective mediastinal thymoma excision. Hospitalist consult for medical management. POD0. Pt complains of poorly controlled left-sided chest pain radiating to abdomen and back, particularly with inspiration and coughing. Pt has chest tube in place s/p Th oracic surgery. Denies fever, chills, nausea, vomiting. No chest pressure or palpitations. Review of Systems Review of Systems: Negative except for that which is stated in the HPI [facility] Medical History Back pain Depression History of headache SOB (shortness of breath) Left leg swelling Anxiety CAD (coronary artery disease) GERD (gastroesophageal reflux disease) Thymic cyst Renal calculi Muscle cramps Leukocytosis Moderate recurrent major depression Asthma Diabetes mellitus Headache RANJIT (obstructive sleep apnea) Morbid obesity with BMI of 45.0-49.9, adult Chronic cough Essential hypertension Mild asthma Pure hypercholesterolemia Family History Father Diabetes Hypertension Mother Hypertension Liver cancer Maternal Grandfather Throat cancer Paternal Grandmother Stomach cancer Surgical History Hx of bilateral cataract extraction Hx of cystoscopy History of esophagogastroduodenoscopy (EGD) History of colonoscopy History of tubal ligation History of section Social History Housing: House Are you a primary career and transition teacher to a significant other at home: No Do you presently have visiting nurse or other home services: No Alcohol intake: current Alcohol intake frequency: holidays/special occasions only Alcohol type: wine Comment: due at 7pm for oxycodone Patient Tobacco Use Status: Never used Tobacco e-Cigarette/Vaping Use: Never Used Second Hand Smoke Exposure: No Advance Directives Date on File: 08/21/21 service: No Current occupational status: employed 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 Current occupational exposures/hazards: No Cognitive needs: No Hearing needs: No Vision needs: Yes Meds Allergies Allergy/AdvReac Type Severity Reaction Status Date / Time No Known Allergies Allergy Verified 09/03/24 16:45 [No Known Allergies*] Active Medications: Current Medications Albuterol Sulfate (Albuterol Sulfate 90 Mcg 8 Gm Inhaler) 2 puff INHALE Q4H PRN PRN Reason: Wheezing Aspirin (Aspirin Enteric Coated 81 Mg Tablet.Dr) 81 mg PO DAILY [facility] Atorvastatin Calcium (Atorvastatin Calcium 80 Mg Tablet) 80 mg PO BEDTIME [facility] Calcium Carbonate (Calcium Carbonate 750 Mg Tab.Chew) 750 mg PO Q4H PRN PRN Reason: Heartburn Cyclobenzaprine HCl (Cyclobenzaprine Hcl 10 Mg Tablet) 10 mg PO TID PRN PRN Reason: muscle spasm Fenofibrate (Fenofibrate 160 Mg Tablet) 160 mg PO DAILY [facility] Fluticasone/Vilanterol (Fluticasone/Vilanterol 100/25 Blst.W.Dev) 1 puff INHALE RDAILY [facility] Glucose (Glucose Gel 15 Gm Gel..Gram.) 15 gm PO Q15M PRN; Protocol PRN Reason: per Hypoglycemia Standing Ord. Hydrochlorothiazide (Hydrochlorothiazide 25 Mg Tablet) 25 mg PO DAILY [facility]; Protocol Hydromorphone HCl (Hydromorphone Hcl 0.5 Mg/0.5 Ml Syringe) 0.5 mg IVPUSH Q4H PRN; Protocol PRN Reason: Pain, Severe (Pain Scale 7-10) Lactated Ringer's (Lr) 1,000 mls @ 100 mls/hr IVCONT .Q10H [facility] Last Admin: 09/17/24 18:44 Dose: Not Given Acetaminophen (Ofirmev) 1,000 mg in 100 mls @ 400 mls/hr IV Q6H [facility] Last Infusion: 09/17/24 18:43 Dose: Infused Dextrose (D10) 250 mls @ 750 mls/hr IV Q15M PRN; Protocol PRN Reason: per Hypoglycemia Standing Ord. Insulin Human Lispro (Insulin Lispro 100 Unit/Ml 3 Ml Vial) 0 unit SUBCUT QIDACHS [facility]; Protocol Last Admin: 09/17/24 17:00 Dose: Not Given Lidocaine (Lidocaine 4 % Patch Adh..Patch) 1 patch TRANSDERMA DAILY PRN PRN Reason: Pain Lisinopril (Lisinopril 20 Mg Tablet) 20 mg PO DAILY [facility]; Protocol Magnesium Hydroxide (Milk Of Magnesia 30 Ml Oral.Susp) 30 ml PO DAILY PRN PRN Reason: Constipation Melatonin (Melatonin 3 Mg Tablet) 6 mg PO BEDTIME PRN PRN Reason: Insomnia Non-Formulary Medication (Potassium Citrate) 20 meq PO BID [facility] Oxycodone HCl (Oxycodone Hcl Immed Release 5 Mg Tablet) 5 mg PO Q4H PRN PRN Reason: Pain, Moderate(Pain Scale 4-6) Last Admin: 09/17/24 15:06 Dose: 5 mg Sodium Chloride (0.9 % Sodium Chloride Flush 3 Ml Syringe) 3 ml IVFLUSH QSHIFT [facility] Last Admin: 09/17/24 18:43 Dose: Not Given Vitamin D (Cholecalciferol (Vitamin D3) 25 Mcg Tablet) 50 mcg PO DAILY [facility] Home Medications ?Medication ?Instructions ?Recorded ?Confirmed ?Last Taken ?Type albuterol sulfate 90 mcg/actuation 2 puff inhalation Q4-6H PRN 08/08/20 09/17/24 Unknown History aerosol inhaler Wheezing Zantac mg PO DAILY 09/11/24 Unknown History acetaminophen 650 mg 1,300 mg PO Q12H PRN Pain 09/11/24 09/07/24 Unknown History tablet,extended release (8 Hour Pain Reliever) lidocaine 5 % topical patch 1 patch topical DAILY PRN Pain 09/11/24 09/11/24 Unknown History fluticasone 250 mcg-salmeterol 50 1 inh inhalation DAILY 09/17/24 09/17/24 09/17/24 06:34 History mcg/dose blistr powdr for inhalation (Wixela Inhub) Physical Exam Vital Signs and Narrative: Vital Signs: Last Vital Signs Temp 97.2 F 09/17/24 18:15 Pulse 101 H 09/17/24 18:15 Resp 16 09/17/24 14:25 BP 149/89 H 09/17/24 15:55 Pulse Ox 94 09/17/24 18:15 O2 Del Method Nasal Cannula 09/17/24 18:15 O2 Flow Rate 2 09/17/24 18:15 BMI result Body Mass Index 42.1 General: AOx3, no acute distress Resp: CTA bilaterally, shallow breathing secondary to pain. Chest tube in place CVS: S1, S2, regular rhythm, tachycardic GI: +BS, no distention, mild left-sided tenderness Skin: Warm, dry Neuro: Cranial nerves II-XII grossly intact bilaterally. Motor grossly intact bilaterally Extremities: No edema Psych: Appropriate affect Results Labs Labs: Laboratory Results - last 24 hr 09/17/24 09/17/24 09/17/24 07:01 14:39 17:05 POC Glucose 179 H 294 H 252 H Imaging Radiologist's Impressions: Impressions Chest X-Ray 09/17/24 09:43 IMPRESSION: Hypoexpanded lungs with patchy atelectasis and/scarring left lung base. There is a patchy left midlung parahilar patchy opacity, question postop / atelectasis /infiltrate. Electronically signed by: Beto Livingston MD 09/17/2024 11:37 AM EST Assessment and Plan (1) Thymic neoplasm: Status: Acute Plan Pt is a 59-year-old female with a PMH significant for HTN, HLD, nonobstructive CAD, unspecified asthma, pulmonary hypertension, and RANJIT on CPAP who is admitted to the hospital under Thoracic surgery for elective mediastinal thymoma excision. Hospitalist consult for medical management. POD0. Mediastinal thymoma S/p thymectomy, POD0 Pt complains poorly controlled left-sided chest pain associated with inspiration and cough Plan as per Thoracic surgery Unspecified asthma Not in acute exacerbation Continue home inhalers Nonobstructive CAD Continue statin, fenofibrate Continue aspirin as per Thoracic surgery [id number] type 2 diabetes Hold metformin Continue Lantus Place on sliding scale insulin Diabetic diet HTN Continue lisinopril, hydrochlorothiazide Thank you for allowing us to participate in the care of this pt. Will continue to follow along with you.
[2024-09-17 20:01] LABS: Glucose, Whole Blood 274 mg/dL (60-115)
[2024-09-17] MEDS: Atorvastatin Calcium 80 MG TABLET PO (20:48)
[2024-09-17] MEDS: 0.9 % Sodium Chloride Flush 3 ML SYRINGE IVFLUSH (20:50)
[2024-09-18] VITALS (7 sets, daily range): BP systolic 119–157; BP diastolic 63–78; PULSE 80–89; RESP 16–20; TEMP 36–36.9; O2SAT 86–96
[2024-09-18] MEDS: HYDROmorphone HCl 0.5 MG/0.5 ML SYRINGE IVPUSH ×2 (02:36→08:54)
[2024-09-18] MEDS: Acetaminophen 1,000 MG/100 ML PIGGYBACK 400 MG IV ×4 (02:36→21:34)
[2024-09-18] MEDS: Lactated Ringers 1,000 ML 100 ML IVCONT (06:43)
[2024-09-18 07:09] LABS: MANUAL DIFF FLAG NO
[2024-09-18 07:20] LABS: Basophils Percent Auto 0.2 % (0-2); Eosinophils Absolute Auto 0.1 X10*3/uL (0.0-0.4); Eosinophils Percent Auto 0.5 % (0-4); Hematocrit 39.1 % (37.0-47.0); Hemoglobin 12.5 g/dl (12.0-16.0); Imm Gran Abs Auto 0.08 X10*3/uL (0.00-0.03); Imm Gran Pct Auto 0.5 % (0.0-0.4); Lymphocytes Absolute Auto 2.8 X10*3/uL (1.2-4.9); Lymphocytes Percent Auto 18.3 % (20-40); Mean Corpuscular Hemoglobin 28.7 pg (27.0-33.0); Mean Corpuscular Volume 89.9 fL (80.0-98.0); Mean Platelet Volume 10.8 fL (9.4-12.3); Monocytes Percent Auto 6.5 % (2-11); Neutrophils Absolute Auto 11.2 x10*3/uL (2.0-8.3); Platelet Count 382 X10*3/uL (160-400); Red Blood Count 4.35 X10*6/uL (4.20-5.50); Red Cell Distribution Width 12.5 % (11.0-16.0); White Blood Count 15.1 X10*3/uL (4.8-10.8)
[2024-09-18 07:25] LABS: Anion Gap 15 (12-20); Blood Urea Nitrogen 20 mg/dL (9-16); Calcium 9.2 mg/dL (8.4-10.2); Carbon Dioxide 24 mmol/L (22-29); Chloride 103 mmol/L (96-108); Creatinine Clr Calc Pharmacy 91.1; Estimated Glomerular Filt Rate > 60; Glucose Fasting 163 mg/dL (60-99); Potassium 4.7 mmol/L (3.3-5.1); Sodium 137 mmol/L (135-145)
--- NOTE | 2024-09-18 07:33 | PM.PNGS ---
Subjective Subjective Date of Service: 09/18/24 <Kirill Light - Last Filed: 09/18/24 07:57> 09/18/24 <Yue Whitehead PA-C - Last Filed: 09/18/24 10:17> 09/18/24 <James Celeste MD - Last Filed: 09/18/24 11:46> Interval history: Patient reports that 8/10 surgical site pain on IV tylenol and hydromorphone 0.5mg q4h prn. She states that she has difficulty taking deep breaths due to the pain and is unable to fully use her incentive spirometer. Patient has had PO intake last night, but has not had flatus or passed a BM. She denies any fever, chills, abdominal pain, dysphagia, vomiting or muscle weakness. <Kirill Light - Last Filed: 09/18/24 07:57> Physical Exam Vital Signs: Vital Signs: Last Vital Signs Temp 97.3 F 09/18/24 04:00 Pulse 86 09/18/24 04:00 Resp 16 09/18/24 04:00 BP 122/65 09/18/24 04:00 Pulse Ox 87 L 09/18/24 04:00 O2 Del Method Room Air 09/18/24 04:00 O2 Flow Rate 1 09/17/24 19:23 BMI result Body Mass Index 42.1 <Kirill Light - Last Filed: 09/18/24 07:57> Const: Other: Some difficulty sitting up. <Kirill Light - Last Filed: 09/18/24 07:57> General: alert and awake; No in distress <Kirill Light - Last Filed: 09/18/24 07:57> Resp: Other: No respiratory distress or accessory muscle use. Symmetric rise of chest. Shallow breathing. Mildly decreased breath sounds. No wheezes, crackles or stridor. <Kirill Light - Last Filed: 09/18/24 07:57> Cardio: Rate: regular rate <Kirill Light - Last Filed: 09/18/24 07:57> Rhythm: regular rhythm <Kirill Light Last Filed: 09/18/24 07:57> Heart sounds: S1 normal heart sound present and S2 normal heart sound present <Kirill Light - Last Filed: 09/18/24 07:57> GI: Other: Abdomen soft and non-distended. Active bowel sounds. No tenderness. 420mL of serosanguinous chest-tube drainage. <Kirillroula Light - Last Filed: 09/18/24 07:57> Skin: Other: No discharge around surgical site. <Kirill Nadege - Last Filed: 09/18/24 07:57> Neuro: Motor exam (neuro): 5/5 motor strength present throughout <Kirillroula Light - Last Filed: 09/18/24 07:57> Objective Data Active Medications Albuterol Sulfate (Albuterol Sulfate 90 Mcg 8 Gm Inhaler) 2 puff INHALE Q4H PRN PRN Reason: Wheezing Aspirin (Aspirin Enteric Coated 81 Mg Tablet.Dr) 81 mg PO DAILY [facility] Atorvastatin Calcium (Atorvastatin Calcium 80 Mg Tablet) 80 mg PO BEDTIME [facility] Last Admin: 09/17/24 20:48 Dose: 80 mg Documented By: ARMANDO Calcium Carbonate (Calcium Carbonate 750 Mg Tab.Chew) 750 mg PO Q4H PRN PRN Reason: Heartburn Cyclobenzaprine HCl (Cyclobenzaprine Hcl 10 Mg Tablet) 10 mg PO TID PRN PRN Reason: muscle spasm Fenofibrate (Fenofibrate 160 Mg Tablet) 160 mg PO DAILY [facility] Fluticasone/Vilanterol (Fluticasone/Vilanterol 100/25 Blst.W.Dev) 1 puff INHALE RDAILY [facility] Glucose (Glucose Gel 15 Gm Gel..Gram.) 15 gm PO Q15M PRN; Protocol PRN Reason: per Hypoglycemia Standing Ord. Hydrochlorothiazide (Hydrochlorothiazide 25 Mg Tablet) 25 mg PO DAILY [facility]; Protocol Hydromorphone HCl (Hydromorphone Hcl 0.5 Mg/0.5 Ml Syringe) 0.5 mg IVPUSH Q4H PRN; Protocol PRN Reason: Pain, Severe (Pain Scale 7-10) Last Admin: 09/18/24 02:36 Dose: 0.5 mg Documented By: ARMANDO Lactated Ringer's (Lr) 1,000 mls @ 100 mls/hr IVCONT .Q10H [facility] Last Admin: 09/18/24 06:43 Dose: 100 mls/hr Documented By: ARMANDO Acetaminophen (Ofirmev) 1,000 mg in 100 mls @ 400 mls/hr IV Q6H [facility] Last Infusion: 09/18/24 02:53 Dose: Infused Documented By: ARMANDO Dextrose (D10) 250 mls @ 750 mls/hr IV Q15M PRN; Protocol PRN Reason: per Hypoglycemia Standing Ord. Insulin Glargine (Insulin Glargine,Hum.Rec.Anlog 100 Unit/Ml 10 Ml Vial) 14 unit SUBCUT DAILY [facility] Insulin Human Lispro (Insulin Lispro 100 Unit/Ml 3 Ml Vial) 0 unit SUBCUT QIDACHS [facility]; Protocol Last Admin: 09/17/24 21:20 Dose: 6 unit Documented By: ARMANDO Lidocaine (Lidocaine 4 % Patch Adh..Patch) 1 patch TRANSDERMA DAILY PRN PRN Reason: Pain Lisinopril (Lisinopril 20 Mg Tablet) 20 mg PO DAILY [facility]; Protocol Magnesium Hydroxide (Milk Of Magnesia 30 Ml Oral.Susp) 30 ml PO DAILY PRN PRN Reason: Constipation Melatonin (Melatonin 3 Mg Tablet) 6 mg PO BEDTIME PRN PRN Reason: Insomnia Non-Formulary Medication (Potassium Citrate) 20 meq PO BID [facility] Oxycodone HCl (Oxycodone Hcl Immed Release 5 Mg Tablet) 5 mg PO Q4H PRN PRN Reason: Pain, Moderate(Pain Scale 4-6) Last Admin: 09/17/24 15:06 Dose: 5 mg Documented By: WILLISGELTimo Sodium Chloride (0.9 % Sodium Chloride Flush 3 Ml Syringe) 3 ml IVFLUSH QSHIFT [facility] Last Admin: 09/17/24 20:50 Dose: 3 ml Documented By: ARMANDO Vitamin D (Cholecalciferol (Vitamin D3) 25 Mcg Tablet) 50 mcg PO DAILY [facility] <Kirill Light - Last Filed: 09/18/24 07:57> Labs CBC & Chem 7: 09/18/24 06:24 09/18/24 06:24 <Kirill Light - Last Filed: 09/18/24 07:57> Labs: Laboratory Results - last 24 hr 09/17/24 09/17/24 09/17/24 07:01 14:39 17:05 MCV MCH MCHC RDW Plt Count MPV Immature Gran % (Auto) Neut % (Auto) Lymph % (Auto) [place] % (Auto) Eos % (Auto) Baso % (Auto) Lymph # (Auto) [place] # (Auto) Eos # (Auto) Baso # (Auto) Abs Immat Gran (auto) Absolute Neuts (auto) Absolute Nucleated RBC Nucleated RBC % (auto) Anion Gap Estim Creat Clear Calc Estimated GFR POC Glucose 179 H 294 H 252 H Fasting Glucose Calcium 09/17/24 09/18/24 19:57 06:24 MCV 89.9 MCH 28.7 MCHC 32.0 RDW 12.5 Plt Count 382 MPV 10.8 Immature Gran % (Auto) 0.5 H Neut % (Auto) 74.0 H Lymph % (Auto) 18.3 L [place] % (Auto) 6.5 Eos % (Auto) 0.5 Baso % (Auto) 0.2 Lymph # (Auto) 2.8 [place] # (Auto) 1.0 Eos # (Auto) 0.1 Baso # (Auto) 0.0 Abs Immat Gran (auto) 0.08 H Absolute Neuts (auto) 11.2 H Absolute Nucleated RBC 0.000 Nucleated RBC % (auto) 0.0 Anion Gap 15 Estim Creat Clear Calc 91.1 Estimated GFR > 60 POC Glucose 274 H Fasting Glucose 163 H Calcium 9.2 <Kirill Light - Last Filed: 09/18/24 07:57> Imaging Chest x-ray: Radiologist's impression: Impressions Chest X-Ray 09/17/24 09:43 IMPRESSION: Hypoexpanded lungs with patchy atelectasis and/scarring left lung base. There is a patchy left midlung parahilar patchy opacity, question postop / atelectasis /infiltrate. Electronically signed by: Beto Livingston MD 09/17/2024 11:37 AM [facility] <Kirill Light - Last Filed: 09/18/24 07:57> Procedures Date of Service Date of Service: 09/18/24 <Kirill Light - Last Filed: 09/18/24 07:57> 09/18/24 <Yue Whitehead PA-C - Last Filed: 09/18/24 10:17> 09/18/24 <James Celeste MD - Last Filed: 09/18/24 11:46> Progress Note: A&P Assessment and plan (1) Thymic neoplasm: Status: Acute <Kirill Light - Last Filed: 09/18/24 07:57> Assessment and Plan: (1) Thymic neoplasm: Status: Acute Patient is POD1 s/p thymectomy hx of CAD, NIDDM, asthma and hypertension. She reports 8/10 chest pain causing shallow breathing; otherwise she is afebrile and has clear lungs. . Post-op XR yesterday showed expected hypoexpanded lungs with patchy atelectasis. Chest tube has serosanguinous drainage without evidence of air leaks. Patient has baseline post-op atelectasis complicated by pain. We can consider adjusting analgesic medications and continue to promote incentive spirometry, OOB ambulation and pulmonary toilet. Continue home asthma inhalers. Patient tolerating solid food, diabetic diet. Will continue as tolerated. <Kirill Light - Last Filed: 09/18/24 07:57> (1) Thymic neoplasm: Status: Acute Patient is POD1 s/p thymectomy hx of CAD, NIDDM, asthma and hypertension. She reports 8/10 chest pain causing shallow breathing; otherwise she is afebrile and has clear lungs. . Post-op XR yesterday showed expected hypoexpanded lungs with patchy atelectasis. Chest tube has serosanguinous drainage without evidence of air leaks. Patient has baseline post-op atelectasis complicated by pain. We can consider adjusting analgesic medications and continue to promote incentive spirometry, OOB ambulation and pulmonary toilet. Continue home asthma inhalers. Patient tolerating solid food, diabetic diet. Will continue as tolerated. Agree with above assessment and plan by Kirill Light MS3. Patient POD #1 s/p VATS, thymectomy. Doing fairly well post op. VSS. VATs incisions clean, chest tube intact with serosanguineous output, no air leak. CXR reviewed. Will place chest tube to water seal, likely remove in AM. Encouraged OOB/increasing activity and ambulation today. Incentive spirometer 10x/hr. Pain control. Likely home over the weekend if continues to do well. Pathology pending. <Yue Whitehead PA-C - Last Filed: 09/18/24 10:17> (1) Thymic neoplasm: Status: Acute Patient is POD1 s/p thymectomy hx of CAD, NIDDM, asthma and hypertension. She reports 8/10 chest pain causing shallow breathing; otherwise she is afebrile and has clear lungs. . Post-op XR yesterday showed expected hypoexpanded lungs with patchy atelectasis. Chest tube has serosanguinous drainage without evidence of air leaks. Patient has baseline post-op atelectasis complicated by pain. We can consider adjusting analgesic medications and continue to promote incentive spirometry, OOB ambulation and pulmonary toilet. Continue home asthma inhalers. Patient tolerating solid food, diabetic diet. Will continue as tolerated. Agree with above assessment and plan by Kirill Light MS3. Patient POD #1 s/p VATS, thymectomy. Doing fairly well post op. VSS. VATs incisions clean, chest tube intact with serosanguineous output, no air leak. CXR reviewed. Will place chest tube to water seal, likely remove in AM. Encouraged OOB/increasing activity and ambulation today. Incentive spirometer 10x/hr. Pain control. Likely home over the weekend if continues to do well. Pathology pending. . As noted above <James Celeste MD - Last Filed: 09/18/24 11:46> Time Spent With Patient Time: Total time managing care of this patient today ____ minutes. <Kirill Light - Last Filed: 09/18/24 07:57> Quality Stroke Does the patient have a stroke diagnosis?: No <Yue Whitehead PA-C - Last Filed: 09/18/24 10:17> VTE Prior VTE?: No <Yue Whitehead PA-C - Last Filed: 09/18/24 10:17> VTE Risk Level:: Surgical - low <Kirill Light - Last Filed: 09/18/24 07:57> VTE Device Contraindication: N/A - Device Ordered <Kirill Light - Last Filed: 09/18/24 07:57> VTE Drug Contraindication: Treatment Not Indicated <Kirill Light - Last Filed: 09/18/24 07:57>
[2024-09-18] MEDS: hydroCHLOROthiazide 25 MG TABLET PO (08:47)
[2024-09-18] MEDS: Cholecalciferol (Vitamin D3) 25 MCG TABLET 50 MCG PO (08:47)
[2024-09-18] MEDS: Insulin Glargine,Hum.rec.anlog 100 UNIT/ML 10 ML VIAL 14 UNIT SUBCUT (08:48)
[2024-09-18] MEDS: Fenofibrate 160 MG TABLET PO (08:48)
[2024-09-18] MEDS: lisinopriL 20 MG TABLET PO (08:48)
[2024-09-18] MEDS: Insulin Lispro 100 UNIT/ML 3 ML VIAL SUBCUT ×4 (08:48→21:34)
[2024-09-18] MEDS: Aspirin Enteric Coated 81 MG TABLET.DR PO (08:48)
[2024-09-18] MEDS: 0.9 % Sodium Chloride Flush 3 ML SYRINGE IVFLUSH ×3 (08:49→21:50)
--- NOTE | 2024-09-18 09:33 | MHC.CM.PN ---
Pt lives with her family, she is independent, no home health services, CPAP for DME. HCP is on file and confirmed, her sister Isha. PCP is confirmed: Mitzy Hoang. Pt. can arrange transport home at [place]. DCP: home, self care. CM to follow for DC needs.
[2024-09-18 11:25] LABS: Glucose, Whole Blood 165 mg/dL (60-115)
[2024-09-18 11:46] LABS: Glucose, Whole Blood 157 mg/dL (60-115)
[2024-09-18] MEDS: oxyCODONE HCl Immed Release 5 MG TABLET PO ×2 (12:06→21:32)
[2024-09-18 15:32] LABS: Glucose, Whole Blood 202 mg/dL (60-115)
--- NOTE | 2024-09-18 19:54 | HO.PM.IMPN ---
Subjective Subjective Date of Service: 09/18/24 Interval History: Follow-up for pt admitted to thoracic surgery services for elective mediastinal thymoma excision Pt reports pain much better controlled now that chest tube has been removed Still is experiencing chest pain with inspiration Otherwise no acute medical complaints Has been using inspiratory spirometry No nausea, vomiting, abdominal pain Diet has been advanced Review of Systems Negative except for that which is stated in the HPI Physical Exam Vital Signs: Vital Signs: Last Vital Signs Temp 97.9 F 09/18/24 15:21 Pulse 83 09/18/24 15:21 Resp 18 09/18/24 15:21 BP 130/63 09/18/24 15:21 Pulse Ox 92 09/18/24 15:21 O2 Del Method Nasal Cannula 09/18/24 15:21 O2 Flow Rate 1 09/18/24 15:21 BMI result Body Mass Index 42.1 General: AOx3, no acute distress Resp: CTA bilaterally CVS: S1, S2, RRR Chest: Anterior chest wall and left side tenderness GI: +BS, NT, no distention Skin: Warm, dry Neuro: Cranial nerves II-XII grossly intact bilaterally. Motor grossly intact bilaterally Extremities: No edema Psych: Appropriate affect Objective Data Active Medications Albuterol Sulfate (Albuterol Sulfate 90 Mcg 8 Gm Inhaler) 2 puff INHALE Q4H PRN PRN Reason: Wheezing Aspirin (Aspirin Enteric Coated 81 Mg Tablet.Dr) 81 mg PO DAILY [facility] Last Admin: 09/18/24 08:48 Dose: 81 mg Documented By: FOX Atorvastatin Calcium (Atorvastatin Calcium 80 Mg Tablet) 80 mg PO BEDTIME [facility] Last Admin: 09/17/24 20:48 Dose: 80 mg Documented By: ARMANDO Calcium Carbonate (Calcium Carbonate 750 Mg Tab.Chew) 750 mg PO Q4H PRN PRN Reason: Heartburn Cyclobenzaprine HCl (Cyclobenzaprine Hcl 10 Mg Tablet) 10 mg PO TID PRN PRN Reason: muscle spasm Fenofibrate (Fenofibrate 160 Mg Tablet) 160 mg PO DAILY [facility] Last Admin: 09/18/24 08:48 Dose: 160 mg Documented By: FOX Fluticasone/Vilanterol (Fluticasone/Vilanterol 100/25 Blst.W.Dev) 1 puff INHALE RDAILY [facility] Last Admin: 09/18/24 08:15 Dose: Not Given Documented By: KRISH Non-Admin Reason: Med Not Available Glucose (Glucose Gel 15 Gm Gel..Gram.) 15 gm PO Q15M PRN; Protocol PRN Reason: per Hypoglycemia Standing Ord. Hydrochlorothiazide (Hydrochlorothiazide 25 Mg Tablet) 25 mg PO DAILY [facility]; Protocol Last Admin: 09/18/24 08:47 Dose: 25 mg Documented By: FOX Hydromorphone HCl (Hydromorphone Hcl 0.5 Mg/0.5 Ml Syringe) 0.5 mg IVPUSH Q4H PRN; Protocol PRN Reason: Pain, Severe (Pain Scale 7-10) Last Admin: 09/18/24 08:54 Dose: 0.5 mg Documented By: FOX Acetaminophen (Ofirmev) 1,000 mg in 100 mls @ 400 mls/hr IV Q6H [facility] Last Infusion: 09/18/24 14:58 Dose: Infused Documented By: FOX Dextrose (D10) 250 mls @ 750 mls/hr IV Q15M PRN; Protocol PRN Reason: per Hypoglycemia Standing Ord. Insulin Glargine (Insulin Glargine,Hum.Rec.Anlog 100 Unit/Ml 10 Ml Vial) 16 unit SUBCUT DAILY [facility] Insulin Human Lispro (Insulin Lispro 100 Unit/Ml 3 Ml Vial) 0 unit SUBCUT QIDACHS [facility]; Protocol Last Admin: 09/18/24 17:23 Dose: 4 unit Documented By: JENN Lidocaine (Lidocaine 4 % Patch Adh..Patch) 1 patch TRANSDERMA DAILY PRN PRN Reason: Pain Lisinopril (Lisinopril 20 Mg Tablet) 20 mg PO DAILY [facility]; Protocol Last Admin: 09/18/24 08:48 Dose: 20 mg Documented By: FOX Magnesium Hydroxide (Milk Of Magnesia 30 Ml Oral.Susp) 30 ml PO DAILY PRN PRN Reason: Constipation Melatonin (Melatonin 3 Mg Tablet) 6 mg PO BEDTIME PRN PRN Reason: Insomnia Non-Formulary Medication (Potassium Citrate) 20 meq PO BID [facility] Oxycodone HCl (Oxycodone Hcl Immed Release 5 Mg Tablet) 5 mg PO Q4H PRN PRN Reason: Pain, Moderate(Pain Scale 4-6) Last Admin: 09/18/24 12:06 Dose: 5 mg Documented By: FOX Comments: Sodium Chloride (0.9 % Sodium Chloride Flush 3 Ml Syringe) 3 ml IVFLUSH QSHIFT [facility] Last Admin: 09/18/24 17:48 Dose: 3 ml Documented By: MARGOT Vitamin D (Cholecalciferol (Vitamin D3) 25 Mcg Tablet) 50 mcg PO DAILY [facility] Last Admin: 09/18/24 08:47 Dose: 50 mcg Documented By: FOX Labs 09/18/24 06:24 09/18/24 06:24 Labs: Laboratory Results - last 24 hr 09/17/24 09/18/24 09/18/24 19:57 06:24 08:15 MCV 89.9 MCH 28.7 MCHC 32.0 RDW 12.5 Plt Count 382 MPV 10.8 Immature Gran % (Auto) 0.5 H Neut % (Auto) 74.0 H Lymph % (Auto) 18.3 L [place] % (Auto) 6.5 Eos % (Auto) 0.5 Baso % (Auto) 0.2 Lymph # (Auto) 2.8 [place] # (Auto) 1.0 Eos # (Auto) 0.1 Baso # (Auto) 0.0 Abs Immat Gran (auto) 0.08 H Absolute Neuts (auto) 11.2 H Absolute Nucleated RBC 0.000 Nucleated RBC % (auto) 0.0 Anion Gap 15 Estim Creat Clear Calc 91.1 Estimated GFR > 60 POC Glucose 274 H 165 H Fasting Glucose 163 H Calcium 9.2 09/18/24 09/18/24 11:41 15:25 MCV MCH MCHC RDW Plt Count MPV Immature Gran % (Auto) Neut % (Auto) Lymph % (Auto) [place] % (Auto) Eos % (Auto) Baso % (Auto) Lymph # (Auto) [place] # (Auto) Eos # (Auto) Baso # (Auto) Abs Immat Gran (auto) Absolute Neuts (auto) Absolute Nucleated RBC Nucleated RBC % (auto) Anion Gap Estim Creat Clear Calc Estimated GFR POC Glucose 157 H 202 H Fasting Glucose Calcium Assessment and Plan (1) Thymic neoplasm: Status: Acute Plan Pt is a 59-year-old female with a PMH significant for HTN, HLD, nonobstructive CAD, unspecified asthma, pulmonary hypertension, and RANJIT on CPAP who is admitted to the hospital under Thoracic surgery for elective mediastinal thymoma excision. Hospitalist consult for medical management. POD1. Mediastinal thymoma S/p thymectomy, POD1 Pain better controlled now that chest tube has been removed Pt is still complaining of left-sided chest pain associated with deep inspiration Plan as per Thoracic surgery Unspecified asthma Not in acute exacerbation Continue home inhalers Nonobstructive CAD Continue statin, fenofibrate Continue aspirin as per Thoracic surgery Ohk-[id number] type 2 diabetes Hold metformin Continue Lantus Place on sliding scale insulin Diabetic diet HTN Continue lisinopril, hydrochlorothiazide Thank you for allowing us to participate in the care of this pt. Pt appears stable with BP and blood sugars reasonably well-controlled. Will sign off for now. Please re-consult if any acute issue or need arises. Quality Stroke Does the patient have a stroke diagnosis?: No VTE Prior VTE?: No VTE Risk Level:: Surgical - low VTE Device Contraindication: N/A - Device Ordered VTE Drug Contraindication: Treatment Not Indicated
[2024-09-18] MEDS: Atorvastatin Calcium 80 MG TABLET PO (21:30)
[2024-09-18 21:32] LABS: Glucose, Whole Blood 172 mg/dL (60-115)
[2024-09-19] VITALS (10 sets, daily range): BP systolic 111–152; BP diastolic 69–86; PULSE 82–127; RESP 18–20; TEMP 36.4–36.7; O2SAT 76–97
[2024-09-19] MEDS: Acetaminophen 1,000 MG/100 ML PIGGYBACK 400 MG IV ×2 (04:06→09:06)
[2024-09-19] MEDS: oxyCODONE HCl Immed Release 5 MG TABLET PO (04:12)
[2024-09-19 07:26] LABS: Glucose, Whole Blood 149 mg/dL (60-115)
[2024-09-19] MEDS: lisinopriL 20 MG TABLET PO (09:05)
[2024-09-19] MEDS: Fenofibrate 160 MG TABLET PO (09:05)
[2024-09-19] MEDS: Insulin Glargine,Hum.rec.anlog 100 UNIT/ML 10 ML VIAL 16 UNIT SUBCUT (09:06)
[2024-09-19] MEDS: hydroCHLOROthiazide 25 MG TABLET PO (09:06)
[2024-09-19] MEDS: Aspirin Enteric Coated 81 MG TABLET.DR PO (09:06)
[2024-09-19] MEDS: Cholecalciferol (Vitamin D3) 25 MCG TABLET 50 MCG PO (09:06)
[2024-09-19] MEDS: 0.9 % Sodium Chloride Flush 3 ML SYRINGE IVFLUSH (09:07)
[2024-09-19 11:25] LABS: Glucose, Whole Blood 198 mg/dL (60-115)
[2024-09-19] MEDS: Fluticasone/Vilanterol 100/25 BLST.W.DEV 1 PUFF INHALE (11:36)
[2024-09-19] MEDS: Insulin Lispro 100 UNIT/ML 3 ML VIAL SUBCUT (12:03)
--- NOTE | 2024-09-19 14:10 | PM.PNTS ---
Subjective Subjective Date of Service: 09/19/24 Interval history: Uneventful evening. Patient's nurse said the patient when ambulating had some mild desaturation. Patient was self states that she is dyspneic at home and this is not new for her. Supplemental oxygen 2 L was applied. Sats are uneventful. Patient has no labored respirations. Physical Exam Vital Signs: Vital Signs: Last Vital Signs Temp 97.5 F 09/19/24 11:27 Pulse 93 09/19/24 11:40 Resp 18 09/19/24 11:40 BP 111/69 09/19/24 11:27 Pulse Ox 97 09/19/24 11:27 O2 Del Method Nasal Cannula 09/19/24 11:27 O2 Flow Rate 2 09/19/24 11:27 BMI result Body Mass Index 42.1 Chest: Other: All incisions clean dry and intact Procedures Date of Service Date of Service: 09/19/24 Progress Note: A&P Assessment and plan (1) Status post thymectomy: Status: Acute Plan Current plan is discharge patient home with supplemental oxygen status post respiratory was suggestion. Patient was been given local instructions which were reviewed and she will see me in the office as directed or p.r.n.. All questions answered. Time Spent With Patient Time: Total time managing care of this patient today ____ minutes. Quality Stroke Does the patient have a stroke diagnosis?: No VTE Prior VTE?: No VTE Risk Level:: Surgical - low VTE Device Contraindication: N/A - Device Ordered VTE Drug Contraindication: Treatment Not Indicated
--- NOTE | 2024-09-19 14:19 | MHC.CM.PN ---
Patient has been medically cleared for dc to home today, self care.
--- NOTE | 2024-09-19 16:17 | PM.DS ---
DS: Providers Provider Date of Service: 09/19/24 Date of admission: 09/17/24 07:12 Date of discharge: 09/19/24 Primary care physician: Mitzy Hoang MD Attending physician on admission: James Celeste Consults: 09/17/24 15:00 Consult to Hospitalist Routine Comment: Consulting Provider: [facility] Reason For Exam: severe RANJIT, asthma, HTN, s/p VATS Attending physician on discharge: James Celeste DS: Diagnosis Discharge Diagnosis (1) Status post thymectomy: Status: Acute DS: Summary Hospital Course Hospital Course: HPI AT ADMISSION: Patient presents with a significant other for evaluation of anterior mediastinal mass/thymoma. She was being evaluated in the emergency department for unrelated/back issues and CT scan which was subsequently followed by MRI scan demonstrated anterior mediastinal mass consistent with thymoma. Patient has no history of myasthenia gravis. She has no other chest wall discomfort. Chart was reviewed and patient evaluated. Patient was a few comorbidities which were reviewed. The risks, benefits, alternatives of conservative therapy and surgical excision by VATs possible open procedure were reviewed and she elected to proceed with surgery. She now presents for the planned procedure. HOSPITAL COURSE: On 09/17/24, bronchoscopy, vats thymectomy, intercostal nerve block with Exparel was performed by Dr. Celeste without immediate complications. The patient tolerated the procedure well and was admitted to the medical/telemetry floor following. Hospitalist consult was obtained for management of her medical comorbidities. She had an uncomplicated post operative course. On POD #1, she was doing well with good pain control. She was tolerating a solid diet. CXR showed the left lung was up. She was ambulated. Her chest tube had scant serosanguineous output and no air leak. Her chest tube was placed to water seal and then removed the later that day and occlusive dressing placed. The following day she continued to do well. She did desaturate with some mild dyspnea and was placed on supplemental O2 via NC with improvement. She had a home O2 eval and was sent home on 2L via NC with ambulation. She felt well with good pain control and remained hemodynamically stable. Her incisions were clean. She was discharged to home on 09/19/24 on supplemental O2 with VNA services for dressing changes at the chest tube site every other day. Status at Discharge Functional status at discharge: independent ambulation Overall status at discharge: patient is progressing back to baseline Time Attestation Discharge Coordination Time (in mins): 40 Quality: Safe Use of Opioids Does Pt have an Active Cancer Diagnosis on the Problem List?: No Quality: Stroke Does the patient have a stroke diagnosis?: No Physical Exam Vital Signs: Vital Signs: Last Vital Signs Temp 97.5 F 09/19/24 11:27 Pulse 93 09/19/24 11:40 Resp 18 09/19/24 11:40 BP 111/69 09/19/24 11:27 Pulse Ox 97 09/19/24 11:27 O2 Del Method Nasal Cannula 09/19/24 11:27 O2 Flow Rate 2 09/19/24 11:27 BMI result Body Mass Index 42.1 Const: Orientation/consciousness: patient oriented x3 Chest: Other: incision sites clean chest tube site dressing clean and intact Resp: Effort & Inspection: normal respiratory effort, able to speak in complete sentences and not tachypneic Neuro: General: patient oriented x3 and moves all extremities DS: Data Data Completed and Pending Pending studies at discharge: Pending at discharge 09/17/24 09:04 Surgical [PTH] Routine Labs on day of discharge: Laboratory Results - last 24 hr 09/17/24 09:04 Leuk/Lym Interpretation See Note Discharge Plan Discharge Anticipated Discharge Date/Time: 09/19/24 14:12 Patient Disposition: Home, Self-Care Discharge Diagnosis: Thymic mass Referrals: Mitzy Zhao MD [Primary Care Provider] - 1 Week James Celeste MD [Physician] - 1 Week Discharge Medications: New hydrocodone-acetaminophen 5-325 mg tablet 1 tab PO Q4-6H PRN (Reason: pain) Qty: 30 0RF Rx Instructions: Partial Fill upon patient request. Continued (DME) blood pressure monitor Kit See Rx Instructions .Route Qty: 1 0RF Rx Instructions: As directed potassium citrate 10 mEq (1,080 mg) tablet extended release 20 meq PO BID 90 Days Qty: 360 1RF hydrochlorothiazide 25 mg tablet 25 mg PO DAILY 90 Days Qty: 90 1RF acetaminophen [8 Hour Pain Reliever] 650 mg tablet extended release 1,300 mg PO Q12H PRN (Reason: Pain) lidocaine 5 % adhesive patch,medicated 1 patch topical DAILY PRN (Reason: Pain) Rx Instructions: leave on most painful area for up to 12 hrs Zantac PO DAILY fluticasone propion-salmeterol [Wixela Inhub] 250-50 mcg/dose blister with device 1 inh inhalation DAILY albuterol sulfate 90 mcg/actuation HFA aerosol inhaler 2 puff inhalation Q4-6H PRN (Reason: Wheezing) cyclobenzaprine 10 mg tablet 10 mg PO TID PRN (Reason: muscle spasm) Qty: 10 0RF (DME) Blood Pressure Cuff Misc See Rx Instructions .Route Qty: 1 0RF Rx Instructions: As directed, monitor BP 2-3 a day, and creat a log (DME) blood-glucose meter [FreeStyle Lite Meter] Kit See Rx Instructions .Route Qty: 1 0RF Rx Instructions: As directed (DME) FreeStyle Lite Strips Strip See Rx Instructions .Route Qty: 100 3RF Rx Instructions: Use 1 test strip once a day (DME) lancets [FreeStyle Lancets] 28 gauge misc See Rx Instructions .Route Qty: 100 3RF Rx Instructions: Use 1 lancet once a day fenofibrate 160 mg tablet 160 mg PO DAILY 90 Days Qty: 90 2RF cholecalciferol (vitamin D3) 50 mcg (2,000 unit) capsule 50 mcg PO DAILY 90 Days Qty: 90 1RF lisinopril 20 mg tablet 20 mg PO DAILY Qty: 90 3RF metformin 1,000 mg tablet 1,000 mg PO BID 90 Days Qty: 180 1RF insulin degludec [Tresiba FlexTouch U-100] 100 unit/mL (3 mL) insulin pen 20 unit subcut DAILY 90 Days Qty: 18 3RF atorvastatin 80 mg tablet 80 mg PO BEDTIME 90 Days Qty: 90 1RF aspirin 81 mg tablet,delayed release (DR/EC) 81 mg PO DAILY Qty: 90 3RF Ozempic 0.25 mg or 0.5 mg (2 mg/3 mL) pen injector 0.25 mg subcut QWEEK 28 Days Qty: 1.472 0RF Patient Comments: patient takes on Saturday Rx Instructions: for 4 weeks Discharge Orders: Discharge Order (Routine); Ordered 09/19/24 Ordered By: James Celeste Diet: Advance to usual diet Activity on Discharge: No heavy lifting Stand Alone Forms: Patient Portal Discharge page Print Language: Indonesian Activity Restrictions/Additional Instructions: Ice to wound 20 minutes several times today and tomorrow. May shower in 2 days. Remove outside dressing only. Leave Steri-Strips intact. No strenuous activities Care Plan Goals: Convalescence from surgery Health Concerns: No new issues Plan of Treatment: Returned to baseline Assessment: Status Discharge Date/Time: 09/19/24 15:41
== END 2024-09-19 15:41 | disposition home or self-care (01) | DRG 828 ==
LOC: HO.SSSA 07:13 → HO.IMC 14:00
PROVIDERS: Pathology Anatomic Pathology & Clinical Pathology; Physician Assistant Surgical; Admitting Provider Surgery; PCP Internal Medicine; Visit Provider Surgery
DX: D49.89 Neoplasm of unspecified behavior of other specified sites (principal); I25.10 Atherosclerotic heart disease of native coronary artery without angina pectoris; I10 Essential (primary) hypertension; J45.909 Unspecified asthma, uncomplicated; G47.33 Obstructive sleep apnea (adult) (pediatric); I27.20 Pulmonary hypertension, unspecified; E78.5 Hyperlipidemia, unspecified; Z79.82 Long term (current) use of aspirin; Z79.51 Long term (current) use of inhaled steroids; Z79.84 Long term (current) use of oral hypoglycemic drugs; Z79.899 Other long term (current) drug therapy
CPT/HCPCS: 36415; 71045; 80048; 82947; 85025; 86850; 86900; 86901; 88184; 88185; 88307; 88341; 88342; 94640; A7041; J0131; J0665; J0666; J0690; J1100; J1171; J2003; J2250; J2371; J2405; J2704; J3010; J7120

== ENCOUNTER 2024-09-17 07:12 | Outpatient (BNV) | payer OTHER, SELFPAY | END 2024-09-18 07:00 | PROVIDERS: Admitting Provider Surgery; PCP Internal Medicine; Visit Provider Specialist | DX: D49.89 Neoplasm of unspecified behavior of other specified sites (principal) | CPT/HCPCS: 71045 ==

== ENCOUNTER → 2024-09-17 07:12 | Outpatient (BNV) | payer OTHER, SELFPAY | PROVIDERS: Admitting Provider Surgery; PCP Internal Medicine; Visit Provider Student in an Organized Health Care Education/Training Program | DX: D49.89 Neoplasm of unspecified behavior of other specified sites (principal) | CPT/HCPCS: 99222; 99232 ==

== ENCOUNTER → 2024-09-17 07:12 | Outpatient (BNV) | payer OTHER, SELFPAY | PROVIDERS: Admitting Provider Surgery; PCP Internal Medicine; Visit Provider Surgery | DX: Z90.89 Acquired absence of other organs (principal) | CPT/HCPCS: 32673; 99024 ==

== ENCOUNTER 2024-09-28 10:28 | Outpatient (AMB) | payer OTHER, SELFPAY ==
--- NOTE | 2024-09-28 10:33 | MHC.OFFVIS ---
Intake Visit Reasons: S/P VATS thymectomy Intake Note: Patient here s/p bronchoscopy, vats thymectomy, intercostal nerve block with Exparel. Reports incisions healing well. Patient c/o: no longer taking rx pain meds. On O2 tank. Surgery: 09-17-2024 Community Relations Representative Required: No Accompanied by: Son Allergies No Known Allergies [No Known Allergies*] Allergy (Verified 09/28/24 10:38) Medication List - Last Reconciled 09/28/24 by James Celeste MD acetaminophen ER (8 Hour Pain Reliever) 1,300 mg PO Q12H PRN albuterol sulfate 90 mcg/actuation 2 puffs inhalation Q4-6H PRN aspirin 81 mg PO DAILY atorvastatin 80 mg PO BEDTIME 90 days blood pressure monitor As directed blood sugar diagnostic (FreeStyle Lite Strips) Use 1 test strip once a day blood-glucose meter (FreeStyle Lite Meter kit) As directed cholecalciferol (vitamin D3) 50 mcg PO DAILY 90 days cyclobenzaprine 10 mg PO TID PRN fenofibrate 160 mg PO DAILY 90 days fluticasone propion-salmeterol 250-50 mcg/dose (Wixela Inhub) 1 inh inhalation DAILY hydrochlorothiazide 25 mg PO DAILY 90 days lancets (FreeStyle Lancets) Use 1 lancet once a day lidocaine 5% 1 patch topical DAILY PRN lisinopril 20 mg PO DAILY metformin 1,000 mg PO BID 90 days miscellaneous medical supply (Blood Pressure Cuff) As directed, monitor BP 2-3 a day, and creat a log potassium citrate ER 20 mEq (2 x 10 mEq (1,080 mg)) PO BID 90 days semaglutide (Ozempic) 0.25 mg (0.368 mL) subcut QWEEK 4 weeks Tresiba FlexTouch U-100 (insulin degludec) 20 units (0.2 mL) subcut DAILY 90 days NS [Zantac mg PO DAILY] HPI Comments Details: Patient was wants with the family member. She has a moderate amount of incisional discomfort. Patient states she was dyspneic prior to surgery and this is continued postoperatively. She is currently on 2 L oxygen supplementation. She is she is otherwise tolerating her diet. Having regular bowel habits. 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 Please see path report. The entire specimen was removed with no invasion or any gross evidence of adherence to any other surrounding organs. [facility] Medical History (Updated 09/27/24 @ 00:01 by Background Daemon) Back pain Depression History of headache SOB (shortness of breath) Left leg swelling Anxiety CAD (coronary artery disease) GERD (gastroesophageal reflux disease) Thymic cyst Renal calculi Muscle cramps Leukocytosis Moderate recurrent major depression Asthma Diabetes mellitus Headache RANJIT (obstructive sleep apnea) Morbid obesity with BMI of 45.0-49.9, adult Chronic cough Essential hypertension Mild asthma Pure hypercholesterolemia Surgical History (Updated 09/27/24 @ 00:01 by Background Daemon) Status post thymectomy (09/17/24) Hx of bilateral cataract extraction Hx of cystoscopy History of esophagogastroduodenoscopy (EGD) History of colonoscopy History of tubal ligation History of section Family History Father Diabetes Hypertension Mother Hypertension Liver cancer Maternal Grandfather Throat cancer Paternal Grandmother Stomach cancer Social History Household Members: Spouse and Children Housing: House Are you a primary care program director to a significant other at home: No Do you presently have visiting nurse or other home services: No Alcohol intake: current Alcohol intake frequency: holidays/special occasions only Alcohol type: wine Comment: due at 7pm for oxycodone Patient Tobacco Use Status: Never used Tobacco e-Cigarette/Vaping Use: Never Used Second Hand Smoke Exposure: No Advance Directives Date on File: 08/21/21 service: No Current occupational status: employed 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 Patient has breath sounds bilaterally but somewhat difficult to auscultate secondary to patient's size/corpulence and significant splinting secondary to incisional discomfort. GI Other: Abdomen corpulent, soft, benign Assessment & Plan Assessment & Plan (1) Status post thymectomy: Onset Date: 09/17/24 Comment: Dr. Booker Ramirez Code(s): Z90.89 - Acquired absence of other organs Category: Surgical Plan: Current plan is to obtain a standard postop chest x-ray. Patient was been given local instructions, note out of work for 2 weeks time we will see her then or p.r.n.. Discussion regarding possible oncologic or radiation therapy follow-up will be made at the next visit with the patient had convalesced more. In the meantime, patient was encouraged with the use her incentive spirometry as well as ambulate as tolerated. No strenuous activities. She will be provided a note for out of work until next visit. Chest x-ray demonstrating postoperative changes. Atelectasis. No fluid collections. No pneumothorax. Splinting because of incisional discomfort may be responsible for left hemidiaphragm findings Orders: Orders XR chest 2V 09/28/24 Z90.89 - Acquired absence of other organs Coding Level of Care Code Global (06466) Diagnoses Status post thymectomy Z90.89
--- OUTSIDE RECORDS SUMMARY | 2024-09-28 15:12 | XMS_ITS | Clinical Summary ---
Author Organization [facility] Facility Address [address] [place] [address], [place] [address] Care Team Providers Care Garland Maker Name Role Phone Mitzy Zhao MD Primary Care Provider [phone] Medications Aspirin Low Dose 81 MG EC tablet Take 81 mg by mouth 1 (one) time each day 10/16/2022 Active lisinopril 5 MG tablet Take 5 mg by mouth 1 (one) time each day 10/10/2022 Active atorvastatin (LIPITOR) 80 MG tablet Take 80 mg by mouth 1 (one) time each day Active acetaminophen (TYLENOL) 325 MG tablet Take 500 mg by mouth every 6 (six) hours if needed for mild pain Active albuterol HFA (PROVENTIL HFA;VENTOLIN HFA) 108 (90 Base) MCG/ACT inhaler Inhale 2 puffs every 6 (six) hours if needed for wheezing Active Fluticasone-[place] meterol (Wixela Inhub) 100-50 MCG/ACT aerosol powder Inhale Active hydroCHLOROthia zide 25 MG tablet Take 25 mg by mouth 1 (one) time each day Active hydrOXYzine (ATARAX) 10 MG tablet Take 10 mg by mouth 3 (three) times a day if needed for itching Active metFORMIN (GLUCOPHAGE) 1000 MG tablet Take 1,000 mg by mouth in the morning and 1,000 mg in the evening. Take with meals. Active naproxen (NAPROSYN) 500 MG tablet Take 500 mg by mouth in the morning and 500 mg in the evening. Take with meals. Active omeprazole (PriLOSEC) [address] capsule Take 20 mg by mouth 1 (one) time each day Do not crush or chew. Active ondansetron (ZOFRAN) 4 MG tablet Take 4 mg by mouth every 8 (eight) hours if needed for nausea or vomiting Active citric acid-potassium citrate (POLYCITRA) 1100-334 MG/5ML solution Take by mouth 3 (three) times a day with meals Active Social History Tobacco Use Types Packs/Day Years Used Date Smoking Tobacco: Never Assessed Comments Unknown Sex and Gender Information Value Date Recorded Sex Assigned at Not on file Legal Sex Female 4:10 PM EDT Gender Identity Not on file Sexual Orientation Not on file Plan of Treatment Health Maintenance Due Date Last Done Comments Breast Cancer Screening 1965 Pneumococcal Vaccine: Pediat rics (0 to 5 Years) and At-Risk Patients (6 to 64 Years) (1 of 2 - PCV) 02/26/1970 Colorectal Cancer Screening: Annual FOBT 02/26/2013 Colorectal Cancer Screening: Colonoscopy 02/26/2013 Colorectal Cancer Screening: Sigmoidoscopy 02/26/2013 Influenza Vaccine (#1) 2024 Hepatitis B Vaccine Aged Out No longe r eligible based on patient's age to complete this topic Insurance CIGNA CIGNA Care Teams Garland Maker Relationship Specialty Start Date End Date Mitzy Zhao MD [address] [place], [place] PCP - General Internal Medicine 06/18/22
== END 2024-09-28 10:46 | disposition home or self-care (01) ==
PROVIDERS: PCP Internal Medicine; Visit Provider Surgery
DX: Z90.89 Acquired absence of other organs (principal)
CPT/HCPCS: 99024

== ENCOUNTER 2024-09-28 10:52 | Outpatient (REF) | payer OTHER, SELFPAY ==
--- NOTE | ~2024-09-28 | US_ITS ---
CLINICAL HISTORY: N20.0 - Calculus of kidney US Renal Comparison: None Findings: Right kidney normal size and echotexture, 12.4 cm length. Left kidney normal size and echotexture, 12.7 cm length. No hydronephrosis or nephrolithiasis. IMPRESSION: Unremarkable renal ultrasound. This document has been electronically signed by: Addison Ochoa MD on 09/28/2024 17:34:48
--- NOTE | ~2024-09-28 | XR_ITS ---
EXAMINATION: XR CHEST 2 VIEWS HISTORY: Z90.89 - Acquired absence of other organs COMPARISON: Comparison is made with the prior examination dated 09/18/2024. FINDINGS: PA and lateral views of the chest are submitted. There is elevation of the left hemidiaphragm. Adjacent airspace opacity may represent atelectasis or pneumonia. The right is clear. There is no pleural effusion, pneumothorax, or pulmonary vascular congestion. The heart is normal in size. There is degenerative disc disease of the spine. XR/XR chest 2V IMPRESSION: Elevated left hemidiaphragm with adjacent atelectasis or pneumonia. Electronically signed by: Tomasz Guzmán MD 09/28/2024 11:47 AM EST
--- OUTSIDE RECORDS SUMMARY | 2024-09-28 15:45 | XMS_ITS | Clinical Summary ---
Author Organization [facility] Facility Address [address] [place] [address], [place] [address] Care Team Providers Care Tar And Ammonia Pump Operator Name Role Phone Mitzy Zhao MD Primary Care Provider [phone] Medications Aspirin Low Dose 81 MG EC [...] this topic Insurance CIGNA CIGNA Care Teams Tar And Ammonia Pump Operator Relationship Specialty Start Date End Date Mitzy Zhao MD [address] [place], [place] PCP - General Internal Medicine 06/18/22
== END 2024-09-28 10:53 | disposition home or self-care (01) ==
LOC: HO.XRAY 10:52
PROVIDERS: PCP Internal Medicine; Visit Provider Surgery
DX: N20.0 Calculus of kidney (principal); Z90.89 Acquired absence of other organs
CPT/HCPCS: 71046; 76775

== ENCOUNTER → 2024-09-28 10:56 | Outpatient (BNV) | payer OTHER, SELFPAY | PROVIDERS: PCP Internal Medicine; Visit Provider Radiology Diagnostic Radiology | DX: N20.0 Calculus of kidney (principal); J98.6 Disorders of diaphragm | CPT/HCPCS: 71046; 76775 ==

== ENCOUNTER → 2024-10-01 12:04 | Outpatient (BNVA) | payer OTHER, SELFPAY | PROVIDERS: PCP Internal Medicine; Visit Provider Internal Medicine | DX: D49.89 Neoplasm of unspecified behavior of other specified sites (principal); E66.01 Morbid (severe) obesity due to excess calories; Z68.41 Body mass index [BMI] 40.0-44.9, adult; E78.2 Mixed hyperlipidemia; F33.0 Major depressive disorder, recurrent, mild; E11.65 Type 2 diabetes mellitus with hyperglycemia; I10 Essential (primary) hypertension | CPT/HCPCS: 96127 ==

== ENCOUNTER 2024-10-07 14:52 | Emergency (ER) | payer OTHER, SELFPAY ==
--- NOTE | 2024-10-07 15:02 | ED_ITS ---
HPI - General Adult General Chief complaint: Cardiac Arrest/CPR Stated complaint: CARDIAC ARREST Time Seen by Provider: 10/07/24 14:56 History of Present Illness ED Provider: Ravin DE LA TORRE narrative: The patient is a 59-year-old female who had a thymectomy surgery 3 weeks ago for a thymic mass. The patient has been home since the surgery. The family says that she has been short of breath ever since the surgery. They also say that yesterday they thought 1 of her legs was swollen and she was somewhat more short of breath. Today she finally allowed her family to call an ambulance. The initial responders were a basic EMT grew who found the patient awake but short of breath. The patient went to the bathroom with a plan to come to the hospital but apparently she collapsed on the toilet and was then in cardiac arrest. CPR was initiated and paramedics were called. The patient was intubated in the field. The patient seemed to be in PEA. The patient received 6 doses of epinephrine EN route to the hospital. There was no change in the patient's condition. There is no report of any fever. Related Data Home Medications ?Medication ?Instructions ?Recorded ?Confirmed albuterol sulfate 90 mcg/actuation 2 puff inhalation Q4-6H PRN 08/08/20 10/01/24 aerosol inhaler Wheezing Zantac mg PO DAILY 09/11/24 10/01/24 acetaminophen 650 mg 1,300 mg PO Q12H PRN Pain 09/11/24 10/01/24 tablet,extended release (8 Hour Pain Reliever) lidocaine 5 % topical patch 1 patch topical DAILY PRN Pain 09/11/24 10/01/24 fluticasone 250 mcg-salmeterol 50 1 inh inhalation DAILY 09/17/24 10/01/24 mcg/dose blistr powdr for inhalation (Wixela Inhub) Previous Rx's ?Medication ?Instructions ?Recorded miscellaneous medical supply #1 ea 08/23/21 (Blood Pressure Cuff) blood sugar diagnostic (FreeStyle #100 ea 09/27/21 Lite Strips) blood-glucose meter (FreeStyle #1 ea 09/27/21 Lite Meter kit) lancets 28 gauge (FreeStyle #100 ea 09/27/21 Lancets) blood pressure monitor #1 ea 10/27/22 potassium citrate 10 mEq (1,080 20 meq (2 x 10 mEq (1,080 mg)) PO 04/16/24 mg) tablet,extended release BID 90 days #360 tabs cyclobenzaprine 10 mg tablet 10 mg PO TID PRN muscle spasm #10 04/24/24 tabs Tresiba FlexTouch U-100 100 20 unit (0.2 mL) subcut DAILY 90 09/03/24 unit/mL (3 mL) subcutaneous pen days #18 mL (insulin degludec) aspirin 81 mg tablet,delayed 81 mg PO DAILY #90 tabs 09/03/24 release atorvastatin 80 mg tablet 80 mg PO BEDTIME 90 days #90 tabs 09/03/24 cholecalciferol (vitamin D3) 50 50 mcg PO DAILY 90 days #90 caps 09/03/24 mcg (2,000 unit) capsule fenofibrate 160 mg tablet 160 mg PO DAILY 90 days #90 tabs 09/03/24 lisinopril 20 mg tablet 20 mg PO DAILY #90 tabs 09/03/24 metformin 1,000 mg tablet 1,000 mg PO BID 90 days #180 tabs 09/03/24 hydrochlorothiazide 25 mg tablet 25 mg PO DAILY 90 days #90 tabs 10/01/24 levofloxacin 750 mg tablet 750 mg PO DAILY 7 days #7 tabs 10/01/24 semaglutide 0.25 mg or 0.5 mg (2 0.5 mg (0.736 mL) subcut QWEEK 4 10/01/24 mg/3 mL) subcutaneous pen injector weeks #2.944 mL (Ozempic) Allergies Allergy/AdvReac Type Severity Reaction Status Date / Time No Known Allergies Allergy Verified 10/07/24 15:27 [No Known Allergies*] Review of Systems Review of Systems: Yes unobtainable due to endotracheal tube and Unobtainable due to mental status PMFSH Past Medical History Medical History Back pain Depression History of headache SOB (shortness of breath) Left leg swelling Anxiety CAD (coronary artery disease) GERD (gastroesophageal reflux disease) Thymic cyst Renal calculi Muscle cramps Leukocytosis Moderate recurrent major depression Asthma Diabetes mellitus Headache RANJIT (obstructive sleep apnea) Morbid obesity with BMI of 45.0-49.9, adult Chronic cough Essential hypertension Mild asthma Pure hypercholesterolemia Surgical History Status post thymectomy (09/17/24) Hx of bilateral cataract extraction Hx of cystoscopy History of esophagogastroduodenoscopy (EGD) History of colonoscopy History of tubal ligation History of section Family History Family History Father Diabetes Hypertension Mother Hypertension Liver cancer Maternal Grandfather Throat cancer Paternal Grandmother Stomach cancer Social History Social History Household Members: Spouse and Children Housing: House Are you a primary care transition manager to a significant other at home: No Do you presently have visiting nurse or other home services: No Alcohol intake: current Alcohol intake frequency: holidays/special occasions only Alcohol type: wine Comment: due at 7pm for oxycodone Patient Tobacco Use Status: Never used Tobacco e-Cigarette/Vaping Use: Never Used Second Hand Smoke Exposure: No Advance Directives: Yes Advance Directives on File: Yes Advance Directives Date on File: 08/21/21 service: No Current occupational status: employed 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 She was receiving CPR by a machine. She was intubated and receiving [id number] ventilation. She was flaccid. HENMT Other: No facial asymmetry. No facial tone. ET tube in the mouth. Eyes Other: Pupils were fixed and dilated. No doll's eye reflex. Neck Other: No nuchal rigidity Neck: Yes full ROM Resp Other: Good breath sounds via [id number] ventilation. No spontaneous breaths. Cardio Other: No heart tones. No pulses. GI Other: Abdomen is soft. The abdomen did not seem tense or distended. Skin Other: Skin was pale and dry Neuro Other: The patient did not exhibit any signs of life. She was flaccid throughout. No response to painful stimuli. No doll's eye reflex. Extrem Other: No obvious asymmetry to the lower legs. Medical Decision Making Medical Decision Making MDM Narrative: The patient is a 59-year-old woman who was apparently short of breath and then collapsed at her home and was then in cardiac arrest. On arrival in the emergency room the patient has been receiving CPR for 25 minutes. She has agonal QRS complexes on her rhythm strip. Bedside ultrasound shows no cardiac activity. Pupils are fixed and dilated. No doll's eye reflex. Patient was pronounced at 1459. The family was at the emergency room and informed and ultimately viewed the body. Discharge Plan Discharge Clinical Impression: Cardiac arrest Patient Disposition: Prescriptions: No Action (DME) blood pressure monitor Kit See Rx Instructions .Route Qty: 1 0RF Rx Instructions: As directed potassium citrate 10 mEq (1,080 mg) tablet extended release 20 meq PO BID 90 Days Qty: 360 1RF acetaminophen [8 Hour Pain Reliever] 650 mg tablet extended release 1,300 mg PO Q12H PRN (Reason: Pain) lidocaine 5 % adhesive patch,medicated 1 patch topical DAILY PRN (Reason: Pain) Rx Instructions: leave on most painful area for up to 12 hrs Zantac PO DAILY fluticasone propion-salmeterol [Wixela Inhub] 250-50 mcg/dose blister with device 1 inh inhalation DAILY albuterol sulfate 90 mcg/actuation HFA aerosol inhaler 2 puff inhalation Q4-6H PRN (Reason: Wheezing) cyclobenzaprine 10 mg tablet 10 mg PO TID PRN (Reason: muscle spasm) Qty: 10 0RF (DME) Blood Pressure Cuff Misc See Rx Instructions .Route Qty: 1 0RF Rx Instructions: As directed, monitor BP 2-3 a day, and creat a log (DME) blood-glucose meter [FreeStyle Lite Meter] Kit See Rx Instructions .Route Qty: 1 0RF Rx Instructions: As directed (DME) FreeStyle Lite Strips Strip See Rx Instructions .Route Qty: 100 3RF Rx Instructions: Use 1 test strip once a day (DME) lancets [FreeStyle Lancets] 28 gauge misc See Rx Instructions .Route Qty: 100 3RF Rx Instructions: Use 1 lancet once a day fenofibrate 160 mg tablet 160 mg PO DAILY 90 Days Qty: 90 2RF cholecalciferol (vitamin D3) 50 mcg (2,000 unit) capsule 50 mcg PO DAILY 90 Days Qty: 90 1RF lisinopril 20 mg tablet 20 mg PO DAILY Qty: 90 3RF metformin 1,000 mg tablet 1,000 mg PO BID 90 Days Qty: 180 1RF insulin degludec [Tresiba FlexTouch U-100] 100 unit/mL (3 mL) insulin pen 20 unit subcut DAILY 90 Days Qty: 18 3RF atorvastatin 80 mg tablet 80 mg PO BEDTIME 90 Days Qty: 90 1RF aspirin 81 mg tablet,delayed release (DR/EC) 81 mg PO DAILY Qty: 90 3RF levofloxacin 750 mg tablet 750 mg PO DAILY 7 Days Qty: 7 0RF Ozempic 0.25 mg or 0.5 mg (2 mg/3 mL) pen injector 0.5 mg subcut QWEEK 28 Days Qty: 2.944 0RF hydrochlorothiazide 25 mg tablet 25 mg PO DAILY 90 Days Qty: 90 1RF Print Language: Bulgarian
--- NOTE | 2024-10-07 15:16 | MHC.EDTECH ---
Called senior medical writer per request of at [phone]. They will call back to take full report.
[2024-10-07 15:27] VITALS: BMI 41.9
--- NOTE | 2024-10-07 15:28 | PC.NURSE ---
[employer] acceping patient, [id number] - called [phone]. pending ME case.
--- OUTSIDE RECORDS SUMMARY | 2024-10-07 16:22 | XMS_ITS | Clinical Summary ---
Author Organization [facility] Facility Address [address] [place] [address], [place] [id number] Care Team Providers Care Highway Research Engineer Name Role Phone Mitzy Zhao MD Primary Care Provider [phone] Medications Aspirin Low Dose 81 MG EC [...] this topic Insurance [employer] CIGNA Care Teams Highway Research Engineer Relationship Specialty Start Date End Date Mityz Zhao MD [address] [place], [place] PCP - General Internal Medicine 06/18/22
[2024-10-08 10:18] LABS: Glucose, Whole Blood 372 mg/dL (60-115)
== END 2024-10-07 18:10 | disposition expired ==
PROVIDERS: Emergency Provider Emergency Medicine
DX: I46.9 Cardiac arrest, cause unspecified (principal)
CPT/HCPCS: 82947; 96374; 99282; 99285; J0171